=== PATIENT | male | born 1950 | race Caucasian/White ===

== ENCOUNTER 2024-01-27 07:02 | Outpatient (OUT) | payer BC, SELFPAY ==
[2024-01-27 07:32] LABS: Basophils Percent Auto 0.4 % (0.2-2.0); Eosinophils Absolute Auto 0.3 10^3/uL (0.0-0.7); Eosinophils Percent Auto 4.6 % (0.9-7.0); Hematocrit 37.4 % (42.0-54.0); Hemoglobin 12.8 g/dL (14.0-18.0); Immature Granulocytes Abs Auto 0.04 10^3/uL (0.00-0.03); Immature Granulocytes Pct Auto 0.6 % (0.0-0.5); Lymphocytes Absolute Auto 2.1 10^3/uL (1.2-3.8); Lymphocytes Percent Auto 31.7 % (20.5-60.0); Mean Corpuscular HGB Conc 34.2 g/dL (29.9-35.2); Mean Corpuscular Hemoglobin 31.8 pg (25.9-34.0); Mean Platelet Volume 9.7 fL (9.5-13.5); Monocytes Absolute Auto 0.6 10^3/uL (0.3-0.8); Monocytes Percent Auto 8.7 % (1.7-12.0); Neutrophils Absolute Auto 3.6 10^3/uL (1.4-6.5); Platelet Count 192 10^3/uL (150-450); Red Blood Count 4.02 10^6/uL (4.70-6.10); Red Cell Distribution Width 13.3 % (11.0-15.0); White Blood Count 6.8 10^3/uL (4.0-11.0)
[2024-01-27 09:06] LABS: Alanine Aminotransferase 34 U/L (16-63); Albumin Globulin Ratio 0.9; Albumin Level 3.4 g/dL (3.4-5.0); Alkaline Phosphatase 79 U/L (46-116); Anion Gap 15.4; Aspartate Amino Transferase 17 U/L (15-37); Bilirubin Total 0.4 mg/dL (0.2-1.0); Calcium 8.8 mg/dL (8.5-10.1); Carbon Dioxide 26.1 mmol/L (21.0-32.0); Chloride 102 mmol/L (98-107); Chol HDL Ratio 3.2; Cholesterol 117 mg/dL (<=200); Estimated GFR (African America 56 (>=60); Estimated GFR (Non-African Ame 46 (>=60); Globulin 3.9 g/dL; Glucose 163 mg/dL (74-106); HDL Cholesterol 36 mg/dL (40-60); Potassium 3.5 mmol/L (3.5-5.1); Sodium 140 mmol/L (136-145); Total Protein 7.3 g/dL (6.4-8.2); Triglycerides 295 mg/dL (<=150)
== END 2024-01-27 07:03 | disposition home or self-care (01) ==
LOC: LAB 07:09
PROVIDERS: PCP Nurse Practitioner Family; Visit Provider Nurse Practitioner
DX: E78.2 Mixed hyperlipidemia (principal); I25.10 Atherosclerotic heart disease of native coronary artery without angina pectoris
CPT/HCPCS: 36415; 80053; 80061; 85025

== ENCOUNTER 2024-02-15 14:00 | Outpatient (OUT) | payer BC, SELFPAY ==
--- NOTE | 2024-02-15 14:04 | CA_ITS ---
Patient Name: RONY THAKKAR MR#: [id number] : 1950 Exam Date: 02/15/2024 Ordering Doctor: DR ALEAH RECIO M.D. ECHOCARDIOGRAM REPORT PROCEDURE: CA ECHO DOPPLER COMPLETE INDICATIONS: Dyspnea COMPARISON: None. DESCRIPTION: COMPLETE ECHOCARDIOGRAM Real-time transthoracic echocardiography with 2D, M-mode, spectral and color flow Doppler performed. QUALITY: Technical quality was good. LEFT VENTRICLE: Normal chamber size. Proximal septal hypertrophy (sigmoid septum). Mild concentric left ventricular hypertrophy. Global left ventricular systolic function is normal. LV EF: Estimated left ventricular ejection fraction is 60-65 % DIASTOLIC: ATRIAL SEPTUM: LEFT ATRIUM: Moderate dilatation. RIGHT ATRIUM: Moderate dilatation. RIGHT VENTRICLE: Mild dilatation. Normal right ventricular systolic function. TRICUSPID VALVE: Normal mobility and thickness. No stenosis with trivial regurgitation. No evidence of pulmonary hypertension. RVSP 24 mmHg. MITRAL VALVE: Normal mobility and thickness. No evidence of mitral valve stenosis. There is no mitral annular calcification. Trivial mitral regurgitation. AORTIC VALVE: Normal trileaflet appearance. Thickened aortic valve. Normal leaflet mobility. No evidence of aortic valve stenosis. No aortic regurgitation. AORTIC ROOT: Normal diameter and appearance. PULMONIC VALVE: Normal thickness and mobility. No stenosis. Mild regurgitation. PERICARDIUM: No evidence of pericardial effusion. IVC: Collapses with inspirations. Normal size. PLEURA: CONCLUSION: 1. Mild concentric left ventricular hypertrophy with normal systolic function. LVEF is estimated at 60 to 65%. 2. Mildly dilated right ventricle with normal systolic function. 3. Moderate biatrial dilatation. 4. No significant valvular dysfunction. 5. Normal right-sided pressures. Adult Echocardiography Procedure Report Left Ventricle LVEDD (3.7 - 5.6 cm): 5.01 cm LVESD (2.2 - 4.0 cm): 3.39 cm LVIVS thickness (0.6 - 1.2 cm): 1.21 cm LVPW thickness (0.5 - 1.0 cm): 1.35 cm e': 0.11 m/s E - e': 5.95 LVOT Max Gradient: 4.74 mm[Hg] LVOT Area (cm2): 1.09 m/s Peak Velocity (LVOT): 1.09 m/s Mean Velocity (LVOT): 0.75 m/s LVOT Diameter 2.38 cm Left Ventricular Ejection Fraction: 60-65 % Left Atrium LA Volume Index (2D A2C): 30.05 ml/m2 Left Atrium Systolic Dimension: 4.44 cm Mitral Valve MV E to A Ratio: 1.28, 1.31 Mitral Valve A-Wave Peak Velocity: 0.49 m/s Mitral Valve E-Wave Peak Velocity: 0.64 m/s Right Ventricle RV Internal Diastolic Dimension: 3.62 cm Aorta AO Root Diam: 3.17 cm Ascending Ao Diam: 2.99 cm Aortic Valve AoV Area (Peak Erik): 4.11 cm2, 4.11 cm2 AoV Area (VTI): 3.89 cm2, 3.89 cm2 Peak Velocity(Antegrade Flow): 1.18 m/s Peak Gradient(Antegrade Flow): 5.58 mm[Hg] Mean Velocity(Antegrade Flow): 0.81 m/s Mean Gradient(Antegrade Flow): 3.02 mm[Hg] Velocity Time Integral: 25.16 cm Tricuspid Valve Peak Velocity (Regurgitant Flow): 2.13 m/s, 1.95 m/s, 2.28 m/s Pulmonic Valve Mean Gradient: 2.21 mm[Hg], 2.21 mm[Hg] Mean Velocity: 0.71 m/s, 0.71 m/s Peak Velocity: 0.98 m/s Peak Gradient: 3.87 mm[Hg], 3.82 mm[Hg] Right Atrium Right Atrium Systolic Pressure: 72.19 ml, 72.19 ml Dictated by: Aleah Recio M.D. on 02/15/2024 at 19:35 Approved by: Aleah Recio M.D. on 02/15/2024 at 19:41
== END 2024-02-15 14:01 | disposition home or self-care (01) ==
LOC: CARD 14:00
PROVIDERS: PCP Nurse Practitioner Family; Visit Provider Internal Medicine Interventional Cardiology
DX: R06.02 Shortness of breath (principal)
CPT/HCPCS: 93306

== ENCOUNTER 2024-03-13 08:00 | Outpatient (OUT) | payer BC, SELFPAY ==
--- NOTE | 2024-03-13 | PCN_ITS ---
CARDIAC STRESS TEST Requesting Physician: Procedure Date: 03/13/2024 INDICATION: Preoperative evaluation. METHODS: After risks, benefits and alternatives were explained, written informed consent was obtained. The patient was brought to the stress lab in a resting and fasting state. He was connected to the appropriate hemodynamic and electrocardiographic monitoring. Lexiscan 0.4 mg was infused intravenously. He was monitored for the standard duration and transferred to the Radiology Department for nuclear imaging. There were no complications. STRESS TEST INFORMATION: Lexiscan 0.4 mg was infused intravenously. He received 32.5 mCi of technetium Cardiolite with stress imaging and 9.7 mCi of technetium Cardiolite with rest imaging. HEMODYNAMICS: Resting heart rate was 61 beats per minute, increasing to a maximum of 93 beats per minute. Resting blood pressure was 136/66, decreasing to a minimum of 130/66. ELECTROCARDIOGRAPHY: Rest EKG: Sinus rhythm, first degree AV block, right bundle branch block, abnormal EKG. During infusion and recovery: No significant ST-T wave changes noted. No significant arrhythmia seen. FINAL IMPRESSIONS: 1. No ischemic EKG changes seen on Lexiscan pharmacological stress test. 2. Nuclear images are to be read, interpreted and reported in a separate dictation. [facility]
--- NOTE | 2024-03-13 | NM_ITS ---
Patient Name: RONY THAKKAR MR#: [id number] : 1950 Exam Date: 03/13/2024 Ordering Doctor: DR ALEAH BONDS M.D. RADIOLOGY REPORT PROCEDURE: NM JERRELL PERF SPECT REST STR COMPARISON: None. INDICATIONS: Encounter for other preprocedural examination TECHNIQUE: Exam Description: Stress/Rest one day protocol gated SPECT Rest Imagin.7 mCi Tc-99m Cardiolite IV on 03/13/2024 Stress Imaging 32.5 mCi Tc-99m Cardiolite IV on 03/13/2024 Exercise Protocol: 0.4 mg Lexiscan given IV Heart Rate (bpm): Rest: 61 Max: 93 PMHR: 62 Blood Pressure: Rest: 136/66 Max: 136/66 Symptoms: Rest and peak stress ECG findings were normal and the exercise portion of the study was normal per attending physician Dr. Shaver . For more details please see separate cardiac stress test report. FINDINGS: QUALITY OF STUDY: Good. PERFUSION DEFECT: LOCATION: Mid-anterior. SIZE: Small (1-2 segments). SEVERITY: Mild. TYPE: Persistent. WALL MOTION: Normal. LV SIZE: Normal. 105 mL. TID / TCD: None; 0.9 LVEF: Normal. Calculated EF 68%. SUMMARY: Myocardial perfusion imaging study has ABNORMAL findings. CONCLUSION: 1. Small fixed defect anterior wall, mid anterior segment 2. No reversible ischemia 3. Normal exercise test Dictated by: Jung Mak MD on 03/14/2024 at 14:10 Approved by: Jung Mak MD on 03/14/2024 at 14:11
[2024-03-13] MEDS: REGADENOSON 0.4 MG/5 ML SYRINGE IV (09:32)
--- NOTE | 2024-03-13 09:33 | PC.NURSE ---
Nursing Note Cardiac Stress Test Reviewed: Medication, allergies and patient history reviewed. Stress Test: [x ] Patient tolerated stress test well. [ ] Patient unable to tolerate walking on treadmill. Switched to Lexiscan stress test. [x ] No chest pain noted per patient [ ] Chest pain that resolved prior to leaving stress lab. [ ] No dyspnea noted. [x ] Dyspnea that resolved prior to leaving stress lab. [ x] Patient left stress lab asymptomatic and hemodynamically stable. [ ] Patient taken to the Emergency Room due to non-resolving symptoms following stress test. [ ] Patient achieved target heart rate. [ ] Patient unable to achieve target heart rate. [ ] Aminophylline administered as reversal agent to Lexiscan (Regadenoson). [ ] Nitro administered. Nursing Comments:
== END 2024-03-13 08:01 | disposition home or self-care (01) ==
LOC: NM 08:00
PROVIDERS: PCP Nurse Practitioner Family; Visit Provider Internal Medicine Interventional Cardiology
DX: Z01.818 Encounter for other preprocedural examination (principal); R06.09 Other forms of dyspnea
CPT/HCPCS: 78452; 93017; A9500; J2785

== ENCOUNTER 2025-03-12 16:21 | Outpatient (OUT) | payer BC, SELFPAY ==
[2025-03-12 16:49] LABS: Hematocrit 34.5 % (42.0-54.0); Hemoglobin 12.5 g/dL (14.0-18.0); Immature Granulocytes Abs Auto 0.04 10^3/uL (0.00-0.03); Immature Granulocytes Pct Auto 0.6 % (0.0-0.5); Lymphocytes Absolute Auto 2.6 10^3/uL (1.2-3.8); Mean Corpuscular HGB Conc 36.2 g/dL (29.9-35.2); Mean Corpuscular Hemoglobin 33.7 pg (25.9-34.0); Mean Corpuscular Volume 93.0 fL (80.0-94.0); Platelet Count 197 10^3/uL (150-450); Red Blood Count 3.71 10^6/uL (4.70-6.10); White Blood Count 7.0 10^3/uL (4.0-11.0)
[2025-03-12 17:21] LABS: Alanine Aminotransferase 29 U/L (16-63); Albumin Globulin Ratio 0.9; Albumin Level 3.5 g/dL (3.4-5.0); Alkaline Phosphatase 78 U/L (46-116); Anion Gap 9.6; Aspartate Amino Transferase 16 U/L (15-37); Blood Urea Nitrogen 22.0 mg/dL (7.0-18.0); Calcium 9.2 mg/dL (8.5-10.1); Carbon Dioxide 30.7 mmol/L (21.0-32.0); Chloride 104 mmol/L (98-107); Estimated GFR (African America >60 (>=60 mL/min/1.73m^2); Estimated GFR (Non-African Ame 56 (>=60 mL/min/1.73m^2); Globulin 3.8 g/dL; Glucose 188 mg/dL (74-106); NT Pro B Type Natriuretic Pept 278.0 pg/mL (<=900.0); Potassium 3.3 mmol/L (3.5-5.1); Sodium 141 mmol/L (136-145); Thyroid Stimulating Hormone 1.347 uIU/mL (0.358-3.740); Total Protein 7.3 g/dL (6.4-8.2)
== END 2025-03-12 16:22 | disposition home or self-care (01) ==
PROVIDERS: PCP Nurse Practitioner Family
DX: R06.02 Shortness of breath (principal); R53.83 Other fatigue
CPT/HCPCS: 36415; 80053; 83880; 84443; 85025

== ENCOUNTER 2025-03-22 16:07 | Outpatient (OUT) | payer BC, SELFPAY ==
--- OUTSIDE RECORDS SUMMARY | 2024-05-17 05:24 | XMS_ITS ---
Author Organization The [facility] in [place] Address [address] [place] [address] Care Team Providers Care Lump Roller Name Role Phone Ashley Forman Primary Care [...] Active Encounters Encounter Location Date Provider Diagnosis [facility] [address] [place] [address] 05/17/2024 Ashley Forman Plan Of Treatment Medication [...] Notes * Vivek KNOTTDOB: (74 yo M)Acc No.[id number]:05/17/2024 Patient: Vivek TORRES :1950 A ge:74 Y S ex:Male Address:[address] [place] [address] * Refills Refill tiZANidine HCl Tablet, 4 [...] Date: Generated for Blair polanco/Ghazal/Hema on: 0 03/22/2025 04:11 PM EDT
--- OUTSIDE RECORDS SUMMARY | 2024-05-22 07:59 | XMS_ITS ---
Author Organization The [facility] in [place] Address [address] [place] [address] Care Team Providers Care Benefits Specialist Recruiter Name Role Phone Ashley Forman Primary Care Provider [phone] REASON FOR VISIT colonoscopy not due Encounters Encounter Location Date Provider Diagnosis [facility] [address] [place] [address] 05/22/2024 Ashley Forman Plan Of Treatment No Information Progress Notes * Vivek KNOTTDOB: (74 yo M)Acc No.[id number]:05/22/2024 Patient: Vivek TORRES :1950 A ge:74 Y S ex:Male Address:[address] [place] [address] * true * Date: Generated for Printi ng/Famaria alejandrag/eTransmitting on: 0 03/22/2025 04:10 PM EDT
--- OUTSIDE RECORDS SUMMARY | 2024-06-12 07:55 | XMS_ITS ---
Author Organization The [facility] in [place] Address [address] [place] [address] Care Team Providers Care Licensed Chemical Spray Technician Name Role Phone Ashley Forman Primary Care Provider Medications Medication SIG (Take, Route, Fr equency, Duration) Notes Start Date End Date Status metFORMIN HCl 1000 MG take 1 tablet by m outh twice a day Oral for 90 days Active Encounters Encounter Location Date Provider Diagnosis [facility] [address] [place] [address] 06/12/2024 Ashley Forman Plan Of Treatment Medication Medication Name Sig Start Date Stop Date Notes metFORMIN HCl 1000 MG take 1 tablet by m outh twice a day Oral for 90 days Progress Notes * Vivek KNOTTDOB: (74 yo M)Acc No.[id number]:06/12/2024 Patient: Vivek TORRES :1950 A ge:74 Y S ex:Male Address:[address] [place] [address] * Refills Refill metFORMIN HCl Tablet, 1000 MG, Oral, 180 Each, take 1 tablet by mouth twice a day, 90 days, Refills=3 * true * Date: Generated for Printi ng/Faxing/eTransmitting on: 0 03/22/2025 04:10 PM EDT
--- NOTE | 2025-03-22 16:00 | CA_ITS ---
Patient Name: RONY THAKKAR MR#: [id number] : 1950 Exam Date: 03/22/2025 Ordering Doctor: PARIS MCKEON ECHOCARDIOGRAM REPORT PROCEDURE: CA ECHO DOPPLER COMPLETE INDICATIONS: Dyspnea on exertion, hypertension COMPARISON: None. DESCRIPTION: COMPLETE ECHOCARDIOGRAM Real-time transthoracic echocardiography with 2D, M-mode, spectral and color flow Doppler performed. QUALITY: Technical quality was good. LEFT VENTRICLE: Normal chamber size. Mild concentric left ventricular hypertrophy. LV EF: Global left ventricular systolic function is normal. Calculated left ventricular ejection fraction is 65%. No significant wall motion abnormalities. DIASTOLIC: Normal diastolic function. ATRIAL SEPTUM: Inadequately seen. LEFT ATRIUM: Normal chamber size. RIGHT ATRIUM: Mild dilatation. RIGHT VENTRICLE: Normal chamber size. Normal right ventricular systolic function. TRICUSPID VALVE: Normal mobility and thickness. No stenosis with mild regurgitation. No evidence of pulmonary hypertension. RVSP 22mmHg. MITRAL VALVE: Normal mobility and thickness. No evidence of mitral valve stenosis. There is no mitral annular calcification. Trivial mitral regurgitation. AORTIC VALVE: Normal trileaflet appearance. Mildly calcified aortic valve. Normal leaflet mobility. No evidence of aortic valve stenosis. No aortic regurgitation. AORTIC ROOT: Normal diameter and appearance. PULMONIC VALVE: Normal thickness and mobility. No stenosis. Mild regurgitation. PERICARDIUM: No evidence of pericardial effusion. IVC: Collapses with inspiration. Normal size. CONCLUSION: 1. Global left ventricular systolic function is normal; visually estimated ejection fraction is 60 to 65% 2. Normal right ventricular size and systolic function 3. Mild left ventricular hypertrophy 4. Normal diastolic function 5. The right atrium is mildly dilated 6. Mild pulmonic regurgitation Adult Echocardiography Procedure Report Left Ventricle LVEDD (3.7 - 5.6 cm): 5.25 cm LVESD (2.2 - 4.0 cm): 3.19 cm LVIVS thickness (0.6 - 1.2 cm): 1.15 cm LVPW thickness (0.5 - 1.0 cm): 1.18 cm e': 0.13 m/s E - e': 4.35 LVOT Max Gradient: 4.61 mm[Hg] LVOT Area (cm2): 1.07 m/s Peak Velocity (LVOT): 1.07 m/s Mean Velocity (LVOT): 0.64 m/s LVOT Diameter 2.22 cm Left Ventricular Ejection Fraction: 65.03 % Left Atrium LA Volume Index (2D A2C): 35.29 ml/m2 Left Atrium Systolic Dimension: 4.58 cm Mitral Valve MV E to A Ratio: 1.09 Mitral Valve A-Wave Peak Velocity: 0.51 m/s Mitral Valve E-Wave Peak Velocity: 0.56 m/s Right Ventricle RV Internal Diastolic Dimension: 3.93 cm Aorta AO Root Diam: 3.35 cm Ascending Ao Diam: 3.19 cm Aortic Valve AoV Area (Peak Erik): 4.04 cm2, 4.04 cm2 AoV Area (VTI): 3.24 cm2, 3.24 cm2 Peak Velocity(Antegrade Flow): 1.03 m/s Peak Gradient(Antegrade Flow): 4.25 mm[Hg] Mean Velocity(Antegrade Flow): 0.71 m/s Mean Gradient(Antegrade Flow): 2.33 mm[Hg] Velocity Time Integral: 23.00 cm Tricuspid Valve Peak Velocity (Regurgitant Flow): 2.19 m/s Pulmonic Valve Mean Gradient: 1.98 mm[Hg] Mean Velocity: 0.68 m/s Peak Velocity: 0.90 m/s, 0.97 m/s Peak Gradient: 3.73 mm[Hg], 3.22 mm[Hg] Right Atrium Right Atrium Systolic Pressure: 79.50 ml, 79.50 ml Dictated by: Becca Shaver M.D. on 03/23/2025 at 13:11 Approved by: Becca Shaver M.D. on 03/23/2025 at 13:13
--- OUTSIDE RECORDS SUMMARY | 2025-03-22 16:11 | XMS_ITS | Encounter Summary ---
Author Organization The [facility] Address [address] [place] [address] Care Team Providers Care Sand Caster Apprentice Name Role Phone Jens Umana MD Primary Care Provider [phone] Ashley Forman CNP Primary Care Provider [phone] Reason for Visit * Reason Comments Med Refill Encounter Details Date Type Department Care Team (Late st Contact Info) Description 11/09/2022 Refill [facility] Cardiology [address] [place] [address] Keely Faustin CNP [address] [place] [address] Coronary artery disease, unspecified vessel or lesion type, unspecified whether angina present, unspecified whether [place] or transplanted heart Social History Tobacco Use Types Packs/Day Years Used Date Smoking Tobacco: Never Assessed Sex and Gender Information Value Date Recorded Sex Assigned at Male 03/20/2025 3:51 PM EDT Legal Sex Male 11:52 PM EDT Gender Identity Male 03/20/2025 3:51 PM EDT Sexual Orientation Heterosexual or Straight 03/02 3:51 PM EDT COVID-19 Exposure Response Date Recorded In the last 10 days, have yo u been in contact with someone who was confirmed or suspected to have Coronavirus/COVID-19? No / Unsure 10/12/2022 3:27 PM EDT documented as of this encounter Plan of Treatment Upcoming Encounters Date Type Department Care Team (Late st Contact Info) Description 03/26/2025 2:20 PM EDT Office Visit [facility] [address] [place] [address] Kameron Wolf, FANNY [address] [place] [address] documented as of this encounter Visit Diagnoses Diagnosis Coronary artery disease, unspecified vessel or lesion type, unspecified whether angina present, unspecified whether [place] or transplanted heart documented in this encounter Care Teams Sand Caster Apprentice Relationship Specialty Start Date End Date Jens Umana MD [address] [facility] [address] PCP - General 03/20/22 03/30/23 Ashley Forman CNP [address] [place] [address] PCP - General Family Medicine 03/31/23 documented as of this encounter
--- OUTSIDE RECORDS SUMMARY | 2025-03-22 16:11 | XMS_ITS | Encounter Summary ---
Author Organization [facility] Address [address] [place] [address] Care Team Providers Care Student Education Specialist Name Role Phone Ashley Forman CNP Primary Care Provider [phone] Reason for Visit * Reason Comments Med Refill Encounter Details Date Type Department Care Team (Late st Contact Info) Description 11/16/2023 Refill [facility] Cardiology [address] [place] [address] Keely Faustin, HRIS DEVELOPER [address] [place] [address] Essential hypertension Social History Tobacco Use Types Packs/Day Years Used Date Smoking Tobacco: Former Cigarettes 1 15 1 972 - 1987 Smokeless Tobacco: Never NM Safety & Environment Answer Date Rec orded Fear of Current or Ex-Partner Not on file Emotionally Abused Not on file 09/23/2023 Physically Abused Not on file 09/23/2023 Sexually Abused Not on file 09/23/2023 Physically or Sexually Abused Not on file Sex and Gender Information Value Date Recorded Sex Assigned at Male 03/20/2025 3:51 PM EDT Legal Sex Male 11:52 PM EDT Gender Identity Male 03/20/2025 3:51 PM EDT Sexual Orientation Heterosexual or Straight 03/02 3:51 PM EDT documented as of this encounter Plan of Treatment Upcoming Encounters Date Type Department Care Team (Late st Contact Info) Description 03/26/2025 2:20 PM EDT Office Visit [facility] [address] [place] [address] Kameron Wolf, FANNY [address] [place] [address] documented as of this encounter Visit Diagnoses Diagnosis Essential hypertension Unspecified essential hypertension documented in this encounter Care Teams Student Education Specialist Relationship Specialty Start Date End Date Ashley Forman CNP [facility], [facility] [place] [address] PCP - General Family Medicine 03/31/23 documented as of this encounter
--- OUTSIDE RECORDS SUMMARY | 2025-03-22 16:11 | XMS_ITS | Encounter Summary ---
Author Organization [facility] Address [address] [facility] [place] [address] Care Team Providers Care Explosive Man Name Role Phone Jens Umana MD Primary Care Provider [phone] Encounter Details Date Type Department Care Team ([facility] Contact Info) Description 03/27/2024 Clinisync Result Encounter [facility] External Department Unsolicited Richie Castano DO [address] [place] [address] Social History Tobacco Use Types Packs/Day Years Used Date Smoking Tobacco: Former Cigarettes Smokeless Tobacco: Never Alcohol Use Standard Drinks/Week Comments Never 0 (1 standard drink = 0.6 oz pur e alcohol) Sex and Gender Information Value Date Recorded Sex Assigned at Not on file Legal Sex Male 7:18 PM EDT Gender Identity Not on file Sexual Orientation Not on file documented as of this encounter Plan of Treatment Upcoming Encounters Date Type Department Care Team (Late Contact Info) Description 08/07/2025 3:45 PM EST Office Visit [facility] [address] [place] [phone] Richie Castano DO [address] [place] [address] documented as of this encounter Procedures Procedure Name Priority Date/Time Associated Diagnosis Comments XR HIP 1 VIEW LEFT + PELVIS 03/27/2024 9:38 AM EDT documented in this encounter Results * XR HIP 1 VIEW LEFT + PELVIS (03/27/2024 9:38 AM EDT) Anatomical Region Laterality Modality Other 03/27/2024 9:38 AM EDT Narrative 03/28/2024 3:03 PM EDT Exam Date/Time: 03/27/2024 10:02 EDT Reason for Exam: Post Op Report IMPRESSION: POSTSURGICAL CHANGES OF LEFT TOTAL HIP ARTHROPLASTY. EXAM: X-ray hip, 2 view HISTORY: Postoperative evaluation total hip arthroplasty TECHNIQUE: Frontal and lateral views of the left hip COMPARISON: Radiographs 04/30/2020 FINDINGS: Interval postsurgical changes of left total hip arthroplasty including soft tissue emphysema. Alignment is anatomic. No periprosthetic abnormality. Postsurgical changes of right hip arthroplasty again identified. Ordering Provider: Richie Castano FINAL REPORT Dictated: 03/28/2024 3:00 pm Octavio Granado DO Signed (Electronic Signature): 03/28/2024 3:00 pm Signed by: Octavio Granado DO Transcribed by: FORREST Technologist: LIZBETH Technical Comments Radiation Dose: Ka,r in mGy = . DAP = . Procedure Note Radiology, Radiologist, MD - 03/28/2024 Exam Date/Time: 03/27/2024 10:02 EDT Reason for Exam: Post Op Report IMPRESSION: POSTSURGICAL CHANGES OF LEFT TOTAL HIP ARTHROPLASTY. EXAM: X-ray hip, 2 view HISTORY: Postoperative evaluation total hip arthroplasty TECHNIQUE: Frontal and lateral views of the left hip COMPARISON: Radiographs 04/30/2020 FINDINGS: Interval postsurgical changes of left total hip arthroplasty includingsoft tissue emphysema. Alignment is anatomic. No periprosthetic abnormality.Postsurgical changes of right hip arthroplasty again identified. Ordering Provider: Richie Castano FINAL REPORT Dictated: 03/28/2024 3:00 pm Octavio Granado DO Signed (Electronic Signature): 03/28/2024 3:00 pm Signed by: Octavio Granado DO Transcribed by: FORREST Technologist: LIZBETH Technical Comments Radiation Dose: Ka,r in mGy = . DAP = . Richie Castano DO [facility] Final Resu lt documented in this encounter Visit Diagnoses Not on filedocumented in this encounter Care Teams Explosive Man Relationship Specialty Start Date End Date Jens Umana MD PCP - General Family Medicine 02/22/24 documented as of this encounter
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
--- OUTSIDE RECORDS SUMMARY | 2025-03-22 16:11 | XMS_ITS | Encounter Summary ---
Author Organization [facility] Address [address] [place] [address] Care Team Providers Care Health Services Coordinator Name Role Phone Ashley Forman CNP Primary Care Provider [phone] Reason for Visit * Reason Comments Med Refill Encounter Details Date Type Department Care Team (Late st Contact Info) Description 04/01/2023 Refill [facility] [address] [place] [address] Keely Faustin, BLOW MOLDING MACHINE OPERATOR [address] [place] [phone] Chest pain, unspecified type Social History Tobacco Use Types Packs/Day Years Used Date Smoking Tobacco: Former Cigarettes 1 16 08 972 1986 Smokeless Tobacco: Never Sex and Gender Information Value Date Recorded [...] suspected to have Coronavirus/COVID-19? No / Unsure 03/31/2023 2:58 PM EDT documented as of this encounter Plan of Treatment Upcoming Encounters Date Type Department Care Team (Late Contact Info) Description 03/26/2025 2:20 PM EDT Office Visit [facility] [address] [place] [address] Kameron Wolf, FANNY [address] [facility] [place] [address] documented as of this encounter Visit Diagnoses Diagnosis Chest pain, unspecified type documented in this encounter Care Teams Health Services Coordinator Relationship Specialty Start Date End Date Ashley Forman CNP [facility] [facility], [place] [address] PCP - General Family Medicine 03/31/23 documented as of this encounter
--- OUTSIDE RECORDS SUMMARY | 2025-03-22 16:11 | XMS_ITS | Clinical Summary ---
Author Organization [facility] Address [id number] [address] [place] [address] Care Team Providers Care Merchandise Clerk Name Role Phone Ashley Forman SEMICONDUCTOR WAFERS SAW OPERATOR-CAN DRAGGER Primary Care Provider Allergies Active Allergy Reactions Criticality Noted Date Comments Aspirin Anaphylaxis High 09/25/2019 Penicillins Swelling,Rash Low 09/25/2019 Medications pantoprazole (PROTONIX) 40 mg EC tablet Take 40 mg by mouth 2 (two) times a day. Active furosemide (LASIX) 20 mg tablet Take 20 mg by mouth daily. Active metoprolol tartrate (LOPRESSOR) 25 mg tablet Take 25 mg by mouth 2 (two) times a day. Active SITagliptin (JANUVIA) 100 mg tablet Take 100 mg by mouth daily. Active clopidogreL (PLAVIX) 75 mg tablet Take 75 mg by mouth daily. Active amLODIPine (NORVASC) 10 mg tablet Take 10 mg by mouth daily. Active glimepiride (AMARYL) 4 mg tablet Take 4 mg by mouth every morning before breakfast. Active atorvastatin (LIPITOR) 40 mg tablet Take 40 mg by mouth daily. Active isosorbide mononitrate (IMDUR) 60 mg 24 hr tablet Take 60 mg by mouth daily. Active lisinopriL (PRINIVIL,ZESTRI L) 20 mg tablet Take 20 mg by mouth daily. Active hydroCHLOROthiaz bradly (MICROZIDE) 12.5 mg capsule Take 12.5 mg by mouth daily. Active metFORMIN (GLUCOPHAGE) 1000 mg tablet Take 1,000 mg by mouth 2 (two) times a day with meals. Active ecazidrq-hvrg-WB -calcium &mins (THERAGRAN-M) 9 mg iron-400 mcg tablet Take 1 tablet by mouth daily. Active ferrous sulfate 325 (65 FE) mg tablet Take 325 mg by mouth daily with breakfast. Active polycarbophil (FIBERCON) 625 mg tablet Take 625 mg by mouth daily. Active Family History Medical History Relation Name Comments Heart disease Brother 1 COPD Brother 2 Heart disease Father Cancer Mother brain Heart disease Mother COPD Sister Heart disease Sister Relation Name Status Comments Brother 1 Alive Brother 2 Alive Father Mother Sister Alive Social History Tobacco Use Types Packs/Day Years Used Date Smoking Tobacco: Former Smokeless Tobacco: Never Alcohol Use Standard Drinks/Week Comments Yes 0 (1 standard drink = 0.6 oz pur e alcohol) occassional Childcare Answer Date Recorded Childcare Unknown 01/11/2019 Employment Answer Date Recorded Employment Unknown 01/11/2019 Purpose - Life Answer Date Recorded Purpose and direction in life Unknown Sex and Gender Information Value Date Recorded Sex Assigned at Not on file Legal Sex Male 11:43 AM EDT Gender Identity Not on file Sexual Orientation Not on file Last Filed Vital Signs Vital Sign Reading Time Taken Comments Blood Pressure - - Pulse - - Temperature - - Respiratory Rate - - Oxygen Saturation - - Inhaled Oxygen Concentration - - Weight 106.6 kg (235 lb) 09/25/2019 9:37 AM EST Height 175.3 cm (5' 9 ) 09/25/2019 9:37 AM EST Body Mass Index 34.7 09/25/2019 9:37 AM EST Plan of Treatment Health Maintenance Due Date Last Done Comments Depression Screening 1962 Tobacco Screening 1962 Adult BMI Screening 1969 Zoster (Shingles) Vaccine (1 of 2) 2001 Fall Risk Screening 2016 Influenza Vaccine 04/02/2025 DTaP,Tdap and Td Vaccines (2 - Td or Tdap) 09/21/2025 09/21/2015 Medical Devices Not on file Insurance [facility] Care Teams Merchandise Clerk Relationship Specialty Start Date End Date Ashley Forman, SEMICONDUCTOR WAFERS SAW OPERATOR-CAN DRAGGER [address] [place] [address] PCP - General Family Medicine 09/25/19
--- OUTSIDE RECORDS SUMMARY | 2025-03-22 16:11 | XMS_ITS | Encounter Summary ---
Author Organization [facility] Address [address] [facility] [place] [address] Care Team Providers Care Staff Pharmacist Hospital Name Role Phone Jens Umana MD Primary Care Provider [phone] Encounter Details Date Type Department Care Team ([facility] Contact Info) Description 03/21/2024 Abstract [facility] [address] [facility] [address] CH[address]I Marge [facility] [place] [address] Angelic Crawley, TAYO [address] [place], [place] Social History Tobacco Use Types Packs/Day Years [...] 08/07/2025 3:45 PM EST Office Visit [facility] [address] CHIDI Bird [facility] [place] [address] Richie Castano DO [address] [place], [place] [id number] documented as of this encounter Visit Diagnoses Not on filedocumented in this encounter Care Teams Staff Pharmacist Hospital Relationship Specialty Start Date End Date Jens Umana MD PCP - General Family Medicine 02/22/24 documented as of this encounter
--- OUTSIDE RECORDS SUMMARY | 2025-03-22 16:11 | XMS_ITS | Encounter Summary ---
Author Organization [facility] Address [address] [place] [address] Care Team Providers Care Battery Charger Name Role Phone Jens Umana MD Primary Care Provider [phone] Ashley Forman CNP Primary Care Provider [phone] Reason for Visit * Reason Comments Med Refill Encounter Details Date Type Department Care Team (Late st Contact Info) Description 11/04/2022 Refill [facility] [address] [place] [address] Joby Recio MD [address] [facility] [address] [facility] [place] [address] Benign hypertensive heart disease without congestive heart failure Social History Tobacco Use Types Packs/Day Years [...] Description 03/26/2025 2:20 PM EDT [facility] [address] [place] [address] Kameron Wolf, FANNY [address] [place] [address] documented as of this encounter Visit Diagnoses Diagnosis Benign hypertensive heart disease without congestive heart failure Benign hypertensive heart disease without heart failure documented in this encounter Care Teams Battery Charger Relationship Specialty Start Date End Date Jens Umana MD [address] [facility] [place] [address] PCP - General 03/20/22 03/30/23 Ashley Forman CNP [address] [place] [address] PCP - General Family Medicine 03/31/23 documented as of this encounter
--- OUTSIDE RECORDS SUMMARY | 2025-03-22 16:11 | XMS_ITS | Clinical Summary ---
Author Organization [facility] Address [address] [place] [address] Care Team Providers Care Surgical Instrument Repair Specialist Name Role Phone Dasia Ashley ESCOBEDO Primary Care Provider [phone] Allergies Active Allergy Reactions Criticality Noted Date Comments Aspirin Other 01/27/2024 High dose is able to take low dose Penicillins Rash,Swelling,Other Low 09/25/2019 Medications aspirin 81 mg chewable tablet in the morning. Active glimepiride (Amaryl) 4 mg tablet glimepiride 4 mg tablet take 1 tablet by mouth once daily Active SITagliptin (Januvia) 100 mg tablet Januvia 100 mg tablet take 1 tablet by mouth once daily Active metFORMIN (Glucophage) 1,000 mg tablet metformin 1,000 mg tablet take 1 tablet by mouth twice a day Active nitroglycerin (Nitrostat) 0.4 mg SL tablet nitroglycerin 0.[address] 1 tablet under the tongue if needed every 5 minutes for chest pain for MAXIMUM OF 3 DOSES Active pantoprazole (ProtoNix) 40 mg EC tablet pantoprazole 40 mg tablet,delayed release take 1 tablet by mouth twice a day Active tiZANidine (Zanaflex) 4 mg tablet tizanidine 4 mg tablet take 1 tablet by mouth twice a day if needed Active calcium polycarbophiL (Fibercon) 625 mg tablet Take 625 mg by mouth in the morning. Active cholecalciferol, vitamin D3, 50 mcg (2,000 unit) capsule cholecalciferol (vitamin D3) 50 mcg (2,000 unit) capsule take 1 capsule by mouth once daily Active ferrous sulfate 325 (65 Fe) MG tablet Take 325 mg by mouth. Active multivitamin (Theragran-M) 9 mg iron-400 mcg tablet Take 1 tablet by mouth in the morning. Active amLODIPine (Norvasc) 10 mg tabletIndications :Essential hypertension Take 1 tablet (10 mg) by mouth once daily as directed. 90 tablet 3 06/13/20 24 Active hydroCHLOROthiazi de (HYDRODiuril) 25 mg tabletIndications :Essential hypertension Take 1 tablet (25 mg) by mouth in the morning. 90 tablet 3 06/13/20 24 Active isosorbide mononitrate ER (Imdur) 120 mg 24 hr tabletIndications :Chest pain, unspecified type Take 1 tablet (120 mg) by mouth once daily as directed. 90 tablet 3 06/19/20 24 Active atorvastatin (Lipitor) 40 mg tabletIndications :Coronary artery disease due to lipid rich plaque Take 1 tablet (40 mg) by mouth in the morning. 90 tablet 3 08/03/19 25 026 Active metoprolol tartrate (Lopressor) 25 mg tabletIndications :Benign hypertensive heart disease without congestive heart failure Take 1.5 tablets (37.5 mg) by mouth two times daily. 270 tablet 3 12/08/19 25 026 Active furosemide (Lasix) 20 mg tabletIndications :Primary hypertension Take 1 tablet (20 mg) by mouth in the morning. 90 tablet 3 12/08/19 25 026 Active potassium chloride CR (K-Tab) 20 mEq ER tabletIndications :Edema, unspecified type Take 1 tablet (20 mEq) by mouth in the morning. 90 tablet 3 12/08/19 25 Active lisinopril 20 mg tabletIndications :Essential hypertension Take 1 tablet (20 mg) by mouth in the morning. 90 tablet 3 12/08/19 25 Active Active Problems Problem Noted Date Diagnosed Date Colon polyps 02/27/2025 Constipation 02/27/2025 Depression 02/27/2025 Dyspepsia 02/27/2025 Dyssynergia 02/27/2025 Heartburn 02/27/2025 Hemorrhoids 02/27/2025 Skin cancer 02/27/2025 Vertigo 02/27/2025 Difficulty walking 03/29/2024 Chronic fatigue, unspecified 03/31/2023 Diabetic neuropathy 03/31/2023 03/31/2023 Edema 03/31/2023 03/31/2023 Gastroesophageal reflux disease 03/31/2023 03/31/2023 Hyperlipidemia 03/31/2023 03/31/2023 Assessment & Plan (07/16/2023 4:28 PM EST): Lipid levels are well-controlled continue Lipitor 40 mg Assessment & Plan (03/31/2023 3:56 PM EDT): Lipid abnormalities are stable Continue lipitor Insomnia 03/31/2023 03/31/2023 Right hip pain 03/31/2023 03/31/2023 Pain in joint involving pelvic region and thigh 03/31/2023 03/31/2023 Shoulder joint pain 03/31/2023 03/31/2023 Vitamin D deficiency 03/31/2023 03/31/2023 Low back pain 03/31/2023 03/31/2023 Thoracic back pain 03/31/2023 03/31/2023 Assessment & Plan (03/31/2023 3:57 PM EDT): May need to f/U with PCP Unstable angina 03/31/2023 03/31/2023 Coronary artery disease invo lving [place] coronary artery of [place] heart without angina pectoris 05/18/2022 Assessment & Plan (07/16/2023 4:29 PM EST): Coronary artery disease is stable Continue GDMT- Aspirin, Plavix, Lipitor, Imdur, lisinopril, metoprolol continue risk factor modifications- heart healthy diet, regular exercise as tolerated and continue all medications. Assessment & Plan (03/31/2023 3:56 PM EDT): Coronary artery disease is Stable and patient states he actually has a better activity tolerance status post heart cath last March and PCI to SVG to diag Continue GDMT continue risk factor modifications- heart healthy diet, regular exercise as tolerated and continue all medications. Degenerative joint disease of right hip 05/18/20 Diabetes mellitus 05/18/2022 History of right hip replacement 05/18/2022 Hypertension 05/18/2022 Assessment & Plan (07/16/2023 4:28 PM EST): Hypertension is Well-controlled 116/68 continue all medicine Assessment & Plan (03/31/2023 3:57 PM EDT): Hypertension is Currently well controlled 106/62 continue all medications including amlodipine, Chlorothiazide, Imdur, lisinopril, metoprolol Primary localized osteoarthritis of pelvic regio n and thigh 05/18/2022 History of coronary artery bypass graft 05/18/20 22 Assessment & Plan (07/16/2023 4:29 PM EST): stable Type 2 diabetes mellitus 01/11/2019 023 Angina pectoris 10/16/2016 Assessment & Plan (03/31/2023 3:55 PM EDT): Continue Imdur 120 mg daily I asked patient next time he has this back pain/chest pain he is to take a nitro sublingual and see if it relieves his pain if so he is to call office. He has no activity limiting symptoms and states he walks up and down 18 steps multiple times a day at work without chest pain or shortness of breath stopping him. I feel most likely this is chronic back pain and or musculoskeletal Coronary artery disease 09/23/2016 03/31/20 23 Overview (03/31/2023): s/p cabg x 5 Encounters Date Type Department Care Team Description 03/13/2025 Telephone [facility] [address] [place] [address] YaimaGreta MA 02/27/2025 1:40 PM EDT Office Visit [facility] [address] [place] [address] Kameron Wolf CNP WARNER (dyspnea on exertion) (Primary Dx); Bilateral lower extremity edema; Coronary artery disease involving [place] coronary artery of [place] heart without angina pectoris; Hx of CABG; Other fatigue; Shortness of breath; Primary hypertension; Mixed hyperlipidemia from Last 3 Months Family History Medical History Relation Name Comments Coronary artery disease Father Hypertension Father Coronary artery disease Mother Diabetes Mother Hypertension Mother Stroke Paternal Grandmother Relation Name Status Comments Father Mother Paternal Grandmother Social History Tobacco Use Types Packs/Day Years Used Date Smoking Tobacco: Former Cigarettes 1 15 1 972 - 1987 Smokeless Tobacco: Never Tobacco Cessation:Counseling Given: Not Answered [place] Safety & Environment Answer Date Rec orded [...] Heterosexual or Straight 03/02 3:51 PM EDT Last Filed Vital Signs Vital Sign Reading Time Taken Comments Blood Pressure 114/72 02/27/2025 1:43 PM EDT Pulse 66 02/27/2025 1:43 PM EDT Temperature - - Respiratory Rate - - Oxygen Saturation 95% 02/27/2025 1:43 PM EDT Inhaled Oxygen Concentration - - Weight 99.8 kg (220 lb) 02/27/2025 1:43 PM EDT Height 175.3 cm (5' 9 ) 02/27/2025 1:43 PM EDT Body Mass Index 32.49 02/27/2025 1:43 PM EDT Plan of Treatment Upcoming Encounters Date Type Department Care Team (Late st Contact Info) Description 03/26/2025 2:20 PM EDT Office Visit [facility] Heart [facility] [address] [place] [address] Kameron Wolf, CRAB FISHER [address] [place] [address] Health Maintenance Due Date Last Done Comments CT Colonography 1951 Diabetes: Hemoglobin A1C 1950 FIT-DNA 1951 FIT 1950 FOBT 1950 Medicare Annual Wellness (AWV) 1950 Sigmoidoscopy 1950 Diabetes: Retinopathy Screening 1961 Depression Screening 1963 Diabetes: Urine Protein Screening 1970 Pneumococcal Vaccine: 50+ Years (1 of 2 - PCV) 1970 Zoster Vaccines (1 of 2) 2001 Fall Risk Screening 2016 COVID-19 Vaccine (4 - 2023-2 5 season) 2024 06/01/2022, 10/22/2020, 09/30/2020 Influenza Vaccine (#1) 2025 06/01/2022 Adult Tetanus 09/21/2025 09/21/2015 Colonoscopy 11/11/2028 11/11/2018 Colorectal Cancer Screening 11/11/2028 HIB Vaccines Aged Out No longer eligi ble based on patient's age to complete this topic HPV Vaccines Aged Out No longer eligi ble based on patient's age to complete this topic IPV Vaccines Aged Out No longer eligi ble based on patient's age to complete this topic Meningococcal B Vaccine Aged Out No l onger eligible based on patient's age to complete this topic Meningococcal Vaccine Aged Out No abdelrahman kathe eligible based on patient's age to complete this topic Rotavirus Vaccines Aged Out No longer eligible based on patient's age to complete this topic Procedures Procedure Name Priority Date/Time Associated Diagnosis Comments ECG 12 LEAD UNIT PERFORMED Routine 02/27/2025 1:44 PM EDT Shortness of breath from Last 3 Months Results * ECG 12 lead unit performed (02/27/2025 1:44 PM EDT) Kameron Ribeiroelke ESCOBEDO ECG ORDERABLES Final Result from Last 3 Months Insurance [facility] Member Subscriber Plan / Payer (Ef fective 2022-Present) Name:Vivek Knott Relation to Subscriber:Self Name:Vivek Knott Payer ID:[id number] (NAIC) Type:Not on file Address: [address] [place] [id number] MEDICARE Care Teams Surgical Instrument Repair Specialist Relationship Specialty Start Date End Date Ashley Forman CNP [address] [place] [address], [place] [address] PCP - General Family Medicine 03/31/23
--- OUTSIDE RECORDS SUMMARY | 2025-03-22 16:11 | XMS_ITS | Encounter Summary ---
Author Organization [facility] Address [address] [place] [address] Care Team Providers Care Donor Specialist Name Role Phone Ashley Forman CNP Primary Care Provider [phone] Encounter Details Date Type Department Care Team (Late st Contact Info) Description 03/13/2025 Telephone [facility] [address] [place] [address] Greta Erwin MA Social History Tobacco Use Types Packs/Day Years Used Date Smoking Tobacco: Former Cigarettes 1 15 1 972 - 1987 Smokeless Tobacco: Never [place] Safety & Environment Answer Date Rec orded [...] PM EDT documented as of this encounter Miscellaneous Notes * Telephone Encounter - Greta Erwin MA - 03/13/2025 11:11 AM EDT Regarding lab results from 03/12/2025: Per Kameron Wolf CNP- Thanks. Let's check BMP again in one week, and if still low we can assume she is chronically low and we can start him on 20 meq daily. Thanks! Spoke with patient and asked that he had repeat BMP in 1 week. Patient already takes potassium 20mEq daily. He told me his RX ran out and he was out of it for awhile. He just filled the RX and restated it a few days ago. He will have repeat labs next week. Patient verbalized understanding. documented in this encounter Plan of Treatment Upcoming Encounters Date Type Department Care Team (Late st Contact Info) Description 03/26/2025 2:20 PM EDT Office Visit [facility] [address] [place] [address] Kameron Wolf CNP [address] [place] [address] Scheduled Orders Name Type Priority Associated Diagnoses Orde r Schedule Basic metabolic panel Lab Routine Hypokalemia Expected: 03/13/2025 (Approximate), Expires: 03/13/2026 documented as of this encounter Visit Diagnoses Diagnosis Hypokalemia- Primary Hypopotassemia documented in this encounter Care Teams Donor Specialist Relationship Specialty Start Date End Date Ashley Forman CNP [facility], [facility] [place] [address] PCP - General Family Medicine 03/31/23 documented as of this encounter
--- OUTSIDE RECORDS SUMMARY | 2025-03-22 16:12 | XMS_ITS | Encounter Summary ---
Author Organization [facility] Address [address] [place] [address] Care Team Providers Care Real Estate Sales Associate Name Role Phone Jens Umana MD Primary Care Provider [phone] Ashley Forman CNP Primary Care Provider [phone] Reason for Visit * Reason Comments Med Refill Encounter Details Date Type Department Care Team (Late st Contact Info) Description 01/08/2023 Refill [facility] Cardiology [address] [place] [phone] Keely Faustin CNP [address] [place] [address] Coronary artery disease due to lipid rich plaque Social History Tobacco Use Types Packs/Day Years [...] Description 03/26/2025 2:20 PM EDT Office Visit [facility] Heart at [facility] [address] [place] [address] Kameron Wolf, BARREL CUTTER [address] [place] [address] documented as of this encounter Visit Diagnoses Diagnosis Coronary artery disease due to lipid rich plaque documented in this encounter Care Teams Real Estate Sales Associate Relationship Specialty Start Date End Date Jens Umana MD [address] [place] [phone] PCP - General 03/20/22 03/30/23 Ashley Forman CNP [address] [place] [phone] PCP - General Family Medicine 03/31/23 documented as of this encounter
--- OUTSIDE RECORDS SUMMARY | 2025-03-22 16:12 | XMS_ITS | Encounter Summary ---
Author Organization [facility] Address [address] [place] [address] Care Team Providers Care Meat Carver Name Role Phone Jens Umana MD Primary Care Provider [phone] Ashley Forman CNP Primary Care Provider [phone] Reason for Visit * Reason Comments Med Refill Encounter Details Date Type Department Care Team (Late st Contact Info) Description 01/03/2023 Refill [facility] Cardiology [address] [place] [phone] Keely Faustin CNP [address] [place] [address] Edema, unspecified type Social History Tobacco Use Types [...] Description 03/26/2025 2:20 PM EDT Office Visit [facility] [address] [place] [address] Kameron Wolf, INBOUND INGREDIENT LOGISTICS SPECIALIST [address] [place] [address] documented as of this encounter Visit Diagnoses Diagnosis Edema, unspecified type documented in this encounter Care Teams Meat Carver Relationship Specialty Start Date End Date Jens Umana MD [address] [place] [phone] PCP - General 03/20/22 03/30/23 Ashley Forman CNP [address] [place] [address] [place], [place] [phone] PCP - General Family Medicine 03/31/23 documented as of this encounter
--- OUTSIDE RECORDS SUMMARY | 2025-03-22 16:12 | XMS_ITS | Encounter Summary ---
Author Organization [facility] Address [address] [place] [address] Care Team Providers Care Development Eng Name Role Phone Jens Umana MD Primary Care Provider [phone] Ashley Forman CNP Primary Care Provider [phone] Reason for Visit * Reason Comments Med Refill Encounter Details Date Type Department Care Team (Late st Contact Info) Description 12/05/[address] [facility] Cardiology [address] [place] [phone] Keely Faustin CNP [address] [place] [address] Essential hypertension Social History Tobacco [...] Description 03/26/2025 2:20 PM EDT Office Visit [facility] [address] [place] [address] Kameron Wolf, FANNY [address] [place] [address] documented as of this encounter Visit Diagnoses Diagnosis Essential hypertension Unspecified essential hypertension documented in this encounter Care Teams Development Eng Relationship Specialty Start Date End Date Jens Umana MD [address] [place], [place] [address] [address] PCP - General 03/20/22 03/30/23 Ashley Forman CNP [address] [place] [address] [place] [address] PCP - General Family Medicine 03/31/23 documented as of this encounter
--- OUTSIDE RECORDS SUMMARY | 2025-03-22 16:12 | XMS_ITS | Encounter Summary ---
Author Organization [facility] Address [address] [place] [address] Care Team Providers Care Divine Healer Name Role Phone Jens Umana MD Primary Care Provider [phone] Ashley Forman CNP Primary Care Provider [phone] Reason for Visit * Reason Comments Med Refill Encounter Details Date Type Department Care Team (Late st Contact Info) Description 03/25/2023 Refill [facility] Cardiology [address] [place] [phone] Keeyl Faustin CNP [address] [place] [address] Chest pain, unspecified type Social History Tobacco [...] Description 03/26/2025 2:20 PM EDT Office Visit [facility] Heart at [facility] [address] [place] [address] Kameron Wolf, SCRAP HOOKER [address] [place] [address] documented as of this encounter Visit Diagnoses Diagnosis Chest pain, unspecified type documented in this encounter Care Teams Divine Healer Relationship Specialty Start Date End Date Jens Umana MD [address] [place] [phone] PCP - General 03/20/22 03/30/23 Ashley Forman CNP [address] [place] [address] [phone] PCP - General Family Medicine 03/31/23 documented as of this encounter
--- OUTSIDE RECORDS SUMMARY | 2025-03-22 16:12 | XMS_ITS | Encounter Summary ---
Author Organization [facility] Address [address] [place] [address] Care Team Providers Care Rn Clinical Documentation Name Role Phone Jens Umana MD Primary Care Provider [phone] Ashley Forman CNP Primary Care Provider [phone] Reason for Visit * Reason Comments Med Refill Encounter Details Date Type Department Care Team (Late st Contact Info) Description 06/07/2022 Refill [place] [address] [place] [address] Joby Recio MD [address] [facility] [address] [facility] [place] [address] Essential hypertension Social History Tobacco Use Types [...] suspected to have Coronavirus/COVID-19? No / Unsure 05/18/2022 1:43 PM EDT documented as of this encounter Plan of Treatment Upcoming Encounters Date Type Department Care Team (Late st Contact Info) Description 03/26/2025 2:20 PM EDT Office Visit [facility] [address] [place] [address] Kameron Wolf, FANNY [address] [place] [address] documented as of this encounter Visit Diagnoses Diagnosis Essential hypertension Unspecified essential hypertension documented in this encounter Care Teams Rn Clinical Documentation Relationship Specialty Start Date End Date Jens Umana MD [address] [place] [address] PCP - General 03/20/22 03/30/23 Ashley Forman CNP [address] [place] [phone] PCP - General Family Medicine 03/31/23 documented as of this encounter
--- OUTSIDE RECORDS SUMMARY | 2025-03-22 16:12 | XMS_ITS | Encounter Summary ---
Author Organization [facility] Address [address] [place] [address] Care Team Providers Care [place] [employer] Group Leader Name Role Phone Jens Umana MD Primary Care Provider [phone] Ashley Forman CNP Primary Care Provider [phone] Reason for Visit * Reason Comments Med Refill Encounter Details Date Type Department Care Team (Late st Contact Info) Description 06/07/2022 Refill [facility] Cardiology [address] [place] [phone] Keely Faustin CNP [address] [place] [address] Edema, unspecified type Social History [...] EDT Office Visit [facility] [address] [place] [address] Kameron Wolf, CLAM BED WORKER [address] [facility] [place] [address] documented as of this encounter Visit Diagnoses Diagnosis Edema, unspecified type documented in this encounter Care Teams [place] [employer] Group Leader Relationship Specialty Start Date End Date Jens Umana MD [address] [place], [place] [address] [address] PCP - General 03/20/22 03/30/23 Ashley Forman CNP [address] [place] [address] [place] [address] PCP - General Family Medicine 03/31/23 documented as of this encounter
--- OUTSIDE RECORDS SUMMARY | 2025-03-22 17:14 | XMS_ITS | CCD ---
Author Organization [facility] Care Team Providers Care Under Trimmer Name Role Phone OCTAVIO ADDISON Admitting Unavailable JENS ROTH Referring Unavailable JENS ROTH Primary Care Unavailable BA BENNETT Attending Unavailable CAMMIE, DR BULLARD Admitting Unavailable MOUKACELESTINOEL, DR BULLARD Attending Unavailable IRVIN, ASHLEY Primary Care Unavailable MOUKACELESTINOEL, DR BULLARD Consulting Unavailable ASHLEY BRYAN Consulting Unavailable ARIEL, KEELY Admitting Unavailable ARIELKEELY Guzman Attending Unavailable IRVIN, ASHLEY Primary Care Unavailable ARIEL, KEELY Consulting Unavailable IVY VALLEJOINDA Admitting Unavailable NASRA VALLEJO Attending Unavailable IRVIN, ASHLEY Primary Care Unavailable NASRA VALLEJO Consulting Unavailable ASHLEY BRYAN Admitting Unavailable ASHLEY BRYAN Attending Unavailable IRVIN, ASHLEY Primary Care Unavailable ASHLEY BRYAN Consulting Unavailable ELTAHAWArleen, DR LAI Admitting Unavailable ELTAHAWArleen, DR LAI Attending Unavailable IRVIN, ASHLEY Primary Care Unavailable ELTAHAWArleen, DR LAI Consulting Unavailable ASHLEY KELLER Primary Care Physician Greta Santizo Unavailable Unavailable Matias, Jori T Admitting Unavailable Matias, Jori T Attending Unavailable Matias, Jori T Referring Unavailable Matias, Jori T Referring Unavailable Matias, Jori T Admitting Unavailable Matias, Jori T Attending Unavailable Matias, Jori T Attending Unavailable Matias, Jori T Referring Unavailable Matias, Jori T Admitting Unavailable Matias, Jori T Referring Unavailable Matias, Jori T Attending Unavailable Polly, Jori Sow Admitting Unavailable Jens Roth MD Primary Care Provider [phone] JORI MATIAS Referring Unavailable MAITAS, JORI Sow Attending Unavailable POLLY, JORI T Referring Unavailable ROGER JIMENEZ Attending Unavailable POLLY, JORI Sow Referring Unavailable ROGER JIMENEZ Attending Unavailable POLLY, JORI Sow Referring Unavailable JIMENEZ, ROGER Mcqueen Attending Unavailable MATIAS, JORI T Referring Unavailable JIMENEZ, ROGER Mcqueen Attending Unavailable MATIAS, JORI T Referring Unavailable JIMENEZ, ROGER Mcqueen Attending Unavailable MATIAS, JORI T Referring Unavailable BRINK, PEARL Attending Unavailable MATIAS, JORI T Referring Unavailable BRINK, PEARL Attending Unavailable MATIAS, JORI T Referring Unavailable MATIAS, JORI T Referring Unavailable MATIAS, JORI T Attending Unavailable BRINK, PEARL Attending Unavailable MATIAS, JORI T Referring Unavailable BRINK, PEARL Attending Unavailable MATIAS, JORI T Referring Unavailable BRINK, PEARL Attending Unavailable MATIAS, JORI T Referring Unavailable BRINK, PEARL Attending Unavailable MATIAS, JORI T Referring Unavailable BRINK, PEARL Attending Unavailable MATIAS, JORI T Referring Unavailable BRINK, PEARL Attending Unavailable MATIAS, JORI T Referring Unavailable BRINK, PEARL Attending Unavailable MATIAS, JORI T Referring Unavailable BRINK, PEARL Attending Unavailable MATIAS, JORI T Referring Unavailable BRINK, PEARL Attending Unavailable MATIAS, JORI T Referring Unavailable BRINK, PEARL Attending Unavailable MATIAS, JORI T Referring Unavailable BRINK, PEARL Attending Unavailable MATIAS, JORI T Referring Unavailable BRINK, PEARL Attending Unavailable MATIAS, JORI T Referring Unavailable BRINK, PEARL Attending Unavailable MATIAS, JORI T Referring Unavailable BRINK, PEARL Attending Unavailable MATIAS, JORI T Referring Unavailable BRINK, PEARL Attending Unavailable MATIAS, JORI T Referring Unavailable BRINK, PEARL Attending Unavailable MATIAS, JORI T Referring Unavailable KELBLEY, KEELY Attending Unavailable MATIAS, JORI T Referring Unavailable MATIAS, JORI T Referring Unavailable MATIAS, JORI T Attending Unavailable MIKE, KAMERON Attending Unavailable Allergies Allergy Classification Reported Allergen(s) Allergy Type Date of Onset Reaction(s) Facility (6 sources) Aspirin; Translations: [aspirin] Drug Allergy 7 [facility] Repository (9 sources) Penicillins; Translations: [penicillins] Drug allergy (disorder) 6 Anaphylaxis (disorder) [facility] Rep[facility] (1 source) Aspirin Drug Allergy 6 [facility] Repository (2 sources) Aspirin; Translations: [aspirin] Drug Allergy Anaphylaxis (disorder) [facility] (20 sources) Aluminum aspirin Drug Allergy 0 Anaphylaxis [facility] (20 sources) Penicillins Drug Allergy 0 Rash, Swelling [facility] Medications Current Medications Medication Drug Class(es) Dates Sig (Normalized) Sig (Original) acetaminophen 325 mg / oxyCODONE hydrochloride 5 mg oral tablet (4 sources) Opioid Agonist Start: 04-17-2024 End: 04-22-2024 take 1-2 tablets by mouth every four hours for pain oxyCODONE-acetaminop hen (Percocet) 5-325 MG tablet Indications: Primary osteoarthritis of left hip Take 1-2 tablets by mouth every 4 (four) hours if needed for severe pain for up to 5 days 50 tablet 04/17/2024 04/22/2024 Active Start: 04-06-2024 End: 04-11-2024 take 1-2 tablets by mouth every four hours for pain oxyCODONE-acetaminophen (Percocet) 5-325 MG tablet Indications: Primary osteoarthritis of left hip Take 1-2 tablets by mouth every 4 (four) hours if needed for severe pain for up to 5 days 50 tablet 04/06/2024 04/11/2024 Active Start: 03-22-2024 take 1-2 tablets by mouth every four hours as needed for pain Percocet 5 mg-325 mg oral tablet See Instructions, 50 tab(s), Refill(s) 0, Take one to two every 4 hours as needed for left hip surgical pain., [id number], 170, cm, 03/08/24 8:46:00 EDT, Height/Length Dosing, 104.7, kg, 03/08/24 8:46:00 EDT, Weight Dosing Start Date: 03/22/24 Status: Ordered amLODIPine 10 mg oral tablet (20 sources) Dihydropyridine Calcium Channel Ernestina Start: 08-26-2018 take 10 mg by mouth once daily amlodipine 10 mg, Oral, Daily, Refills(s) 0, High blood pressure Start Date: 08/26/18 Status: Ordered aspirin 81 mg delayed release oral tablet (20 sources) Platelet Aggregation Inhibitor, Nonsteroidal Anti-inflammatory Drug Start: 03-27-2024 take 1 tablet by mouth once daily aspirin 81 mg Oral EC Tab 81 mg = 1 tab(s), Oral, Daily Start Date: 03/27/24 Status: Ordered Start: 03-22-2024 take 1 tablet by debra th twice daily aspirin 81 mg Oral EC Tab 81 mg = 1 tab(s), Oral, BID, Start the day after hip surgery. Please notify office if any reactions as discussed preop., # 60 tab(s), Refills(s) 0, Pharmacy: [id number], 170, cm, 03/08/24 8:46:00 EDT, Height/Length Dosing, 104.7, kg, 03/08/24 8:46:00 EDT, Weight Dosing Start Date: 03/22/24 Status: Ordered take 1 tablet by debra th once daily aspirin 81 MG chewable tablet Chew 1 tablet every day by oral route. Active atorvastatin 40 mg oral tablet (20 sources) HMG-CoA Reductase Inhibitor Start: 11-11-2018 take 40 mg by mouth once daily atorvastatin 40 mg, Oral, Daily, Refills(s) 0, High cholesterol Start Date: 11/11/18 Status: Ordered cholecalciferol 0.05 mg oral capsule (20 sources) Vitamin D take 1 capsule by mouth once daily cholecalciferol (Vitamin D-3) 50 MCG (1999 UT) capsule Take 1 capsule by mouth Daily Active clopidogrel 75 mg oral tablet (20 sources) P2Y12 Platelet Inhibitor Start: 09-10-2020 take 1 tablet by mouth once daily clopidogrel 75 mg Tab 75 mg = 1 tab(s), Oral, Daily, Refills(s) 0, Blood Thinner Start Date: 09/10/20 Status: Ordered docusate sodium 100 mg oral capsule (1 source) Start: 03-22-2024 take 1 capsule by mouth twice daily Colace 100 mg Cap 100 mg = 1 cap(s), Oral, BID, # 20 cap(s), Refills(s) 0, Pharmacy: [id number], 170, cm, 03/08/24 8:46:00 EDT, Height/Length Dosing, 104.7, kg, 03/08/24 8:46:00 EDT, Weight Dosing Start Date: 03/22/24 Status: Ordered furosemide 40 mg oral tablet (20 sources) Loop Diuretic Start: 04-11-2020 take 1 tablet by mouth once daily furosemide 40 mg Tab 40 mg = 1 tab(s), Oral, Daily, Refills(s) 0, diuretic/water pill Start Date: 04/11/20 Status: Ordered glimepiride 4 mg oral tablet (20 sources) Sulfonylurea Start: 08-26-2018 take 4 mg by mouth once daily glimepiride 4 mg, Oral, Daily, Refills(s) 0, Blood glucose Start Date: 08/26/18 Status: Ordered hydroCHLOROthiazide 25 mg oral tablet (20 sources) Thiazide Diuretic Start: 11-11-2018 take 25 mg by mouth once daily hydrochlorothiazide 25 mg, Oral, Daily, Refills(s) 0, High blood pressure Start Date: 11/11/18 Status: Ordered 24 hr isosorbide mononitrate 120 mg extended release oral tablet (20 sources) Nitrate Vasodilator Start: 03-29-2023 take 1 tablet by mouth in the morning, then take 1 tablet by mouth every twenty-fou r hours isosorbide mononitrate ER (Imdur) 120 MG 24 hr tablet Take 120 mg by mouth in the morning. 03/29/2023 Active Start: 08-26-2018 take 60 mg by mouth once daily in the morning isosorbide mononitrate 60 mg, Oral, qAM, Refills(s) 0, High blood pressure Start Date: 08/26/18 Status: Ordered take 1 tablet by debra th once daily isosorbide mononitrate ER (Imdur) 120 MG 24 hr tablet Take 1 tablet by mouth Daily Active lisinopril 20 mg oral tablet (20 sources) Angiotensin Converting Enzyme Inhibitor Start: 08-26-2018 take 20 mg by mouth once daily lisinopril 20 mg, Oral, Daily, Refills(s) 0, High blood pressure Start Date: 08/26/18 Status: Ordered metFORMIN hydrochloride 1000 mg oral tablet (20 sources) Biguanide Start: 08-26-2018 take 1000 mg by mouth twice daily metformin 1,000 mg, Oral, BID, Refills(s) 0, High blood sugar Start Date: 08/26/18 Status: Ordered metoprolol tartrate 25 mg oral tablet (20 sources) beta-Adrenergic Ernestina Start: 01-17-2024 take 1.5 tablets by mouth in the morning metoprolol tartrate (Lopressor) 25 MG tablet Take 1.5 tablets by mouth in the morning and 1.5 tablets before bedtime. 01/17/2024 Active Start: 11-11-2018 metoprolol 25 mg ER Tab 37.5 mg = 1.5 tab(s), Oral, BID, Refills(s) 0, High blood pressure Start Date: 11/11/18 Status: Ordered nitroglycerin 0.4 mg sublingual tablet (20 sources) Nitrate Vasodilator nitroglyceri n (Nitrostat) 0.[address] 1 tablet under the tongue if needed every 5 minutes for chest pain for MAXIMUM OF 3 DOSES Active One-A-Day 50+ (2 sources) Start: 04-11-20 take 1 tablet by mouth once daily One-A-Day 50+ 1 tab(s), Oral, Daily, Refill(s) 0, Prophylaxis Start Date: 04/11/20 Status: Ordered pantoprazole 40 mg delayed release oral tablet (20 sources) Proton Pump Inhibitor Start: 03-08-[address] Tab 40 mg = 1 tab(s), Oral, Daily, Refills(s) 0, Control of stomach acid Start Date: 03/08/24 Status: Ordered microencapsulated potassium chloride 20 meq extended release oral tablet (4 sources) Start: 07-18-20 potassium chloride CR (Klor-Con M20) 20 MEQ ER tablet Take 20 mEq by mouth in the morning. 07/18/2024 Active Start: 04-11-2020 take 1 tablet by debra th once daily potassium chloride 20 mEq ER Tab 20 mEq = 1 tab(s), Oral, Daily, Refills(s) 0, Prophylaxis Start Date: 04/11/20 Status: Ordered SITagliptin 100 mg oral tablet (20 sources) Dipeptidyl Peptidase 4 Inhibitor Start: 04-11-2020 take 1 tablet by mouth once daily Januvia 100 mg Tab 100 mg = 1 tab(s), Oral, Daily, # 30 tab(s), Refills(s) 0, Blood glucose Start Date: 04/11/20 Status: Ordered tiZANidine 4 mg oral tablet (20 sources) Central alpha-2 Adrenergic Agonist take 1 tablet by mouth twice daily as needed tiZANidine (Zanaflex) 4 MG tablet Take 1 tablet by mouth 2 (two) times a day as needed Active Completed/Discontinued Medications Medication Drug Class(es) Dates Sig (Normalized) Sig (Original) ferrous sulfate 325 mg oral tablet (20 sources) End: 08-03-2024 ferrous sulfate 325 (65 Fe) MG tablet Take 325 mg by mouth 08/03/2024 Discontinued (Therapy completed) End: 08-03-2024 take 1 tablet by mouth in the morning Ferrous Sulfate (IRON PO) Take 1 tablet by mouth in the morning. 08/03/2024 Discontinued (Therapy completed) take 1 tablet by debra th in the morning Ferrous Sulfate (IRON PO) Take 1 tablet by mouth in the morning. 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; Translations: [ATS OTH CA BP GRAFT W/UNSTABLE AP] Onset: 2 Chronic Conditions associated with dizziness or vertigo (2 sources) Vertigo 04-06-2019 Episodic Coronary atherosclerosis and other heart disease (8 sources) Atherosclerotic heart disease of [place] coronary artery with unstable angina pectoris; Translations: [Coronary arteriosclerosis] Onset: 2 Chronic Coronary atherosclerosis and other heart disease (6 sources) Coronary angioplasty status; Translations: [Presence of aortocoronary bypass graft] Onset: 3 Episodic Diabetes mellitus with complications (4 sources) Type 2 diabetes mellitus with diabetic neuropathy, unspecified; Translations: [TYPE 2 DM W/DIABETIC NEUROPATHY UNS] Onset: 2 Chronic Diabetes mellitus without complication (2 sources) Diabetes mellitus 04-11-2020 Chronic Disorders of lipid metabolism (5 sources) Hyperlipidemia, unspecified; Translations: [Hypercholesterolemia] Onset: 2 04-11-2020 Chronic Esophageal disorders (2 sources) Gastroesophageal reflux disease 04-11-2020 Chronic Essential hypertension (6 sources) Hypertensive disorder; Translations: [Essential (primary) hypertension] Onset: 2 04-06-2019 Chronic Hemorrhoids (2 sources) Hemorrhoids 04-06-2019 Episodic Malaise and fatigue (2 sources) Other fatigue; Translations: [Other fatigue] Onset: 5 Episodic Mood disorders (2 sources) Depressive disorder 04-06-2019 Chronic Nutritional deficiencies (1 source) Vitamin D deficiency, unspecified; Translations: [VITAMIN D DEFICIENCY UNSPECIFIED] Onset: 2 Chronic Osteoarthritis (20 sources) Osteoarthritis of hip; Translations: [Unilateral primary osteoarthritis, left hip] Onset: 4 04-11-2020 Chronic Other aftercare (9 sources) Patient encounter status; Translations: [Aftercare following joint replacement surgery] 05-02-2024 Chronic Other and unspecified benign neoplasm (2 sources) History of polyp of colon 08-17-2019 Episodic Other and unspecified benign neoplasm (2 sources) Polyp of colon 09-10-2020 Episodic Other connective tissue disease (20 sources) History of repair of hip joint; Translations: [Presence of left artificial hip joint] Onset: 4 03-29-2024 Chronic Other connective tissue disease (4 sources) Hip joint prosthesis present; Translations: [Presence of left artificial hip joint] 05-02-2024 Chronic Other disorders of stomach and duodenum (2 sources) Indigestion 08-17-2019 Episodic Other gastrointestinal disorders (2 sources) Alteration in bowel elimination 12-19-2020 Episodic Other gastrointestinal disorders (2 sources) Constipation 12-19-2020 Episodic Other gastrointestinal disorders (2 sources) Heartburn 04-06-2019 Episodic Other lower respiratory disease (3 sources) Other forms of dyspnea; Translations: [OTHER FORMS OF DYSPNEA] Onset: 2 Episodic Other lower respiratory disease (2 sources) Shortness of breath; Translations: [Shortness of breath] Onset: 5 Episodic Other nervous system disorders (20 sources) Difficulty walking; Translations: [Difficulty in walking, not elsewhere classified] Onset: 4 03-29-2024 Chronic Other nervous system disorders (2 sources) Muscular incoordination 08-17-2019 Episodic Other non-epithelial cancer of skin (2 sources) Malignant neoplasm of skin 04-06-2019 Episodic Pancreatic disorders (not diabetes) (2 sources) Acute pancreatitis 04-06-2019 Episodic Peripheral and visceral atherosclerosis (4 sources) Peripheral vascular disease, unspecified; Translations: [PERIPHERAL VASCULAR DISEASE UNS] Onset: 3 Chronic Residual codes; unclassified (2 sources) Chronic back pain 04-06-2019 Episodic Residual codes; unclassified (2 sources) Localized edema; Translations: [Localized edema] Onset: 5 Episodic Unclassified (1 source) CONTACT W/AND (SUSP) EXPOS COVID-19; Translations: [CONTACT W/AND (SUSP) EXPOS COVID-19] Onset: 08-22-202 2 Viral infection (4 sources) Measles; Translations: [Mumps] 04-06-2019 Episodic Past or Other Problems Problem Classification Problem Date Documented Date Episodic/Chronic Diabetes mellitus without complication (1 source) Other abnormal glucose; Translations: [OTHER ABNORMAL GLUCOSE] Onset: 03-08-2022 Episodic Other nervous system disorders (20 sources) Hip pain; Translations: [Other acute postprocedural pain] Onset: 03-29-2024 03-29-2024 Episodic Other screening for suspected conditions (not mental disorders or infectious disease) (1 source) Encounter for screening for malignant neoplasm of prostate; Translations: [ENC SCREEN MALIG NEOPLASM PROSTATE] Onset: 03-08-2022 Episodic Results Test Name Value Interpretation Reference Range Facility 36on 03-13-2025 36 Regarding lab result s from 03/12/2025: Per Kameron Mckeon, COMMUNICATIONS ASSOCIATE- Thanks. Let's check BMP again in one [...] repeat labs next week. Patient verbalized understanding. [facility] Office Visiton 02-27-2025 Follow-up visit [id number] Vivek Knott 1950 M Date Provider Department Center 02/27/2025 [id number], ADAM [facility]ARD [facility] Family History Problem Relation Age of Onset Diabetes Mother Coronary artery disease Mother Hypertension Mother Coronary artery disease Father Hypertension Father Stroke Paternal Grandmother Family Status - Relation Status Age at Mother Father Paternal Grandmother Level of Service:40195 NM OFFICE/OUTPATIENT ESTABLISHED MOD MDM 30 MIN [facility] XR Pelvis and Hip - bilatera l Views and Lateral frogon 08-03-2024 Imaging Result: Xrays taken in the office today saved to the permanent record, bilateral AP and lateral weightbearing films, show stable position and alignment of the staggered bilateral FRANKIE prosthesis. No sign of loosening, fracture or infection. [facility] Radiology Study observation (narrative) [facility] XR Pelvis AP and Hip - bilat eral GE 2 Viewson 04-27-2024 Imaging Result: Xrays taken in the office today saved to the permanent record, AP and lateral films, show stable position and alignment of the hip prosthesis. No sign of loosening, fracture or infection. Hx right FRANKIE in stable position. [facility] Radiology Study observation (narrative) [facility] Surgical Pathology Reporton 03-31-2024 Surgical Pathology Report [facility] [address] [place] [address]- Surgical Pathology Report Collected Date/Time: 03/27/2024 08:48 EDT Pathologist: Evelio Rosenthal MD Received Date/Time: 03/27/2024 10:22 EDT Polly FREDERICK, Jori Matias DO, Jori Barrera Surgical Pathology Report - 03/31/2024 13:55 EDT - Auth (Verified) Final Diagnosis LEFT HIP BONE, AND SOFT TISSUE, LEFT TOTAL HIP ARTHROPLASTY: - Left femoral head with degenerative changes consistent with osteoarthritis. (Electronic Signature) Yan. 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 The articular surface is thin and rough with a minimal amount of osteophyte formation present. The neck margin is smooth. Cross-sectioning through the femoral head shows an area of yellow discoloration adjacent to the articular surface measuring 0.5 x 0.3 cm. Also received in the container are multiple fragments of bone and soft tissue measuring in aggregate 10 x 9 x 5 cm. Commissary Superintendent sections are submitted in two cassettes: 1 - Soft tissue 2 - Bone after decalcification (DC) DC:[facility] Microscopic Description Microscopic examination performed unless gross only specified. Normal [facility] Comment on above: Performed By: #### [id number] #### [facility] [address] [place] [address] Main OR Intraoperative Recor don 03-29-2024 Main OR Intraoperative Record Main OR Intraoperative Record IntraOp Document Type FT Summary Primary Physician: Jori Matias DO Finalized Date/Time: 03/29/24 14:05:34 Pt. Name: ZENON KNOTT Trini/Sex: 1950 Male Med Rec #: [id number] Physician: Jori Matias DO Financial #: [id number] Pt. Type: A Room/Bed: [facility] Admit/Disch: 03/27/24 06:07:50 - 03/27/24 14:40:00 Institution: Case Times FT Entry 1 Patient Times In Room 03/27/24 08:16:00 Out Room 03/27/24 09:33:00 Procedure Times Start 03/27/24 08:38:00 Stop 03/27/24 09:28:00 Anesthesia Times Start 03/27/24 08:16:00 Stop 03/27/24 09:33:00 Block Timeout w/ 03/27/24 07:53:00 Anesthesia Last Modified By: Rhoda Morgan Ii 03/27/24 09:36:44 General Comments: LEFT HIP BLOCK PERFORMED BY Angeles CABRAL CRNA WITH Jf EILZABETH RN ASSISTING. PATIENT VITAL SIGNS HR 61BPM AND SP02 94% ROOM AIR./TAYO GONZALEZ SPINAL ANESTHESIA BY MALLORY CABRAL AT 0821. /TAYO GONZALEZ 03/29/24 Chart opened for charge review per Tamia Cunningham RN. [place] Case Attendance FT Entry 1 Entry 2 Entry 3 Case Attendee Jaden LUQUE, MALLORY, [place] Jori Matias DO, CST, Macie C N. Role Performed Anesthesiologist Surgeon - Primary KEYING MACHINE OPERATOR/ Secretary Administrative Assistant Time In 03/27/24 08:16:00 03/27/24 08:16:00 03/27/24 08:16:00 Time Out 03/27/24 09:33:00 03/27/24 09:22:00 03/27/24 09:33:00 Procedure HIP TOTAL HIP TOTAL HIP TOTAL ARTHROPLASTY(Left) ARTHROPLASTY(Left) ARTHROPLASTY(Left) Comments DR. BOND BULK RECEIVER ASSIST Last Modified By: Rhoda Morgan Ii, Alfons Ii F Letrondo, Alfons Ii F 03/27/24 09:36:46 03/27/24 09:36:46 03/27/24 09:36:46 Entry 4 Entry 5 Entry 6 Case Attendee Wilfredo Linares CST, Jae Elder CST Role Performed Scrub - Primary Staff - Other Staff - Other Time In 03/27/24 08:16:00 03/27/24 08:16:00 03/27/24 08:16:00 Time Out 03/27/24 09:33:00 03/27/24 09:33:00 03/27/24 09:33:00 Procedure HIP TOTAL HIP TOTAL HIP TOTAL ARTHROPLASTY(Left) ARTHROPLASTY(Left) ARTHROPLASTY(Left) Comments 2ND SCRUB 3RD SCRUB Last Modified By: Rhoda Morgan Ii, Alfons Ii F Letrondo, Alfons Ii F 03/27/24 09:36:46 03/27/24 09:36:46 03/27/24 09:36:46 Entry 7 Case Attendee Rhoda Morgan Ii Role Performed Hotel Maintenance Technician - Primary Time In 03/27/24 08:16:00 Time Out 03/27/24 09:33:00 Procedure HIP TOTAL ARTHROPLASTY(Left) Comments Last Modified By: Rhoda Morgan Ii 03/27/24 09:36:46 General Comments: CLARA LEWIS FROM [facility] IS IN ATTENDANCE./ TAYO GONZALEZcold patcher Protocols FT Pre-Care Text: Implements protective measures prior to operative or invasive procedure, confirms identity before the operative or invasive procedure, verifies operative procedure, surgical site, and laterality Entry 1 Procedure(s) HIP TOTAL Patient Identity Birthday, Blood Band, ARTHROPLASTY(Left) Verified (select at ID Band Check, Patient least 2): Participation Consents / H and P Anesthesia Consent, Operative Site Present Verified H&P, Surgery/Procedure Marking Verified Consent, Transfusion Consent Surgical Site Yes Laterality Verified Yes Verified Procedure Verified Yes Correct Patient Yes Position Verified Availability Equipment, Implant, Prep Dry No Verified (If Medication, X-ray Applicable) PreOp Antibiotic Yes Time Out Jaden LUQUE, FILM PROCESSING SHIFT SUPERVISOR, Queen Marleny Participants N., Polly FREDERICK, Terrance Spaulding CST, Ivelisse Young, Rhoda Morgan Ii F, Wilfredo Linares Dent CST, Shweta Howard CST, Wolf M Time Out Complete 03/27/24 08:28:00 Outcomes Met? Yes Last Modified By: LaxmiRhoda Ii Carly 03/27/24 08:45:02 Post-Care Text: The patient is free from signs and symptoms of injury caused by extraneous objects Allergy Information FT Pre-Care Text: Verifies allergies Entry 1 Allergies Reviewed? Yes Allergies Reviewed Self/Patient With Outcomes Met? Yes Last Modified By: CathyRhoda Ii 03/27/24 07:56:03 Post-Care Text: The patient received appropriate medication(s) safely administered during the perioperative period Surgical Procedures FT Entry 1 Procedure Description Procedure HIP TOTAL ARTHROPLASTY Modifiers Left Surgeon Description LEFT TOTAL HIP ARTHROPLASTY Primary Procedure Yes Primary Surgeon Jori Matias DO Start 03/27/24 08:38:00 Stop 03/27/24 09:28:00 Anesthesia Type General Surgical Service Orthopedics Wound Class 1 - Clean Last Modified By: CathyRhoda Ii Carly 03/27/24 09:36:48 General Case Data FT Pre-Care Text: Classifies surgical wound, implements aseptic technique, initiates traffic control Entry 1 Case Information OR OR 5 FT Case Level Level 6 Wound Class 1 - Clean Specialty Orthopedics ASA Class 3 Preop Diagnosis LEFT HIP OA Postop Same As Preop Yes Postop Diagnosis LEFT HIP OA Outcomes Met? Yes Last Modified By: Cathy Rhoda Harper Carly 03/27/24 07:56:14 Post-Care Text: The patient is free from signs and symptoms of infection (more content not included)... Normal [facility] XR Hip 1 View Left + Pelviso n 03-28-2024 XR Hip 1 View Left + Pelvis Exam Date/Time: 03/27/2024 10:02 EDT Reason for [...] right hip arthroplasty again identified. Ordering Provider: Jori Matias FINAL REPORT Dictated: 03/28/2024 3:00 pm Octavio Granado DO Signed (Electronic Signature): 03/28/2024 3:00 pm Signed by: Octavio Granado DO Transcribed by: FORREST Technologist: LIZBETH Technical Comments Radiation Dose: Ka,r in mGy = . DAP = . Normal [facility] ABO/Rhon 03-27-2024 ABO/Rh Positive Invalid Interpretation Code [facility] Comment on above: Performed By: #### [id number] #### [facility] [address] [place] [address] ABO/Rh History Checkon 03-27 ABO/Rh History Check Verified Hx Blood Type Normal [facility] Comment on above: Performed By: #### 1 [id number] #### [facility] [address] [place] [address] ABSCon 03-27-2024 ABSC Gel Interp Negative Normal [facility] Comment on above: Performed By: #### 1 [id number] ####[facility] [address] [place] [address] BLOOD BANKOrdered By: Meera Lewis on 03-27-2024 ABO/Rh Interp Positive Invalid Interpretation Code [facility] BB Subsection ABSC Gel Interp Negative (03/27/24 7:17 AM) Normal [facility] BB Subsection Blood Bank ID#on 03-27-2024 BBID# [id number] Invalid Interpretation Code [facility] Comment on above: Performed By: #### 1 [id number] #### [facility] [address] [place] [address] CHEMISTRYOrdered By: Jenna ROP User on 03-27-2024 Glucose [Mass/Vol] 143 mg/dL High 55 - 99 mg/dL [facility] POC Subsection Comment on above: Result Comment: Gamal SOSA POC Device SN [id number] Invalid Interpretation Code [facility] POC Subsection POC User ID [id number] 1 Invalid Interpretation Code [facility] POC Subsection POC Username ADRIANO UGARTE Invalid Interpretation Code [facility] POC Subsection Capillary Glucose POCon 03-03 Glucose [Mass/Vol] 143 mg/dL High 55-99 [facility] Comment on above: Result Comment: Gamal SOSA Performed By: #### 2 [id number] #### [facility] [address] [place] [address] Discharge Instructionson Discharge Instructions Discharge Instructions ZENON KNOTT :1950 Visit Date:03/27/2024 Inpatient Discharge Instructions Your Care Team Admitting Physician - Jori Matias DO Referring Physician - Jori Matias DO Reason for Your Visit LEFT HIP OA Your Diagnosis Localized osteoarthrosis of left hip Tests Performed Pathology Tissue Exam -- Results Pending -- XR Hip 1 View Left + Pelvis -- Results Pending -- Please visit your patient portal for your results or contact your primary care physician. This Is Your Medications List acetaminophen-oxycodon e (Percocet 5 mg-325 mg oral tablet) amlodipine aspirin (aspirin 81 mg Oral EC Tab) aspirin (aspirin 81 mg Oral EC Tab) atorvastatin clopidogrel (clopidogrel 75 mg Tab) docusate (Colace 100 mg Cap) furosemide (furosemide 40 mg Tab) glimepiride hydrochlorothiazide isosorbide mononitrate lisinopril metformin metoprolol (metoprolol 25 mg ER Tab) multivitamin (One-A-Day 50+) pantoprazole (Pantoprazole [address] Tab) potassium chloride (potassium chloride 20 mEq ER Tab) sitagliptin (Januvia 100 mg Tab) sulfamethoxazole-trime thoprim (Bactrim D.S. 800 mg-160 mg Tab) Procedure History Colonoscopy, flexible; with removal of tumor(s), polyp(s), or other lesion(s) by snare technique (09/25/2020), Prosthetic total arthroplasty of right hip (04/30/2020), Anorectal manometry (04/10/2019), Colonoscopy (11/11/2018), CEIOL - cataract extraction and implantation of intraocular lens, Cholecystectomy, Hernia Repair, Marsupialisation of pilonidal cyst or sinus, Open heart surgery, ORIF - Open reduction of fracture of ankle with internal fixation. What to do next Instructions From Your Doctor Event Name Event Result Discharge Instructions Freetext Pillow between legs in bed for 4 weeks. Discharge Activity Ambulate as tolerated, Arrange for a responsible adult supervision for 24 hours, Expect mild pain, Expect minimal amount of drainage and/or bleeding, Do not lift more than 5 lbs Discharge Restrictions No driving, Do not operate machinery or tools, Do not make important decisions for 24 hours, Do not drink alcoholic beverages for 24 hours Discharge Diet(s) Regular, Drink liquids and eat a light meal Call Your Doctor For Persistent or heavy bleeding, Temperature above 101.5 degrees, Redness, swelling, or pus at operative site, Severe pain at the operative site, Persistent vomiting Wound Care Remove dressing as instructed Remove Dressing On 10 Discharge Instructions Discharge Instructions New Follow Up Appointments after Discharge Follow Up with KEVIN Garza When: 04/27/2024 02:30 PM EDT Comments: Keep scheduled appointment Where: [address] [place], [place] [id number]- [employer] (1) Medications What How Much When Why Instructions Next Dose Changed aspirin (aspirin 81 mg Oral EC Tab) 1 Tablets By Mouth 2 times a day Start the day after hip surgery. Please notify office if any reactions as discussed preop. Pickup at [facility] Changed aspirin (aspirin 81 mg Oral EC Tab) 1 Tablets By Mouth Every day Unchanged acetaminophen-oxycodon e (Percocet 5 mg-325 mg oral tablet) See instructions Localized osteoarthrosis of left hip Take one to two every 4 hours as needed for left hip surgical pain. Pickup at [facility] Unchanged amlodipine 10 Milligram By Mouth Every day Unchanged atorvastatin 40 Milligram By Mouth Every day Unchanged clopidogrel (clopidogrel 75 mg Tab) 1 Tablets By Mouth Every day Unchanged docusate (Colace 100 mg Cap) 1 Capsules By Mouth 2 times a day Pickup at [facility] Unchanged furosemide (furosemide 40 mg Tab) 1 Tablets By Mouth Every day Unchanged glimepiride 4 Milligram By Mouth Every day Unchanged hydrochlorothiazide 25 Milligram By Mouth Every day Unchanged isosorbide mononitrate 60 Milligram By Mouth Once a day (in the morning) Unchanged lisinopril 20 Milligram By Mouth Every day Unchanged metformin 1,000 Milligram By Mouth 2 times a day Unchanged metoprolol (metoprolol 25 mg ER Tab) 1.5 Tablets By Mouth 2 times a day Unchanged multivitamin (One-A-Day 50+) 1 Tablets By Mouth Every day Unchanged pantoprazole (Pantoprazole [address] Tab) 1 Tablets By Mouth Every day Unchanged potassium chloride (potassium chloride 20 mEq ER Tab) 1 Tablets By Mouth Every day Unchanged sitagliptin (Januvia 100 mg Tab) 1 Tablets By Mouth Every day Unchanged sulfamethoxazole-trime thoprim (Bactrim D.S. 800 mg-160 mg Tab) 1 Tablets By Mouth 2 times a day Duration: 5 Days Start the day after hip surgery. Pickup at [facility] Pharmacy Information [facility]: [address] [place] [id number] [phone] Test Results No qualifying data available. Allergies aspirin (Anaphylaxis) penicillins (Anaphylaxis) Problems Ongoing - Any problem that you are currently receiving treatm (more content not included)... Normal [facility] Comment on above: Result Comment: Elec tronically Signed By: Ed CR, Terese Alcantara\.cheo\Date and Time Signed: 03/27/24 10:07 EDT [facility] CAPILLARY GLUCOSE POCon 03-27-2024 Glucose [Mass/Vol] 143 mg/dL High 55 - 99 mg/dL [facility] Comment on above: Notified RN/MD Interpretation and review of laboratory results Abnormal [facility] Original Ordering Provider: DO Jori Matias [facility] Healthcare Main OR PACU I Recordon 03-03 Main OR PACU I Record Main OR PACU I Rec ord PACU Phase I Document Type FT Summary Primary Physician: Jori Matias DO Finalized Date/Time: 03/27/24 10:47:04 Pt. Name: ZENON KNOTT/Sex: 1950 Male Med Rec #: [id number] Physician: Jori Matias DO Financial #: [id number] Pt. Type: A Room/Bed: Admit/Disch: 03/27/24 06:07:50 - Institution: Case Times PACU I FT Pre-Care Text: Identifies barriers to communication and implements measures to provide psychological support Develops individualized plan of care, and ensures continuity of care Maintains patient's dignity and privacy, and maintains patient confidentiality Identifies and reports philosophical, cultural, and spiritual beliefs and values Identifies individual values and wishes concerning care Implements aseptic technique, and administers prescribed antibiotic therapy and immunizing agents as ordered Evaluates postoperative tissue perfusion Implements thermoregulation measures, and monitors body temperature Evaluates postoperative respiratory status Evaluates postoperative cardiac status Evaluates postoperative neurological status Assesses pain control, collaborated in initiating patient-controlled analgesia and implements alternative methods of pain control Verifies allergies, administers prescribed medications and solutions, evaluates response to medications Entry 1 In PACU I 03/27/24 09:35:00 Discharge from PACU 03/27/24 10:05:00 I Outcomes Met? Yes Last Modified By: Tara Garcia RN 03/27/24 10:01:46 Post-Care Text: The patient demonstrates knowledge of the expected response to the operative or invasive procedure The patient's care is consistent with the individualized perioperative plan of care The patient's right to privacy is maintained The patient's value system, lifestyle, ethnicity, and culture are considered, respected, and incorporated into the perioperative plan of care The patient participates in decisions affecting his or her perioperative plan of care The patient is free from signs and symptoms of infection The patient has wound/tissue perfusion consistent with or improved from baseline levels established preoperatively The patient is at or returning to normothermia at the conclusion of the immediate postoperative period The patient's respiratory function is consistent with or improved from baseline levels established preoperatively The patient's cardiovascular status is consistent with or improved from baseline levels established preoperatively The patient's cardiovascular status is consistent with or improved from baseline levels established preoperatively The patient demonstrates and/or reports adequate pain control throughout the perioperative period The patient received appropriate medication(s), safely administered during the perioperative period Acuity Level PACU I FT Entry 1 Start Time 03/27/24 09:35:00 Stop Time 03/27/24 10:05:00 Acuity Level Acuity Level I Last Modified By: Tara Garcia RN 03/27/24 10:01:57 Finalized By: Tara Garcia RN Document Signatures Signed By: Tara Garcia RN 03/27/24 10:47 Normal [facility] Main OR PACU II Recordon Main OR PACU II Record Main OR PACU II Record PACU Phase II Document Type FT Summary Primary Physician: Jori Matias DO Finalized Date/Time: 03/27/24 14:40:59 Pt. Name: ZENON KNOTT/Sex: 1950 Male Med Rec #: [id number] Physician: Jori Matias DO Financial #: [id number] Pt. Type: A Room/Bed: 11/30 Admit/Disch: 03/27/24 06:07:50 - Institution: Case Times PACU II FT Pre-Care Text: Identifies barriers to communication and implements measures to provide psychological support and determines knowledge level Develops individualized plan of care, and ensures continuity of care Maintains patient's dignity and privacy, and maintains patient confidentiality Identifies and reports philosophical, cultural, and spiritual beliefs and values Identifies individual values and wishes concerning care administers prescribed antibiotic therapy and immunizing agents as ordered, Evaluates postoperative tissue perfusion Implements thermoregulation measures, and monitors body temperature Evaluates postoperative respiratory status Evaluates postoperative cardiac status Evaluates postoperative neurological status Assesses pain control, collaborated in initiating patient-controlled analgesia and implements alternative methods of pain control Verifies allergies, administers prescribed medications and solutions, evaluates response to medications Entry 1 In PACU II 03/27/24 10:10:00 Discharge from PACU 03/27/24 14:40:00 II Outcomes Met? Yes Last Modified By: Terese Ward RN 03/27/24 14:40:55 Post-Care Text: The patient demonstrates knowledge of the expected response to the operative or invasive procedure The patient's care is consistent with the individualized perioperative plan of care The patient's right to privacy is maintained The patient's value system, lifestyle, ethnicity, and culture are considered, respected, and incorporated into the perioperative plan of care The patient participates in decisions affecting his or her perioperative plan of care. The patient is free from signs and symptoms of infection The patient has wound/tissue perfusion consistent with or improved from baseline levels established preoperatively The patient is at or returning to normothermia at the conclusion of the immediate postoperative period The patient's respiratory function is consistent with or improved from baseline levels established preoperatively The patient's cardiovascular status is consistent with or improved from baseline levels established preoperatively The patient's neurological status is consistent with or improved from baseline levels established preoperatively The patient demonstrates and/or reports adequate pain control throughout the perioperative period The patient received appropriate medication(s), safely administered during the perioperative period Finalized By: Terese Ward RN Document Signatures Signed By: Terese Ward RN 03/27/24 14:40 Normal [facility] Main OR Preoperative Recordo n 03-27-2024 Main OR Preoperative Record Main OR Preoperative Record PreOp Document Type FT Summary Primary Physician: Jori Matias DO Finalized Date/Time: 03/27/24 08:21:10 Pt. Name: ZENON KNOTT /Sex: 1950 Male Med Rec #: [id number] Physician: Jori Matias DO Financial #: [id number] Pt. Type: A Room/Bed: Admit/Disch: 03/27/24 06:07:50 - Institution: Case Times PreOp FT Pre-Care Text: Verifies consent for planned procedure, identifies individual values and wishes concerning care, includes family members in perioperative teaching Entry 1 Patient Times. In Pre Surgery 03/27/24 06:15:00 Out Pre Surgery 03/27/24 08:14:00 Outcomes Met? Yes Last Modified By: Rhoda Morgan Ii 03/27/24 08:21:08 Post-Care Text: The patient participates in decisions affecting his or her perioperative plan of care Finalized By: Rhoda Morgan Ii Document Signatures Signed By: Rhoda Morgan Ii 03/27/24 08:21 Normal [facility] Operative Reporton Operative Report Operative Report SURGERY DATE: 03/27/2024 DEBIT AGENT: Ivelisse Carlos C.F.A. 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 He has also had a secondary sciatic component, had his right hip replaced four years ago and did well in the perioperative course. Time to heal, commitment, and expectations were all reviewed, consent form signed and witnessed, sites marked preoperatively, all questions answered preoperatively, antibiotics provided weight based per protocol. PROCEDURE: Zenon was taken to the Operating Room and placed in supine position. Anesthesia was provided. He was placed in the right lateral decubitus position with Gelfoam positioned and axillary roll appropriately placed with appropriate bony padding. The left hip and thigh were prepped and draped in sterile fashion. A time-out procedure occurred consistent with the consent form, History and Physical, preoperative marked site. Landmarks were identified. Once time-out was confirmed, a posterolateral incision was made of approximately 3-1/2 . Fascia was split. Self-retaining retractor was applied. Piriformis and capsule were tagged and released with a #2 Ethibond, and the head was dislocated. Endstage degenerative changes were severe with exposed bone. A fresh cut was made one fingerbreadth above the lesser trochanter, and the head was removed. Once we confirmed appropriate length, the acetabulum was exposed with excision of the labrum and peripheral osteophytes. Reaming started at a 52 up to a 57 with appropriate medialization. Trial cup was placed with good fit, fill, position, and alignment. Exparel 20 cc was injected along the acetabulum. Irrisept was allowed to soak followed by copious irrigation. The 58 Sector cup was impacted in place and reduced in good position with appropriate version and tilt, and two 20 mm screws were placed superiorly. Trial lipped liner was applied. Attention was then directed to the proximal femur. Canal sounding and reaming were performed with lateralization. Broaching was performed up to a 4. Trial components were placed with appropriate range of motion and stability. All trial components were removed. The liner was impacted in place. The size 4 stem was impacted and it was retrialed. The Senior taper was cleansed and dried and a 32+5 metal head was impacted, reduced, and taken through arc of motion and deemed stable. The capsule was closed with 0 Vicryl suture. [id number]-uhmb technique was performed with a Hewson suture passer with a 2.0 drill bit of the piriformis and capsule with anatomic repair. Remaining 80 cc of Exparel was injected along the fascia and subcutaneous tissues. After pulsed irrigation with Irrisept, 2 g of tranexamic acid was placed subfascially. The fascial layer was closed with #2 Quill suture in a running fashion, 2-0 Quill suture closed the subcutaneous tissues, and a 2-0 Monoderm intracuticular suture was placed with liquid adhesive glue. An 8 Mepilex dressing with abduction pillow was applied. Zenon was transferred supine to the Recovery Room in stable and satisfactory condition. CASE: Clean and elective COUNTS: Sponge and needle count correct SPECIMEN: Bone PATIENT CONDITION: Satisfactory Jori Matias D.O. ca Dictated: 03/27/2024 [id number] Transcribed: 03/27/2024 cc:Ashley Muller), BRIAN, FANNY Normal [facility] Comment on above: Result Comment: Elec tronically Signed By: Jori Matias DO\.br\Date and Time Signed: 03/27/24 12:52 EDT Inpatient Patient Summaryon 03-22-2024 Inpatient Patient Summary Inpatient Patient Summary [address] [address] [facility] Clinical Discharge Instructions PERSON INFORMATION Name: ZENON KNOTT [facility]#:[id number] PHYSICIANS Admitting Physician: Jori Matias DO Attending Physician: Jori Matias DO PCP: ASHLEY KELLER CNP Discharge Diagnosis: Localized osteoarthrosis of left hip Comment: PATIENT EDUCATION INFORMATION Instructions: Polly - Hip Replacement Arthroplasty (CUSTOM) Medication Leaflets: Follow up: With: Address: When: Jori Matias [address] [place] [address] [facility] () Comments: Keep scheduled appointment Type Location Start [facility] Surgical Services 03/27/2024 8:45 AM 03/27/2024 9:45 AM Confirmed MEDICATION LIST Medications to Continue with No Changes Other Medications amlodipine 10 Milligram By Mouth every day. atorvastatin 40 Milligram By Mouth every day. clopidogrel (clopidogrel 75 mg Tab) 1 Tablets By Mouth every day. furosemide (furosemide 40 mg Tab) 1 Tablets By Mouth every day. glimepiride 4 Milligram By Mouth every day. hydrochlorothiazide 25 Milligram By Mouth every day. isosorbide mononitrate 60 Milligram By Mouth once a day (in the morning). lisinopril 20 Milligram By Mouth every day. metformin 1,000 Milligram By Mouth 2 times a day. metoprolol (metoprolol 25 mg ER Tab) 1.5 Tablets By Mouth 2 times a day. multivitamin (One-A-Day 50+) 1 Tablets By Mouth every day. pantoprazole (Pantoprazole [address] Tab) 1 Tablets By Mouth every day. potassium chloride (potassium chloride 20 mEq ER Tab) 1 Tablets By Mouth every day. sitagliptin (Januvia 100 mg Tab) 1 Tablets By Mouth every day. Comment: Normal [facility] Outpatient Surgery Discharge Instructionon 03-22-2024 Outpatient Surgery Discharge Instruction Outpatient Surgery Discharge Instruction [place] [id number] Patient Discharge Instructions PERSON INFORMATION Name: ZENON KNOTT Date of : 1950 Current Date: 03/22/2024 15:40:20 PHYSICIANS Admitting Physician: Jori Matias DO Discharge Diagnosis: Localized osteoarthrosis of left hip ZENON KNOTT has been given the following list of follow-up instructions, prescriptions, and patient education materials: PATIENT FOLLOW-UP INFORMATION Diet: Regular, Drink liquids and eat a light meal Discharge Activity: Ambulate as tolerated, Arrange for a responsible adult supervision for 24 hours, Expect mild pain, Expect minimal amount of drainage and/or bleeding, Do not lift more than 5 lbs Discharge Restrictions: No driving, Do not operate machinery or tools, Do not make important decisions for 24 hours, Do not drink alcoholic beverages for 24 hours Call Your Doctor For: Persistent or heavy bleeding, Temperature above 101.5 degrees, Redness, swelling, or pus at operative site, Severe pain at the operative site, Persistent vomiting Wound Care Instructions: Remove dressing as instructed Remove Your Dressing In 10 Days Additional Instructions: Pillow between legs in bed for 4 weeks. IF UNABLE TO CONTACT YOUR PHYSICIAN AND YOU FEEL IT IS AN EMERGENCY, GO TO THE NEAREST EMERGENCY ROOM OR CALL 911 [address]IKOS Sheriff STAN, have received the attached patient education materials/instructions and have verbalized understanding: May we do a follow up call? Yes No I was present when discharge instructions were given Patient Signature Date Clinican/Nurse Signature ___ Date Follow up: With: Address: When: Jori Matias [address] [place], [place] [phone] Business (1) Comments: Keep scheduled appointment Type Location Start [facility] Surgical Services 03/27/2024 8:45 AM 03/27/2024 9:45 AM Confirmed Pharmacy Information: You may receive a survey from Marlo Santos asking you to rate your care experience. Your feedback is important and will help us understand what we do well and how we can improve the quality of care we provide to you, your loved ones and our community. It?s an honor to serve you. Thank you for choosing [facility] HERE ARE THE MEDICATION CHANGES THAT OCCURRED DURING YOUR HOSPITAL STAY Medications to Continue with No Changes Other Medications amlodipine 10 Milligram By Mouth every day. atorvastatin 40 Milligram By Mouth every day. clopidogrel (clopidogrel 75 mg Tab) 1 Tablets By Mouth every day. furosemide (furosemide 40 mg Tab) 1 Tablets By Mouth every day. glimepiride 4 Milligram By Mouth every day. hydrochlorothiazide 25 Milligram By Mouth every day. isosorbide mononitrate 60 Milligram By Mouth once a day (in the morning). lisinopril 20 Milligram By Mouth every day. metformin 1,000 Milligram By Mouth 2 times a day. metoprolol (metoprolol 25 mg ER Tab) 1.5 Tablets By Mouth 2 times a day. multivitamin (One-A-Day 50+) 1 Tablets By Mouth every day. pantoprazole (Pantoprazole [address] Tab) 1 Tablets By Mouth every day. potassium chloride (potassium chloride 20 mEq ER Tab) 1 Tablets By Mouth every day. sitagliptin (Januvia 100 mg Tab) 1 Tablets By Mouth every day. PATIENT EDUCATION INFORMATION Instructions: [place], [place] [facility] DISCHARGE INSTRUCTIONS HIP REPLACEMENT ARTHROPLASTY INCISION CARE: Mepilex dressing can get wet with showers. Please remove 10 days after surgery per instruction sheet. If dash present, please coordinate removal 21 days after surgery with office staff. Please notify the office if any increase in redness, tenderness, drainage, fever, or wound separation is noted beyond this point. Compression stockings may be helpful if any significant or uncomfortable swelling in the legs is noted postoperatively. Use and removal instructions should be given by physical therapy. If the swelling is below the knee, knee high compression stockings may suffice. If this does cause swelling into the thigh region, waist high compression stockings may be beneficial as well. These can be obtained from most pharmacies, or can be obtained from the hospital or through Home Health. The mild grade compression stockings are best used initially, and dislocation precautions must be maintained. DISLOCATION PRECAUTIONS: Continue to use the abduction pillow between the knees at all times while in bed. This abduction pillow should be removed while walking and performing physical therapy exercises; othe (more content not included)... Normal [facility] XR Chest 2 Viewson XR Chest 2 Views Exam Date/Time: 03/08/2024 08:13 EDT Reason for Exam: P.A.T. Report IMPRESSION: NO EVIDENCE OF ACTIVE CHEST DISEASE. CLINICAL HISTORY: P.A.T.. COMPARISON: 04/11/2020. COMMENT: There are sternotomy wires and mediastinal surgical clips. The heart is normal in size. The mediastinum is unremarkable. The lungs appear clear. No infiltration nor pleural effusion is evident. 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 No significant change is noted when compared to the prior exam. Ordering Provider: Tyrone Petit FINAL REPORT Dictated: 03/09/2024 3:56 pm Anil Coleman M.D. Signed (Electronic Signature): 03/09/2024 3:56 pm Signed by: Anil Coleman M.D. Transcribed by: FORREST Technologist: NELLIE Technical Comments Radiation Dose: Ka,r in mGy = na DAP = na Normal [facility] BMPon 03-08-2024 Anion gap [Moles/Vol] 14 mmol/L Normal 6-16 [facility] Comment on above: Performed By: #### 2 [id number] #### [facility] [address] [place] [address] Calcium [Mass/Vol] 9.6 mg/dL Normal 8.9-11.1 [facility] Comment on above: Performed By: #### 2 [id number] #### [facility] [address] [place] [address] Chloride [Moles/Vol] 103 mmol/L Normal 101-111 [facility] Comment on above: Performed By: #### 2 [id number] #### [facility] [address] [place] [address] CO2 [Moles/Vol] 24 mmol/L Normal 21-31 [facility] Comment on above: Performed By: #### 2 [id number] #### [facility] [address] [place] [address] Creatinine [Mass/Vol] 1.1 mg/dL Normal 0.5-1.3 [facility] Comment on above: Performed By: #### 2 [id number] #### [facility] [address] [place] [address] Glucose [Mass/Vol] 112 mg/dL Normal 55-199 [facility] Comment on above: Performed By: #### 2 [id number] #### [facility] [address] [place] [address] Potassium [Moles/Vol] 4.2 mmol/L Normal 3.5-5.3 [facility] Comment on above: Performed By: #### 2 [id number] #### [facility] [address] [place] [address] Sodium [Moles/Vol] 137 mmol/L Normal 135-145 [facility] Comment on above: Performed By: #### 2 [id number] #### [facility] [address] [place] [address] Urea nitrogen [Mass/Vol] 24 mg/dL High 5-21 [facility] Comment on above: Performed By: #### 2 [id number] #### [facility] [address] [place] [address] Urea nitrogen/Creatinine [Mass ratio] 22 No Units High 10-20 [facility] Comment on above: Performed By: #### 2 [id number] #### [facility] [address] [place] [address] CBC w/ Auto Diffon 4 Basophils/100 WBC (Bld) 0.8 % Normal 0.0-2.0 [facility] Comment on above: Performed By: #### 2 [id number] #### [facility] [address] [place] [address] Basophils/Leukocytes Auto (Bld) [Pure # fraction] 0.1 E9/L Normal 0.0-0.2 [facility] Comment on above: Performed By: #### 2 [id number] #### [facility] [address] [place] [address] Eosinophils (Bld) [#/Vol] 0.3 E9/L Normal 0.0-0.5 [facility] Comment on above: Performed By: #### 2 [id number] #### [facility] [address] [place] [address] Eosinophils/100 WBC (Bld) 3.9 % Normal 0.0-8.0 [facility] Comment on above: Performed By: #### 2 [id number] #### [facility] [address] [place] [address] Erythrocyte distribution width (RBC) [Ratio] 13.7 % Normal 10.9-14.2 [facility] Comment on above: Performed By: #### 2 [id number] #### [facility] [address] [place] [address] Hematocrit (Bld) [Volume fraction] 37.9 % Normal 37.7-49.0 [facility] Comment on above: Performed By: #### 2 [id number] #### [facility] [address] [place] [address] Hemoglobin (Bld) [Mass/Vol] 13.1 g/dL Low 13.5-17.5 [facility] Comment on above: Performed By: #### 2 [id number] #### [facility] [address] [place] [address] Lymphocytes (Bld) [#/Vol] 2.2 E9/L Normal 1.0-4.0 [facility] Comment on above: Performed By: #### 2 [id number] #### [facility] [address] [place] [address] Lymphocytes/100 WBC (Bld) 28.5 % Normal 14.0-50.0 [facility] Comment on above: Performed By: #### 2 338235 #### [facility] [address] [place] [address] MCH (RBC) [Entitic mass] 33.1 pg Normal 27.0-34.0 [facility] Comment on above: Performed By: #### 2 [id number] #### [facility] [address] [place] [address] MCHC (RBC) [Mass/Vol] 34.7 g/dL Normal 31.4-36.0 [facility] Comment on above: Performed By: #### 2 [id number] #### [facility] [address] [place] [address] MCV (RBC) [Entitic vol] 95.3 fL Normal 80.0-100.0 [facility] Comment on above: Performed By: #### 2 [id number] #### [facility] [address] [place] [address] Monocytes (Bld) [#/Vol] 0.7 E9/L Normal 0.2-1.0 [facility] Comment on above: Performed By: #### 2 [id number] #### [facility] [address] [place] [address] Neutrophils (Bld) [#/Vol] 4.5 E9/L Normal 2.0-7.5 [facility] Comment on above: Performed By: #### 2 [id number] #### [facility] [address] [place] [address] Neutrophils/100 WBC (Bld) 57.3 % Normal 36.0-75.0 [facility] Comment on above: Performed By: #### 2 [id number] #### [facility] [address] [place] [address] Platelet mean volume (Bld) [Entitic vol] 8.2 fL Normal 6.4-10.8 [facility] Comment on above: Performed By: #### 2 [id number] #### [facility] [address] [place] [address] Platelets (Bld) [#/Vol] 212.0 E9/L Normal 150.0-500.0 [facility] Comment on above: Performed By: #### 2 [id number] #### [facility] [address] [place] [address] RBC (Bld) [#/Vol] 4.0 E12/L Low 4.3-5.9 [facility] Comment on above: Performed By: #### 2 [id number] #### [facility] [address] [place] [address] WBC corrected for nucl RBC Auto (Bld) [#/Vol] 7.8 E9/L Normal 4.0-11.0 [facility] Comment on above: Performed By: #### 2 [id number] #### [facility] [address] [place] [address] CHEMISTRYOrdered By: SYSTEM SYSTEM on 03-08-2024 Anion gap [Moles/Vol] 14 mmol/L Normal 6 - 16 mEq/L R emisol Chem Calcium [Mass/Vol] 9.6 mg/dL Normal 8.9 - 11. 1 mg/dL [facility] Chloride [Moles/Vol] 103 mmol/L Normal 101 - 1 11 mmol/L [facility] CO2 [Moles/Vol] 24 mmol/L Normal 21 - 31 mmol/L [facility] Creatinine [Mass/Vol] 1.1 mg/dL Normal 0.5 - 1.3 mg/dL [facility] eGFR 71 mL/min/1.73 m2 Normal >=59mL/min /1 .73 m2 [facility] Glucose [Mass/Vol] 112 mg/dL Normal 55 - 199 mg/dL [facility] Potassium [Moles/Vol] 4.2 mmol/L Normal 3.5 - 5.3 mmol/L [facility] Sodium [Moles/Vol] 137 mmol/L Normal 135 - 145 mmol/L [facility] Urea nitrogen [Mass/Vol] 24 mg/dL High 5 - 21 mg/dL [facility] Urea nitrogen/Creatinine [Mass ratio] 22 mg/mg High 10 - 20 [facility] HEMATOLOGYOrdered By: SYSTEM SYSTEM on 03-08-2024 Basophils/100 WBC (Bld) 0.8 % Normal 0.0 - 2.0 % [facility] Basophils/Leukocytes Auto (Bld) [Pure # fraction] 0.1 E9/L Normal 0.0 - 0.2 E9/L [facility] Eosinophils (Bld) [#/Vol] 0.3 E9/L Normal 0.0 - 0.5 E9/L [facility] Eosinophils/100 WBC (Bld) 3.9 % Normal 0.0 - 8.0 % [facility] Erythrocyte distribution width (RBC) [Ratio] 13.7 % Normal 10.9 - 14.2 % [facility] Hematocrit (Bld) [Volume fraction] 37.9 % Normal 37.7 - 49.0 % [facility] Hemoglobin (Bld) [Mass/Vol] 13.1 g/dL Low 13.5 - 17.5 gm/dL [facility] Lymphocytes (Bld) [#/Vol] 2.2 E9/L Normal 1.0 - 4.0 E9/L [facility] Lymphocytes/100 WBC (Bld) 28.5 % Normal 14.0 - 50.0 % [facility] MCH (RBC) [Entitic mass] 33.1 pg Normal 27.0 - 34.0 pg [facility] MCHC (RBC) [Mass/Vol] 34.7 g/dL Normal 31.4 - 36.0 gm/dL [facility] MCV (RBC) [Entitic vol] 95.3 fL Normal 80.0 - 100.0 fL [facility] Monocytes (Bld) [#/Vol] 0.7 E9/L Normal 0.2 - 1.0 E9/L [facility] Monocytes/100 WBC (Bld) 9.5 % Normal 4.0 - 14.0 % [facility] Neutrophils (Bld) [#/Vol] 4.5 E9/L Normal 2.0 - 7.5 E9/L [facility] Neutrophils/100 WBC (Bld) 57.3 % Normal 36.0 - 75.0 % [facility] Platelet mean volume (Bld) [Entitic vol] 8.2 fL Normal 6.4 - 10.8 fL [facility] Platelets (Bld) [#/Vol] 212.0 E9/L Normal 150.0 - 500.0 E9/L [facility] RBC (Bld) [#/Vol] 4.0 E12/L Low 4.3 - 5.9 E12/L [facility] WBC corrected for nucl RBC Auto (Bld) [#/Vol] 7.8 E9/L Normal 4.0 - 11.0 E9/L [facility] UA with Cult Rflxon 03-08-20 24 Bilirubin Ql (U) Negative Normal Negative [facility] Comment on above: Performed By: #### 4 [id number] #### [facility] [address] [place] [address] Clarity (U) Clear Normal Clear [facility] Comment on above: Performed By: #### 4 [id number] #### [facility] [address] [place] [address] Color (U) Light-Yellow Normal Yellow [facility] Comment on above: Result Comment: Micr oscopic readings are only performed on those samples that meet specific criteria set forth by [facility]. Performed By: #### 4 [id number] #### [facility] [address] [place] [address] Glucose Ql (U) Negative Normal Negative [facility] Comment on above: Performed By: #### 4 [id number] #### [facility] [address] [place] [address] Hemoglobin Auto test strip (U) [Mass/Vol] Negative Normal Negative [facility] Comment on above: Performed By: #### 4 [id number] #### [facility] [address] [place] [address] Ketones Auto test strip Ql (U) Negative Normal Negative [facility] Comment on above: Performed By: #### 4 [id number] #### [facility] [address] [place] [address] Leukocyte esterase Auto test strip Ql (U) Negative Normal Negative [facility] Comment on above: Performed By: #### 4 [id number] #### [facility] [address] [place] [address] Nitrite Auto test strip Ql (U) Negative Normal Negative [facility] Comment on above: Performed By: #### 4 [id number] #### [facility] [address] [place] [address] pH (U) 5.0 [pH] Invalid Interpretation Code 5.0-9.0 [facility] Comment on above: Performed By: #### 4 [id number] #### [facility] [address] [place] [address] Protein Ql (U) Negative Normal Negative [facility] Comment on above: Performed By: #### 4 [id number] #### [facility] [address] [place] [address] Specific gravity (U) [Rel density] 1.012 Invalid Interpretation Code 1.005-1.030 [facility] Comment on above: Performed By: #### 4 [id number] #### [facility] [address] [place] [address] Urobilinogen (U) [Mass/Vol] Negative Normal Negative [facility] Comment on above: Performed By: #### 4 [id number] #### [facility] [address] [place] [address] Type of Urine collection method Clean Catch Normal [facility] Comment on above: Performed By: #### 4 [id number] #### [facility] [address] [place] [address] URINALYSISOrdered By: SYSTEM SYSTEM on 03-08-2024 Bilirubin Ql (U) Negative Normal Negativemg/ d L [facility] UA Auto SS Clarity (U) Clear (03/08/24 7:55 AM) Normal Clear [facility] UA Auto SS Color (U) Light-Yellow 1 (03/08/24 7:55 AM) Normal Yellow [facility] UA Auto SS Comment on above: Interpretive Data: M icroscopic readings are only performed on those samples that meet specific criteria set forth by [facility]. Glucose Ql (U) Negative Normal Negativemg/d L [facility] UA Auto SS Hemoglobin Auto test strip (U) [Mass/Vol] Negative Normal Negativemg/d L [facility] UA Auto SS Ketones Auto test strip Ql (U) Negative Normal Negativemg/d L [facility] UA Auto SS Leukocyte esterase Auto test strip Ql (U) Negative Normal NegativeLeu/ uL [facility] UA Auto SS Nitrite Auto test strip Ql (U) Negative Normal Negativemg/d L [facility] UA Auto SS pH (U) 5.0 *NA* (03/08/24 7:55 AM) Invalid Interpretation Code 5.0 - 9.0 [facility] UA Auto SS Protein Ql (U) Negative Normal Negativemg/d L [facility] UA Auto SS Specific gravity (U) [Rel density] 1.012 *NA* (03/08/24 7:55 AM) Invalid Interpretation Code 1.005 - 1.030 [facility] UA Auto SS Urobilinogen (U) [Mass/Vol] Negative Normal Negativemg/d L [facility] UA Auto SS URINALYSISOrdered By: Eliceo Naranjo on 03-08-2024 UA Spec Desc Clean Catch (03/08/24 7:55 AM) Normal [facility] UA Auto SS eGFRon 03-08-2024 eGFR 71 mL/min/1.73 m2 Normal >=59 [facility] Comment on above: Order Comment: Order added by Discern Expert. Performed By: #### 1 [id number] #### [facility] [address] [place] [address] Patient Letter FTon 2023 Patient Letter FT August 09, 2023 ZENON [place]T [address] [place] [address] : 1950 Dear Zenon, This is a reminder that you are due for an appointment with [facility]. Please contact our office at [phone] to schedule an appointment at your earliest convenience. Thank you, [facility] Normal [facility] CREATININE BLOODon Creatinine [Mass/Vol] 1.03 mg/dL Normal 0.70-1.30 [facility] Comment on above: Order Comment: No: D o not add to previous draw Performed By: #### 8 [id number] #### [facility] [address] [facility] [place] [address], [facility] GFR/1.73 sq M.predicted among non-blacks MDRD (S/P/Bld) [Vol rate/Area] mL/min/{1.73_m2} Normal >60 [facility] Comment on above: Order Comment: No: D o not add to previous draw Result Comment: [facility]'s estimated glomerular filtration rate (eGFR) will no longer include consideration of race in its calculation. The National Kid[employer] Foundation's eGFR Task Force developed new recommendations for the estimation of the glomerular filtration rate in the [place] They recommend immediate implementation of the new equation refit without the race variable in all laboratories because the calculation does not include race. In addition to not including race in the calculation and reporting, it included diversity in its development, and has acceptable performance characteristics and potential consequences that do not disproportionately affect any one group of individuals. Performed By: #### 8 [id number] #### [facility] [address] [facility] [place] [address], [place] POC GLUCOSE LABon 03-27-2022 Glucose [Mass/Vol] 135 mg/dL High 70-100 [facility] Comment on above: Performed By: #### 8 [id number] #### [facility] [address] [facility] [place] [address], [facility] Cardiovascular Lab Reporton 03-26-2022 Cardiovascular Lab Report [facility] Patient Name: [facility]os [facility] Jonathan Doyle MR #: [id number] Department of Physician: Dave Ortiz M.D. Division of Service Date: 03/26/2022 Cardiology Birthdate: 1950 Adult Cardiovascular Room #: 3AB [id number] [facility] [address] [place], [place] [address] Cardiovascular Laboratory Report FINAL IMPRESSIONS: Successful balloon angioplasty, AngioSculpt angioplasty and Synergy drug-eluting stent placement in an ostial lesion of the radial artery graft to the diagonal branch of the left anterior descending. RECOMMENDATIONS: 1. Aspirin 81 mg lifelong. 2. Plavix 75 mg daily for a minimum of 6 months, preferably fpc. 3. Aggressive cardiovascular risk factor modification. 4. Optimization of medical management; high intensity statin therapy, a beta-ernestina, plus or minus an angiotensin-converting enzyme inhibitor are indicated. 5. Further recommendations deferred to the inpatient services. PROCEDURES: Limited femoral angiography, percutaneous balloon angioplasty, AngioSculpt angioplasty and Synergy drug-eluting stent placement of the radial artery graft to the diagonal branch of the left anterior descending, placement of a 6-Moroccan MynxGrip closure device. METHODS: After risks, benefits, and alternatives were explained, written informed consent was obtained. The patient was prepped and draped in usual sterile fashion over the left groin. Using 1% lidocaine solution, local infiltration anesthesia was achieved. Using a modified Seldinger technique and a micropuncture kit, and under ultrasound guidance, access to the left common femoral artery was obtained. A 6-Moroccan 11 cm sheath was inserted without difficulty. Angiography via the sheath was performed. A 6-Moroccan LCB guide catheter was advanced over the J-wire and coaxially engaged into the radial artery graft to the diagonal. Baseline angiography was performed. A 0.014 Runthrough NS wire was advanced through the catheter across the target lesion and positioned distally. Balloon angioplasty was performed sequentially using a 2.5 x 15 NC balloon and subsequently a 3.0 x 12 mm AngioSculpt balloon. An inadequate result was treated using a 3.0 x 20 mm Synergy drug-eluting stent. Repeat imaging showed optimal stent result, however there were significant ST-T wave changes on injection, dye hang up after injection and ventricularization of pressures. These changes were concerning for a missed ostial lesion. Repeat angiography in multiple projections did indeed reveal a residual ostial lesion with possible dissection flap. This was treated using repeat angioplasty and placement of a 3.0 x 12 mm Synergy drug-eluting stent with attention paid to ensure overlap of stent margins. Ostial flaring was performed using the stent delivery balloon. Repeat imaging showed an optimal result. Excellent reflux into the root was seen. No residual dye hang up was seen. ST-T wave changes resolved. At this juncture, it was elected to conclude the procedure. The wire was removed. Final angiography was performed. A 6-Moroccan MynxGrip closure device was deployed per protocol achieving optimal hemostasis. Overall, the patient tolerated the procedure well. There were no overt complications. He was to be transferred to the holding area in stable condition. FINDINGS: Hemodynamics. AO 112/69. Coronary Angiography: Radial artery graft to the diagonal branch of the left anterior descending: Baseline imaging shows a 90-95% ostial/proximal stenosis. This was reduced to 0% by balloon angioplasty, AngioSculpt angioplasty and placement of overlapping 3.0 x 12 and 3.0 x 20 mm Synergy drug-eluting stents from ostium to distal. Final images showed GISELA-3 flow with no dissection, thrombus, or distal wire trauma. Limited femoral angiography: shows mild plaque and anatomy suitable for closure device. INDICATIONS: The patient is a 71-year-old man with a history of coronary artery disease, coronary artery bypass graft surgery and unstable angina. Recent diagnostic catheterization revealed significant stenosis of the radial artery graft to the diagonal branch. Due to his history of aspirin allergy including anaphylaxis, revascularization was deferred. The patient underwent desensitization and returned today for elective percutaneous revascularization. Findings and management strategies are outlined above. Electronically Signed by: Becca Shaver M.D. 03/27/2022 02:27 P Becca Shaver M.D. Date Dict: 03/26/2022/02:51 P/Becca Shaver M.D. Date Trans: 03/26/2022 04:03 P/lio [id number] cc: Jens Roth M.D. [address] [place] [address] Normal [facility] POC GLUCOSE LABon 03-26-2022 Glucose [Mass/Vol] 233 mg/dL High 70-100 [facility] Comment on above: Performed By: #### 8 [id number] #### [facility] [address] [place] [address], [place] Glucose [Mass/Vol] 115 mg/dL High 70-100 [facility] Comment on above: Performed By: #### 8 [id number] #### [facility] [address] [place] [address], [place] Glucose [Mass/Vol] 162 mg/dL High 70-100 [facility] Comment on above: Performed By: #### 8 [id number] #### [facility] [address] [place] [address], [place] Glucose [Mass/Vol] 164 mg/dL High 70-100 [facility] Comment on above: Performed By: #### 8 [id number] #### [facility] [address] [place] [address], [place] BASIC METABOLIC PANELon 03-03 Calcium [Mass/Vol] 8.5 mg/dL Low 8.6-10.3 [facility] Comment on above: Order Comment: No: D o not add to previous draw Performed By: #### 0 0071, [id number], [id number] #### [facility] [address] [place] [address], [place] Chloride [Moles/Vol] 105 mmol/L Normal 98-107 [facility] Comment on above: Order Comment: No: D o not add to previous draw Performed By: #### 0 0071, 25806, [id number] #### [facility] [address] [place] [address], [facility] CO2 [Moles/Vol] 27 mmol/L Normal 21-31 [facility] Comment on above: Order Comment: No: D o not add to previous draw Performed By: #### 0 0071, [id number], [id number] #### [facility] [address] [place] [address], [facility] Creatinine [Mass/Vol] 0.89 mg/dL Normal 0.70-1.30 [facility] Comment on above: Order Comment: No: D o not add to previous draw Performed By: #### 0 0071, 74477, [id number] #### [facility] [address] [place] [address], [facility] GFR/1.73 sq M.predicted among non-blacks MDRD (S/P/Bld) [Vol rate/Area] mL/min/{1.73_m2} Normal >60 [facility] Comment on above: Order Comment: No: D o not add to previous draw Result Comment: [facility]'s estimated glomerular filtration rate (eGFR) will no longer include consideration of race in its calculation. The National Kid[employer] Foundation's eGFR Task Force developed new recommendations for the estimation of the glomerular filtration rate in the [place] They recommend immediate implementation of the new equation refit without the race variable in all laboratories because the calculation does not include race. In addition to not including race in the calculation and reporting, it included diversity in its development, and has acceptable performance characteristics and potential consequences that do not disproportionately affect any one group of individuals. Performed By: #### 0 [id number], [id number] #### [facility] [address] [place] [address], [place] Glucose [Mass/Vol] 135 mg/dL High 70-100 [facility] Comment on above: Order Comment: No: D o not add to previous draw Performed By: #### 0 0071, [id number] #### [facility] [address] [place] [address], [facility] Potassium [Moles/Vol] 3.5 mmol/L Normal 3.5-5.1 [facility] Comment on above: Order Comment: No: D o not add to previous draw Performed By: #### 0 0071, [id number] #### [facility] [address] [place] [address], [facility] Sodium [Moles/Vol] 138 mmol/L Normal 136-145 [facility] Comment on above: Order Comment: No: D o not add to previous draw Performed By: #### 0 0071, [id number], [id number] #### [facility] [address] [place] [address], [facility] Urea nitrogen [Mass/Vol] 15 mg/dL Normal 7-25 [facility] Comment on above: Order Comment: No: D o not add to previous draw Performed By: #### 0 0071, [id number], [id number] #### [facility] [address] [place] [address], [facility] CBC COMPLETE BLOOD COUNTon 0 - Erythrocyte distribution width (RBC) [Ratio] 13.3 % Normal 11.5-15.0 [facility] Comment on above: Order Comment: No: D o not add to previous draw Performed By: #### [id number] #### [facility] [address] [place] [address], [facility] Hematocrit (Bld) [Volume fraction] 34.9 % Low 39.0-50.0 [facility] Comment on above: Order Comment: No: D o not add to previous draw Performed By: #### 8 [id number] #### [facility] [address] [place] [address], [facility] Hemoglobin (Bld) [Mass/Vol] 12.0 g/dL Low 13.0-17.0 [facility] Comment on above: Order Comment: No: D o not add to previous draw Performed By: #### 8 [id number] #### [facility] [address] [place] [address], [facility] MCH (RBC) [Entitic mass] 31.8 pg Normal 27.0-33.0 [facility] Comment on above: Order Comment: No: D o not add to previous draw Performed By: #### 8 [id number] #### [facility] [address] [place] [address], [facility] MCHC (RBC) [Mass/Vol] 34.4 g/dL Normal 32.0-35.0 [facility] Comment on above: Order Comment: No: D o not add to previous draw Performed By: #### [id number] #### [facility] [address] [place] [address], [facility] MCV (RBC) [Entitic vol] 92.6 fL Normal 82.0-98.0 [facility] Comment on above: Order Comment: No: D o not add to previous draw Performed By: #### [id number] #### [facility] [address] [place] [address], [facility] Nucleated RBC/100 WBC (Bld) [Ratio] 0 % Normal 0-0 [facility] Comment on above: Order Comment: No: D o not add to previous draw Performed By: #### 8 [id number] #### [facility] [address] [place] [address], [facility] PLAT CNT 188 10*3/uL Normal 150-400 [facility] Comment on above: Order Comment: No: D o not add to previous draw Performed By: #### [id number] #### [facility] [address] [place] [address], [facility] RBC (Bld) [#/Vol] 3.77 10*6/uL Low 4.20-5.70 [facility] Comment on above: Order Comment: No: D o not add to previous draw Performed By: #### 8 [id number] #### [facility] [address] WBC (Bld) [#/Vol] 6.94 10*3/uL Normal 4.00-10.60 [facility] Comment on above: Order Comment: No: D o not add to previous draw Performed By: #### 8 [id number] #### [address] Cardiovascular Lab Reporton 03-25-2022 Cardiovascular Lab Report [facility] Patient Name: Nikos [facility] MR #: [id number] Physician: Aleah Cotter of [facility] Service Date: 03/24/2022 Division of Birthdate: 1950 Cardiology Room #: 3AB [id number] Adult Cardiovascular Services [place] [address] Cardiovascular Laboratory Report INDICATION: The patient is a 71-year-old man with coronary artery disease, status post bypass surgery in the past. He was evaluated recently in Cardiology Clinic. He was having symptoms of unstable angina and chest pain across the chest, that happens at rest. In addition, he has shortness of breath on exertion. He is on maximal medical therapy for angina. He was referred for cardiac catheterization. PROCEDURES: 1. Bilateral selective coronary angiography. 2. Bypass graft angiography. 3. Limited right common femoral angiography. 4. Access in the right common femoral artery under ultrasound guidance. METHODS: Procedure was explained to the patient with risks and benefits, he signed informed consent. 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 The right groin area was prepped and draped in usual fashion. Micropuncture technique and ultrasound guidance were used for access in the right common femoral artery. Inner cannula angiography was performed followed by upsizing to a 6-Moroccan x 11 cm sheath. Bilateral selective coronary angiography was then performed using 6-Moroccan JL4 and JR4 diagnostic catheters. The JR4 diagnostic catheter was used to selectively engage the radial graft to the diagonal branch and the radial graft to the obtuse marginal branch. Catheter was removed. A 6-Moroccan TIMBO catheter was used to selectively engage the left subclavian artery and then selectively engage the left internal mammary artery. Angiography was performed. Catheter was removed. A 6-Moroccan AR2 diagnostic catheter was used to selectively engage the saphenous venous graft to the PDA. Angiography was performed. Catheter was removed. Procedure was concluded. Manual compression was used for hemostasis in the right common femoral artery. He was transferred to the cardiovascular recovery area. He will be admitted for further management. TOTAL SEDATION TIME: 60 minutes. TOTAL FLUORO TIME: 9.29 minutes. TOTAL AIR KERMA: 843 mGy. TOTAL CONTRAST VOLUME: 70 mL. HEMODYNAMICS: AO 138/65, mean 93. CORONARY ANGIOGRAPHY: This is a right dominant circulation. 1. Left main: This arises from left coronary cusp. It trifurcates into left anterior descending, ramus, and circumflex vessels. Left main has a 70% mid body stenosis and a 30% distal stenosis. 2. Left anterior descending: This is a large vessel. It has a 90% diffuse mid segment stenosis. The distal LAD is seen filling via a patent CRAMER graft. A 1st diagonal branch is occluded and is seen filling via a patent radial graft. 3. Ramus vessel: This is large and has mild disease. 4. Circumflex vessel: This is nondominant. It has a diffuse 80% stenosis in the mid segment. A 2nd obtuse marginal branch is seen to have competitive flow from a patent radial graft. The distal segment of the obtuse marginal branch is of very small caliber and has poor outflow. 5. Right coronary artery: This arises from the right coronary cusp. It is a large and dominant vessel. It has diffuse disease up to 70% stenosis in the proximal to mid segment. The [id number] RCA is occluded. The PDA and PLV branches are seen filling via patent saphenous venous graft. BYPASS GRAFT ANGIOGRAPHY: 1. CRAMER to LAD, this graft is widely patent. 2. Radial graft sequential to diagonal 1 and ramus: This graft is patent with a 90% stenosis at the ostium with no resolution after administration intracoronary nitroglycerin. The bypass graft is anastomosed to the diagonal branch. A 2nd limb of the graft that was anastomosed to the ramus is not seen filling during this angiography and is occluded. 3. Radial graft to the 2nd obtuse marginal branch, this graft is patent. 4. Saphenous venous graft to the PDA, this graft is patent. Limited right common femoral angiography. This showed access to be in the right common femoral artery with no obstructive lesions noted in the femoral artery or its proximal branches. FINDINGS: 1. Severe 3-vessel coronary artery disease. 2. Patent 4/5 bypass grafts (patent CRAMER to LAD, patent radial graft to diagonal, patent radial graft to OM2 and patent saphenous venous graft to the PDA) with occluded radial graft to the diagonal sequential limb to the ramus vessel. 3. 90% stenosis at the ostium of the radial graft to the diagonal branch. RECOMMENDATIONS: The patient will require percutaneous intervention to the ostium of the radial graft to the diagonal branch. 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 Normal [facility] MAGNESIUM BLOODon 03-25-2022 Magnesium [Mass/Vol] 1.1 mg/dL Critically low 1.9-2.7 [facility] Comment on above: Order Comment: No: D o not add to previous draw Performed By: #### [id number] #### [facility] [address] [facility] [place] [place] [address], [facility] PHOSPHORUS BLOODon Phosphate [Mass/Vol] 2.8 mg/dL Normal 2.5-5.0 [facility] Comment on above: Order Comment: No: D o not add to previous draw Performed By: #### 8 [id number] #### [facility] [address] [place] [address], [place] POC GLUCOSE LABon 03-25-2022 Glucose [Mass/Vol] 165 mg/dL High 70-100 [facility] Comment on above: Performed By: #### 8 [id number] #### [facility] [address] [place] [address], [place] Glucose [Mass/Vol] 188 mg/dL High 70-100 [facility] Comment on above: Performed By: #### 8 [id number] #### [facility] [address] [place] [address], [place] Glucose [Mass/Vol] 262 mg/dL High 70-100 [facility] Comment on above: Performed By: #### 8 [id number] #### [facility] [address] [place] [address], [place] Glucose [Mass/Vol] 135 mg/dL High 70-100 [facility] Comment on above: Performed By: #### 8 [id number] #### [facility] [address] [place] [address], [facility] POC GLUCOSE LABon 03-24-2022 Glucose [Mass/Vol] 175 mg/dL High 70-100 [facility] Comment on above: Performed By: #### 8 [id number] #### [facility] [address] [place] [address], [place] Glucose [Mass/Vol] 131 mg/dL High 70-100 [facility] Comment on above: Performed By: #### 8 [id number] #### [facility] [address] [place] [address], [facility] CBC AUTO DIFFon 03-20-2022 BASO # 0.1 103/ul Normal 0.0-0.1 [facility] Comment on above: Performed By: #### V ITADLC #### [facility] [address] [place] [address] Dr. Veto Louis Basophils/100 WBC (Bld) 0.9 % Normal 0.2-2.0 [facility] Comment on above: Performed By: #### V ITADLC #### [facility] [address] [place] [address] [address] Veto Louis EO # 0.4 103/ul Normal 0.0-0.7 [facility] Comment on above: Performed By: #### V ITADLC #### [facility] [address] [place] [address] [address] Veto Louis Eosinophils/100 WBC (Bld) 6.0 % Normal 0.9-7.0 [facility] Comment on above: Performed By: #### V ITADLC #### [facility] [address] [address] [address] Veto Louis Erythrocyte distribution width (RBC) [Ratio] 13.7 % Normal 11.0-15.0 [facility] Comment on above: Performed By: #### V ITADLC #### [facility] [address] [place] [address] Dr. Veto Louis Hematocrit (Bld) [Volume fraction] 37.4 % Critically low 42.0-54.0 [facility] Comment on above: Performed By: #### V ITADLC #### [facility] [address] [place] [address] Dr. Veto Louis Hemoglobin (Bld) [Mass/Vol] 13.3 g/dL Critically low 14.0-18.0 [facility] Comment on above: Performed By: #### V ITADLC #### [facility] [address] [place] [address] Dr. Veto Louis IG # 0.02 10e3/ul Normal 0.00-0.03 [facility] Comment on above: Performed By: #### V ITADLC #### [facility] [address] [place] [address] Dr. Veto Louis IG % 0.3 % Normal 0.0-0.5 [facility] Comment on above: Performed By: #### V ITADLC #### [facility] [address] [place] [address] Dr. Veto Louis LYMPH # 2.1 103/ul Normal 1.2-3.8 [facility] Comment on above: Performed By: #### V ITADLC #### [facility] [address] [place] [address] Dr. Veto Louis Lymphocytes/100 WBC (Bld) 30.5 % Normal 20.5-60.0 [facility] Comment on above: Performed By: #### V ITADLC #### [facility] [address] [place] [address] Dr. Veto Louis MANUAL DIFF REQ NO Normal [facility] Comment on above: Performed By: #### V ITADLC #### [facility] [address] [place] [address] Dr. Veto Louis MCH (RBC) [Entitic mass] 33.8 pg Normal 25.9-34.0 [facility] Comment on above: Performed By: #### V ITADLC #### [facility] [address] [place] [address] Dr. Veto Louis MCHC (RBC) [Mass/Vol] 35.6 g/dL Critically high 29.9-35.2 [facility] Comment on above: Performed By: #### V ITADLC #### [facility] [address] [place] [address] Dr. Veto Louis MCV (RBC) [Entitic vol] 95.2 fL Critically high 80.0-94.0 [facility] Comment on above: Performed By: #### V ITADLC #### [facility] [address] [place] [address] Dr. Veto Louis MONO # 0.7 103/ul Normal 0.3-0.8 [facility] Comment on above: Performed By: #### V ITADLC #### [facility] [address] [place] [address] Dr. Veto Louis Monocytes/100 WBC (Bld) 9.8 % Normal 1.7-12.0 [facility] Comment on above: Performed By: #### V ITADLC #### [facility] [address] [place] [address] Dr. Veto Louis NEUT # 3.6 103/ul Normal 1.4-6.5 [facility] Comment on above: Performed By: #### V ITADLC #### [facility] [address] [place] [address] Dr. Veto Louis Neutrophils/100 WBC (Bld) 52.5 % Normal 43.0-75.0 [facility] Comment on above: Performed By: #### V ITADLC #### [facility] [address] [place] [address] Dr. Veto Louis Platelet mean volume (Bld) [Entitic vol] 9.6 fL Normal 9.5-13.5 [facility] Comment on above: Performed By: #### V ITADLC #### [facility] [address] [address] [address] Veto Louis PLT 213 103/ul Normal 150-450 [facility] Comment on above: Performed By: #### V ITADLC #### [facility] [address] [address] [address] Veto Louis RBC 3.93 106/ul Critically low 4.70-6.10 [facility] Comment on above: Performed By: #### V ITADLC #### [facility] [address] [address] [address] Veto Louis WBC 6.8 103/ul Normal 4.0-11.0 [facility] Comment on above: Performed By: #### V ITADLC #### [facility] [address] [address] [address] Veto Louis Covid-19 PCR (CVDTBH)on 03-02 SARS-CoV-2 (COVID-19) RNA SIM+probe Ql (Unsp spec) Not detected Normal NOT DETECTED [facility] Comment on above: Result Comment: This test is not yet approved or cleared by the [place] FDA. When there are no FDA-approved or cleared tests available, and other criteria are met, FDA can make tests available under an emergency access mechanism called an Emergency Use Authorization (EUA). The EUA for this test is supported by the [place] of Health and Human Service's (HHS's) declaration that circumstances exist to justify the emergency use of in vitro diagnostics for the detection and/or diagnosis of the virus that causes COVID-19. This EUA will remain in effect (meaning this test can be used) for the duration of the COVID-19 declaration justifying emergency of IVDs, unless it is terminated or revoked by FDA (after which the test may no longer be used). When diagnostic testing is negative, the possibility of a false negative should be considered in the context of a patient's recent exposures and the presence of clinical signs and symptoms consistent with SARS-CoV-2. Performed By: #### C VDTBH #### [facility] [address] [address] [address] Veto Louis PROF CHEM 8 (BAS METB)on Anion gap [Moles/Vol] 10.4 mmol/L Normal Th [facility] Comment on above: Performed By: #### B MP #### [facility] [address] [address] [address] Veto Louis Calcium [Mass/Vol] 8.7 mg/dL Normal 8.5-10.1 [facility] Comment on above: Performed By: #### B MP #### [facility] [address] [address] [address] Veto Louis Chloride [Moles/Vol] 102 mmol/L Normal 98-107 [facility] Comment on above: Performed By: #### B MP #### [facility] [address] [address] [address] Veto Louis CO2 [Moles/Vol] 32.3 mmol/L Critically high 21.0-32.0 [facility] Comment on above: Performed By: #### B MP #### [facility] [address] [address] [address] Veto Louis Creatinine [Mass/Vol] 1.23 mg/dL Normal 0.70-1.30 [facility] Comment on above: Performed By: #### B MP #### [facility] [address] [address] [address] Veto Louis EGFR-AF BARBADIAN >60 Normal >=60 [facility] Comment on above: Performed By: #### B MP #### [facility] [address] [address] [address] Veto Louis EGFR-NON AF BARBADIAN 58 mL/min/1.73m2 Critically low >=60 [facility] Comment on above: Performed By: #### B MP #### [facility] [address] [address] [address] Veto Louis Glucose [Mass/Vol] 142 mg/dL Critically high 74-[address] [facility] Comment on above: Performed By: #### B MP #### [facility] [address] [address] [address] Veto Louis Potassium [Moles/Vol] 3.7 mmol/L Normal 3.5-5.1 [facility] Comment on above: Performed By: #### B MP #### [facility] [address] [address] [address] Veto Louis Sodium [Moles/Vol] 141 mmol/L Normal 136-145 [facility] Comment on above: Performed By: #### B MP #### [facility] [address] [address] [address] Veto Louis Urea nitrogen [Mass/Vol] 24.0 mg/dL Critically high 7.0-18.0 [facility] Comment on above: Performed By: #### B MP #### [facility] [address] [address] [address] Veto Louis Urea nitrogen/Creatinine [Mass ratio] 19.5 mg/mg Normal [facility] Comment on above: Performed By: #### B MP #### [facility] [address] [address] [address] Veto Louis INSULINon 03-05-2022 Insulin 18.8 uIU/mL Normal 2.6-24.9 [facility] Comment on above: Performed By: #### V ITADLC #### [facility] [address] [address] [address] Veto Louis TESTOSTERONE, TOTALon 2021 Testosterone [Mass/Vol] 420 ng/dL Normal 264-916 [facility] Comment on above: Result Comment: Adul t male reference interval is based on a population of healthy nonobese males (BMI <30) between 19 and 39 years old. Daniella et.al. JCEM 2017,102;3123-2472. PMID: [id number]. Performed By: #### V ITADLC #### [facility] [address] [address] [address] Veto Louis VIT D 25-OH LABCORPon 2021 Vitamin D, 25-Hydroxy 24.6 ng/mL Critically low 30.0-100.0 [facility] Comment on above: Result Comment: Shelly min D deficiency has been defined by the [place] of Medicine and an Endocrine Society practice guideline as a level of serum 25-OH vitamin D less than 20 ng/mL (1,2). The Endocrine Society went on to further define vitamin D insufficiency as a level between 21 and 29 ng/mL (2). 1. IOM ([place] of Medicine). 2010. Dietary reference intakes for calcium and D. [place]: The National Academies Press. 2. Lavinia MF, Kalyan YUEN, Hoa CALHOUN, et al. Evaluation, treatment, and prevention of vitamin D deficiency: an Endocrine Society clinical practice guideline. JCEM. 2010; 96(7):1911-30. Performed By: #### V ITADLC #### [facility] [address] [place] [address] Dr. Veto Louis CBC AUTO DIFFon 03-04-2022 BASO # 0.0 103/ul Normal 0.0-0.1 [facility] Comment on above: Performed By: #### V ITADLC #### [facility] [address] [place] [address] Dr. Veto Louis Basophils/100 WBC (Bld) 0.4 % Normal 0.2-2.0 [facility] Comment on above: Performed By: #### V ITADLC #### [facility] [address] [place] [address] Dr. Veto Louis EO # 0.3 103/ul Normal 0.0-0.7 [facility] Comment on above: Performed By: #### V ITADLC #### [facility] [address] [place] [address] Dr. Veto Louis Eosinophils/100 WBC (Bld) 4.4 % Normal 0.9-7.0 [facility] Comment on above: Performed By: #### V ITADLC #### [facility] [address] [place] [address] Dr. Veto Louis Erythrocyte distribution width (RBC) [Ratio] 13.6 % Normal 11.0-15.0 [facility] Comment on above: Performed By: #### V ITADLC #### [facility] [address] [place] [address] Dr. Veto Louis Hematocrit (Bld) [Volume fraction] 37.4 % Critically low 42.0-54.0 [facility] Comment on above: Performed By: #### V ITADLC #### [facility] [address] [place] [address] Dr. Veto Louis Hemoglobin (Bld) [Mass/Vol] 13.1 g/dL Critically low 14.0-18.0 [facility] Comment on above: Performed By: #### V ITADLC #### [facility] [address] [place] [address] Dr. Veto Louis IG # 0.02 10e3/ul Normal 0.00-0.03 [facility] Comment on above: Performed By: #### V ITADLC #### [facility] [address] [place] [address] Dr. Veto Louis IG % 0.3 % Normal 0.0-0.5 [facility] Comment on above: Performed By: #### V ITADLC #### [facility] [address] [place] [address] Dr. Veto Louis LYMPH # 1.6 103/ul Normal 1.2-3.8 [facility] Comment on above: Performed By: #### V ITADLC #### [facility] [address] [place] [address] Dr. Veto Louis Lymphocytes/100 WBC (Bld) 22.8 % Normal 20.5-60.0 [facility] Comment on above: Performed By: #### V ITADLC #### [facility] [address] [place] [address] Dr. Veto Louis MANUAL DIFF REQ NO Normal [facility] Comment on above: Performed By: #### V ITADLC #### [facility] [address] [place] [address] Dr. Veto Louis MCH (RBC) [Entitic mass] 32.6 pg Normal 25.9-34.0 [facility] Comment on above: Performed By: #### V ITADLC #### [facility] [address] [place] [address] Dr. Veto Louis MCHC (RBC) [Mass/Vol] 35.0 g/dL Normal 29.9-35.2 [facility] Comment on above: Performed By: #### V ITADLC #### [facility] [address] [place] [address] Dr. Veto Louis MCV (RBC) [Entitic vol] 93.0 fL Normal 80.0-94.0 [facility] Comment on above: Performed By: #### V ITADLC #### [facility] [address] [place] [address] Dr. Veto Louis MONO # 0.6 103/ul Normal 0.3-0.8 [facility] Comment on above: Performed By: #### V ITADLC #### [facility] [address] [place] [address] Dr. Veto Louis Monocytes/100 WBC (Bld) 7.9 % Normal 1.7-12.0 [facility] Comment on above: Performed By: #### V ITADLC #### [facility] [address] [place] [address] Dr. Veto Louis NEUT # 4.6 103/ul Normal 1.4-6.5 [facility] Comment on above: Performed By: #### V ITADLC #### [facility] [address] [place] [address] Dr. Veto Louis Neutrophils/100 WBC (Bld) 64.2 % Normal 43.0-75.0 [facility] Comment on above: Performed By: #### V ITADLC #### [facility] [address] [place] [address] Dr. Veto Louis Platelet mean volume (Bld) [Entitic vol] 9.4 fL Critically low 9.5-13.5 [facility] Comment on above: Performed By: #### V ITADLC #### [facility] [address] [place] [address] Dr. Veto Louis PLT 198 103/ul Normal 150-450 [facility] Comment on above: Performed By: #### V ITADLC #### [facility] [address] [place] [address] Dr. Veto Louis RBC 4.02 106/ul Critically low 4.70-6.10 [facility] Comment on above: Performed By: #### V ITADLC #### [facility] [address] [address] [address] Veto Louis WBC 7.2 103/ul Normal 4.0-11.0 [facility] Comment on above: Performed By: #### V ITADLC #### [facility] [address] [place] [address] Dr. Veto Louis FREE THYROXINE INDEX T7on FTI 2.82 Normal 1.30-4.50 [facility] Comment on above: Performed By: #### T SH, CMP, T7, URIC, LIPID #### [facility] [address] [place] [address] Dr. Veto Louis T3U 34.0 % Normal 33.0-40.0 [facility] Comment on above: Performed By: #### T SH, CMP, T7, URIC, LIPID #### [facility] [address] [place] [address] Dr. Veto Louis T4 [Mass/Vol] 8.30 ug/dL Normal 4.50-12.10 [facility] Comment on above: Performed By: #### T SH, CMP, T7, URIC, LIPID #### [facility] [address] [place] [address] Dr. Veto Louis GLYCOHEMOGLOBIN A1Con 2021 ADA RECOMMENDATION SEE BELOW Normal [facility] Comment on above: Result Comment: ADA RECOMMENDED LIMIT 4.0 - 6.0 ADA THERAPEUTIC TARGET < 7.0 ACTION SUGGESTED > 7.0 Performed By: #### V ITADLC #### [facility] [address] [place] [address] Dr. Veto Louis Glucose [Mass/Vol] 154 mg/dL Normal [facility] Comment on above: Performed By: #### V ITADLC #### [facility] [address] [place] [address] Dr. Veto Louis HbA1c (Bld) [Mass fraction] 7.0 % Critically high 4.5-6.2 [facility] Comment on above: Performed By: #### V ITADLC #### [facility] [address] [address] [address] Veto Louis LIPID PROFILEon 03-04-2022 CHOL-HDL RATIO NORM SEE BELOW Normal [facility] Comment on above: Result Comment: 3.3 - 4.4 LOW RISK 4.4 - 7.1 AVERAGE RISK 7.1 - 11.0 MODERATE RISK >11.0 HIGH RISK Performed By: #### T SH, CMP, T7, URIC, LIPID #### [facility] [address] [address] [address] Veto Louis Cholesterol [Mass/Vol] 103 mg/dL Normal <=200 [facility] Comment on above: Performed By: #### T SH, CMP, T7, URIC, LIPID #### [facility] [address] [address] [address] Veto Louis Cholesterol in HDL [Mass/Vol] 35 mg/dL Critically low 40-60 [facility] Comment on above: Performed By: #### T SH, CMP, T7, URIC, LIPID #### [facility] [address] [address] [address] Veto Louis Cholesterol in LDL [Mass/Vol] 34.8 mg/dL Normal [facility] Comment on above: Performed By: #### T SH, CMP, T7, URIC, LIPID #### [facility] [address] [address] [address] Veto Louis Cholesterol.total/Cho lesterol in HDL [Mass ratio] 2.9 {ratio} Normal [facility] Comment on above: Performed By: #### T SH, CMP, T7, URIC, LIPID #### [facility] [address] [address] [address] Veto Louis HDL NORMAL > or = 60 mg/dl - LO W CARDIOVASCULAR RISK <40 mg/dl - HIGH CARDIOVASCULAR RISK Normal [facility] Comment on above: Performed By: #### T SH, CMP, T7, URIC, LIPID #### [facility] [address] [address] [address] Veto Louis LDL CALC NORMAL SEE BELOW Normal [facility] Comment on above: Result Comment: <100 mg/dl OPTIMAL 100 - 129 mg/dl NEAR OR ABOVE OPTIMAL 130 - 159 mg/dl BORDERLINE HIGH 160 - 189 mg/dl HIGH >190 mg/dl VERY HIGH Performed By: #### T SH, CMP, T7, URIC, LIPID #### [facility] [address] [address] [address] Veto Louis Triglyceride [Mass/Vol] 166 mg/dL Critically high <=150 [facility] Comment on above: Performed By: #### T SH, CMP, T7, URIC, LIPID #### [facility] [address] [address] [address] Veto Louis VLDL CALC 33.2 mg/dL Normal [facility] Comment on above: Performed By: #### T SH, CMP, T7, URIC, LIPID #### [facility] [address] [place] [address] Dr. Veto Louis PROF 14(COMP METB)on 022 Albumin [Mass/Vol] 3.4 g/dL Normal 3.4-5.0 [facility] Comment on above: Performed By: #### T SH, CMP, T7, URIC, LIPID #### [facility] [address] [place] [address] Dr. Veto Louis Albumin/Globulin [Mass ratio] 0.9 {ratio} Normal [facility] Comment on above: Performed By: #### T SH, CMP, T7, URIC, LIPID #### [facility] [address] [address] [address] Veto Louis ALP [Catalytic activity/Vol] 67 U/L Normal 46-116 [facility] Comment on above: Performed By: #### T SH, CMP, T7, URIC, LIPID #### [facility] [address] [address] [address] Veto Louis ALT [Catalytic activity/Vol] 31 U/L Normal 16-63 [facility] Comment on above: Performed By: #### T SH, CMP, T7, URIC, LIPID #### [facility] [address] [place] [address] Dr. Veto Louis Anion gap [Moles/Vol] 12.6 mmol/L Normal [facility] Comment on above: Performed By: #### T SH, CMP, T7, URIC, LIPID #### [facility] [address] [address] [address] Veto Louis AST [Catalytic activity/Vol] 18 U/L Normal 15-37 [facility] Comment on above: Performed By: #### T SH, CMP, T7, URIC, LIPID #### [facility] [address] [address] [address] Veto Louis Bilirubin [Mass/Vol] 0.4 mg/dL Normal 0.2-1.0 [facility] Comment on above: Performed By: #### T SH, CMP, T7, URIC, LIPID #### [facility] [address] [address] [address] Veto Louis Calcium [Mass/Vol] 8.5 mg/dL Normal 8.5-10.1 [facility] Comment on above: Performed By: #### T SH, CMP, T7, URIC, LIPID #### [facility] [address] [address] [address] Veto Louis Chloride [Moles/Vol] 105 mmol/L Normal 98-107 [facility] Comment on above: Performed By: #### T SH, CMP, T7, URIC, LIPID #### [facility] [address] [address] [address] Veto Louis CO2 [Moles/Vol] 27.3 mmol/L Normal 21.0-32.0 [facility] Comment on above: Performed By: #### T SH, CMP, T7, URIC, LIPID #### [facility] [address] [address] [address] Veto Louis Creatinine [Mass/Vol] 1.12 mg/dL Normal 0.70-1.30 [facility] Comment on above: Performed By: #### T SH, CMP, T7, URIC, LIPID #### [facility] [address] [address] [address] Veto Louis EGFR-AF BARBADIAN >60 Normal >=60 [facility] Comment on above: Performed By: #### T SH, CMP, T7, URIC, LIPID #### [facility] [address] [place] [address] Dr. Veto Louis EGFR-NON AF BARBADIAN >60 Normal >=60 [facility] Comment on above: Performed By: #### T SH, CMP, T7, URIC, LIPID #### [facility] [address] [place] [address] Dr. Veto Louis Globulin (S) [Mass/Vol] 3.6 g/dL Normal [facility] Comment on above: Performed By: #### T SH, CMP, T7, URIC, LIPID #### [facility] [address] [place] [address] Dr. Veto Louis Glucose [Mass/Vol] 146 mg/dL Critically high 74-[address] [facility] Comment on above: Performed By: #### T SH, CMP, T7, URIC, LIPID #### [facility] [address] [place] [address] Dr. Veto Louis Potassium [Moles/Vol] 3.9 mmol/L Normal 3.5-5.1 [facility] Comment on above: Performed By: #### T SH, CMP, T7, URIC, LIPID #### [facility] [address] [place] [address] Dr. Veto Louis Protein [Mass/Vol] 7.0 g/dL Normal 6.4-8.2 [facility] Comment on above: Performed By: #### T SH, CMP, T7, URIC, LIPID #### [facility] [address] [place] [address] Dr. Veto Louis Sodium [Moles/Vol] 141 mmol/L Normal 136-145 [facility] Comment on above: Performed By: #### T SH, CMP, T7, URIC, LIPID #### [facility] [address] [place] [address] Dr. Veto Louis Urea nitrogen [Mass/Vol] 14.0 mg/dL Normal 7.0-18.0 [facility] Comment on above: Performed By: #### T SH, CMP, T7, URIC, LIPID #### [facility] [address] [address] [address] Veto Louis Urea nitrogen/Creatinine [Mass ratio] 12.5 mg/mg Normal [facility] Comment on above: Performed By: #### T SH, CMP, T7, URIC, LIPID #### [facility] [address] [place] [address] Dr. Veto Louis TSHon 03-04-2022 TSH 1.309 uIU/mL Normal 0.358-3.740 [facility] Comment on above: Performed By: #### T SH, CMP, T7, URIC, LIPID #### [facility] [address] [place] [address] Dr. Veto Louis URIC ACID SERUMon 03-04-2022 Urate [Mass/Vol] 6.2 mg/dL Normal 3.5-7.2 [facility] Comment on above: Performed By: #### T SH, CMP, T7, URIC, LIPID #### [facility] [address] [place] [address] Dr. Veto Louis VITAMIN B12on 03-04-2022 Cobalamin (Vitamin B12) [Mass/Vol] 102.0 pg/mL Critically low 193.0-986.0 [facility] Comment on above: Performed By: #### P SASC, VITB12 #### [facility] [address] [place] [address] Dr. Veto Louis Vital Signs Date Time Vital Sign Value Performing Clinician Facility 08-03-2024 15:45-0500 Body height 172.7 cm Jori Matias DO Work Phone: [facility] 08-03-2024 15:45-0500 Body mass index (BMI) [Ratio] 34.52 kg/m2 Jori Matias DO Work Phone: [facility] 08-03-2024 15:45-0500 Body weight 102.97 kg Jori Matias DO Work Phone: [facility] 04-27-2024 14:32-0400 Body height 172.7 cm Jori Matias DO Work Phone: [facility] 04-27-2024 14:32-0400 Body mass index (BMI) [Ratio] 35.28 kg/m2 Jori Polly DO Work Phone: [facility] 04-27-2024 14:32-0400 Body weight 105.23 kg Jori Polly DO Work Phone: [facility] 03-27-2024 14:13-0400 Heart rate 91 /min Jori Polly [facility] 03-27-2024 14:13-0400 SaO2% (BldA) [Mass fraction] 94 % Jori Polly [facility] 03-27-2024 14:12-0400 Blood Pressure Location Jori Polly [facility] 03-27-2024 14:12-0400 Diastolic blood pressure 66 mm[Hg] Jori Polly [facility] 03-27-2024 14:12-0400 Mean blood pressure 85 mm[Hg] Jori Polly [facility] 03-27-2024 14:12-0400 Systolic blood pressure 121 mm[Hg] Jori Polly [facility] 03-27-2024 14:12-0400 Body temperature 97.7 [degF] Jori Polly [facility] 03-27-2024 14:12-0400 Respiratory rate 16 /min Jori Polly [facility] 03-27-2024 11:26-0400 Heart rate 74 /min Jori Polly [facility] 03-27-2024 11:26-0400 SaO2% (BldA) [Mass fraction] 93 % Jori Polly [facility] 03-27-2024 11:26-0400 Diastolic blood pressure 65 mm[Hg] Jori Polly [facility] 03-27-2024 11:26-0400 Mean blood pressure 81 mm[Hg] Jori Matias [facility] 03-27-2024 11:26-0400 Systolic blood pressure 112 mm[Hg] Jori Polly [facility] 03-27-2024 11:26-0400 Mean blood pressure 81 mm[Hg] Jori Polly [facility] 03-27-2024 10:14-0400 Heart rate 68 /min Jori Matias [facility] 03-27-2024 10:14-0400 SaO2% (BldA) [Mass fraction] 94 % Jori Matias [facility] 03-27-2024 10:14-0400 Body temperature 97.52 [degF] Jori Polly [facility] 03-27-2024 10:13-0400 Respiratory rate 16 /min Jori Matias [facility] 03-27-2024 10:13-0400 Blood Pressure Location Jori Matias [facility] 03-27-2024 10:13-0400 Diastolic blood pressure 73 mm[Hg] Jori Polly [facility] 03-27-2024 10:13-0400 Mean blood pressure 91 mm[Hg] Jori Polly [facility] 03-27-2024 10:13-0400 Systolic blood pressure 126 mm[Hg] Jori Polly [facility] 03-27-2024 10:00-0400 Body temperature 97.34 [degF] Jori Polly [facility] 03-27-2024 10:00-0400 Mean blood pressure 83 mm[Hg] Jori Polly [facility] 03-27-2024 10:00-0400 Respiratory rate 12 /min Jori Polly [facility] 03-27-2024 09:50-0400 Mean blood pressure 82 mm[Hg] Jori Polly [facility] 03-27-2024 09:50-0400 Respiratory rate 11 /min Jori Polly [facility] 03-27-2024 09:45-0400 Respiratory rate 18 /min Jori Matias [facility] 03-27-2024 09:40-0400 Respiratory rate 17 /min Jori Polly [facility] 03-27-2024 09:35-0400 Body temperature 97.88 [degF] Jori Polly [facility] 03-27-2024 06:51-0400 Heart rate 60 /min Jori Polly [facility] 03-27-2024 06:50-0400 Body temperature 97.52 [degF] Jori Matias [facility] 03-08-2024 07:51-0400 Diastolic blood pressure 64 mm[Hg] Jori Matias [facility] 03-08-2024 07:51-0400 Heart rate 62 /min Jori Polly [facility] 03-08-2024 07:51-0400 Mean blood pressure 77 mm[Hg] Jori Matias [facility] 03-08-2024 07:51-0400 Systolic blood pressure 104 mm[Hg] Jori Matias [facility] 03-08-2024 07:51-0400 Body temperature 98.06 [degF] Jori Matias [facility] 03-08-2024 07:51-0400 Respiratory rate 17 /min Jori Matias [facility] 03-08-2024 07:50-0400 Heart rate 60 /min Jori Polly [facility] 03-08-2024 07:50-0400 SaO2% (BldA) [Mass fraction] 96 % Jori Polly [facility] 03-08-2024 07:50-0400 Diastolic blood pressure 67 mm[Hg] Jori Matias [facility] 03-08-2024 07:50-0400 Mean blood pressure 80 mm[Hg] Jori Polly [facility] 03-08-2024 07:50-0400 Systolic blood pressure 107 mm[Hg] Jori Polly [facility] Encounters Encounter Date Encounter Type Care Provider Facility Start: 02-27-2025 End: 02-27-2025 ambulatory [facility] Start: 08-03-2024 End: 08-03-2024 Patient encounter procedure Jori Matias DO Work Phone: [facility] Comment on above: Status post left hip replacement (Primary Dx); Status post right hip replacement Start: 08-03-2024 End: 08-03-2024 ambulatory JORI MATIAS Not Available Start: 08-03-2024 End: 08-03-2024 ambulatory JORI MATIAS Not Available Start: 06-27-2024 End: 06-27-2024 ambulatory Keely Kearney [facility] Comment on above: Primary osteoarthrit is of left hip (Primary Dx); Difficulty walking; Acute postoperative pain of left hip; Status post left hip replacement Start: 06-27-2024 End: 06-27-2024 Bamboo flowsheet Keely Flanaganbley [facility] Start: 06-27-2024 End: 06-27-2024 Bamboo flowsheet Keely Flanaganbley [facility] Start: 06-22-2024 End: 06-22-2024 Bamboo flowsheet Keely Rivasy [facility] Start: 06-22-2024 End: 06-22-2024 Bamboo flowsheet Keely Kearney [facility] Start: 06-21-2024 End: 06-21-2024 ambulatory Pearl Hardin [facility] Comment on above: Primary osteoarthrit is of left hip (Primary Dx); Difficulty walking; Acute postoperative pain of left hip; Status post left hip replacement Start: 06-21-2024 End: 06-21-2024 Bamboo flowsheet Pearl Brink [facility] Start: 06-21-2024 End: 06-21-2024 Bamboo flowsheet Pearl Brink [facility] Start: 06-15-2024 End: 06-15-2024 ambulatory Pearl Brink [facility] Comment on above: Primary osteoarthrit is of left hip (Primary Dx); Difficulty walking; Acute postoperative pain of left hip; Status post left hip replacement Start: 06-15-2024 End: 06-15-2024 Bamboo flowsheet Pearl Brink [facility] Start: 06-15-2024 End: 06-15-2024 Bamboo flowsheet Pearl Brink [facility] Start: 06-12-2024 End: 06-12-2024 ambulatory Pearl Brink [facility] Comment on above: Primary osteoarthrit is of left hip (Primary Dx); Difficulty walking; Acute postoperative pain of left hip Start: 06-12-2024 End: 06-12-2024 Bamboo flowsheet Pearl Brink [facility] Start: 06-12-2024 End: 06-12-2024 Bamboo flowsheet Pearl Brink [facility] Start: 06-08-2024 End: 06-08-2024 Bamboo flowsheet Pearl Brink [facility] Start: 06-08-2024 End: 06-08-2024 Bamboo flowsheet Pearl Brink [facility] Start: 06-08-2024 End: 06-08-2024 ambulatory Pearl Brink [facility] Comment on above: Primary osteoarthrit is of left hip (Primary Dx); Difficulty walking; Acute postoperative pain of left hip Start: 06-06-2024 End: 06-06-2024 Bamboo flowsheet Pearl Brink [facility] Start: 06-06-2024 End: 06-06-2024 Bamboo flowsheet Pearl Brink [facility] Start: 06-06-2024 End: 06-07-2024 ambulatory Pearl Brink [facility] Comment on above: Primary osteoarthrit is of left hip (Primary Dx); Difficulty walking; Acute postoperative pain of left hip; Status post left hip replacement Start: 06-01-2024 End: 06-01-2024 Bamboo flowsheet Pearl Brink [facility] Start: 06-01-2024 End: 06-01-2024 Bamboo flowsheet Pearl Brink [facility] Start: 06-01-2024 End: 06-01-2024 ambulatory Pearl Brink [facility] Comment on above: Primary osteoarthrit is of left hip (Primary Dx); Acute postoperative pain of left hip; Difficulty walking; Status post left hip replacement Start: 05-29-2024 End: 05-29-2024 Bamboo flowsheet Pearl Brink [facility] Start: 05-29-2024 End: 05-29-2024 Bamboo flowsheet Pearl Brink [facility] Start: 05-29-2024 End: 05-29-2024 ambulatory Pearl Brink [facility] Comment on above: Primary osteoarthrit is of left hip (Primary Dx); Acute postoperative pain of left hip; Difficulty walking; Status post left hip replacement Start: 05-25-2024 End: 05-25-2024 Bamboo flowsheet Pearl Brink [facility] Start: 05-25-2024 End: 05-25-2024 Bamboo flowsheet Pearl Brink [facility] Start: 05-25-2024 End: 05-25-2024 ambulatory Pearl Brink [facility] Comment on above: Primary osteoarthrit is of left hip (Primary Dx); Acute postoperative pain of left hip; Difficulty walking; Status post left hip replacement Start: 05-23-2024 End: 05-23-2024 Bamboo flowsheet Pearl Brink [facility] Start: 05-23-2024 End: 05-23-2024 Bamboo flowsheet Pearl Brink [facility] Start: 05-23-2024 End: 05-23-2024 ambulatory Pearl Hardin [facility] Comment on above: Primary osteoarthrit is of left hip (Primary Dx); Acute postoperative pain of left hip; Difficulty walking; Status post left hip replacement Start: 05-18-2024 End: 05-18-2024 Bamboo flowsheet Pearl Hardin [facility] Start: 05-18-2024 End: 05-18-2024 Bamboo flowsheet Pearl Hardin [facility] Start: 05-18-2024 End: 05-18-2024 Admission to same day surgery center Pearl Hardin [facility] Comment on above: Primary osteoarthrit is of left hip (Primary Dx); Acute postoperative pain of left hip; Difficulty walking; Status post left hip replacement; Aftercare following left hip joint replacement surgery Start: 05-18-2024 End: 05-18-2024 ambulatory Pearl Hardin [facility] Start: 05-17-2024 ambulatory Facility:[facility] Start: 05-16-2024 End: 05-16-2024 Admission to same day surgery center Pearl Hardin [facility] Comment on above: Primary osteoarthrit is of left hip (Primary Dx); Acute postoperative pain of left hip; Difficulty walking; Status post left hip replacement; Aftercare following left hip joint replacement surgery Start: 05-16-2024 End: 05-16-2024 ambulatory Pearl Hardin [facility] Start: 05-16-2024 End: 05-16-2024 Bamboo flowsheet Pearl Hardin [facility] Start: 05-16-2024 End: 05-16-2024 Bamboo flowsheet Pearl Hardin [facility] Start: 05-10-2024 End: 05-10-2024 Admission to same day surgery center Pearl Hardin [facility] Comment on above: Primary osteoarthrit is of left hip (Primary Dx); Acute postoperative pain of left hip; Difficulty walking; Status post left hip replacement; Aftercare following left hip joint replacement surgery Start: 05-10-2024 End: 05-10-2024 ambulatory Pearl Hardin [facility] Start: 05-10-2024 End: 05-10-2024 Bamboo flowsheet Pearl Hardin [facility] Start: 05-10-2024 End: 05-10-2024 Bamboo flowsheet Pearl Hardin [facility] Start: 05-08-2024 End: 05-08-2024 Admission to same day surgery center Pearl Hardin [facility] Comment on above: Primary osteoarthrit is of left hip (Primary Dx); Acute postoperative pain of left hip; Difficulty walking; Status post left hip replacement; Aftercare following left hip joint replacement surgery Start: 05-08-2024 End: 05-08-2024 Bamboo flowsheet Pearl Hardin [facility] Start: 05-08-2024 End: 05-08-2024 Bamboo flowsheet Pearl Hardin [facility] Start: 05-08-2024 End: 05-09-2024 ambulatory Pearl Hardin [facility] Start: 05-04-2024 End: 05-04-2024 Bamboo flowsheet Pearl Hardin [facility] Start: 05-04-2024 End: 05-04-2024 Bamboo flowsheet Pearl Hardin [facility] Start: 05-04-2024 End: 05-04-2024 Admission to same day surgery center Pearl Hardin [facility] Comment on above: Primary osteoarthrit is of left hip (Primary Dx); Acute postoperative pain of left hip; Difficulty walking; Status post left hip replacement; Aftercare following left hip joint replacement surgery Start: 05-04-2024 End: 05-04-2024 ambulatory Pearl Hardin [facility] Start: 05-02-2024 End: 05-02-2024 Bamboo flowsheet Pearl Kitchenink [facility] Start: 05-02-2024 End: 05-02-2024 Bamboo flowsheet Pearl Kitchenink [facility] Start: 05-02-2024 End: 05-02-2024 Admission to same day surgery center Pearl Hardin [facility] Comment on above: Primary osteoarthrit is of left hip (Primary Dx); Acute postoperative pain of left hip; Difficulty walking; Status post left hip replacement; Aftercare following left hip joint replacement surgery; Presence of left artificial hip joint Start: 05-02-2024 End: 05-02-2024 ambulatory Pearl Hardin GAS DISPENSER [facility] Start: 04-28-2024 End: 04-28-2024 Admission to same day surgery center Pearl Hardin GAS DISPENSER [facility] Comment on above: Primary osteoarthrit is of left hip (Primary Dx); Acute postoperative pain of left hip; Difficulty walking; Status post left hip replacement; Aftercare following left hip joint replacement surgery; Presence of left artificial hip joint Start: 04-28-2024 End: 04-28-2024 ambulatory Pearl Hardin GAS DISPENSER [facility] Start: 04-27-2024 End: 04-27-2024 Patient encounter procedure Jori Matias DO Work Phone: [facility] Comment on above: Status post left hip replacement (Primary Dx); Status post right hip replacement Start: 04-27-2024 End: 04-27-2024 ambulatory JORI MATIAS Not Available Start: 04-27-2024 End: 04-27-2024 ambulatory JORI MATIAS Not Available Start: 04-25-2024 End: 04-25-2024 Admission to same day surgery center Pearl Hardin GAS DISPENSER [facility] Comment on above: Primary osteoarthrit is of left hip (Primary Dx); Acute postoperative pain of left hip; Difficulty walking; Status post left hip replacement; Aftercare following left hip joint replacement surgery; Presence of left artificial hip joint Start: 04-25-2024 End: 04-25-2024 ambulatory Pearl Hardin GAS DISPENSER [facility] Start: 04-25-2024 End: 04-25-2024 Bamboo flowsheet Pearl Hardin GAS DISPENSER [facility] Start: 04-25-2024 End: 04-25-2024 Bamboo flowsheet Pearl Hardin GAS DISPENSER [facility] Start: 04-20-2024 End: 04-20-2024 Admission to same day surgery center Pearl Hardin GAS DISPENSER [facility] Comment on above: Primary osteoarthrit is of left hip (Primary Dx); Acute postoperative pain of left hip; Difficulty walking; Status post left hip replacement; Aftercare following left hip joint replacement surgery; Presence of left artificial hip joint Start: 04-20-2024 End: 04-20-2024 ambulatory Pearl Hardin GAS DISPENSER [facility] Start: 04-17-2024 End: 04-17-2024 Clinical Support Roger Jimenez PT Work Phone: [facility] Comment on above: Primary osteoarthrit is of left hip (Primary Dx); Acute postoperative pain of left hip; Difficulty walking; Status post left hip replacement Start: 04-15-2024 End: 04-15-2024 ambulatory ROGER JIMENEZ Not Available Start: 04-13-2024 End: 04-13-2024 ambulatory ROGER JIMENEZ Not Available Start: 04-13-2024 End: 04-13-2024 Clinical Support Roger Jimenez PT Work Phone: [facility] Comment on above: Primary osteoarthrit is of left hip (Primary Dx); Acute postoperative pain of left hip; Difficulty walking; Status post left hip replacement Start: 04-10-2024 End: 04-10-2024 Clinical Support Roger Jimenez PT Work Phone: [facility] Comment on above: Primary osteoarthrit is of left hip (Primary Dx); Acute postoperative pain of left hip; Difficulty walking; Status post left hip replacement Start: 04-06-2024 End: 04-06-2024 Clinical Support Roger Jimenez PT Work Phone: [facility] Comment on above: Primary osteoarthrit is of left hip (Primary Dx); Acute postoperative pain of left hip; Difficulty walking; Status post left hip replacement Start: 04-04-2024 End: 04-04-2024 Clinical Support Roger Jimenez PT Work Phone: [facility] Comment on above: Primary osteoarthrit is of left hip (Primary Dx); Acute postoperative pain of left hip; Difficulty walking; Status post left hip replacement Start: 03-30-2024 End: 03-30-2024 Clinical Support Roger Jimenez PT Work Phone: [facility] Comment on above: Primary osteoarthrit is of left hip (Primary Dx); Acute postoperative pain of left hip; Difficulty walking; Status post left hip replacement Start: 03-28-2024 End: 03-28-2024 Clinical Support Roger Jimenez PT Work Phone: [facility] Comment on above: Primary osteoarthrit is of left hip (Primary Dx); Acute postoperative pain of left hip; Difficulty walking; Status post left hip replacement Start: 03-27-2024 End: 03-28-2024 Clinisync Result Encounter Jori Matias DO Work Phone: [facility]solic[facility] Start: 03-27-2024 End: 03-28-2024 Clinisync Result Encounter Jori Matias DO Work Phone: [facility]solic[facility] Start: 03-27-2024 End: 03-27-2024 Admission to same day surgery center Jori Matias [facility] Start: 03-27-2024 End: 03-27-2024 ambulatory Jori Matias Facility:[facility] Start: 03-08-2024 End: 03-08-2024 ambulatory Jori Matias Facility:[facility] Start: 03-08-2024 End: 03-08-2024 Patient encounter procedure Joir Matias [facility] Start: 03-02-2024 End: 03-02-2024 ambulatory JORI MATIAS Not Available Start: 08-31-2022 End: 09-01-2022 ambulatory NASRA VALLEJO Facility:[facility] Start: 08-04-2022 End: 09-17-[address] ALEAH RECIO Facility:[facility] Start: 04-14-2022 End: 08-04-[address] BECCA SHAVER Facility:[facility] Start: 03-24-2022 End: 03-27-2022 ambulatory OCTAVIO ADDISON Facility:[facility] Start: 03-20-2022 End: 03-21-2022 ambulatory KEELY GEORGE Facility:[facility] Start: 03-04-2022 End: 03-05-2022 ambulatory ASHLEY BRYAN Facility:[facility] Procedures Date Procedure Procedure Detail Performing Clinician Start: 08-03-2024 Radex hips bilateral with pelvis 3-4 views Jori Matias DO Work Phone: Start: 04-27-2024 Radex hips bilateral with pelvis 2 views Jori Matias Work Phone: Start: 03-27-2024 [facility] CAPILLARY GLUCOSE POC Jori Matias DO Work Phone: Start: 03-27-2024 Total replacement of hip Jori Polly Start: 03-04-[address] ALEAH RECIO Comment on above: Performed By: #### P SAS, [id number] #### [facility] [address] [place] [address] Dr. Veto Louis Start: 09-25-2020 Colsc flx w/rmvl of tumor polyp lesion snare tq Jori Polly Start: 04-30-2020 Total replacement of right hip joint Jori Matias Comment on above: RIGHT TOTAL HIP ARTH ROPLASTY Start: 04-10-2019 Anorectal manometry Garry sujit Matias Start: 11-11-2018 Colonoscopy Pearl jimenes GAS DISPENSER Start: 11-11-2018 Colonoscopy Jori rico Cataract extraction and insertion of intraocular lens Jori Matias Cholecystectomy Jori caraballo Marsupialization of pilonidal cyst or sinus Jori Matias Open heart surgery Jori abarca Open reduction of fr acture of ankle with internal fixation Jori Matias Plan of Treatment Date Care Activity Detail Author Start: 11-11-2028 Screening for malign ant neoplasm of colon [facility] Start: 08-03-2024 End: 08-03-2024 Patient encounter procedure 08/03/2024 3:45 PM EST Office Visit [facility] [address] [place] [address] Jori Matias, DO [address] [place] [address] [facility] Start: 06-27-2024 End: 06-27-2024 ambulatory [facility] Comment on above: Arrived Start: 06-21-2024 End: 06-21-2024 ambulatory [facility] Comment on above: Arrived Start: 06-15-2024 End: 06-15-2024 ambulatory 06/15/2024 2:00 PM EST Treatment [facility] [address] [place] [address] Pearl Hardin, GAS DISPENSER [facility] Start: 06-12-2024 End: 06-12-2024 ambulatory 06/12/2024 2:00 PM EST Treatment [facility] [address] [place] [address] Pearl Hardin, GAS DISPENSER [facility] Start: 06-08-2024 End: 06-08-2024 ambulatory [facility] Comment on above: Arrived Start: 06-06-2024 End: 06-06-2024 ambulatory [facility] Comment on above: Arrived Start: 06-01-2024 End: 06-01-2024 ambulatory 06/01/2024 1:30 PM EDT Treatment [facility] [address] [place] [address] Pearl Hardin, GAS DISPENSER [facility] Start: 05-29-2024 End: 05-29-2024 ambulatory [facility] Comment on above: Arrived Start: 05-25-2024 End: 05-25-2024 ambulatory [facility] Comment on above: Arrived Start: 05-23-2024 End: 05-23-2024 ambulatory [facility] Comment on above: Arrived Start: 05-18-2024 End: 05-18-2024 ambulatory 05/18/2024 1:30 PM EDT Treatment [facility] [address] [place] [address] Pearl Hardin, GAS DISPENSER [facility] Start: 05-16-2024 End: 05-16-2024 ambulatory 05/16/2024 2:00 PM EDT Treatment [facility] [address] [place] [address] Pearl Hardin PTA [facility] Start: 05-10-2024 End: 05-10-2024 ambulatory 05/10/2024 2:00 PM EDT Treatment [facility] [address] [place] [address] Pearl Hardin PTA [facility] Start: 05-08-2024 End: 05-08-2024 Admission to same day surgery center 05/08/2024 2:00 PM EDT Treatment [facility] [address] [place] [address] Pearl Hardin PTA Primary osteoarthritis of left hip (Primary Dx); Acute postoperative pain of left hip; Difficulty walking; Status post left hip replacement; Aftercare following left hip joint replacement surgery [facility] Comment on above: Primary osteoarthrit is of left hip (Primary Dx); Acute postoperative pain of left hip; Difficulty walking; Status post left hip replacement; Aftercare following left hip joint replacement surgery Start: 05-08-2024 End: 05-08-2024 ambulatory 05/08/2024 2:00 PM EDT Treatment [facility] [address] [place] [address] Pearl Hardin PTA [facility] Start: 05-04-2024 End: 05-04-2024 ambulatory 05/04/2024 11:00 AM EDT Treatment [facility] [address] [place] [address] Pearl Hardin PTA [facility] Start: 05-02-2024 End: 05-02-2024 ambulatory 05/02/2024 11:00 AM EDT Treatment [facility] [address] [place] [address] Pearl Hardin PTA Arrived [facility] Comment on above: Arrived Start: 04-28-2024 End: 04-28-2024 ambulatory 04/28/2024 1:00 PM EDT Treatment [facility] [address] [place] [address] Pearl Hardin PTA [facility] Start: 04-27-2024 End: 04-27-2024 Patient encounter procedure 04/27/2024 2:30 PM EDT Office Visit [facility] [address] [place] [id number] Jori Matias, [address] [facility] [place] [address] [facility] Start: 04-25-2024 End: 04-25-2024 ambulatory 04/25/2024 2:00 PM EDT Treatment [facility] [address] [facility] [address] [place] [address] Pearl Hardin PTA [facility] Start: 04-20-2024 End: 04-20-2024 ambulatory 04/20/2024 1:00 PM EDT Treatment [facility] [address] [facility] [place] [address] Pearl Hardin PTA [facility] Start: 04-02-2024 Influenza vaccination Influenza Vacc ine (#1) [facility] Start: 2016 Pneumococcal Vaccine : 65+ Years (1 of 1 - PCV) Pneumococcal Vaccine: 65+ Years (1 of 1 - PCV) [facility] Start: 1950 Screening for malign ant neoplasm of colon [facility] Immunizations Immunization Date Immunization Notes Care Provider Fa cility 06-01-2022 influenza virus vacc ine, unspecified formulation Pearl Hardin GAS DISPENSER [facility] Payers Date Payer Category Payer Blue Cross Blue Shield [id number] 2022 Unknown BCBS BCBS xxxxxx [id number] 2022-Present [phone] [address] [place] [address] [id number] 1959 Unknown [id number] 1951 Unknown [id number] 2.16.840.1.998519.3.579.2. 647 1951 Unknown [id number] 2.16.840.1.549965.3.579.2. 593 1951 Unknown [id number] 2.16.840.1.140884.3.579.2. 593 1951 Unknown [id number] 2.16.840.1.155526.3.579.2. 593 1951 Unknown [id number] 2.16.840.1.681107.3.579.2. 593 1951 Unknown [id number] 2.16.840.1.478941.3.579.2. 593 1951 Unknown [id number] 2.16.840.1.762566.3.579.2. 727 1951 Unknown [id number] 2.16.840.1.941489.3.579.2. 727 1951 Unknown [id number] 2.16.840.1.181924.3.579.2. 727 1951 Unknown [id number] 2.16.840.1.686046.3.579.2. 1259 1951 Unknown [id number] 2.16.840.1.384116.3.579.2. 1259 1951 Unknown [id number] 2.16.840.1.060813.3.579.2. 1259 1951 Unknown [id number] 2.16.840.1.612238.3.579.2. 1259 1951 Unknown [id number] 2.16.840.1.487388.3.579.2. 1259 1951 Unknown [id number] 2.16.840.1.768670.3.579.2. 1259 1951 Unknown [id number] 2.16.840.1.115725.3.579.2. 1258 1951 Unknown [id number] 2.16.840.1.922681.3.579.2. 1258 1951 Unknown [id number] 2.16.840.1.541618.3.579.2. 1258 1951 Unknown [id number] 2.16.840.1.006535.3.579.2. 1258 1951 Unknown [id number] 2.16.840.1.298781.3.579.2. 1258 1951 Unknown [id number] 2.16.840.1.712209.3.579.2. 1258 1951 Unknown [id number] 2.16.840.1.295083.3.579.2. 1258 1951 Unknown [id number] 2.16.840.1.420948.3.579.2. 1258 1951 Unknown [id number] 2.16.840.1.224124.3.579.2. 1258 1951 Unknown [id number] 2.16.840.1.697432.3.579.2. 1258 1951 Unknown [id number] 2.16.840.1.038926.3.579.2. 1258 1951 Unknown [id number] 2.16.840.1.330473.3.579.2. 1258 1951 Unknown [id number] 2.16.840.1.889922.3.579.2. 1258 1951 Unknown [id number] 2.16.840.1.213471.3.579.2. 1258 1951 Unknown [id number] 2.16.840.1.506415.3.579.2. 1258 1951 Unknown [id number] 2.16.840.1.571534.3.579.2. 1259 1951 Unknown [id number] 2.16.840.1.097370.3.579.2. 1259 1951 Unknown [id number] 2.16.840.1.823711.3.579.2. 1259 1951 Unknown [id number] 2.16.840.1.540688.3.579.2. 1259 1951 Unknown [id number] 2.16.840.1.219436.3.579.2. 1259 1951 Unknown [id number] 2.16.840.1.804794.3.579.2. 1259 1951 Unknown [id number] 2.16.840.1.524587.3.579.2. 1259 1951 Unknown [id number] 2.16.840.1.830620.3.579.2. 1259 1951 Unknown [id number] 2.16.840.1.512723.3.579.2. 1259 Medicare [id number] Social History Date Type Detail Facility Start: 12-19-2020 End: 03-02-2024 Tobacco smoking status Ex-smoker (finding) [facility] Tobacco smoking status Never [facility] Start: 03-02-2024 End: 04-27-2024 Sex Assigned At Male [facility] History of tobacco use Current smoker [facility] History of tobacco use Cigarette Smoker [facility] Start: 03-02-2024 Tobacco use and exposure Smokeless tobacco non-user [facility] Start: 04-27-2024 End: 08-03-2024 Alcoholic beverage intake Lifetime non-drinker (finding) [facility] Start: 03-02-2024 End: 04-27-2024 History of Social function [facility] Start: 1950 Sex assigned at Not on file [facility] Medical Equipment Procedure Code Equipment Code Equipment Origin al Text Equipment Identifier Dates HIP TOTAL ARTHRO PLASTY Jori Matias DO 04/30/20 Unknown Hip R FDA Start: 04-30-2020 HIP TOTAL ARTHRO PLASTY Matias DO, Jori Sow 04/30/20 Unknown Hip R FDA Start: 04-30-2020 HIP TOTAL ARTHRO PLASTY Matias DO, Jori Sow 04/30/20 Unknown Hip R FDA Start: 04-30-2020 HIP TOTAL ARTHRO PLASTY Matias DO, Jori Sow 04/30/20 Unknown Hip R FDA Start: 04-30-2020 HIP TOTAL ARTHRO PLASTY Matias DO, Jori Sow 04/30/20 Unknown Hip R FDA Start: 04-30-2020 HIP TOTAL ARTHRO PLASTY Matias DO, Jori Sow 04/30/20 Unknown Hip R FDA Start: 04-30-2020 HIP TOTAL ARTHRO PLASTY Matias DO, Jori Sow 04/30/20 Unknown Hip R FDA Start: 04-30-2020 HIP TOTAL ARTHRO PLASTY Matias DO, Jori Sow 04/30/20 Unknown Hip R FDA Start: 04-30-2020 HIP TOTAL ARTHRO PLASTY Matias DO, Jori Sow 04/30/20 Unknown Hip R FDA Start: 04-30-2020 HIP TOTAL ARTHRO PLASTY Matias DO, Jori Sow 04/30/20 Unknown Hip R FDA Start: 04-30-2020 HIP TOTAL ARTHRO PLASTY Matias DO, Jori Sow 04/30/20 Unknown Hip R FDA Start: 04-30-2020 HIP TOTAL ARTHRO PLASTY Matias DO, Jori Sow 04/30/20 Unknown Hip R FDA Start: 04-30-2020 HIP TOTAL ARTHRO PLASTY Matias DO, Jori Sow 03/27/24 Unknown Hip L FDA Start: 03-27-2024 HIP TOTAL ARTHRO PLASTY Matias DO, Jori Sow 03/27/24 Unknown Hip L FDA Start: 03-27-2024 HIP TOTAL ARTHRO PLASTY Matias DO, Jori Sow 03/27/24 Unknown Hip L FDA Start: 03-27-2024 HIP TOTAL ARTHRO PLASTY Matias DO, Jori Sow 03/27/24 Unknown Hip L FDA Start: 03-27-2024 Functional Status Date Assessment Result Facility 03-08-2024 Functional Status No [facility] Clinical Notes 03-27-2022 to 02-27-2025 Jori Matias DO - 08/03/2024 3:45 PM Jessica Hardin GAS DISPENSER - 06/15/2024 2:00 PM Jessica Hardin, GAS DISPENSER - 06/12/2024 2:00 PM Mary Matias, DO - 04/27/2024 2:30 PM EDT Note Date & Type Note Facility 02-27-2025 Note SUBJECTIVE Reason for Visit: Vivek Knott is a 74 y.o. year old male patient being seen for follow-up visit, c/o increased fatigue + SOB. HPI: Vivek Knott is a 74 y.o. year old male with significant medical history of CAD, hypertension, and hyperlipidemia. 02/27/2025 office visit: Patient was seen and evaluated in the office today. He reports worsening dyspnea on exertion, now needing to rest after approximately 30 minutes of yard work due to shortness of breath - compared to over an hour of activity last year. He also notes slightly increased lower extremity edema. He denies chest pain, palpitations, lightheadedness, or dizziness. 01/27/2024 office visit (Dr. Recio): Vivek Knott is a 73 y.o. year old male patient being seen for 6 mo follow up CAD, hypertension, and hyperlipidemia. Had routine labs w/ lipid panel this morning. Today he reports that he has no significant chest pain. He has shortness of breath on exertion, NYHA class II-III. He has mild lower extremity edema. He has occasional palpitations. Medical History[1] Surgical History[2] Problem List[3] family history includes Coronary artery disease in his father and mother; Diabetes in his mother; Hypertension in his father and mother; Stroke in his paternal grandmother. Social History[4] OBJECTIVE Visit Vitals Smoking Status Former Physical Exam Constitutional: General Appearance: well-developed, appears stated age. Level of Distress: no acute distress. Neck: Jugular Veins: normal jugular venous pressure. Lungs: Auscultation: no rales or rhonchi and normal breath sounds. Cardiovascular: Rate And Rhythm: regular Heart Sounds: normal S1 and s2; Systolic Murmur: not heard. Diastolic Murmur: not heard. Extremities: +1-2 LE edema Peripheral Pulses: Pulses: full and equal in all extremities except if noted. Abdomen: Inspection and Palpation: non distended or tender and soft. Musculoskeletal: Inspection: no joint tenderness or swelling. Neurologic: Gait: normal gait. Psychiatric: Mental Status: alert and normal affect. Skin: Inspection and Palpation: warm and dry. Allergies: Allergies[5] Outpatient Medications: Current Outpatient Medications Medication Instructions amLODIPine (NORVASC) 10 mg, oral, Once Daily aspirin 81 mg chewable tablet Daily RT atorvastatin (LIPITOR) 40 mg, oral, Daily calcium polycarbophil (FIBERCON) 625 mg, oral, Daily RT cholecalciferol, vitamin D3, 50 mcg (2,000 unit) capsule cholecalciferol (vitamin D3) 50 mcg (2,000 unit) capsule take 1 capsule by mouth once daily ferrous sulfate 325 mg, oral furosemide (LASIX) 20 mg, oral, Daily glimepiride (Amaryl) 4 mg tablet glimepiride 4 mg tablet take 1 tablet by mouth once daily hydroCHLOROthiazide (HYDRODIURIL) 25 mg, oral, Every morning isosorbide mononitrate ER (IMDUR) 120 mg, oral, Once Daily lisinopril 20 mg, oral, Every morning metFORMIN (Glucophage) 1,000 mg tablet metformin 1,000 mg tablet take 1 tablet by mouth twice a day metoprolol tartrate (LOPRESSOR) 37.5 mg, oral, 2 times daily multivitamin (Theragran-M) 9 mg iron-400 mcg tablet 1 tablet, oral, Daily RT nitroglycerin (Nitrostat) 0.4 mg SL tablet nitroglycerin 0.[address] 1 tablet under the tongue if needed every 5 minutes for chest pain for MAXIMUM OF 3 DOSES pantoprazole (ProtoNix) 40 mg EC tablet pantoprazole 40 mg tablet,delayed release take 1 tablet by mouth twice a day potassium chloride CR (K-Tab) 20 mEq ER tablet 20 mEq, oral, Every morning SITagliptin (Januvia) 100 mg tablet Januvia 100 mg tablet take 1 tablet by mouth once daily tiZANidine (Zanaflex) 4 mg tablet tizanidine 4 mg tablet take 1 tablet by mouth twice a day if needed Recent Labs: No visits with results within 6 Month(s) from this visit. Latest known visit with results is: Legacy Encounter on 03/26/2022 Component Date Value Ventricular Rate 03/26/2022 56 Atrial Rate 03/26/2022 56 NM Interval 03/26/2022 252 QRS DURATION 03/26/2022 102 QT Interval 03/26/2022 448 QTC CALCULATION(BAZETT) 03/26/2022 432 P [place] 03/26/2022 41 R-[place] 03/26/2022 34 T Wave [place] 03/26/2022 -20 Diagnosis 03/26/2022 Value:Sinus bradycardia with 1st degree A-V block Otherwise normal ECG When compared with ECG of 24-MAR-2022 09:41, Nonspecific T wave abnormality no longer evident in Lateral Confirmed by Rogeilo Regalado ([id number]) on 03/26/2022 8:26:15 PM I have personally reviewed and anaylzed the following laboratory results above. These findings have been analyzed in the context of the patient's clinical presentation. Cardiovascular Diagnostic Studies: TTE 02/15/2024: Conclusion: 1. Mild concentric left ventricular [place] with normal systolic function. LVEF is estimated at 60 to 65%. 2. Mildly dilated right ventricle and normal systolic function. 3. Moderate biatrial dilation. 4. No significant valvular dysfunction. 5. Normal right-side (more content not included)... [facility] 08-03-2024 History of Present illness Narrative Post op FRANKIE bilateral staggered annual visit: The patient is seen and evaluated for annual bilateral staggered total hip arthroplasty visit. Pain is appropriately controlled. Denies chest pain or shortness of breath or palpitations. Continues to be consistent and diligent with home exercise program as well as physical therapy modalities. Physical therapy modalities were instructed. Happy with progress made. Physical Exam: The total hip incisions are both clean, dry and intact. Mild swelling as expected. Has a stable arc of motion without mechanical symptoms. No instability of the bilateral hip prosthesis. No rash, infection or DVT. The calf is supple. Gait is assisted with stiffness with mild antalgic component. Image Results: Xrays taken in the office today saved to the permanent record, bilateral AP and lateral weightbearing films, show stable position and alignment of the staggered bilateral FRANKIE prosthesis. No sign of loosening, fracture or infection. Assessment: S/P bilateral staggered total hip arthroplasty-annual post-operative visit Treatment Plan: The nature of the findings were discussed at length. Continuance of regular exercise, weight management and fall precautions reviewed. 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 Numerous questions were answered. Follow-up in 1 year for repeat xray and exam, sooner if concerned. The patient is discharged in stable condition. documented in this encounter [facility] 06-15-2024 History of Present illness Narrative Physical Therapy Physical Therapy Treatment visit Patient Name: Vivek Knott Today's Date: 06/15/2024 Encounter Diagnoses Name Primary? Primary osteoarthritis of left hip Yes Difficulty walking Acute postoperative pain of left hip Status post left hip replacement Date of Surgery: 03-27-24 with same day discharge. Current deficits: Impaired gait with dependence on an AD, impaired AROM, impaired LE strength, post op pain. Visit number 24 (7 visits in home) Total Code Treatment Time: 53 Total Treatment Time: 53 Time In: 1400 Time out: 1453 Pain Management: The patient is complaining of pain located in the left hip region. Pain rating 4/10. The pain is improved by ice , rest , medications including Tylenol and percocet. The pain is aggravated by bending activity, position change. The pain is described as aching. Precautions: Standard FRANKIE precautions, WBAT L LE, active hip flexion to 90 degrees, no crossing of LE's, no pivoting ER/IR. Prior level of function: Ambulation: Severely antalgic gait pattern without use of an AD. Assistive devices: Has FWW and str cane. ADL and IADL: Independent. Home Environment: Patient lives with his in a two story home with 3-4 steps to enter with HR; does have a ramp in back of home. Elevated toilet and tub/shower with grab bars and seat. Objective Examination Functional Mobility: Bed Mobility: mod indep Sit to Stand: mod indep Stair Negotiation: SBA/Supervision Ambulation: Ambulated with reciprocal gait pattern with use of walker; good heel to toe gait pattern with fair knee flexion with swing phase on left LE. Pt has been using str cane, supervision; good two point gait pattern. Hip: Active ROM: Left hip flexion/extension 0 to 80 degrees . Passive ROM: Left hip extension/flexion: 0 to 85 degrees with increased muscle guarding. Manual muscle testing: Left hip 3/5. Palpation: Normal post-op warmth with minimal edema; incision healing nicely with dermaglue and open to air. Special tests: Negative Lalito Sign. Knee: Active ROM: WFL Manual muscle testing: Left knee 3/5. Ankle/Foot: Active ROM WFL. Manual muscle testing: Left ankle 4/5. Special tests Lalito's sign Negative. Balance Assessment: Sitting balance: Steady, safe = 1 . Rises from chair: Able, uses arms to help = 1 . Attempts to rise: Able, requires 1 attempt = 2. Immediate standing balance (first 5 seconds): Steady but uses walker or other support = 1. Standing balance: Steady but uses walker or other support = 1. Nudged: Staggers, grabs, catches self = 1. Eyes closed: Steady = 1 . Turning 360 degrees: Discontinuous steps = 0; steady = 1 . Sitting down: Uses arms or not a smooth motion = 1. Subjective Left FRANKIE replacement. Contacted Ortho is getting clearance for return to work next week. He has ordered heel lifts and hope to get them by next week. Pain: 0/10 at rest. Physical Education Intervention Physical Therapy Education: Pt was educated on the importance of cyrotherapy and elevation. Manual Therapy (8 minutes) STM/IASTM to L lateral and posterior hip/glut region to reduce muscular tone and improve scar mobility. Good tolerance Therapeutic Exercise : (30 minutes) Instructed Pt through LE there ex to improve muscular strength needed for return to prior level of function. Progressed forces to improve hip strength, fair tolerance. Therapeutic Activity: (15 minutes) Instructed Pt through functional activities to improve ease with daily activities, ie sit to stands and step up. Gait Training: Gait training this with str cane. Pt was instructed and provided visual demonstration of proper two point gait pattern. Assessment Pt PO Left FRANKIE on Date 03-27-24. 11 weeks post op. Gait is deviated without device, trendelenburg gait. Slowly progressing loads/ volumes within tolerance. Step down under control to work toward alt descend steps. Pt is progressing well towards LTGs, would benefit therapy to complete all goals set. Measured leg length and Pt L LE is 1/2 inch longer than R. Pt plans on going back to work next week and will schedule therapy once per week for two weeks to assess his progress. Pt will continue to benefit from therapy to improve strength and functional tolerance. Functional Index: LEFS 31/80, (05/02) 45/80, (06/01) 57/80 Impairments: abnormal gait, impaired balance, impaired physical strength and pain with function Barriers to therapy: Pain Prognosis: good Goals Short Term goals (1-3 weeks) Goal 1 : Patient will demonstrate good compliance and independence with HEP. Goal 2 : Patient will ascend/descend 3-4 steps with HR and AD with supervision, step to gait pattern. Goal 3 : Patient will ambulate up to 5 minute duration or more with FWW, modified independent with good reciprical gait pattern. Goal 4 : Patient will improve PROM of Left hip from 0 to 90 degrees with pain reported at end range < 2/10. Goal 5 : Pt will demonstrate good FRANKIE precaution with all functional transfers and bed mobility with independence. 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 Goal 2 : Patient will improve Left hip/knee strength to 5/5 to assist with gait and transfer performances. Goal 3 : Patient will improve Left hip AROM from 0 to 90 degrees with end range pain < 2/10. Goal 4 : Patient will demonstrate good static and dynamic standing balance for >15 mintues without LOB or increase in hip pain. Goal 5 : Pt will ascend/descend >12 steps with no AD and reciprical gait pattern independently. Goal 6 : Patient will improve Tinetti Balance test to 28/28 to indicate no fall risk. Plan Planned modality interventions: cryotherapy Planned therapy interventions: gait training, functional ROM exercises, strengthening, stretching, therapeutic activities, neuromuscular re-education, manual therapy, bed mobility training, home exercise program and transfer training Frequency: 2-3. Duration in weeks: 8 Treatment plan discussed with: patient Plan details: Educated patient not to over do it and to continue icing hip; patient receptive. Pt is making great progress and will transition to OP at [facility] on 04-20-24. Cosigned by Will Martinez PT at 06/15/2024 2:58 PM EST documented in this encounter [facility] 06-12-2024 History of Present illness Narrative Physical Therapy Physical Therapy Treatment visit Patient Name: Vivek Knott Today's Date: 06/12/2024 Encounter Diagnoses Name Primary? Primary osteoarthritis of left hip Yes Difficulty walking Acute postoperative pain of left hip Date of Surgery: 03-27-24 with same day discharge. Current deficits: Impaired gait with dependence on an AD, impaired AROM, impaired LE strength, post op pain. Visit number 23 (7 visits in home) Total Code Treatment Time: 53 Total Treatment Time: 53 Time In: 1400 Time out: 1353 Pain Management: The patient is complaining of pain located in the left hip region. Pain rating 4/10. The pain is improved by ice , rest , medications including Tylenol and percocet. The pain is aggravated by bending activity, position change. The pain is described as aching. Precautions: Standard FRANKIE precautions, WBAT L LE, active hip flexion to 90 degrees, no crossing of LE's, no pivoting ER/IR. Prior level of function: Ambulation: Severely antalgic gait pattern without use of an AD. Assistive devices: Has FWW and str cane. ADL and IADL: Independent. Home Environment: Patient lives with his in a two story home with 3-4 steps to enter with HR; does have a ramp in back of home. Elevated toilet and tub/shower with grab bars and seat. Objective Examination Functional Mobility: Bed Mobility: mod indep Sit to Stand: mod indep Stair Negotiation: SBA/Supervision Ambulation: Ambulated with reciprocal gait pattern with use of walker; good heel to toe gait pattern with fair knee flexion with swing phase on left LE. Pt has been using str cane, supervision; good two point gait pattern. Hip: Active ROM: Left hip flexion/extension 0 to 80 degrees . Passive ROM: Left hip extension/flexion: 0 to 85 degrees with increased muscle guarding. Manual muscle testing: Left hip 3/5. Palpation: Normal post-op warmth with minimal edema; incision healing nicely with dermaglue and open to air. Special tests: Negative Lalito Sign. Knee: Active ROM: WFL Manual muscle testing: Left knee 3/5. Ankle/Foot: Active ROM WFL. Manual muscle testing: Left ankle 4/5. Special tests Lalito's sign Negative. Balance Assessment: Sitting balance: Steady, safe = 1 . Rises from chair: Able, uses arms to help = 1 . Attempts to rise: Able, requires 1 attempt = 2. Immediate standing balance (first 5 seconds): Steady but uses walker or other support = 1. Standing balance: Steady but uses walker or other support = 1. Nudged: Staggers, grabs, catches self = 1. Eyes closed: Steady = 1 . Turning 360 degrees: Discontinuous steps = 0; steady = 1 . Sitting down: Uses arms or not a smooth motion = 1. Subjective Left FRANKIE replacement. Pt reports his R sided lower back pain required him to use cane over the weekend. Pain: 0/10 at rest. Physical Education Intervention Physical Therapy Education: Pt was educated on the importance of cyrotherapy and elevation. Manual Therapy (15 minutes) STM/IASTM to L lateral and posterior hip/glut region to reduce muscular tone and improve scar mobility. Good tolerance Therapeutic Exercise : (23 minutes) Instructed Pt through LE there ex to improve muscular strength needed for return to prior level of function. Progressed forces to improve hip strength, fair tolerance. Therapeutic Activity: (15 minutes) Instructed Pt through functional activities to improve ease with daily activities, ie sit to stands and step up. Gait Training: Gait training this with str cane. Pt was instructed and provided visual demonstration of proper two point gait pattern. Assessment Pt PO Left FRANKIE on Date 03-27-24. 11 weeks post op. Gait is deviated without device, trendelenburg gait. Slowly progressing loads/ volumes within tolerance. Step down under control to work toward alt descend steps. Pt is progressing well towards LTGs, would benefit therapy to complete all goals set. Measured leg length and Pt R LE is 1/2 inch longer than L. Recommended him to get a heel lift to reduce discrepancy. Pt has 18 steps at work that he does 5x daily. Plans on going to work in two weeks. Pt will continue to benefit from therapy to improve strength and functional tolerance. Functional Index: LEFS 31/80, (05/02) 45/80, (06/01) 57/80 Impairments: abnormal gait, impaired balance, impaired physical strength and pain with function Barriers to therapy: Pain Prognosis: good Goals Short Term goals (1-3 weeks) Goal 1 : Patient will demonstrate good compliance and independence with HEP. Goal 2 : Patient will ascend/descend 3-4 steps with HR and AD with supervision, step to gait pattern. Goal 3 : Patient will ambulate up to 5 minute duration or more with FWW, modified independent with good reciprical gait pattern. Goal 4 : Patient will improve PROM of Left hip from 0 to 90 degrees with pain reported at end range < 2/10. Goal 5 : Pt will demonstrate good FRANKIE precaution with all functional transfers and bed mobility with independence. Retirement Goals (4-6 weeks) Goal 1 : Patient will ambulate community distances on even and uneven surfaces, independently with no AD, normalized gait pattern and < 1/10 report of pain in left hip. Goal 2 : Patient will improve Left hip/knee strength to 5/5 to assist with gait and transfer performances. Goal 3 : Patient will improve Left hip AROM from 0 to 90 degrees with end range pain < 2/10. Goal 4 : Patient will demonstrate good static and dynamic standing balance for >15 mintues without LOB or increase in hip pain. Goal 5 : Pt will ascend/descend >12 steps with no AD and reciprical gait pattern independently. Goal 6 : Patient will improve Tinetti Balance test to 28/28 to indicate no fall risk. Plan Planned modality interventions: cryotherapy Planned therapy interventions: gait training, functional ROM exercises, strengthening, stretching, therapeutic activities, neuromuscular re-education, manual therapy, bed mobility training, home exercise program and transfer training Frequency: 2-3. Duration in weeks: 8 Treatment plan discussed with: patient Plan details: Educated patient not to over do it and to continue icing hip; patient receptive. Pt is making great progress and will transition to OP at [facility] on 04-20-24. Cosigned by Will Martinez PT at 06/14/2024 1:07 PM EST documented in this encounter [facility] 04-27-2024 History of Present illness Narrative Post op left FRANKIE 1st visit: The patient is seen and evaluated for first total hip arthroplasty visit. Did well with the hospital stay. No anesthesia problems reported. Compliant with the abduction pillow. Happy with the care provided by staff, physical therapy and our office. Pain is appropriately controlled. Denies chest pain or shortness of breath or palpitations. Continues to be consistent and diligent with home exercise program as well as physical therapy modalities. Physical therapy reports are reviewed. Physical Exam: The total left hip is clean, dry and intact. Mild swelling as expected. Has a stable arc of motion without mechanical symptoms. No instability of the prosthesis. Stable leg lengths. No rash, infection or DVT. The calf is supple. Gait is assisted with stiffness with mild antalgic component. Image Results: Xrays taken in the office today saved to the permanent record, AP and lateral films, show stable position and alignment of the hip prosthesis. No sign of loosening, fracture or infection. Hx right FRANKIE in stable position. Assessment: S/P left total hip arthroplasty-first post-operative visit Hx right FRANKIE Treatment Plan: The nature of the findings were discussed at length. Ice, vitamin E lotion massage techniques, stretching, physical therapy modalities will be continued and were reviewed. Discontinuance of the DVT prophylaxis that was used in the first four weeks. Resume any prexisting medications and blood thinners. Continuance of physical therapy with progression to a home program. Fall precautions, with assistive device as needed. Hip dislocation precautions reviewed. Follow up will be in three months for repeat x-ray and exam. 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 Numerous questions were answered. The patient is discharged in stable condition. documented in this encounter [facility] 04-17-2024 History of Present illness Narrative Physical Therapy Physical Therapy Daily Follow up visit Patient Name: Vivek Knott Today's Date: 04/17/2024 Subjective Current Problem: Pt is being seen today due to having a left FRANKIE replacement. Pt feeling better since last session. Date of Surgery: 03-27-24 with same day discharge. Current deficits: Impaired gait with dependence on an AD, impaired AROM, impaired LE strength, post op pain. Visit number 7 Time In: 11:00 am; Time out: 11:25 am Total time: 30 minutes [id number] TherEx x 15 minutes [id number] Gait training x 15 minutes Pain Management: The patient is complaining of pain located in the left hip region. Pain rating 4/10. The pain is improved by ice , rest , medications including Tylenol and percocet. The pain is aggravated by bending activity, position change. The pain is described as aching. Precautions: Standard FRANKIE precautions, WBAT L LE, active hip flexion to 90 degrees, no crossing of LE's, no pivoting ER/IR. Prior level of function: Ambulation: Severely antalgic gait pattern without use of an AD. Assistive devices: Has FWW and str cane. ADL and IADL: Independent. Home Environment: Patient lives with his in a two story home with 3-4 steps to enter with HR; does have a ramp in back of home. Elevated toilet and tub/shower with grab bars and seat. Objective Examination Functional Mobility: Bed Mobility: mod indep Sit to Stand: mod indep Stair Negotiation: SBA/Supervision Ambulation: Ambulated with reciprocal gait pattern with use of walker; good heel to toe gait pattern with fair knee flexion with swing phase on left LE. Pt has been using str cane, supervision; good two point gait pattern. Hip: Active ROM: Left hip flexion/extension 0 to 80 degrees . Passive ROM: Left hip extension/flexion: 0 to 85 degrees with increased muscle guarding. Manual muscle testing: Left hip 3/5. Palpation: Normal post-op warmth with minimal edema; incision healing nicely with dermaglue and open to air. Special tests: Negative Lalito Sign. Knee: Active ROM: WFL Manual muscle testing: Left knee 3/5. Ankle/Foot: Active ROM WFL. Manual muscle testing: Left ankle 4/5. Special tests Lalito's sign Negative. Tinetti Gait and Balance Assessment: Sitting balance: Steady, safe = 1 . Rises from chair: Able, uses arms to help = 1 . Attempts to rise: Able, requires 1 attempt = 2. Immediate standing balance (first 5 seconds): Steady but uses walker or other support = 1. Standing balance: Steady but uses walker or other support = 1. Nudged: Staggers, grabs, catches self = 1. Eyes closed: Steady = 1 . Turning 360 degrees: Discontinuous steps = 0; steady = 1 . Sitting down: Uses arms or not a smooth motion = 1. Balance Score: 10/16. Indication of gait: No hesitancy = 1. Step of length and height: Step through L = 1. Foot clearance: L foot clears floor = 1 R foot clears floor = 1. Step symmetry: Right and left step length equal = 1. Step continuity: continuity between steps = 1. Path: Mild/moderate deviation or uses w/ aid = 1. Trunk: No sway but flex knees or back or uses arms for stability = 1. Walking time: Heels close together= 1. Gait score: 04/13. Total Score = Balance + Gait 19/28. Tinetti tool score: Moderate risk Physical Education Intervention Physical Therapy Education: Pt was educated on the importance of cyrotherapy and elevation. Reviewed proper pillow placement under LE to maintain good extension. Stressed the importance also of ambulating at at least every other hour for 2-5 minutes duration and/or at least stand for a few minutes and completion of HEP 2x/day. Patient was educated with regards to signs and symptoms to monitor with respect to blood clots and infection. Reviewed FRANKIE precautions. Therapeutic Exercise : Pt completed left LE supine exercises of glut sets, quad sets and ankle pumps (hourly) at this time, 10x. Completed 2 x 10 reps of bilateral LAQ. Completed standing heel raises and left marches, standing hamstring curls and standing SLR, mini squats and hip extension. HEP updated. Gait Training: Gait training this date with str cane. Pt was instructed and provided visual demonstration of proper two point gait pattern. Worked on ascend/descend 5 steps with HR and str cane with step to gait pattern. Walked an additional 5 minutes outside on uneven surfaces with close Supervision. Assessment Impairments: abnormal gait, impaired balance, impaired physical strength and pain with function Barriers to therapy: Pain Prognosis: good Goals Short Term goals (1-3 weeks) Goal 1 : Patient will demonstrate good compliance and independence with HEP. Goal 2 : Patient will ascend/descend 3-4 steps with HR and AD with supervision, step to gait pattern. Goal 3 : Patient will ambulate up to 5 minute duration or more with FWW, modified independent with good reciprical gait pattern. Goal 4 : Patient will improve PROM of Left hip from 0 to 90 degrees with pain reported at end range < 2/10. Goal 5 : Pt will demonstrate good FRANKIE precaution with all functional transfers and bed mobility with independence. Retirement Goals (4-6 weeks) Goal 1 : Patient will ambulate community distances on even and uneven surfaces, independently with no AD, normalized gait pattern and < 1/10 report of pain in left hip. Goal 2 : Patient will improve Left hip/knee strength to 5/5 to assist with gait and transfer performances. Goal 3 : Patient will improve Left hip AROM from 0 to 90 degrees with end range pain < 2/10. Goal 4 : Patient will demonstrate good static and dynamic standing balance for >15 mintues without LOB or increase in hip pain. Goal 5 : Pt will ascend/descend >12 steps with no AD and reciprical gait pattern independently. Goal 6 : Patient will improve Tinetti Balance test to 28/28 to indicate no fall risk. Plan Planned modality interventions: cryotherapy Planned therapy interventions: gait training, functional ROM exercises, strengthening, stretching, therapeutic activities, neuromuscular re-education, manual therapy, bed mobility training, home exercise program and transfer training Frequency: 2-3. Duration in weeks: 8 Treatment plan discussed with: patient Plan details: Educated patient not to over do it and to continue icing hip; patient receptive. Pt is making great progress and will transition to OP at [facility] on 04-20-24. documented in this encounter [facility] 04-13-2024 History of Present illness Narrative Physical Therapy Physical Therapy Daily Follow up visit Patient Name: Vivek Knott Today's Date: 04/13/2024 Subjective Current Problem: Pt is being seen today due to having a left FRANKIE replacement. Pt feeling better since last session. Date of Surgery: 03-27-24 with same day discharge. Current deficits: Impaired gait with dependence on an AD, impaired AROM, impaired LE strength, post op pain. Visit number 6 Time In: 10:45 am; Time out: 11:15 am Total time: 30 minutes [id number] TherEx x 15 minutes [id number] Gait training x 15 minutes Pain Management: The patient is complaining of pain located in the left hip region. Pain rating 4/10. The pain is improved by ice , rest , medications including Tylenol and percocet. The pain is aggravated by bending activity, position change. The pain is described as aching. Precautions: Standard FRANKIE precautions, WBAT L LE, active hip flexion to 90 degrees, no crossing of LE's, no pivoting ER/IR. Prior level of function: Ambulation: Severely antalgic gait pattern without use of an AD. Assistive devices: Has FWW and str cane. ADL and IADL: Independent. Home Environment: Patient lives with his in a two story home with 3-4 steps to enter with HR; does have a ramp in back of home. Elevated toilet and tub/shower with grab bars and seat. Objective Examination Functional Mobility: Bed Mobility: mod indep Sit to Stand: mod indep Stair Negotiation: SBA/Supervision Ambulation: Ambulated with reciprocal gait pattern with use of walker; good heel to toe gait pattern with fair knee flexion with swing phase on left LE. Trialed str cane this date; SBA with good two point gait pattern. Hip: Active ROM: Left hip flexion/extension 0 to 80 degrees . Passive ROM: Left hip extension/flexion: 0 to 85 degrees with increased muscle guarding. Manual muscle testing: Left hip 3/5. Palpation: Normal post-op warmth with minimal edema; Mepilex dressing removed this date; incision healing nicely with dermaglue and open to air. Special tests: Negative Lalito Sign. Knee: Active ROM: WFL Manual muscle testing: Left knee 3/5. Ankle/Foot: Active ROM WFL. Manual muscle testing: Left ankle 4/5. Special tests Lalito's sign Negative. Tinetti Gait and Balance Assessment: Sitting balance: Steady, safe = 1 . Rises from chair: Able, uses arms to help = 1 . Attempts to rise: Able, requires > 1 attempt = 1. Immediate standing balance (first 5 seconds): Steady but uses walker or other support = 1. Standing balance: Steady but uses walker or other support = 1. Nudged: Staggers, grabs, catches self = 1. Eyes closed: Steady = 1 . Turning 360 degrees: Discontinuous steps = 0 Unsteady (grabs, staggers) = 0 . Sitting down: Uses arms or not a smooth motion = 1. Balance Score: 8/16. Indication of gait: No hesitancy = 1. Step of length and height: Step through L = 1. Foot clearance: L foot clears floor = 1 R foot clears floor = 1. Step symmetry: Right and left step length no equal = 0. Step continuity: Stopping or discontinuity between steps = 0. Path: Mild/moderate deviation or uses w/ aid = 1. Trunk: No sway but flex knees or back or uses arms for stability = 1. Walking time: Heels apart = 0. Gait score: 01/11. Total Score = Balance + Gait 14/28. Tinetti tool score: < = 18 High. Physical Education Intervention Physical Therapy Education: Pt was educated on the importance of cyrotherapy and elevation. Reviewed proper pillow placement under LE to maintain good extension. Stressed the importance also of ambulating at at least every other hour for 2-5 minutes duration and/or at least stand for a few minutes and completion of HEP 2x/day. Patient was educated with regards to signs and symptoms to monitor with respect to blood clots and infection. Reviewed FRANKIE precautions. Therapeutic Exercise : Pt completed left LE supine exercises of glut sets, quad sets and ankle pumps (hourly) at this time, 10x. Completed 2 x 10 reps of bilateral LAQ. Completed standing heel raises and left marches, standing hamstring curls and standing SLR, mini squats and hip extension. HEP updated. PROM to left hip in supine was performed along with hamstring stretching. Gait Training: Gait training this date with str cane. Pt was instructed and provided visual demonstration of proper two point gait pattern. Worked on ascend/descend 5 steps with HR and str cane with step to gait pattern. Walked an additional 5 minutes outside on uneven surfaces with close SBA. Assessment Impairments: abnormal gait, impaired balance, impaired physical strength and pain with function Barriers to therapy: Pain Prognosis: good Goals Short Term goals (1-3 weeks) Goal 1 : Patient will demonstrate good compliance and independence with HEP. Goal 2 : Patient will ascend/descend 3-4 steps with HR and AD with supervision, step to gait pattern. Goal 3 : Patient will ambulate up to 5 minute duration or more with FWW, modified independent with good reciprical gait pattern. Goal 4 : Patient will improve PROM of Left hip from 0 to 90 degrees with pain reported at end range < 2/10. Goal 5 : Pt will demonstrate good FRANKIE precaution with all functional transfers and bed mobility with independence. Retirement Goals (4-6 weeks) Goal 1 : Patient will ambulate community distances on even and uneven surfaces, independently with no AD, normalized gait pattern and < 1/10 report of pain in left hip. Goal 2 : Patient will improve Left hip/knee strength to 5/5 to assist with gait and transfer performances. Goal 3 : Patient will improve Left hip AROM from 0 to 90 degrees with end range pain < 2/10. Goal 4 : Patient will demonstrate good static and dynamic standing balance for >15 mintues without LOB or increase in hip pain. Goal 5 : Pt will ascend/descend >12 steps with no AD and reciprical gait pattern independently. Goal 6 : Patient will improve Tinetti Balance test to 28/28 to indicate no fall risk. Plan Planned modality interventions: cryotherapy Planned therapy interventions: gait training, functional ROM exercises, strengthening, stretching, therapeutic activities, neuromuscular re-education, manual therapy, bed mobility training, home exercise program and transfer training Frequency: 2-3. Duration in weeks: 8 Treatment plan discussed with: patient Plan details: Educated patient not to over do it and to continue icing hip; patient receptive. Pt making steady slow gains each session. Pt was instructed to still use walker at night time or if he has more pain. documented in this encounter [facility] 04-10-2024 History of Present illness Narrative Physical Therapy Physical Therapy Daily Follow up visit Patient Name: Vivek Knott Today's Date: 04/06/2024 Subjective Current Problem: Pt is being seen today due to having a left FRANKIE replacement. Pt feeling better since last session. Stated that this left hip is feeling a lot better then his right hip did a few years ago. Date of Surgery: 03-27-24 with same day discharge. Current deficits: Impaired gait with dependence on an AD, impaired AROM, impaired LE strength, post op pain. Visit number 4. Time In: 2:00 pm; Time out: 2:30 pm Total time: 15 minutes [id number] TherEx x 15 minutes Pain Management: The patient is complaining of pain located in the left hip region. Pain rating 4/10. The pain is improved by ice , rest , medications including Tylenol and percocet. The pain is aggravated by bending activity, position change. The pain is described as aching. Precautions: Standard FRANKIE precautions, WBAT L LE, active hip flexion to 90 degrees, no crossing of LE's, no pivoting ER/IR. Prior level of function: Ambulation: Severely antalgic gait pattern without use of an AD. Assistive devices: Has FWW and str cane. ADL and IADL: Independent. Home Environment: Patient lives with his in a two story home with 3-4 steps to enter with HR; does have a ramp in back of home. Elevated toilet and tub/shower with grab bars and seat. Objective Examination Functional Mobility: Bed Mobility: SBA Sit to Stand: SBA Stair Negotiation: SBA Ambulation: Ambulated with reciprocal gait pattern with use of walker; fair heel to toe gait pattern with fair knee flexion with swing phase on left LE. Noted less WB on walker with Ue's. Hip: Active ROM: Left hip flexion/extension 0 to 80degrees . Passive ROM: Left hip extension/flexion: 0 to 85 degrees with increased muscle guarding. Manual muscle testing: Left hip 2+/5. Palpation: Normal post-op warmth with minimal edema; Mepilex dressing removed this date; incision healing nicely with dermaglue and open to air. Special tests: Negative Lalito Sign. Knee: Active ROM: WFL Manual muscle testing: Left knee 3/5. Ankle/Foot: Active ROM WFL. Manual muscle testing: Left ankle 4/5. Special tests Lalito's sign Negative. Tinetti Gait and Balance Assessment: Sitting balance: Steady, safe = 1 . Rises from chair: Able, uses arms to help = 1 . Attempts to rise: Able, requires > 1 attempt = 1. Immediate standing balance (first 5 seconds): Steady but uses walker or other support = 1. Standing balance: Steady but uses walker or other support = 1. Nudged: Staggers, grabs, catches self = 1. Eyes closed: Steady = 1 . Turning 360 degrees: Discontinuous steps = 0 Unsteady (grabs, staggers) = 0 . Sitting down: Uses arms or not a smooth motion = 1. Balance Score: 8/16. Indication of gait: No hesitancy = 1. Step of length and height: Step through L = 1. Foot clearance: L foot clears floor = 1 R foot clears floor = 1. Step symmetry: Right and left step length no equal = 0. Step continuity: Stopping or discontinuity between steps = 0. Path: Mild/moderate deviation or uses w/ aid = 1. Trunk: No sway but flex knees or back or uses arms for stability = 1. Walking time: Heels apart = 0. Gait score: 12. Total Score = Balance + Gait 14/28. Tinetti tool score: < = 18 High. Physical Education Intervention Physical Therapy Education: Pt was educated on the importance of cyrotherapy and elevation. Reviewed proper pillow placement under LE to maintain good extension. Stressed the importance also of ambulating at at least every other hour for 2-5 minutes duration and/or at least stand for a few minutes and completion of HEP 2x/day. Patient was educated with regards to signs and symptoms to monitor with respect to blood clots and infection. Reviewed FRANKIE precautions. Therapeutic Exercise : Pt completed left LE supine exercises of glut sets, quad sets and ankle pumps (hourly) at this time, 10x. Completed 2 x 10 reps of bilateral LAQ. Completed standing heel raises and left marches, standing hamstring curls and standing SLR, mini squats and hip extension. HEP updated. PROM to left hip in supine was performed along with hamstring stretching. Gait Training: Worked on ascend/descend 5 steps with walker and HR, SBA with step to gait pattern. Pt ambulated for 10 minutes outside on uneven surfaces. Assessment & Plan Assessment Impairments: abnormal gait, impaired balance, impaired physical strength and pain with function Barriers to therapy: Pain Prognosis: good Goals Short Term goals (1-3 weeks) Goal 1 : Patient will demonstrate good compliance and independence with HEP. Goal 2 : Patient will ascend/descend 3-4 steps with HR and AD with supervision, step to gait pattern. Goal 3 : Patient will ambulate up to 5 minute duration or more with FWW, modified independent with good reciprical gait pattern. Goal 4 : Patient will improve PROM of Left hip from 0 to 90 degrees with pain reported at end range < 2/10. Goal 5 : Pt will demonstrate good FRANKIE precaution with all functional transfers and bed mobility with independence. Retirement Goals (4-6 weeks) Goal 1 : Patient will ambulate community distances on even and uneven surfaces, independently with no AD, normalized gait pattern and < 1/10 report of pain in left hip. Goal 2 : Patient will improve Left hip/knee strength to 5/5 to assist with gait and transfer performances. Goal 3 : Patient will improve Left hip AROM from 0 to 90 degrees with end range pain < 2/10. Goal 4 : Patient will demonstrate good static and dynamic standing balance for >15 mintues without LOB or increase in hip pain. Goal 5 : Pt will ascend/descend >12 steps with no AD and reciprical gait pattern independently. Goal 6 : Patient will improve Tinetti Balance test to 28/28 to indicate no fall risk. Plan Planned modality interventions: cryotherapy Planned therapy interventions: gait training, functional ROM exercises, strengthening, stretching, therapeutic activities, neuromuscular re-education, manual therapy, bed mobility training, home exercise program and transfer training Frequency: 2-3. Duration in weeks: 8 Treatment plan discussed with: patient Plan details: Educated patient not to over do it and to continue icing hip; patient receptive. documented in this encounter [facility] 04-06-2024 History of Present illness Narrative Physical Therapy Physical Therapy Daily Follow up visit Patient Name: Vivek Knott Today's Date: 04/06/2024 Subjective Current Problem: Pt is being seen today due to having a left FRANKIE replacement. Pt voiced his stomach was all up-set. Pt requested not to do much this date. Date of Surgery: 03-27-24 with same day discharge. Current deficits: Impaired gait with dependence on an AD, impaired AROM, impaired LE strength, post op pain. Visit number 4. Time In: 2:00 pm; Time out: 2:15 pm Total time: 15 minutes [id number] TherEx x 15 minutes Pain Management: The patient is complaining of pain located in the left hip region. Pain rating 4/10. The pain is improved by ice , rest , medications including Tylenol and percocet. The pain is aggravated by bending activity, position change. The pain is described as aching. Precautions: Standard FRANKIE precautions, WBAT L LE, active hip flexion to 90 degrees, no crossing of LE's, no pivoting ER/IR. Prior level of function: Ambulation: Severely antalgic gait pattern without use of an AD. Assistive devices: Has FWW and str cane. ADL and IADL: Independent. Home Environment: Patient lives with his in a two story home with 3-4 steps to enter with HR; does have a ramp in back of home. Elevated toilet and tub/shower with grab bars and seat. Objective Examination Functional Mobility: Bed Mobility: SBA Sit to Stand: SBA Stair Negotiation: TBA Ambulation: Ambulated with step to gait pattern with use of walker; fair heel to toe gait pattern with fair knee flexion with swing phase on left LE. Noted increase WB on walker with Ue's. Hip: Active ROM: Left hip flexion/extension 0 to 80degrees . Passive ROM: Left hip extension/flexion: 0 to 85 degrees with increased muscle guarding. Manual muscle testing: Left hip 2+/5. Palpation: Normal post-op warmth with minimal edema; Incision covered with Mepilex dressing. dSpecial tests: Negative Lalito Sign. Knee: Active ROM: WFL Manual muscle testing: Left knee 3/5. Ankle/Foot: Active ROM WFL. Manual muscle testing: Left ankle 4/5. Special tests Lalito's sign Negative. Tinetti Gait and Balance Assessment: Sitting balance: Steady, safe = 1 . Rises from chair: Able, uses arms to help = 1 . Attempts to rise: Able, requires > 1 attempt = 1. Immediate standing balance (first 5 seconds): Steady but uses walker or other support = 1. Standing balance: Steady but uses walker or other support = 1. Nudged: Staggers, grabs, catches self = 1. Eyes closed: Steady = 1 . Turning 360 degrees: Discontinuous steps = 0 Unsteady (grabs, staggers) = 0 . Sitting down: Uses arms or not a smooth motion = 1. Balance Score: 8/16. Indication of gait: No hesitancy = 1. Step of length and height: Step through L = 1. Foot clearance: L foot clears floor = 1 R foot clears floor = 1. Step symmetry: Right and left step length no equal = 0. Step continuity: Stopping or discontinuity between steps = 0. Path: Mild/moderate deviation or uses w/ aid = 1. Trunk: No sway but flex knees or back or uses arms for stability = 1. Walking time: Heels apart = 0. Gait score: 12. Total Score = Balance + Gait 14. Tinetti tool score: < = 18 High. Physical Education Intervention Physical Therapy Education: Pt was educated on the importance of cyrotherapy and elevation. Reviewed proper pillow placement under LE to maintain good extension. Stressed the importance also of ambulating at at least every other hour for 2-5 minutes duration and/or at least stand for a few minutes and completion of HEP 2x/day. Patient was educated with regards to signs and symptoms to monitor with respect to blood clots and infection. Reviewed FRANKIE precautions. Therapeutic Exercise : Pt completed left LE supine exercises of glut sets, quad sets and ankle pumps (hourly) at this time, 10x. Completed 2 x 10 reps of bilateral LAQ. Completed standing heel raises and left marches, standing hamstring curls and standing SLR; added mini squats and hip extension. HEP updated. PROM to left hip in supine was performed along with hamstring stretching. Assessment & Plan Assessment Impairments: abnormal gait, impaired balance, impaired physical strength and pain with function Barriers to therapy: Pain Prognosis: good Goals Short Term goals (1-3 weeks) Goal 1 : Patient will demonstrate good compliance and independence with HEP. Goal 2 : Patient will ascend/descend 3-4 steps with HR and AD with supervision, step to gait pattern. Goal 3 : Patient will ambulate up to 5 minute duration or more with FWW, modified independent with good reciprical gait pattern. Goal 4 : Patient will improve PROM of Left hip from 0 to 90 degrees with pain reported at end range < 2/10. Goal 5 : Pt will demonstrate good FRANKIE precaution with all functional transfers and bed mobility with independence. Retirement Goals (4-6 weeks) Goal 1 : Patient will ambulate community distances on even and uneven surfaces, independently with no AD, normalized gait pattern and < 1/10 report of pain in left hip. Goal 2 : Patient will improve Left hip/knee strength to 5/5 to assist with gait and transfer performances. Goal 3 : Patient will improve Left hip AROM from 0 to 90 degrees with end range pain < 2/10. Goal 4 : Patient will demonstrate good static and dynamic standing balance for >15 mintues without LOB or increase in hip pain. Goal 5 : Pt will ascend/descend >12 steps with no AD and reciprical gait pattern independently. Goal 6 : Patient will improve Tinetti Balance test to 28/28 to indicate no fall risk. Plan Planned modality interventions: cryotherapy Planned therapy interventions: gait training, functional ROM exercises, strengthening, stretching, therapeutic activities, neuromuscular re-education, manual therapy, bed mobility training, home exercise program and transfer training Frequency: 2-3. Duration in weeks: 8 Treatment plan discussed with: patient Plan details: Educated patient not to over do it and to continue icing hip; patient receptive. documented in this encounter [facility] 04-04-2024 History of Present illness Narrative Physical Therapy Physical Therapy Daily Follow up visit Patient Name: Vivek Knott Today's Date: 04/04/2024 Subjective Current Problem: Pt is being seen today due to having a left FRANKIE replacement. Date of Surgery: 03-27-24 with same day discharge. Current deficits: Impaired gait with dependence on an AD, impaired AROM, impaired LE strength, post op pain. Visit number 3. Time In: 1:00 pm; Time out: 1:30 pm Total time: 30 minutes [id number] Gait training x 15 minutes [id number] TherEx x 10 minutes [id number] Eval x 20 minutes. Pain Management: The patient is complaining of pain located in the left hip region. Pain rating 5/10. The pain is improved by ice , rest , medications including Tylenol and percocet. The pain is aggravated by bending activity, position change. The pain is described as aching. Precautions: Standard FRANKIE precautions, WBAT L LE, active hip flexion to 90 degrees, no crossing of LE's, no pivoting ER/IR. Prior level of function: Ambulation: Severely antalgic gait pattern without use of an AD. Assistive devices: Has FWW and str cane. ADL and IADL: Independent. Home Environment: Patient lives with his in a two story home with 3-4 steps to enter with HR; does have a ramp in back of home. Elevated toilet and tub/shower with grab bars and seat. Objective Examination Functional Mobility: Bed Mobility: Min A Sit to Stand: SBA Stair Negotiation: TBA Ambulation: Ambulated with step to gait pattern with use of walker; fair heel to toe gait pattern with fair knee flexion with swing phase on left LE. Noted increase WB on walker with Ue's. Hip: Active ROM: Left hip flexion/extension 0 to 65 degrees . Passive ROM: Left hip extension/flexion: 0 to 75 degrees with increased muscle guarding. Manual muscle testing: Left hip 2+/5. Palpation: Normal post-op warmth with minimal edema; Incision covered with Mepilex dressing which was removed this date. Incision intact with dermaglue and healing nicely. New dressing applied. Special tests: Negative Lalito Sign. Knee: Active ROM: WFL Manual muscle testing: Left knee 3/5. Ankle/Foot: Active ROM WFL. Manual muscle testing: Left ankle 4/5. Special tests Lalito's sign Negative. Tinetti Gait and Balance Assessment: Sitting balance: Steady, safe = 1 . Rises from chair: Able, uses arms to help = 1 . Attempts to rise: Able, requires > 1 attempt = 1. Immediate standing balance (first 5 seconds): Steady but uses walker or other support = 1. Standing balance: Steady but uses walker or other support = 1. Nudged: Staggers, grabs, catches self = 1. Eyes closed: Steady = 1 . Turning 360 degrees: Discontinuous steps = 0 Unsteady (grabs, staggers) = 0 . Sitting down: Uses arms or not a smooth motion = 1. Balance Score: 8/16. Indication of gait: No hesitancy = 1. Step of length and height: Step through L = 1. Foot clearance: L foot clears floor = 1 R foot clears floor = 1. Step symmetry: Right and left step length no equal = 0. Step continuity: Stopping or discontinuity between steps = 0. Path: Mild/moderate deviation or uses w/ aid = 1. Trunk: No sway but flex knees or back or uses arms for stability = 1. Walking time: Heels apart = 0. Gait score: /12. Total Score = Balance + Gait 14/28. Tinetti tool score: < = 18 High. Physical Education Intervention Physical Therapy Education: Pt was educated on the importance of cyrotherapy and elevation. Reviewed proper pillow placement under LE to maintain good extension. Stressed the importance also of ambulating at at least every other hour for 2-5 minutes duration and/or at least stand for a few minutes and completion of HEP 2x/day. Patient was educated with regards to signs and symptoms to monitor with respect to blood clots and infection. Reviewed FRANKIE precautions. Therapeutic Exercise : Pt completed left LE supine exercises of glut sets, quad sets and ankle pumps (hourly) at this time, 10x. Completed 2 x 10 reps of bilateral LAQ. Completed standing heel raises and left marches, standing hamstring curls and standing SLR; added mini squats and hip extension. HEP updated Gait Training: Gait training this date with walker with instruction for step to gait pattern for left affective LE. Verbal cues were provided fot heel to toe gait pattern and knee flexion during swing phase; fair carryover. Therapeutic Activity: Worked on getting on and off of bed and chair; SBA needed for bed mobility with verbal cues for sequencing. Assessment & Plan Assessment Impairments: abnormal gait, impaired balance, impaired physical strength and pain with function Barriers to therapy: Pain Prognosis: good Goals Short Term goals (1-3 weeks) Goal 1 : Patient will demonstrate good compliance and independence with HEP. Goal 2 : Patient will ascend/descend 3-4 steps with HR and AD with supervision, step to gait pattern. Goal 3 : Patient will ambulate up to 5 minute duration or more with FWW, modified independent with good reciprical gait pattern. Goal 4 : Patient will improve PROM of Left hip from 0 to 90 degrees with pain reported at end range < 2/10. Goal 5 : Pt will demonstrate good FRANKIE precaution with all functional transfers and bed mobility with independence. 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 Goal 2 : Patient will improve Left hip/knee strength to 5/5 to assist with gait and transfer performances. Goal 3 : Patient will improve Left hip AROM from 0 to 90 degrees with end range pain < 2/10. Goal 4 : Patient will demonstrate good static and dynamic standing balance for >15 mintues without LOB or increase in hip pain. Goal 5 : Pt will ascend/descend >12 steps with no AD and reciprical gait pattern independently. Goal 6 : Patient will improve Tinetti Balance test to 28/28 to indicate no fall risk. Plan Planned modality interventions: cryotherapy Planned therapy interventions: gait training, functional ROM exercises, strengthening, stretching, therapeutic activities, neuromuscular re-education, manual therapy, bed mobility training, home exercise program and transfer training Frequency: 2-3. Duration in weeks: 8 Treatment plan discussed with: patient Plan details: Educated patient not to over do it and to continue icing hip; patient receptive. documented in this encounter [facility] 03-30-2024 History of Present illness Narrative Physical Therapy Physical Therapy Daily Follow up visit Patient Name: Vivek Knott Today's Date: 03/30/2024 Subjective Current Problem: Pt is being seen today due to having a left FRANKIE replacement. Date of Surgery: 03-27-24 with same day discharge. Current deficits: Impaired gait with dependence on an AD, impaired AROM, impaired LE strength, post op pain. Visit number 2. Time In: 2:00 pm; Time out: 2:30 pm Total time: 30 minutes [id number] Gait training x 15 minutes [id number] TherEx x 10 minutes [id number] Eval x 20 minutes. Pain Management: The patient is complaining of pain located in the left hip region. Pain rating 5/10. The pain is improved by ice , rest , medications including Tylenol and percocet. The pain is aggravated by bending activity, position change. The pain is described as aching. Precautions: Standard FRANKIE precautions, WBAT L LE, active hip flexion to 90 degrees, no crossing of LE's, no pivoting ER/IR. Prior level of function: Ambulation: Severely antalgic gait pattern without use of an AD. Assistive devices: Has FWW and str cane. ADL and IADL: Independent. Home Environment: Patient lives with his in a two story home with 3-4 steps to enter with HR; does have a ramp in back of home. Elevated toilet and tub/shower with grab bars and seat. Objective Examination Functional Mobility: Bed Mobility: Min A Sit to Stand: SBA Stair Negotiation: TBA Ambulation: Ambulated with step to gait pattern with use of walker; fair heel to toe gait pattern with fair knee flexion with swing phase on left LE. Noted increase WB on walker with Ue's. Hip: Active ROM: Left hip flexion/extension 0 to 65 degrees . Passive ROM: Left hip extension/flexion: 0 to 75 degrees with increased muscle guarding. Manual muscle testing: Left hip 2+/5. Palpation: Normal post-op warmth with minimal edema; Incision covered with Mepilex dressing. Special tests: Negative Lalito Sign. Knee: Active ROM: WFL Manual muscle testing: Left knee 3/5. Ankle/Foot: Active ROM WFL. Manual muscle testing: Left ankle 4/5. Special tests Lalito's sign Negative. Tinetti Gait and Balance Assessment: Sitting balance: Steady, safe = 1 . Rises from chair: Able, uses arms to help = 1 . Attempts to rise: Able, requires > 1 attempt = 1. Immediate standing balance (first 5 seconds): Steady but uses walker or other support = 1. Standing balance: Steady but uses walker or other support = 1. Nudged: Staggers, grabs, catches self = 1. Eyes closed: Steady = 1 . Turning 360 degrees: Discontinuous steps = 0 Unsteady (grabs, staggers) = 0 . Sitting down: Uses arms or not a smooth motion = 1. Balance Score: 8/16. Indication of gait: No hesitancy = 1. Step of length and height: Step through L = 1. Foot clearance: L foot clears floor = 1 R foot clears floor = 1. Step symmetry: Right and left step length no equal = 0. Step continuity: Stopping or discontinuity between steps = 0. Path: Mild/moderate deviation or uses w/ aid = 1. Trunk: No sway but flex knees or back or uses arms for stability = 1. Walking time: Heels apart = 0. Gait score: /12. Total Score = Balance + Gait 14/28. Tinetti tool score: < = 18 High. Physical Education Intervention Physical Therapy Education: Pt was educated on the importance of cyrotherapy and elevation. Reviewed proper pillow placement under LE to maintain good extension. Stressed the importance also of ambulating at at least every other hour for 2-5 minutes duration and/or at least stand for a few minutes and completion of HEP 2x/day. Patient was educated with regards to signs and symptoms to monitor with respect to blood clots and infection. Reviewed FRANKIE precautions. Therapeutic Exercise : Pt completed left LE supine exercises of glut sets, quad sets and ankle pumps (hourly) at this time, 10x. Completed 2 x 10 reps of bilateral LAQ. Completed standing heel raises and left marches; added standing hamstring curls and standing SLR. HEP updated Gait Training: Gait training this date with walker with instruction for step to gait pattern for left affective LE. Verbal cues were provided fot heel to toe gait pattern and knee flexion during swing phase; fair carryover. Therapeutic Activity: Worked on getting on and off of bed and chair; CGA/min A needed for bed mobility with verbal cues for sequencing. Assessment & Plan Assessment Impairments: abnormal gait, impaired balance, impaired physical strength and pain with function Barriers to therapy: Pain Prognosis: good Goals Short Term goals (1-3 weeks) Goal 1 : Patient will demonstrate good compliance and independence with HEP. Goal 2 : Patient will ascend/descend 3-4 steps with HR and AD with supervision, step to gait pattern. Goal 3 : Patient will ambulate up to 5 minute duration or more with FWW, modified independent with good reciprical gait pattern. Goal 4 : Patient will improve PROM of Left hip from 0 to 90 degrees with pain reported at end range < 2/10. Goal 5 : Pt will demonstrate good FRANKIE precaution with all functional transfers and bed mobility with independence. 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 Goal 2 : Patient will improve Left hip/knee strength to 5/5 to assist with gait and transfer performances. Goal 3 : Patient will improve Left hip AROM from 0 to 90 degrees with end range pain < 2/10. Goal 4 : Patient will demonstrate good static and dynamic standing balance for >15 mintues without LOB or increase in hip pain. Goal 5 : Pt will ascend/descend >12 steps with no AD and reciprical gait pattern independently. Goal 6 : Patient will improve Tinetti Balance test to 28/28 to indicate no fall risk. Plan Planned modality interventions: cryotherapy Planned therapy interventions: gait training, functional ROM exercises, strengthening, stretching, therapeutic activities, neuromuscular re-education, manual therapy, bed mobility training, home exercise program and transfer training Frequency: 2-3. Duration in weeks: 8 Treatment plan discussed with: patient Plan details: Educated patient not to over do it and to continue icing hip; patient receptive. documented in this encounter [facility] 03-29-2024 Note Progress Note-Physic valarie Patient: ZENON KNOTT Age: 73 years Sex: Male : 1950 Associated Diagnoses: None Author: Jaden LUQUE CRNA, Queen N. Procedure Nerve Block Block Type: Maximiliano block. Laterality: Left. Informed consent for anesthesia management: Anesthesia options discussed including nerve block, Description of the procedure, risks, benefits, and alternatives was provided, The patient's questions were addressed. Time out: Confirmed correct patient, procedure and site. Time: Date/Time 03/27/2024 08:00:00. Indication: Block for postoperative pain management as requested by surgeon. Anesthesia Method: IV Sedation with monitored anesthesia care, The patient remained awake and able to interact in a meaningful way throughout the procedure. Preparation: The patient was placed in the following position Supine, Continuous pulse oximetry applied, Using maximal sterile barrier technique per current [facility] guidelines including hand hygeine, Guidance (Ultrasound used to identify anatomical landmarks, Using sterile gel and probe covers, Permanent image retained), The site was prepped with ChloraPrep. Procedure: Anesthetic Agent 20cc of 0.5% Ropivicaine with 4mg decadron, Catheter size (21 guage, Sonoplex needle), Needle was inserted without pain or parasthesia in the conscious patient, Number of attempts 1, Negative attempt at aspiration for blood, Medial and lateral spread of the anesthestic was observed, Periodic negative attempts at aspiration of blood were made as the local was injected, No pain or parathesia were elicited with injection of the anesthetic in the conscious patient, It was idetified that the correct anesthetic agent was administered to the correct site. Complications: The patient tolerated the procedure as expected, Procedure completed by Queen Jaden CRNA under Dr Bond's supervision.. [facility] Comment on above: Result Comment: Elec tronically Signed By: Jaden LUQUE CRNA, Queen N.\.br\Date and Time Signed: 03/27/24 08:07 EDT wrong folder 03-28-2024 Note Progress Note-Physic valarie Patient: ZENON KNOTT Age: 73 years Sex: Male : 1950 Associated Diagnoses: None Author: Tyrone Bond Jr, DO Preoperative Information Anesthesia Preop Info: Time patient last ate or drank 03/27/2024 00:00:00. Anesthesia history: Patient history: None. Family history+: None. Informed consent: Signed by patient. Re-evaluation prior to induction: Initial evaluation reviewed: No significant change. Review of Systems Eye: Negative except as documented in history of present illness. Ear/Nose/Mouth/Throat: Negative except as documented in history of present illness. Respiratory: Negative except as documented in history of present illness. Cardiovascular: Negative except as documented in history of present illness. Musculoskeletal: Negative except as documented in history of present illness. Neurologic: Negative except as documented in history of present illness. Health Status Allergies: Allergic Reactions (Selected) Severe Aspirin- Anaphylaxis. Penicillins- Anaphylaxis. Problem list: All Problems Vertigo / SNOMED CT 4210459663 / Confirmed Colon polyps / SNOMED CT 280798762 / Confirmed Localized osteoarthritis of hip / SNOMED CT 982661084 / Confirmed Dyssynergia / SNOMED CT 66118874 / Confirmed Skin cancer / SNOMED CT 2618417982 / Confirmed Dyspepsia / SNOMED CT 262503513 / Confirmed HTN (hypertension) / SNOMED CT 7654862129 / Confirmed HTN (hypertension) / SNOMED CT 0531684908 / Confirmed Hypercholesterolemia / SNOMED CT 93806768 / Confirmed Personal history of colonic polyps / SNOMED CT 8487641801 / Confirmed Hemorrhoids / SNOMED CT 748422785 / Confirmed Heartburn / SNOMED CT 01678901 / Confirmed Acid reflux disease / SNOMED CT 912375650 / Confirmed Diabetes / SNOMED CT 908722699 / Confirmed Depression / SNOMED CT 90118432 / Confirmed CAD (coronary artery disease) / SNOMED CT 20161672 / Confirmed Constipation / SNOMED CT 55422661 / Confirmed Chronic back pain / SNOMED CT 622661435 / Confirmed Resolved: Mumps / SNOMED CT 01261925 Resolved: Measles / SNOMED CT 14696597 Resolved: Kidney stone / SNOMED CT 721651806 Resolved: Bronchitis / SNOMED CT 14148440 Resolved: At risk for falls / SNOMED CT 838194459 Problem added when Risk for Falls Careplan was initiated. Resolved due to patient discharge. Resolved: Change in bowel habits / SNOMED CT 818879596 Resolved: Acute pancreatitis / SNOMED CT 501493182 Histories Procedure history: Colonoscopy, flexible; with removal of tumor(s), polyp(s), or other lesion(s) by snare technique (81575) on 09/25/2020 at 70 Years. Prosthetic total arthroplasty of right hip ([id number]) on 04/30/2020 at 69 Years. Comments: 04/30/2020 15:44 EDT - Naa Orozco RN RIGHT TOTAL HIP ARTHROPLASTY Anorectal manometry ([id number]) on 04/10/2019 at 68 Years. Colonoscopy ([id number]) on 11/11/2018 at 68 Years. Hernia Repair. Cholecystectomy (48998742). Open heart surgery (5125874). ORIF - Open reduction of fracture of ankle with internal fixation ([id number]). Marsupialisation of pilonidal cyst or sinus (542142334). CEIOL - cataract extraction and implantation of intraocular lens (5063884361). Social History Social & Psychosocial Habits Alcohol 03/08/2024 Use: Current Type: Beer Frequency: 1-2 times per month 03/08/2024 Risk Assessment: Low Risk Exercise 03/08/2024 Risk Assessment: Does not exercise Other 03/08/2024 Name: Ekbdfaho-6-5 cups daily Substance Abuse 03/08/2024 Risk Assessment: Denies Substance Abuse Tobacco 03/08/2024 Risk Assessment: Denies Tobacco Use 03/08/2024 Tobacco Use: Former smoker, quit more Smokeless tobacco use: Never Type: Cigarettes . Physical Examination Airway: Mallampati classification: II (soft palate, fauces, uvula visible). Respiratory: adequate air exchange. Cardiovascular: Regular rhythm. Plan [place] [employer] (ASA) physical status classification: Class III. Anesthetic Preoperative Plan: Anesthesia General. [facility] Comment on above: Result Comment: Elec tronically Signed By: Tyrone Bond Jr, DO\.br\Date and Time Signed: 03/28/24 12:30 EDT 03-28-2024 Note Progress Note-Physic valarie Patient: ZENON KNOTT Age: 73 years Sex: Male : 1950 Associated Diagnoses: None Author: Tyrone Bond Jr, DO Postoperative Information Postoperative disposition: Postoperative disposition: To PACU. Optimetrix number: Optimetrix number [id number]. Anesthetic utilized: General. Regional: Spinal. Health Status Allergies: Allergic Reactions (Selected) Severe Aspirin- Anaphylaxis. Penicillins- Anaphylaxis. Physical Examination Vital Signs 03/27/2024 11:26 EDT Heart Rate Monitored 74 bpm SpO2 93 % 03/27/2024 11:26 EDT Systolic Blood Pressure 112 mmHg Diastolic Blood Pressure 65 mmHg Mean Arterial Pressure, Monitered 81 mmHg 03/27/2024 10:14 EDT Heart Rate Monitored 68 bpm SpO2 94 % 03/27/2024 10:14 EDT Temperature Axillary 36.4 DegC 03/27/2024 10:13 EDT Respiratory Rate 16 br/min 03/27/2024 10:13 EDT Systolic Blood Pressure 126 mmHg Diastolic Blood Pressure 73 mmHg Blood Pressure Location Right arm Mean Arterial Pressure, Monitered 91 mmHg 03/27/2024 10:00 EDT Temperature Temporal Artery 36.3 DegC Heart Rate Monitored 75 bpm Respiratory Rate 12 br/min LOW Systolic Blood Pressure 117 mmHg Diastolic Blood Pressure 66 mmHg Blood Pressure Location Left arm Mean Arterial Pressure, Cuff 83 mmHg SpO2 93 % 03/27/2024 9:50 EDT Heart Rate Monitored 85 bpm Respiratory Rate Monitored 11 br/min Systolic Blood Pressure 110 mmHg Diastolic Blood Pressure 68 mmHg Blood Pressure Location Left arm Mean Arterial Pressure, Cuff 82 mmHg SpO2 95 % 03/27/2024 9:45 EDT Heart Rate Monitored 75 bpm Respiratory Rate Monitored 18 br/min Systolic Blood Pressure 118 mmHg Diastolic Blood Pressure 66 mmHg Blood Pressure Location Left arm Mean Arterial Pressure, Cuff 83 mmHg SpO2 96 % 03/27/2024 9:40 EDT Heart Rate Monitored 72 bpm Respiratory Rate Monitored 17 br/min Systolic Blood Pressure 115 mmHg Diastolic Blood Pressure 62 mmHg Blood Pressure Location Left arm Mean Arterial Pressure, Cuff 80 mmHg SpO2 96 % 03/27/2024 9:35 EDT Temperature Temporal Artery 36.6 DegC Heart Rate Monitored 79 bpm Respiratory Rate Monitored 13 br/min Systolic Blood Pressure 100 mmHg Diastolic Blood Pressure 63 mmHg Blood Pressure Location Left arm Mean Arterial Pressure, Cuff 75 mmHg SpO2 95 % Pain Assessment: Controlled. General: Awake, Alert, Appropriate. Respiratory: Adequate air exchange. Cardiovascular: Stable, Normal peripheral perfusion. Neurological: Normal sensory function, Normal motor function. Assessment Anesthetic outcome No anesthetic complications noted. Adequate pain relief. able to void without difficulty, able to ambulate with assist, tolerating PO intake, no N/V. Review / Management Condition: Stable. Plan Transfer/Discharge: Transfer/Discharge Discharge when meets criteria ( To home ). [facility] Comment on above: Result Comment: Elec tronically Signed By: Varun Johnson DO, Tyrone Santos.cheo\Date and Time Signed: 03/28/24 12:30 EDT 03-28-2024 History of Present illness Narrative Physical Therapy Physical Therapy Evaluation Patient Name: Vivek Knott Today's Date: 03/28/2024 Subjective Current Problem: Pt is being seen today due to having a left FRANKIE replacement. Date of Surgery: 03-27-24 with same day discharge. Current deficits: Impaired gait with dependence on an AD, impaired AROM, impaired LE strength, post op pain. Visit number 1. Time In: 12:00 pm; Time out: 12:45 pm Total time: 45 minutes [id number] Gait training x 15 minutes [id number] TherEx x 10 minutes 12525 Eval x 20 minutes. Pain Management: The patient is complaining of pain located in the left hip region. Pain rating 5/10. The pain is improved by ice , rest , medications including Tylenol and percocet. The pain is aggravated by bending activity, position change. The pain is described as aching. Precautions: Standard FRANKIE precautions, WBAT L LE, active hip flexion to 90 degrees, no crossing of LE's, no pivoting ER/IR. Prior level of function: Ambulation: Severely antalgic gait pattern without use of an AD. Assistive devices: Has FWW and str cane. ADL and IADL: Independent. Home Environment: Patient lives with his in a two story home with 3-4 steps to enter with HR; does have a ramp in back of home. Elevated toilet and tub/shower with grab bars and seat. Objective Examination Functional Mobility: Bed Mobility: Min A Sit to Stand: SBA Stair Negotiation: TBA Ambulation: Ambulated with step to gait pattern with use of walker; fair heel to toe gait pattern with fair knee flexion with swing phase on left LE. Noted increase WB on walker with Ue's. Hip: Active ROM: Left hip flexion/extension 0 to 65 degrees . Passive ROM: Left hip extension/flexion: 0 to 75 degrees with increased muscle guarding. Manual muscle testing: Left hip 2+/5. Palpation: Normal post-op warmth with minimal edema; Incision covered with Mepilex dressing. Special tests: Negative Lalito Sign. Knee: Active ROM: WFL Manual muscle testing: Left knee 3/5. Ankle/Foot: Active ROM WFL. Manual muscle testing: Left ankle 4/5. Special tests Lalito's sign Negative. Tinetti Gait and Balance Assessment: Sitting balance: Steady, safe = 1 . Rises from chair: Able, uses arms to help = 1 . Attempts to rise: Able, requires > 1 attempt = 1. Immediate standing balance (first 5 seconds): Steady but uses walker or other support = 1. Standing balance: Steady but uses walker or other support = 1. Nudged: Staggers, grabs, catches self = 1. Eyes closed: Steady = 1 . Turning 360 degrees: Discontinuous steps = 0 Unsteady (grabs, staggers) = 0 . Sitting down: Uses arms or not a smooth motion = 1. Balance Score: 8/16. Indication of gait: No hesitancy = 1. Step of length and height: Step through L = 1. Foot clearance: L foot clears floor = 1 R foot clears floor = 1. Step symmetry: Right and left step length no equal = 0. Step continuity: Stopping or discontinuity between steps = 0. Path: Mild/moderate deviation or uses w/ aid = 1. Trunk: No sway but flex knees or back or uses arms for stability = 1. Walking time: Heels apart = 0. Gait score: /12. Total Score = Balance + Gait 14/28. Tinetti tool score: < = 18 High. Physical Education Intervention Physical Therapy Education: Pt was educated on the importance of cyrotherapy and elevation. Reviewed proper pillow placement under LE to maintain good extension. Stressed the importance also of ambulating at at least every other hour for 2-5 minutes duration and/or at least stand for a few minutes and completion of HEP 2x/day. Patient was educated with regards to signs and symptoms to monitor with respect to blood clots and infection. Reviewed FRANKIE precautions. Therapeutic Exercise : Pt completed left LE supine exercises of glut sets, quad sets and ankle pumps (hourly) at this time, 10x. Completed 2 x 10 reps of bilateral LAQ. Completed standing heel raises and left marches HEP issued and instructed. Gait Training: Gait training this date with walker with instruction for step to gait pattern for left affective LE. Verbal cues were provided fot heel to toe gait pattern and knee flexion during swing phase; fair carryover. Therapeutic Activity: Worked on getting on and off of bed and chair; CGA/min A needed for bed mobility with verbal cues for sequencing. Assessment & Plan Assessment Impairments: abnormal gait, impaired balance, impaired physical strength and pain with function Barriers to therapy: Pain Prognosis: good Goals Short Term goals (1-3 weeks) Goal 1 : Patient will demonstrate good compliance and independence with HEP. Goal 2 : Patient will ascend/descend 3-4 steps with HR and AD with supervision, step to gait pattern. Goal 3 : Patient will ambulate up to 5 minute duration or more with FWW, modified independent with good reciprical gait pattern. Goal 4 : Patient will improve PROM of Left hip from 0 to 90 degrees with pain reported at end range < 2/10. Goal 5 : Pt will demonstrate good FRANKIE precaution with all functional transfers and bed mobility with independence. 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 Goal 2 : Patient will improve Left hip/knee strength to 5/5 to assist with gait and transfer performances. Goal 3 : Patient will improve Left hip AROM from 0 to 90 degrees with end range pain < 2/10. Goal 4 : Patient will demonstrate good static and dynamic standing balance for >15 mintues without LOB or increase in hip pain. Goal 5 : Pt will ascend/descend >12 steps with no AD and reciprical gait pattern independently. Goal 6 : Patient will improve Tinetti Balance test to 28/28 to indicate no fall risk. Plan Planned modality interventions: cryotherapy Planned therapy interventions: gait training, functional ROM exercises, strengthening, stretching, therapeutic activities, neuromuscular re-education, manual therapy, bed mobility training, home exercise program and transfer training Frequency: 2-3. Duration in weeks: 8 Treatment plan discussed with: patient Plan details: Educated patient not to over do it and to continue icing hip; patient receptive. Pt will continue to benefit from therapy intervention to improve gait training, Left LE strength and ROM and improve functional mobility to return to OF documented in this encounter [facility] 08-26-2024 Hospital Discharge instructions Patient Education 03/27/2024 10:06:33 How to Use an Incentive Spirometer How to Use an Incentive Spirometer An incentive spirometer is a tool that measures how well you are filling your lungs with each breath. Learning to take long, deep breaths using this tool can help you keep your lungs clear and active. This may help to reverse or lessen your chance of developing breathing (pulmonary) problems, especially infection. You may be asked to use a spirometer: After a surgery. If you have a lung problem or a history of smoking. After a long period of time when you have been unable to move or be active. If the spirometer includes an indicator to show the highest number that you have reached, your health care provider or respiratory therapist will help you set a goal. Keep a log of your progress as told by your health care provider. What are the risks? Breathing too quickly may cause dizziness or cause you to pass out. Take your time so you do not get dizzy or light-headed. If you are in pain, you may need to take pain medicine before doing incentive spirometry. It is harder to take a deep breath if you are having pain. How to use your incentive spirometer 1.Sit up on the edge of your bed or on a chair. 2.Hold the incentive spirometer so that it is in an upright position. 3.Before you use the spirometer, breathe out normally. 4.Place the mouthpiece in your mouth. Make sure your lips are closed tightly around it. 5.Breathe in slowly and as deeply as you can through your mouth, causing the piston or the ball to rise toward the top of the chamber. 6.Hold your breath for 3 5 seconds, or for as long as possible. If the spirometer includes a trolley coach driver indicator, use this to guide you in breathing. Slow down your breathing if the indicator goes above the marked areas. 7.Remove the mouthpiece from your mouth and breathe out normally. The piston or ball will return to the bottom of the chamber. 8.Rest for a few seconds, then repeat the steps 10 or more times. Take your time and take a few normal breaths between deep breaths so that you do not get dizzy or light-headed. Do this every 1 2 hours when you are awake. 9.If the spirometer includes a goal marker to show the highest number you have reached (best effort), use this as a goal to work toward during each repetition. 10.After each set of 10 deep breaths, cough a few times. This will help to make sure that your lungs are clear. If you have an incision on your chest or abdomen from surgery, place a pillow or a rolled-up towel firmly against the incision when you cough. This can help to reduce pain while taking deep breaths and coughing. General tips When you are able to get out of bed: ?Walk around often. ?Continue to take deep breaths and cough in order to clear your lungs. Keep using the incentive spirometer until your health care provider says it is okay to stop using it. If you have been in the hospital, you may be told to keep using the spirometer at home. Contact a health care provider if: You are having difficulty using the spirometer. You have trouble using the spirometer as often as instructed. Your pain medicine is not giving enough relief for you to use the spirometer as told. You have a fever. Get help right away if: You develop shortness of breath. You develop a cough with bloody mucus from the lungs. You have fluid or blood coming from an incision site after you cough. Summary An incentive spirometer is a tool that can help you learn to take long, deep breaths to keep your lungs clear and active. You may be asked to use a spirometer after a surgery, if you have a lung problem or a history of smoking, or if you have been inactive for a long period of time. Use your incentive spirometer as instructed every 1 2 hours while you are awake. If you have an incision on your chest or abdomen, place a pillow or a rolled-up towel firmly against your incision when you cough. This will help to reduce pain. Get help right away if you have shortness of breath, you cough up bloody mucus, or blood comes from your incision when you cough. This information is not intended to replace advice given to you by your health care provider. Make sure you discuss any questions you have with your health care provider. Document Revised: 10/07/2020 Document Reviewed: 10/07/2020 [employer] Patient Education 2022 [employer]. 03/27/2024 10:06:31 Post Op Patient Instructions - FT (CUSTOM) 03/22/2024 15:40:19 [facility] - Hip Replacement Arthroplasty (CUSTOM) [place], [facility] DISCHARGE INSTRUCTIONS HIP REPLACEMENT ARTHROPLASTY INCISION CARE: Mepilex dressing can get wet with showers. Please remove 10 days after surgery per instruction sheet. If dash present, please coordinate removal 21 days after surgery with office staff. Please notify the office if any increase in redness, tenderness, drainage, fever, or wound separation is noted beyond this point. Compression stockings may be helpful if any significant or uncomfortable swelling in the legs is noted postoperatively. Use and removal instructions should be given by physical therapy. If the swelling is below the knee, knee high compression stockings may suffice. If this does cause swelling into the thigh region, waist high compression stockings may be beneficial as well. These can be obtained from most pharmacies, or can be obtained from the hospital or through Home Health. The mild grade compression stockings are best used initially, and dislocation precautions must be maintained. DISLOCATION PRECAUTIONS: Continue to use the abduction pillow between the knees at all times while in bed. This abduction pillow should be removed while walking and performing physical therapy exercises; otherwise, to be used while in bed. This is to be maintained for four weeks postoperatively. At that time you may begin using a regular bed pillow between your knees at night as needed. You should continue to avoid crossing the knees or crossing the legs for two months postoperatively. Sitting in a chair should always be such that the knees are kept below the level of the hips to avoid increased flexion of the hip, possibly causing dislocation. MEDICATIONS: You may resume your home medications at the time of discharge. Aspirin 81 mg EC oral twice a day for 4 weeks for blood clot prevention with meals. Please notify your doctor if you have a stomach sensitivity to Aspirin or history of previous stomach ulcers. Resume Plavix the day after surgery. [facility] Discharge Instructs for Hip Replace.Page 2 Medications Cont. Pain medication has been prescribed as well. You may continue to use the pain medication every four hours as needed. Any narcotic pain medication can cause side effects including stomach upset, constipation, or light-headedness. You should not drive or operate machinery, or use alcohol while using the narcotic pain medication. You should not use other pain medications with this prescription pain medication unless further directed by your physician. PHYSICAL THERAPY DISLOCATION PRECAUTIONS: Continue the range of motion and strengthening exercises initiated in Physical Therapy in the hospital. Again, do not cross legs, internally rotate the legs, or flex the hip above 90 degrees for six months postoperatively. Continue weight bearing, as ordered, to the operated hip for four to six weeks as directed in Physical Therapy. This will be with the use of a walker or crutches. After four or six weeks you may then progress to the use of one crutch, or a cane. A quad-cane is preferred as this is more stable. Physical therapy as begun in the hospital will continue at home, possible with the electrician's assistant of Home Health Physical Therapy or in the hospital as an outpatient. When you have become independent with the physical therapy program, this will then be discontinued as a supervised program and you will be instructed to continue the physical therapy exercises at home. Please call your [facility] with any questions or concerns [phone] EXT [phone]. DRIVING: Driving is not recommended for 4-6 week pending progress. 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 It is therefore advised not to drive until after your first office visit following surgery FOLLOW-UP OFFICE VISIT: ____ Jori Matias, DO [facility] [address] [place] [id number] Reviewed: 12-22 Follow Up Care 03/02/2024 16:12:40 With:KEVIN Garza Address: [address] [place] [phone] [id number] (1) When:04/27/2024 14:30:00 Comments:Keep scheduled appointment [facility] 03-27-2024 Note Patient Education - Text Pulmonary Medicine How to Use an Incentive Spirometer An incentive spirometer is a tool that measures how well you are filling your lungs with each breath. Learning to take long, deep breaths using this tool can help you keep your lungs clear and active. This may help to reverse or lessen your chance of developing breathing (pulmonary) problems, especially infection. You may be asked to use a spirometer: ? After a surgery. ? If you have a lung problem or a history of smoking. ? After a long period of time when you have been unable to move or be active. If the spirometer includes an indicator to show the highest number that you have reached, your health care provider or respiratory therapist will help you set a goal. Keep a log of your progress as told by your health care provider. What are the risks? ? Breathing too quickly may cause dizziness or cause you to pass out. Take your time so you do not get dizzy or light-headed. ? If you are in pain, you may need to take pain medicine before doing incentive spirometry. It is harder to take a deep breath if you are having pain. How to use your incentive spirometer 1. Sit up on the edge of your bed or on a chair. 2. Hold the incentive spirometer so that it is in an upright position. 3. Before you use the spirometer, breathe out normally. 4. Place the mouthpiece in your mouth. Make sure your lips are closed tightly around it. 5. Breathe in slowly and as deeply as you can through your mouth, causing the piston or the ball to rise toward the top of the chamber. 6. Hold your breath for 3?5 seconds, or for as long as possible. ? If the spirometer includes a trolley coach driver indicator, use this to guide you in breathing. Slow down your breathing if the indicator goes above the marked areas. 7. Remove the mouthpiece from your mouth and breathe out normally. The piston or ball will return to the bottom of the chamber. 8. Rest for a few seconds, then repeat the steps 10 or more times. ? Take your time and take a few normal breaths between deep breaths so that you do not get dizzy or light-headed. ? Do this every 1?2 hours when you are awake. 9. If the spirometer includes a goal marker to show the highest number you have reached (best effort), use this as a goal to work toward during each repetition. 10. After each set of 10 deep breaths, cough a few times. This will help to make sure that your lungs are clear. ? If you have an incision on your chest or abdomen from surgery, place a pillow or a rolled-up towel firmly against the incision when you cough. This can help to reduce pain while taking deep breaths and coughing. General tips ? When you are able to get out of bed: ? Walk around often. ? Continue to take deep breaths and cough in order to clear your lungs. ? Keep using the incentive spirometer until your health care provider says it is okay to stop using it. If you have been in the hospital, you may be told to keep using the spirometer at home. Contact a health care provider if: ? You are having difficulty using the spirometer. ? You have trouble using the spirometer as often as instructed. ? Your pain medicine is not giving enough relief for you to use the spirometer as told. ? You have a fever. Get help right away if: ? You develop shortness of breath. ? You develop a cough with bloody mucus from the lungs. ? You have fluid or blood coming from an incision site after you cough. Summary ? An incentive spirometer is a tool that can help you learn to take long, deep breaths to keep your lungs clear and active. ? You may be asked to use a spirometer after a surgery, if you have a lung problem or a history of smoking, or if you have been inactive for a long period of time. ? Use your incentive spirometer as instructed every 1?2 hours while you are awake. ? If you have an incision on your chest or abdomen, place a pillow or a rolled-up towel firmly against your incision when you cough. This will help to reduce pain. ? Get help right away if you have shortness of breath, you cough up bloody mucus, or blood comes from your incision when you cough. This information is not intended to replace advice given to you by your health care provider. Make sure you discuss any questions you have with your health care provider. Document Revised: 10/07/2020 Document Reviewed: 10/07/2020 [employer] Patient Education ? 2022 [employer]. [place], [place] [facility] DISCHARGE INSTRUCTIONS HIP REPLACEMENT ARTHROPLASTY INCISION CARE: Mepilex dressing can get wet with showers. Please remove 10 days after surgery per instruction sheet. If dash present, please coordinate removal 21 days after surgery with office staff. Please notify the office if any increase in redness, tenderness, draina (more content not included)... [facility] 03-27-2024 Note Progress Note-Physic valarie Patient: ZENON KNOTT Age: 73 years Sex: Male : 1950 Associated Diagnoses: None Author: Jaden LUQUE CRNA, Queen N. Procedure Nerve Block Block Type: Maximiliano block. Laterality: Left. Informed consent for anesthesia management: Anesthesia options discussed including nerve block, Description of the procedure, risks, benefits, and alternatives was provided, The patient's questions were addressed. Time out: Confirmed correct patient, procedure and site. Time: Date/Time 03/27/2024 08:00:00. Indication: Block for postoperative pain management as requested by surgeon. Anesthesia Method: IV Sedation with monitored anesthesia care, The patient remained awake and able to interact in a meaningful way throughout the procedure. Preparation: The patient was placed in the following position Supine, Continuous pulse oximetry applied, Using maximal sterile barrier technique per current [facility] guidelines including hand hygeine, Guidance (Ultrasound used to identify anatomical landmarks, Using sterile gel and probe covers, Permanent image retained), The site was prepped with ChloraPrep. Procedure: Anesthetic Agent 20cc of 0.5% Ropivicaine with 4mg decadron, Catheter size (21 guage, Sonoplex needle), Needle was inserted without pain or parasthesia in the conscious patient, Number of attempts 1, Negative attempt at aspiration for blood, Medial and lateral spread of the anesthestic was observed, Periodic negative attempts at aspiration of blood were made as the local was injected, No pain or parathesia were elicited with injection of the anesthetic in the conscious patient, It was idetified that the correct anesthetic agent was administered to the correct site. Complications: The patient tolerated the procedure as expected, Procedure completed by Queen Jaden CRNA under Dr Bond's supervision.. [facility] Comment on above: Result Comment: Elec tronically Signed By: Jaden LUQUE CRNA, Queen N.\.br\Date and Time Signed: 03/27/24 08:07 EDT 08-21-2024 Note Patient Education - Text [place], [place] [facility] DISCHARGE INSTRUCTIONS HIP REPLACEMENT ARTHROPLASTY INCISION CARE: Mepilex dressing can get wet with showers. Please remove 10 days after surgery per instruction sheet. If dash present, please coordinate removal 21 days after surgery with office staff. Please notify the office if any increase in redness, tenderness, drainage, fever, or wound separation is noted beyond this point. Compression stockings may be helpful if any significant or uncomfortable swelling in the legs is noted postoperatively. Use and removal instructions should be given by physical therapy. If the swelling is below the knee, knee high compression stockings may suffice. If this does cause swelling into the thigh region, waist high compression stockings may be beneficial as well. These can be obtained from most pharmacies, or can be obtained from the hospital or through Home Health. The mild grade compression stockings are best used initially, and dislocation precautions must be maintained. DISLOCATION PRECAUTIONS: Continue to use the abduction pillow between the knees at all times while in bed. This abduction pillow should be removed while walking and performing physical therapy exercises; otherwise, to be used while in bed. This is to be maintained for four weeks postoperatively. At that time you may begin using a regular bed pillow between your knees at night as needed. You should continue to avoid crossing the knees or crossing the legs for two months postoperatively. Sitting in a chair should always be such that the knees are kept below the level of the hips to avoid increased flexion of the hip, possibly causing dislocation. MEDICATIONS: You may resume your home medications at the time of discharge. Aspirin 81 mg EC oral twice a day for 4 weeks for blood clot prevention with meals. Please notify your doctor if you have a stomach sensitivity to Aspirin or history of previous stomach ulcers. Resume Plavix the day after surgery. [facility] Discharge Instructs for Hip Replace. Page 2 Medications Cont. Pain medication has been prescribed as well. You may continue to use the pain medication every four hours as needed. Any narcotic pain medication can cause side effects including stomach upset, constipation, or light-headedness. You should not drive or operate machinery, or use alcohol while using the narcotic pain medication. You should not use other pain medications with this prescription pain medication unless further directed by your physician. PHYSICAL THERAPY ? DISLOCATION PRECAUTIONS: Continue the range of motion and strengthening exercises initiated in Physical Therapy in the hospital. Again, do not cross legs, internally rotate the legs, or flex the hip above 90 degrees for six months postoperatively. Continue weight bearing, as ordered, to the operated hip for four to six weeks as directed in Physical Therapy. This will be with the use of a walker or crutches. After four or six weeks you may then progress to the use of one crutch, or a cane. A quad-cane is preferred as this is more stable. Physical therapy as begun in the hospital will continue at home, possible with the electrician's assistant of Home Health Physical Therapy or in the hospital as an outpatient. When you have become independent with the physical therapy program, this will then be discontinued as a supervised program and you will be instructed to continue the physical therapy exercises at home. Please call your [facility] with any questions or concerns [phone] EXT [phone]. DRIVING: Driving is not recommended for 4-6 week pending progress. 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 It is therefore advised not to drive until after your first office visit following surgery FOLLOW-UP OFFICE VISIT: ____ Jori Matias, DO [facility] [address] [place] [address] Reviewed: 12-22 [facility] 03-27-2022 Note MR#: [id number] [facility] Pt. Name: Vivek Knott Admitted: 03/24/2022 Discharged: 03/27/2022 Date of : 1950 Physician: Ba Bennett MD DISCHARGE SUMMARY CONSULTING PHYSICIAN: Cardiology. FINAL DIAGNOSES: 1. Unstable angina, status post cardiac cath, status post aspirin desensitization, status post PCI. Continue aspirin and Plavix. 2. Coronary artery disease with history of coronary artery bypass graft, medical management. 3. Essential hypertension, controlled. 4. Diabetes mellitus type 2, controlled: 5. Unspecified dyslipidemia. HOSPITAL COURSE: This is a 71-year-old male with past medical history of coronary artery disease, along with history of coronary artery bypass graft, who was recently evaluated at the Cardiology Clinic on account of symptoms likely consistent with unstable angina. The patient was brought to the hospital for elective cardiac catheterization, which revealed severe three-vessel coronary artery disease along with patent 4/5 bypass grafts, patent CRAMER to LAD, patent radial graft to diagonal, patent radial graft to OM 2, and patent saphenous vein graft to PDA. sequential limb from the radial graft to the diagonal, 90% stenosis at the ostium of the radial graft to the diagonal branch. The patient was admitted to in-house as the patient was allergic to aspirin and plan was to do aspirin desensitization, then eventually repeat cardiac cath for PCI, which the patient had PCI done to 90% stenosis at the ostium of the radial graft to the diagonal branch. The patient tolerated very well, overall the patient remained stable, blood pressure is better, no chest pain or shortness of breath. The patient will be discharged home after Cardiology clearance. PHYSICAL EXAMINATION: GENERAL: When examined today, hemodynamically stable. NECK: Supple. CARDIOVASCULAR: Regular. ABDOMEN: Positive bowel sounds. EXTREMITIES: No pedal edema. LABORATORY DATA: Reviewed. MEDICATIONS: Per the computer reconciliation list. Time spent in coordination of care, 35 minutes. Electronically Signed by: Ba Bennett MD 03/27/2022 11:50 A ____ Ba Bennett MD Date Dict: 03/27/2022/05:36 A/Ba Bennett MD Date Trans: 03/27/2022 08:34 A/jose miguel [id number] cc: Jens Roth M.D. [address] [place] [id number] [facility] Evaluation + Plan note Future Appointments Appointment Date:03/27/2024 08:45:00 AM Scheduled Provider: Location:[facility] Appointment Type:Surgery FT [facility] Evaluation note Diagnosis Primary osteoarthritis of left hip- Primary Acute postoperative pain of left hip Difficulty walking Difficulty in walking Status post left hip replacement Aftercare following left hip joint replacement surgery Presence of left artificial hip joint [facility] Diagnosis Primary osteoarthritis of left hip- Primary Acute postoperative pain of left hip Difficulty walking Difficulty in walking Status post left hip replacement Aftercare following left hip joint replacement surgery [facility] Diagnosis Primary osteoarthritis of left hip- Primary Acute postoperative pain of left hip Difficulty walking Difficulty in walking Status post left hip replacement Aftercare following left hip joint replacement surgery [facility] Diagnosis Primary osteoarthritis of left hip- Primary Acute postoperative pain of left hip Difficulty walking Difficulty in walking Status post left hip replacement Aftercare following left hip joint replacement surgery [facility] Diagnosis Primary osteoarthritis of left hip- Primary Acute postoperative pain of left hip Difficulty walking Difficulty in walking Status post left hip replacement Aftercare following left hip joint replacement surgery [facility] Diagnosis Primary osteoarthritis of left hip- Primary Acute postoperative pain of left hip Difficulty walking Difficulty in walking Status post left hip replacement Aftercare following left hip joint replacement surgery [facility] Diagnosis Primary osteoarthritis of left hip- Primary Acute postoperative pain of left hip Difficulty walking Difficulty in walking Status post left hip replacement [facility]* Diagnosis Primary osteoarthritis of left hip- Primary Acute postoperative pain of left hip Difficulty walking Difficulty in walking Status post left hip replacement documented [facility]* Diagnosis Primary osteoarthritis of left hip- Primary Acute postoperative pain of left hip Difficulty walking Difficulty in walking Status post left hip replacement [facility] Diagnosis Primary osteoarthritis of left hip- Primary Acute postoperative pain of left hip Difficulty walking Difficulty in walking Status post left hip replacement documented [facility]* Diagnosis Primary osteoarthritis of left hip- Primary Difficulty walking Difficulty in walking Acute postoperative pain of left hip Status post left hip replacement documented [facility]* Diagnosis Primary osteoarthritis of left hip- Primary Difficulty walking Difficulty in walking Acute postoperative pain of left hip documented [facility]* Diagnosis Primary osteoarthritis of left hip- Primary Difficulty walking Difficulty in walking Acute postoperative pain of left hip documented [facility]* Diagnosis Primary osteoarthritis of left hip- Primary Difficulty walking Difficulty in walking Acute postoperative pain of left hip Status post left hip replacement documented [facility]* Diagnosis Primary osteoarthritis of left hip- Primary Difficulty walking Difficulty in walking Acute postoperative pain of left hip Status post left hip replacement documented [facility]* Diagnosis Primary osteoarthritis of left hip- Primary Acute postoperative pain of left hip Difficulty walking Difficulty in walking Status post left hip replacement documented [facility]* Diagnosis Primary osteoarthritis of left hip- Primary Acute postoperative pain of left hip Difficulty walking Difficulty in walking Status post left hip replacement documented in this encounter [facility]* Diagnosis Primary osteoarthritis of left hip- Primary Acute postoperative pain of left hip Difficulty walking Difficulty in walking Status post left hip replacement Aftercare following left hip joint replacement surgery Presence of left artificial hip joint documented in this encounter [facility]* Diagnosis Primary osteoarthritis of left hip- Primary Acute postoperative pain of left hip Difficulty walking Difficulty in walking Status post left hip replacement documented in this encounter [facility]* Diagnosis Status post left hip replacement- Primary Status post right hip replacement documented in this encounter [facility]* Diagnosis Primary osteoarthritis of left hip- Primary Acute postoperative pain of left hip Difficulty walking Difficulty in walking Status post left hip replacement Aftercare following left hip joint replacement surgery Presence of left artificial hip joint documented in this encounter [facility]* Diagnosis Status post left hip replacement- Primary Status post right hip replacement [facility] N[facility] No data available for this section [facility] Hospital Discharge instructions No data available for this section [facility] Progress note No data available for this section [facility] Reason for visit Narrative* Rehabilitation - Outpatient (Routine) - Authorized Specialty Diagnoses / Procedures Referred By Olga sow Referred To Contact Physical Therapy Diagnoses Aftercare following left hip joint replacement surgery Presence of left artificial hip joint Procedures NM OFFICE/OUTPATIENT NEW HIGH MDM 60 MINUTES Jori Matias, DO [address] [facility] [place] [address] Phone: tel: fax: Will Martinez, PT [address] [place] [address] Phone: tel: fax: Referral ID Status Reason Start Date Expiration Date Visits Requested Visits Authorized [id number] Authorized Consult and Treat 03/24/2024 09/20/2024 60 60 [facility] Summary Purpose Family History No Family History Records FoundNo Family History Records Found No data available for this section No Family History Records FoundNo Family History Records FoundNo Family History Records FoundNo Family History Records FoundNo Family History Records FoundNo Family History Records FoundNo Family History Records FoundNo Family History Records FoundNo Family History Records Found No data available for this section No Family History Records FoundNo Family History Records FoundNo Family History Records FoundNo Family History Records Found Advance Directives No Advanced Directives Records FoundNo Advanced Directives Records FoundNo Advanced Directives Records FoundNo Advanced Directives Records FoundNo Advanced Directives Records FoundNo Advanced Directives Records FoundNo Advanced Directives Records FoundNo Advanced Directives Records FoundNo Advanced Directives Records FoundNo Advanced Directives Records FoundNo Advanced Directives Records FoundNo Advanced Directives Records FoundNo Advanced Directives Records FoundNo Advanced Directives Records FoundNo Advanced Directives Records Found Additional Source Comments (unrecognized sect ion and content) No Status Records FoundNo Status Records FoundNo Status Records FoundNo Status Records FoundNo Status Records FoundNo Status Records FoundNo Status Records FoundNo Status Records FoundNo Status Records FoundNo Status Records FoundNo Status Records FoundNo Status Records FoundNo Status Records FoundNo Status Records FoundNo Status Records Found INFORMATION SOURCE (unrecogn ized section and content) DATE CREATED AUTHOR 04/03/2022 [facility] DATE CREATED AUTHOR AUTHOR'S ORGANIZ ATION 09/22/2022 [facility] DATE CREATED AUTHOR AUTHOR'S ORGANIZ ATION 03/10/2024 [employer] [facility] DATE CREATED AUTHOR AUTHOR'S ORGANIZ ATION 03/27/2024 [facility] DATE CREATED AUTHOR AUTHOR'S ORGANIZ ATION 03/28/2024 [facility] [employer] [facility] DATE CREATED AUTHOR AUTHOR'S ORGANIZ ATION 03/30/2024 [facility] DATE CREATED AUTHOR AUTHOR'S ORGANIZ ATION 05/19/2024 [facility] DATE CREATED AUTHOR AUTHOR'S ORGANIZ ATION 08/10/2024 [facility] DATE CREATED AUTHOR AUTHOR'S ORGANIZ ATION 03/14/2025 [facility] Patient Care team informatio n (unrecognized section and content) Under Trimmer Relationship Specialty Start Date End Date Jens Roth MD [address] [place] [facility] [place] [address] PCP - General Family Medicine 02/22/24 Under Trimmer Relationship Specialty Start Date End Date Jens Roth MD [address] [place] [facility] [place] [address] PCP - General Family Medicine 02/22/24 Under Trimmer Relationship Specialty Start Date End Date Jens Roth MD [address] [place] [facility] [place] [address] PCP - General Family Medicine 02/22/24 Under Trimmer Relationship Specialty Start Date End Date Jens Roth MD [address] [place] [facility] [place] [address] PCP - General Family Medicine 02/22/24 Under Trimmer Relationship Specialty Start Date End Date Jens Roth MD [address] [place] [facility] [place] [address] PCP - General Family Medicine 02/22/24 Under Trimmer Relationship Specialty Start Date End Date Jens Roth MD [address] [place] [facility] [place] [address] PCP - General Family Medicine 02/22/24 Under Trimmer Relationship Specialty Start Date End Date Jens Roth MD [address] [place] [facility] [place] [address] PCP - General Family Medicine 02/22/24 Under Trimmer Relationship Specialty Start Date End Date Jens Roth MD [address] [place] [facility] [place] [address] PCP - General Family Medicine 02/22/24 Under Trimmer Relationship Specialty Start Date End Date Jens Roth MD [address] [place] [facility] [place] [address] PCP - General Family Medicine 02/22/24 Under Trimmer Relationship Specialty Start Date End Date Jens Roth MD [address] [place] [facility] [place] [address] PCP - General Family Medicine 02/22/24 Under Trimmer Relationship Specialty Start Date End Date Jens Roth MD [address] [place] [facility] [place] [address] PCP - General Family Medicine 02/22/24 Under Trimmer Relationship Specialty Start Date End Date Jens Roth MD [address] [place] [facility] [place] [address] PCP - General Family Medicine 02/22/24 Under Trimmer Relationship Specialty Start Date End Date Jens Roth MD [address] [place] [facility] [place] [address] PCP - General Family Medicine 02/22/24 Under Trimmer Relationship Specialty Start Date End Date Jens Roth MD [address] [place] [facility] [place] [address] PCP - General Family Medicine 02/22/24 Under Trimmer Relationship Specialty Start Date End Date Jens Roth MD [address] [place] [facility] [place] [address] PCP - General Family Medicine 02/22/24 Under Trimmer Relationship Specialty Start Date End Date Jens Roth MD [address] [place] [facility] [place] [address] PCP - General Family Medicine 02/22/24 Under Trimmer Relationship Specialty Start Date End Date Jens Roth MD [address] [place] [facility] [place] [address] PCP - General Family Medicine 02/22/24 Under Trimmer Relationship Specialty Start Date End Date Jens Roth MD [address] [place] [facility] [place] [address] PCP - General Family Medicine 02/22/24 Under Trimmer Relationship Specialty Start Date End Date Jens Roth MD [address] [place] [facility] [place] [address] PCP - General Family Medicine 02/22/24 Under Trimmer Relationship Specialty Start Date End Date Jens Roth MD [address] [place] [facility] [place] [address] PCP - General Family Medicine 02/22/24 Reason for Visit (unrecogniz ed section and content) Specialty Diagnoses / Procedures Referred By Contpetros t Referred To Contact Physical Therapy Diagnoses Aftercare following left hip joint replacement surgery Presence of left artificial hip joint Procedures NM OFFICE/OUTPATIENT NEW HIGH MDM 60 MINUTES Jori Matias, DO [address] [place] [address] Will Martinez, PT [address] [facility] [address] [place] [address] Referral ID Status Reason Start Date Expiration Date Visits Requested Visits Authorized [id number] Authorized Consult and Treat 03/24/2024 09/20/2024 60 60 Reason Comments Follow-up FRANKIE 03/27/24 Follow-up 04/30/20 Reason Comments Follow-up L FRANKIE [facility] 03/27/24 Follow-up R FRANKIE [facility] 04/30/20 FOR RECORDS PERTAINING TO PATIENTS WHO ARE OR HAVE BEEN ENROLLED IN A CHEMICAL DEPENDENCY/SUBSTANCEABUSE PROGRAM, SOME INFORMATION MAY BE OMITTED. This clinical summary was aggregated from multiple sources. Caution should be exercised in using it in the provision of clinical care. This summary normalizes information from multiple sources, and as a consequence, information in this document may materially change the coding, format and clinical context of patient data. In addition, data may be omitted in some cases. CLINICAL DECISIONS SHOULD BE BASED ON THE PRIMARY CLINICAL RECORDS. [employer] provides no warranty or guarantee of the accuracy or completeness of information in this document.
== END 2025-03-22 16:08 | disposition home or self-care (01) ==
LOC: CARD 16:08
PROVIDERS: PCP Nurse Practitioner Family
DX: I25.10 Atherosclerotic heart disease of native coronary artery without angina pectoris (principal); R06.02 Shortness of breath; I10 Essential (primary) hypertension; E87.6 Hypokalemia
CPT/HCPCS: 93306

== ENCOUNTER 2025-03-24 09:55 | Outpatient (OUT) | payer BC, SELFPAY ==
--- OUTSIDE RECORDS SUMMARY | 2024-05-17 05:24 | XMS_ITS ---
Author Organization The [facility] in [place] Address [address] [place] [address] Care Team Providers Care Tool Room Supervisor Name Role Phone Ashley Forman Primary Care Provider Medications Medication SIG (Take, Route, Frequency, Duration) Notes Start Date End Date Status tiZANidine HCl 4 MG take 1 tablet by debra th at bedtime if needed Oral for 90 days Active Glimepiride 4 MG take 1 tablet by debra th once daily WITH BREAKFAST OR FIRST MEAL OF THE DAY 30 for 90 days Active Januvia 100 MG take 1 tablet by debra th once daily 30 for 90 days Active Pantoprazole Sodium 40 MG take 1 tablet by mouth twice a day Oral for 90 days Active metFORMIN HCl 1000 MG take 1 tablet by m outh twice a day Oral for 90 days Active Encounters Encounter Location Date Provider Diagnosis [facility] [address] [place] [address] 05/17/2024 Ashley Forman Plan Of Treatment Medication Medication Name Sig Start Date Stop Date Notes tiZANidine HCl 4 MG take 1 tablet by debra th at bedtime if needed Oral for 90 days Glimepiride 4 MG take 1 tablet by debra th once daily WITH BREAKFAST OR FIRST MEAL OF THE DAY 30 for 90 days Januvia 100 MG take 1 tablet by debra th once daily 30 for 90 days Pantoprazole Sodium 40 MG take 1 tablet by mouth twice a day Oral for 90 days metFORMIN HCl 1000 MG take 1 tablet by m outh twice a day Oral for 90 days Progress Notes * Vivek KNOTTDOB: (74 yo M)Acc No.[id number]:05/17/2024 Patient: Vivek TORRES :1950 A ge:74 Y S ex:Male Address:[address] [place] [address] * Refills Refill tiZANidine HCl Tablet, 4 MG, Oral, 90, take 1 tablet by mouth at bedtime if needed, 90 days, Refills=3 Refill Januvia Tablet, 100 MG, 90, take 1 tablet by mouth once daily 30, 90 days, Refills=3 Refill Pantoprazole Sodium Tablet Delayed Release, 40 MG, Oral, 180 Each, take 1 tablet by mouth twice a day, 90 days, Refills=3 Refill metFORMIN HCl Tablet, 1000 MG, Oral, 180 Each, take 1 tablet by mouth twice a day, 90 days, Refills=3 Refill Glimepiride Tablet, 4 MG, 90, take 1 tablet by mouth once daily WITH BREAKFAST OR FIRST MEAL OF THE DAY 30, 90 days, Refills=3 Subjective: * Chief Complaints: * * Medical History: * Surgical History: * Hospitalization/Major Diagno stic Procedure: * Medications: Objective: * Vitals: * Physical Examination: Assessment: Plan: * Treatment: * Procedure Codes: * true * Date: Generated for Blair polanco/Ghazal/Hema on: 0 03/24/2025 09:58 AM EDT
--- OUTSIDE RECORDS SUMMARY | 2024-05-22 07:59 | XMS_ITS ---
Author Organization The [facility] in [place] Address [address] [place] [address] Care Team Providers Care Compensation And Hris Analyst Name Role Phone Ashley Forman Primary Care Provider REASON FOR VISIT colonoscopy not due Encounters Encounter Location Date Provider Diagnosis [facility] [address] [place] [address] 05/22/2024 Ashley Forman Plan Of Treatment No Information Progress Notes * Vivek KNOTTDOB: (74 yo M)Acc No.[id number]:05/22/2024 Patient: Vivek TORRES :1950 A ge:74 Y S ex:Male Address:[address] [place] [address] * true * Date: Generated for Printi ng/Famaria alejandrag/eTransmitting on: 0 03/24/2025 09:58 AM EDT
--- OUTSIDE RECORDS SUMMARY | 2024-06-12 07:55 | XMS_ITS ---
Author Organization The [facility] in [place] Address [address] [place] [address] Care Team Providers Care Main Line Assembler Name Role Phone Ashley Forman Primary Care Provider [phone] Medications Medication SIG (Take, Route, Fr equency, Duration) Notes Start Date End Date Status metFORMIN HCl 1000 MG take 1 tablet by m outh twice a day Oral for 90 days Active Encounters Encounter Location Date Provider Diagnosis [facility] [address] [place] [address] 06/12/2024 Ashley Forman Plan Of Treatment Medication Medication Name Sig Start Date Stop Date Notes metFORMIN HCl 1000 MG take 1 tablet by m outh twice a day Oral for 90 days Progress Notes * Vivek KNOTTDOB: (74 yo M)Acc No.[id number]:06/12/2024 Patient: Vivek TORRES :1950 A ge:74 Y S ex:Male Address:[address] [place] [address] * Refills Refill metFORMIN HCl Tablet, 1000 MG, Oral, 180 Each, take 1 tablet by mouth twice a day, 90 days, Refills=3 * true * Date: Generated for Printi ng/Faxing/eTransmitting on: 0 03/24/2025 09:58 AM EDT
--- OUTSIDE RECORDS SUMMARY | 2025-03-24 09:58 | XMS_ITS | Clinical Summary ---
Author Organization [facility] Healthcare Address [address] [place] [address] Care Team Providers Care Associate Vice President Name Role Phone Jens Umana MD Primary Care Provider [phone] Allergies Active Allergy Reactions Criticality Noted Date Comments Aspirin Anaphylaxis High 09/25/2019 Other Reaction(s): anaphalaxis, Other High dose is able to take low dose Penicillins Rash,Swelling Low 09/25/2019 Other Reaction(s): Other, throat swelling Medications amLODIPine (Norvasc) 10 MG tablet Take 1 tablet by mouth Daily Active aspirin 81 MG chewable tablet Chew 1 tablet every day by oral route. Active atorvastatin (Lipitor) 40 MG tablet Take 1 tablet by mouth Daily Active cholecalciferol (Vitamin D-3) 50 MCG (1999) capsule Take 1 capsule by mouth Daily Active clopidogrel (Plavix) 75 MG tablet Take 1 tablet by mouth Daily Active furosemide (Lasix) 40 MG tablet Take 1 tablet by mouth Daily Active glimepiride (Amaryl) 4 MG tablet Take 1 tablet by mouth Daily Active hydroCHLOROthiaz bradly (HYDRODiuril) 25 MG tablet Take 1 tablet by mouth Daily Active isosorbide mononitrate ER (Imdur) 120 MG 24 hr tablet Take 1 tablet by mouth Daily Active isosorbide mononitrate ER (Imdur) 120 MG 24 hr tablet Take 120 mg by mouth in the morning. 03/29/2023 Active lisinopril 20 MG tablet Take 1 tablet by mouth Daily Active metFORMIN (Glucophage) 1000 MG tablet Take 1 tablet by mouth in the morning and 1 tablet before bedtime. Active metoprolol tartrate (Lopressor) 25 MG tablet Take 1.5 tablets by mouth in the morning and 1.5 tablets before bedtime. 01/17/2024 Active nitroglycerin (Nitrostat) 0.[address] 1 tablet under the tongue if needed every 5 minutes for chest pain for MAXIMUM OF 3 DOSES Active pantoprazole (ProtoNix) 40 MG EC tablet Take 1 tablet by mouth in the morning and 1 tablet before bedtime. Active Januvia 100 MG tablet Take 1 tablet by mouth Daily Active tiZANidine (Zanaflex) 4 MG tablet Take 1 tablet by mouth 2 (two) times a day as needed Active potassium chloride CR (Klor-Con M20) 20 MEQ ER tablet Take 20 mEq by mouth in the morning. 07/18/2024 Active Active Problems Problem Noted Date Diagnosed Date Primary osteoarthritis of left hip 03/29/2024 Acute postoperative pain of left hip 03/29/2024 Difficulty walking 03/29/2024 Status post left hip replacement 03/29/2024 Family History Medical History Relation Name Comments Cancer Mother Relation Name Status Comments Father Mother Social History Tobacco Use Types Packs/Day Years Used Date Smoking Tobacco: Former Cigarettes Smokeless Tobacco: Never Tobacco Cessation:Counseling Given: Not Answered Alcohol Use Standard Drinks/Week Comments Never 0 (1 standard drink = 0.6 oz pur e alcohol) Sex and Gender Information Value Date Recorded Sex Assigned at Not on file Legal Sex Male 7:18 PM EDT Gender Identity Not on file Sexual Orientation Not on file Last Filed Vital Signs Vital Sign Reading Time Taken Comments Blood Pressure 140/70 10/12/2019 12:00 PM EDT Pulse - - Temperature 36.2 C (97.1 F) 03/02/2024 3:24 PM EDT Respiratory Rate - - Oxygen Saturation - - Inhaled Oxygen Concentration - - Weight 103 kg (227 lb) 08/03/2024 3:45 PM EST Height 172.7 cm (5' 8 ) 08/03/2024 3:45 PM EST Body Mass Index 34.52 08/03/2024 3:45 PM EST Plan of Treatment Upcoming Encounters Date Type Department Care Team (Late st Contact Info) Description 08/07/2025 3:45 PM EST Office Visit [facility] [address] [place] [phone] Richie Castano, DO [address] [place] [address] Health Maintenance Due Date Last Done Comments CT Colonography 1951 FIT-DNA 1951 FIT 1950 FOBT 1950 Sigmoidoscopy 1950 Pneumococcal Vaccine: 65+ Years (1 of 1 - PCV) 001 Influenza Vaccine (#1) 2025 06/01/2022 Colonoscopy 11/11/2028 11/11/2018 Colorectal Cancer Screening 11/11/2028 Insurance BCBS Care Teams Associate Vice President Relationship Specialty Start Date End Date Jens Umana MD PCP - General Family Medicine 02/22/24
--- OUTSIDE RECORDS SUMMARY | 2025-03-24 09:59 | XMS_ITS | Encounter Summary ---
Author Organization [facility] Address [address] [place] [address] Care Team Providers Care Collarette Separator Name Role Phone Jens Umana MD Primary Care Provider [phone] Ashley Forman CNP Primary Care Provider [phone] Reason for Visit * Reason Comments Med Refill Encounter Details Date Type Department Care Team (Late st Contact Info) Description 12/05/2022 Refill [facility] Cardiology [address] [place] [phone] Keely Faustin CNP [address] [place] [address] Essential hypertension Social History Tobacco [...] Description 03/26/2025 2:20 PM EDT Office Visit [facility] [address] [place] [address] Kameron Wolf CNP [address] [place] [address] documented as of this encounter Visit Diagnoses Diagnosis Essential hypertension Unspecified essential hypertension documented in this encounter Care Teams Collarette Separator Relationship Specialty Start Date End Date Jens Umana MD [address] [place], [place] [address] [place] [address] PCP - General 03/20/22 03/30/23 Ashley Forman CNP [address] [place] [address] [place] [address] PCP - General Family Medicine 03/31/23 documented as of this encounter
--- OUTSIDE RECORDS SUMMARY | 2025-03-24 09:59 | XMS_ITS | Encounter Summary ---
Author Organization [facility] Address [address] [place] [address] Care Team Providers Care Paste Up Copy Camera Operator Name Role Phone Ashley Forman CNP Primary Care Provider [phone] Encounter Details Date Type Department Care Team (Late st Contact Info) Description 03/13/2025 Telephone [facility] [address] [place] [address] Greta Erwin MA Social History Tobacco Use Types Packs/Day Years Used Date Smoking Tobacco: Former Cigarettes 1 15 1 972 - 1987 Smokeless Tobacco: Never [place] Safety & Environment Answer Date Rec orded [...] Description 03/26/2025 2:20 PM EDT Office Visit [facility] [address] [place] [address] Kameron Wolf CNP [address] [place] [address] Scheduled Orders Name Type Priority Associated Diagnoses Orde r Schedule Basic metabolic panel Lab Routine Hypokalemia Expected: 03/13/2025 (Approximate), Expires: 03/13/2026 documented as of this encounter Visit Diagnoses Diagnosis Hypokalemia- Primary Hypopotassemia documented in this encounter Care Teams Paste Up Copy Camera Operator Relationship Specialty Start Date End Date Ashley Forman CNP [facility], [facility] [place] [address] PCP - General Family Medicine 03/31/23 documented as of this encounter
--- OUTSIDE RECORDS SUMMARY | 2025-03-24 09:59 | XMS_ITS | Encounter Summary ---
Author Organization [facility] Address [address] [facility] [place] [address] Care Team Providers Care Commercial Airline Pilot Name Role Phone Jens Umana MD Primary Care Provider [phone] Encounter Details Date Type Department Care Team ([facility] Contact Info) Description 03/27/2024 Clinisync Result Encounter [facility] External Department Unsolicited Richie Castano DO [address] [place] [address] Social History Tobacco Use Types Packs/Day Years [...] 08/07/2025 3:45 PM EST Office Visit [facility] [address] [place] [phone] Richie Castano DO [address] [place] [address] documented as of this encounter Procedures Procedure [...] on filedocumented in this encounter Care Teams Commercial Airline Pilot Relationship Specialty Start Date End Date Jens Umana MD PCP - General Family Medicine 02/22/24 documented as of this encounter
--- OUTSIDE RECORDS SUMMARY | 2025-03-24 09:59 | XMS_ITS | Clinical Summary ---
Author Organization [facility] Address [address] [place] [address] Care Team Providers Care Patch Washer Name Role Phone Dasia Ashley ESCOBEDO Primary Care Provider Allergies Active Allergy Reactions [...] 03/31/2023 03/31/2023 Coronary artery disease invo lving rincon coronary artery of rincon heart without angina pectoris 05/18/2022 Assessment & [...] Type Department Care Team Description 03/13/2025 Telephone [facility] [address] [place] [address] YaimaGreta MA 02/27/2025 1:40 PM EDT Office Visit [facility] [address] [place] [address] Kameron Wolf CNP WARNER (dyspnea on exertion) (Primary Dx); Bilateral lower extremity edema; Coronary artery disease involving rincon coronary artery of rincon heart without angina pectoris; Hx of CABG; [...] Description 03/26/2025 2:20 PM EDT Office Visit [facility] at [facility] [address] [place] [address] Kameron Wolf, PERSONNEL PLACEMENT SPECIALIST [address] [place] [address] Health Maintenance Due Date Last Done Comments [...] Final Result from Last 3 Months Insurance [facility] Member Subscriber Plan / Payer (Ef fective 2022-Present) Name:Vivek Knott Relation to Subscriber:Self Name:Vivek Knott Payer ID:[id number] (NAIC) Type:Not on file Address: [id number] [place] [id number] MEDICARE Care Teams Patch Washer Relationship Specialty Start Date End Date Ashley Forman CNP [address] [place] [address], [facility] [place] [address] PCP - General Family Medicine 03/31/23
--- OUTSIDE RECORDS SUMMARY | 2025-03-24 09:59 | XMS_ITS | Encounter Summary ---
Author Organization [facility] Address [address] [place] [address] Care Team Providers Care Fire Apparatus Sprinkler Inspector Name Role Phone Jens Umana MD Primary Care Provider [phone] Ashley Forman CNP Primary Care Provider [phone] Reason for Visit * Reason Comments Med Refill Encounter Details Date Type Department Care Team (Late st Contact Info) Description 01/08/2023 Refill [facility] Cardiology [address] [place] [phone] Keely Faustin CNP [address] [place] [address] Coronary artery disease due to [...] Description 03/26/2025 2:20 PM EDT Office Visit [facility] Heart at [facility] [address] [place] [address] Kameron Wolf, HOUSEKEEPING AID [address] [place] [address] documented as of this encounter Visit Diagnoses Diagnosis Coronary artery disease due to lipid rich plaque documented in this encounter Care Teams Fire Apparatus Sprinkler Inspector Relationship Specialty Start Date End Date Jens Umana MD [address] [place] [phone] PCP - General 03/20/22 03/30/23 Ashley Forman CNP [address] [place] [phone] PCP - General Family Medicine 03/31/23 documented as of this encounter
--- OUTSIDE RECORDS SUMMARY | 2025-03-24 09:59 | XMS_ITS | Clinical Summary ---
Author Organization [employer] Address [id number] [address] [place] [address] Care Team Providers Care Food Technician Name Role Phone Ashley Forman SHOP TECHNICIAN-FOREST FIRE FIGHTER Primary Care Provider Allergies Active Allergy Reactions [...] (two) times a day with meals. Active qpmdgbqy-lezc-JA -calcium &mins (THERAGRAN-M) 9 mg iron-400 mcg [...] 09/21/2015 [employer] Not on file Insurance [facility] Care Teams Food Technician Relationship Specialty Start Date End Date Ashley Forman, SHOP TECHNICIAN-FOREST FIRE FIGHTER [address] [place] [address] PCP - General Family Medicine 09/25/19
--- OUTSIDE RECORDS SUMMARY | 2025-03-24 09:59 | XMS_ITS | Encounter Summary ---
Author Organization [facility] Address [address] [place] [address] Care Team Providers Care Wood Pile Driver Operator Name Role Phone Jens Umana MD Primary Care Provider [phone] Ashley Forman CNP Primary Care Provider [phone] Reason for Visit * Reason Comments Med Refill Encounter Details Date Type Department Care Team (Late st Contact Info) Description 01/03/2023 Refill [facility] Cardiology [address] [place] [phone] Keely Faustin CNP [address] [place] [address] Edema, unspecified type Social History [...] 2:20 PM EDT Office Visit [facility] [address] [place] [address] Kameron Wolf, PREPARATOR [address] [place] [address] documented as of this encounter Visit Diagnoses Diagnosis Edema, unspecified type documented in this encounter Care Teams Wood Pile Driver Operator Relationship Specialty Start Date End Date Jens Umana MD [address] [place] [phone] PCP - General 03/20/22 03/30/23 Ashley Forman CNP [address] [place] [address] A [place], [place] [phone] PCP - General Family Medicine 03/31/23 documented as of this encounter
--- OUTSIDE RECORDS SUMMARY | 2025-03-24 09:59 | XMS_ITS | Encounter Summary ---
Author Organization [facility] Address [address] [place] [address] Care Team Providers Care Guidance Services Coordinator Name Role Phone Jens Umana MD Primary Care Provider [phone] Ashley Forman CNP Primary Care Provider [phone] Reason for Visit * Reason Comments Med Refill Encounter Details Date Type Department Care Team (Late st Contact Info) Description 06/07/2022 Refill [place] [address] [place] [address] Joby Recio MD [address] [facility] [address] [facility] [place] [address] Essential hypertension Social History Tobacco [...] Description 03/26/2025 2:20 PM EDT Office Visit [facility] [address] [place] [address] Kameron Wolf, FANNY [address] [place] [address] documented as of this encounter Visit Diagnoses Diagnosis Essential hypertension Unspecified essential hypertension documented in this encounter Care Teams Guidance Services Coordinator Relationship Specialty Start Date End Date Jens Umana MD [address] [place] [address] PCP - General 03/20/22 03/30/23 Ashley Forman CNP [address] [place] [phone] PCP - General Family Medicine 03/31/23 documented as of this encounter
--- OUTSIDE RECORDS SUMMARY | 2025-03-24 09:59 | XMS_ITS | Encounter Summary ---
Author Organization [facility] Address [address] [place] [address] Care Team Providers Care Break And Load Operator Name Role Phone Jens Umana MD Primary Care Provider [phone] Ashley Forman CNP Primary Care Provider [phone] Reason for Visit * Reason Comments Med Refill Encounter Details Date Type Department Care Team (Late st Contact Info) Description 06/07/2022 Refill [facility] Cardiology [address] [place] [phone] Keely Faustin CNP [address] [place] [address] Edema, unspecified type Social History [...] Description 03/26/2025 2:20 PM EDT Office Visit [facility] [address] [place] [address] Kameron Wolf, INVOICE CLERK [address] [facility] [place] [address] documented as of this encounter Visit Diagnoses Diagnosis Edema, unspecified type documented in this encounter Care Teams Break And Load Operator Relationship Specialty Start Date End Date Jens Umana MD [address] [place], [place] [address] [place] [address] PCP - General 03/20/22 03/30/23 Ashley Forman CNP [address] [place] [address] [place] [address] PCP - General Family Medicine 03/31/23 documented as of this encounter
--- OUTSIDE RECORDS SUMMARY | 2025-03-24 09:59 | XMS_ITS | Encounter Summary ---
Author Organization [facility] Address [address] [place] [address] Care Team Providers Care Supervisor Display Fabrication Name Role Phone Jens Umana MD Primary Care Provider [phone] Ashley Forman CNP Primary Care Provider [phone] Reason for Visit * Reason Comments Med Refill Encounter Details Date Type Department Care Team (Late st Contact Info) Description 03/25/2023 Refill [facility] Cardiology [address] [place] [phone] Keely Faustin CNP [address] [place] [address] Chest pain, unspecified type Social [...] Office Visit [facility] Heart at [facility] [address] [place] [address] Kameron Wolf, PAINTER HELPER [address] [place] [address] documented as of this encounter Visit Diagnoses Diagnosis Chest pain, unspecified type documented in this encounter Care Teams Supervisor Display Fabrication Relationship Specialty Start Date End Date Jens Umana MD [address] [place] [phone] PCP - General 03/20/22 03/30/23 Ashley Forman CNP [address] [place] [address] [phone] PCP - General Family Medicine 03/31/23 documented as of this encounter
--- OUTSIDE RECORDS SUMMARY | 2025-03-24 09:59 | XMS_ITS | CCD ---
Author Organization [facility] CliniSyid Care Team Providers Care House Painting Instructor Name Role Phone OCTAVIO ADDISON Admitting Unavailable JENS ROTH Referring Unavailable JENS ROTH Primary Care Unavailable BA BENNETT Attending Unavailable MOUKAMELVIN, DR BULLARD Admitting Unavailable MOUKARBEL, DR BULLARD Attending Unavailable ASHLEY BRYAN Primary Care Unavailable MOUKARBEL, DR BULLARD Consulting Unavailable ASHLEY BRYAN Consulting Unavailable ARIEL, KEELY Admitting Unavailable ARIELKEELY Attending Unavailable IRVIN, ASHLEY Primary Care Unavailable ARIELKEELY Consulting Unavailable IVY VALLEJOINDA Admitting Unavailable NASRA VALLEJO Attending Unavailable IRVIN, ASHLEY Primary Care Unavailable NASRA VALLEJO Consulting Unavailable IRVIN ASHLEY Admitting Unavailable ASHLEY BRYAN Attending Unavailable IRVIN, ASHLEY Primary Care Unavailable ASHLEY BRYAN Consulting Unavailable ELTAHAWArleen, DR LAI Admitting Unavailable ELTAHAWY, DR LAI Attending Unavailable IRVIN, ASHLEY Primary Care Unavailable ELTAHAWY, DR LAI Consulting Unavailable ASHLEY KELLER SClifford Primary Care Physician Greta Santizo Unavailable Unavailable Matias, Jori T Admitting Unavailable Matias, Jori T Attending Unavailable Matias, Jori T Referring Unavailable Matias, Jori T Referring Unavailable Matias, Jori T Admitting Unavailable Matias, Ojri T Attending Unavailable Matias, Jori T Attending Unavailable Matias, Jori T Referring Unavailable Matias, Jori T Admitting Unavailable Matias, Jori T Referring Unavailable Matias, Jori T Attending Unavailable Matias, Jori T Admitting Unavailable Jens Roth MD Primary Care Provider [phone] JORI MATIAS Referring Unavailable MATIAS, JORI Sow Attending Unavailable MATIAS, JORI T Referring Unavailable ROGER JIMENEZ Attending Unavailable POLLY, JORI Sow Referring Unavailable ROEGR JIMENEZ Attending Unavailable MATIAS, JORI T Referring Unavailable ROGER JIMENEZ Attending Unavailable MATIAS, JORI T Referring Unavailable JIMENEZ, ROGER Mcqueen Attending Unavailable MATIAS, JORI T Referring Unavailable JIMENEZ, ROGER Mcqueen Attending Unavailable MATIAS, JORI T Referring Unavailable BRINK, PEARL Attending Unavailable MATIAS, JORI T Referring Unavailable BRINK, PEARL Attending Unavailable MATIAS, JORI T Referring Unavailable MATIAS, JORI T Referring Unavailable MATIAS, JORI T Attending Unavailable BRINK, PEARL Attending Unavailable MATAIS, JORI T Referring Unavailable BRINK, PEARL Attending [...] T Attending Unavailable MIKE, KAMERON Attending Unavailable Unavailable Primary Care Provider Unavailabl e Allergies Allergy Classification Reported Allergen(s) Allergy Type Date of Onset Reaction(s) Facility (6 sources) Aspirin; Translations: [aspirin] Drug Allergy 7 [facility] Repository (9 sources) Penicillins; Translations: [penicillins] Drug allergy (disorder) 6 Anaphylaxis (disorder) [facility] Repository (1 source) Aspirin Drug Allergy 6 [facility] Repository (3 sources) Aspirin; Translations: [aspirin] Drug Allergy 5 Anaphylaxis (disorder), Anaphylaxis [facility] (20 sources) Aluminum aspirin Drug Allergy [address] [facility] (20 sources) Penicillins Drug Allergy 0 Rash, Swelling [facility] (1 source) Penicillin G Drug Allergy 5 Anaphylaxis [facility] Work Phone: Medications Current Medications Medication Drug Class(es) Dates [...] as needed for left hip surgical pain., [facility], 170, cm, 03/08/24 8:46:00 EDT, Height/Length [...] preop., # 60 tab(s), Refills(s) 0, Pharmacy: [id number], 170, cm, 03/08/24 8:46:00 EDT, Height/Length Dosing, 104.7, kg, 03/08/24 8:46:00 EDT, Weight Dosing Start Date: 03/22/24 Status: Ordered take 1 tablet by debra th once daily aspirin 81 MG chewable tablet Chew 1 tablet every day by oral route. Active atorvastatin 40 mg oral tablet (20 sources) HMG-CoA Reductase Inhibitor Start: 03-07-2025 take 1 tablet by mouth once daily before mealtime atorvastatin (Lipitor) 40 mg tablet Take 1 tablet (40 mg) by mouth once daily in the morning. Take before meals. 03/07/2025 Active Start: 11-11-2018 take 40 mg by mouth [...] tablet (20 sources) P2Y12 Platelet Inhibitor Start: 09-10-19 take 1 tablet by mouth once daily clopidogrel 75 mg Tab 75 mg = 1 tab(s), Oral, Daily, Refills(s) 0, Blood Thinner Start Date: 09/10/20 Status: Ordered docusate sodium 100 mg oral capsule (1 source) Start: 03-22-20 take 1 capsule by mouth twice daily Colace 100 mg Cap 100 mg = 1 cap(s), Oral, BID, # 20 cap(s), Refills(s) 0, Pharmacy: [facility] #[id number], 170, cm, 03/08/24 8:46:00 EDT, Height/Length Dosing, 104.7, kg, 03/08/24 8:46:00 EDT, Weight Dosing Start Date: 03/22/24 Status: Ordered furosemide 20 mg oral tablet (20 sources) Loop Diuretic Start: 03-07-20 take 1 tablet by mouth once daily before mealtime furosemide (Lasix) 20 mg tablet Take 1 tablet (20 mg) by mouth once daily in the morning. Take before meals. 03/07/2025 Active Start: 04-11-2020 take 1 tablet by debra th once daily furosemide 40 mg Tab 40 mg = 1 tab(s), Oral, Daily, Refills(s) 0, diuretic/water pill Start Date: 04/11/20 Status: Ordered glimepiride 4 mg oral tablet (20 sources) Sulfonylurea Start: 03-07-2025 take 1 tablet by mouth once daily at breakfast glimepiride (Amaryl) 4 mg tablet TAKE 1 TABLET BY MOUTH DAILY WITH BREAKFAST or first meal OF the day 03/07/2025 Active Start: 08-26-2018 take 4 mg by mouth once daily glimepiride 4 mg, Oral, Daily, Refills(s) 0, Blood glucose Start Date: 08/26/18 Status: Ordered hydroCHLOROthiazide 25 mg oral tablet (20 sources) Thiazide Diuretic Start: 03-07-2025 take 1 tablet by mouth once daily before mealtime hydroCHLOROthiazide (HYDRODiuril) 25 mg tablet Take 1 tablet (25 mg) by mouth once daily in the morning. Take before meals. 03/07/2025 Active Start: 11-11-2018 take 25 mg by mouth once daily hydrochlorothiazide 25 mg, Oral, Daily, Refills(s) 0, High blood pressure Start Date: 11/11/18 Status: Ordered 24 hr isosorbide mononitrate 120 mg extended release oral tablet (20 sources) Nitrate Vasodilator Start: 12-07-2024 take 1 tablet by mouth every twenty-four hours in the morning isosorbide mononitrate ER (Imdur) 120 mg 24 hr tablet Take 1 tablet (120 mg) by mouth early in the morning.. 12/07/2024 Active Start: 03-29-2023 take 1 tablet by debra th in the morning, then take 1 tablet by mouth every twenty-four hours isosorbide mononitrate ER (Imdur) 120 MG 24 hr tablet Take 120 mg by mouth in the morning. 03/29/2023 Active Start: 08-26-2018 take 60 mg by mouth once daily in the morning isosorbide mononitrate 60 mg, Oral, qAM, Refills(s) 0, High blood pressure Start Date: 08/26/18 Status: Ordered take 1 tablet by mouth once leni y isosorbide mononitrate ER (Imdur) 120 MG 24 hr tablet Take 1 tablet by mouth Daily Active lisinopril 20 mg oral tablet (20 sources) Angiotensin Converting Enzyme Inhibitor Start: 03-07-2025 take 1 tablet by mouth once daily before mealtime lisinopril 20 mg tablet Take 1 tablet (20 mg) by mouth once daily in the morning. Take before meals. 03/07/2025 Active Start: 08-26-2018 take 20 mg by mouth once daily lisinopril 20 mg, Oral, Daily, Refills(s) 0, High blood pressure Start Date: 08/26/18 Status: Ordered metFORMIN hydrochloride 1000 mg oral tablet (20 sources) Biguanide Start: 03-07-2025 take 1 tablet by mouth every twelve hours metFORMIN (Glucophage) 1,000 mg tablet Take 1 tablet (1,000 mg) by mouth every 12 hours. 03/07/2025 Active Start: 08-26-2018 take 1000 mg by mout h twice daily metformin 1,000 mg, Oral, BID, Refills(s) 0, High blood sugar Start Date: 08/26/18 Status: Ordered metoprolol tartrate 25 mg oral tablet (20 sources) beta-Adrenergic Ernestina Start: 03-07-2025 take 1.5 tablets by mouth twice daily metoprolol tartrate (Lopressor) 25 mg tablet Take 1.5 tablets (37.5 mg) by mouth 2 times a day. 03/07/2025 Active Start: 01-17-2024 take 1.5 tablets by mouth [...] tablet (20 sources) Proton Pump Inhibitor Start: 12-08-19 take 1 tablet by mouth every twelve hours pantoprazole (ProtoNix) 40 mg EC tablet Take 1 tablet (40 mg) by mouth every 12 hours. 12/07/2024 Active Start: 03-08-[address]op[address] Tab 40 mg = 1 tab(s), Oral, Daily, Refills(s) 0, Control of stomach acid Start Date: 03/08/24 Status: Ordered potassium chloride 20 meq extended release oral tablet (5 sources) Start: 03-07-2025 take 1 tablet by mouth once daily before mealtime potassium chloride CR 20 mEq ER tablet Take 1 tablet (20 mEq) by mouth once daily in the morning. Take before meals. 03/07/2025 Active Start: 07-18-2024 potassium chlo ride CR (Klor-Con M20) 20 MEQ ER tablet Take 20 mEq by mouth in the morning. 07/18/2024 Active Start: 04-11-2020 take 1 tablet by debra th once daily potassium chloride 20 mEq ER Tab 20 mEq = 1 tab(s), Oral, Daily, Refills(s) 0, Prophylaxis Start Date: 04/11/20 Status: Ordered SITagliptin 100 mg oral tablet (20 sources) Dipeptidyl Peptidase 4 Inhibitor Start: 12-07-2024 take 1 tablet by mouth in the morning Januvia 100 mg tablet Take 1 tablet (100 mg) by mouth early in the morning.. 12/07/2024 Active Start: 04-11-2020 take 1 tablet by debra th once daily Januvia 100 mg Tab 100 mg = 1 tab(s), Oral, Daily, # 30 tab(s), Refills(s) 0, Blood glucose Start Date: 04/11/20 Status: Ordered tiZANidine 4 mg oral tablet (20 sources) Central alpha-2 Adrenergic Agonist Start: 12-07-2024 take 1 tablet by mouth once daily at bedtime tiZANidine (Zanaflex) 4 mg tablet Take 1 tablet (4 mg) by mouth once daily at bedtime. 12/07/2024 Active take 1 tablet by debra th twice daily as needed tiZANidine (Zanaflex) 4 [...] tract (2 sources) Kidney stone 04-06-2019 Episodic Cancer of head and neck (3 sources) Malignant melanoma of head and neck ; Translations: [Malignant melanoma of other parts of face] Onset: 5 03-23-2025 Chronic Chronic obstructive pulmonary disease and bronchiectasis (2 [...] disease (8 sources) Atherosclerotic heart disease of [place] coronary artery with unstable angina pectoris; Translations: [...] Translations: [CONTACT W/AND (SUSP) EXPOS COVID-19] Onset: 2 Unclassified (1 source) Autogenerated Problem Onset: 5 03-23-2025 Viral infection (4 sources) Measles; Translations: [Mumps] [...] SCREEN MALIG NEOPLASM PROSTATE] Onset: 03-08-2022 Episodic Unclassified (1 source) Onset: 03-23-2025 03-23-2025 Results Test Name Value Interpretation Reference Range Facility Surgical pathology studyon 0 03-20-2025 Surgical pathology study Pathology report.total SEE COMMENT Dermatopathology Report Case: [id number] Authorizing Provider: Rosario Chester MD Collected: 03/20/2025 1313 Ordering Location: [facility] Received: 03/20/2025 1313 [facility] Pathologist: Maria C Pratt MD Specimen: OUTSIDE BLOCK(S)/SLIDE(S), 4 SLIDES, [facility], #[id number] (BX: 02/23/2025) Path report.final diagnosis SEE COMMENT 4 SLIDES, [facility], #[id number] (BX: 02/23/2025) SKIN, RIGHT SUPERIOR CENTRAL MALAR CHEEK, SHAVE BIOPSY: MALIGNANT MELANOMA, BRESLOW THICKNESS AT LEAST 1.5 MM, PRESENT ON THE DEEP AND PERIPHERAL MARGIN, SEE NOTE. Note: Microscopic examination reveals a specimen that extends into the mid reticular dermis. There is an asymmetric proliferation of nested and single atypical melanocytes throughout all layers of the epidermis with dense solar elastosis in areas. There are nests of atypical epithelioid and slightly spindled melanocytes in the dermis. The melanocytes have moderately enlarged nuclei with moderate cytoplasm. The melanocytes stain with antibodies against PRAME. A combined MART1/Ki-67 stain reveals significant co-staining. Electronically signed out by Maria C Pratt MD at 1444 EDT Synoptic report SEE COMMENT MELANOMA OF THE SKIN: Biopsy MELANOMA OF THE SKIN: BIOPSY - A 8th Edition - Protocol posted: 10/22/2021 SPECIMEN Procedure: Biopsy, shave Specimen Laterality: Right TUMOR Tumor Site: Skin of other and unspecified parts of face: Right superior central malar cheek Histologic Type: Lentigo maligna melanoma Maximum Tumor (Breslow) Thickness (Millimeters): At least: 1.5 mm : Broadly transected on the deep margin Ulceration: Not identified Anatomic (Joshua) Level: At least level: IV : Broadly transected on the deep margin Mitotic Rate: 1 mitoses per mm2 Microsatellite(s): Not identified Lymphovascular Invasion: Not identified Neurotropism: Not identified Tumor-Infiltrating Lymphocytes: Present, nonbrisk Tumor Regression: Not identified MARGINS: Margin Status for Invasive Melanoma: Invasive melanoma present at margin Margin(s) Involved by Invasive Melanoma: Deep Margin Status for Melanoma in situ: Melanoma in situ present at margin Margin(s) Involved by Melanoma in Situ: Peripheral Margin(s) Involved by Melanoma in Situ: Deep PATHOLOGIC STAGE CLASSIFICATION (pTNM, AJCC 8th Edition): pT Category: pT2a Path report.relevant Hx SEE COMMENT MORPHOLOGY: 8MM KERATOTIC PLAQUE DDX: NEOPLASM OF UNSPECIFIED BEHAVIOR VS. SQUAMOUS CELL CARCINOMA Path report.gross observation SEE COMMENT A. OUTSIDE BLOCK(S)/SLIDE(S). Received for consultation from [facility] are four slides labeled #[id number] (BX: 02/23/2025) along with the corresponding pathology report. [facility] Comment on above: Order Comment: Emmanuel iaivan Received: 4 SLIDES, [facility], #[id number] (BX: 02/23/2025) 36on 03-13-2025 36 Regarding lab result s from 03/12/2025: Per Kameron Mckeon, TANNING WHEEL FILLER- Thanks. Let's check BMP again in one [...] repeat labs next week. Patient verbalized understanding. [facility] Office Visiton 02-27-2025 Follow-up visit [id number] Vivek Knott 1950 M Date Provider Department Center 02/27/2025 [id number], ADAM CARD [facility] Family History Problem Relation Age of Onset Diabetes Mother Coronary artery disease Mother Hypertension Mother Coronary artery disease Father Hypertension Father Stroke Paternal Grandmother Family Status - Relation Status Age at Mother Father Paternal Grandmother Level of Service:25202 SD OFFICE/OUTPATIENT ESTABLISHED MOD MDM 30 MIN [facility] XR Pelvis and Hip - bilatera l Views and Lateral frogon 08-03-2024 Imaging Result: Xrays taken in the office today saved to the permanent record, bilateral AP and lateral weightbearing films, show stable position and alignment of the staggered bilateral FRANKIE prosthesis. No sign of loosening, fracture or infection. [facility] Radiology Study observation (narrative) [facility] XR Pelvis AP and Hip - bilat eral GE 2 Viewson 04-27-2024 Imaging Result: Xrays taken in the office today saved to the permanent record, AP and lateral films, show stable position and alignment of the hip prosthesis. No sign of loosening, fracture or infection. Hx right FRANKIE in stable position. [facility] Radiology Study observation (narrative) [facility] Surgical Pathology Reporton 03-31-2024 Surgical Pathology Report [facility] [address] [place] [address]- Surgical Pathology Report Collected Date/Time: 03/27/2024 08:48 EDT Pathologist: Evelio Rosenthal MD Received Date/Time: 03/27/2024 10:22 EDT Jori Matias DO, DO, Michael T 07 Surgical Pathology Report - 03/31/2024 13:55 EDT [...] aggregate 10 x 9 x 5 cm. Certified Lactation Educator sections are submitted in two cassettes: 1 - Soft tissue 2 - Bone after decalcification (DC) DC:[facility] Microscopic Description Microscopic examination performed unless gross only specified. Normal [facility] Comment on above: Performed By: #### [id number] #### [facility] [address] [place] [address] Main OR Intraoperative Recor don 03-29-2024 Main OR Intraoperative Record Main OR Intraoperative Record IntraOp Document Type FT Summary Primary Physician: Jori Matias DO Finalized Date/Time: 03/29/24 14:05:34 Pt. Name: ZENON KNOTT/Sex: 1950 Male Med Rec #: [id number] Physician: Jori Matias DO Financial #: [id number] Pt. Type: A Room/Bed: 11/30 Admit/Disch: 03/27/24 06:07:50 - 03/27/24 14:40:00 Institution: Case Times FT Entry 1 Patient Times In Room 03/27/24 08:16:00 Out Room 03/27/24 09:33:00 Procedure Times Start 03/27/24 08:38:00 Stop 03/27/24 09:28:00 Anesthesia Times Start 03/27/24 08:16:00 Stop 03/27/24 09:33:00 Block Timeout w03/27/24 07:53:00 Anesthesia Last Modified By: Rhoda Morgan Ii 03/27/24 09:36:44 General Comments: LEFT HIP BLOCK PERFORMED BY Angeles CABRAL CRNA WITH Jf ELIZABETH RN ASSISTING. PATIENT VITAL SIGNS HR 61BPM AND SP02 94% ROOM AIR./TAYO GONZALEZ SPINAL ANESTHESIA BY MALLORY CABRAL AT 0821. /TAYO GONZALEZ 03/29/24 Chart opened for charge review per Tamia Cunningham RN. [place] Case Attendance FT Entry 1 Entry 2 Entry 3 Case Attendee Jaden LUQUE, FLOW TRADER, Jori Medina DO, CST, Ivelisse Momin Role Performed Anesthesiologist Surgeon - Primary INTAKE NURSE/SA Sugar House Supervisor Time In 03/27/24 08:16:00 03/27/24 08:16:00 03/27/24 08:16:00 Time Out 03/27/24 09:33:00 03/27/24 09:22:00 03/27/24 09:33:00 Procedure HIP TOTAL HIP TOTAL HIP TOTAL ARTHROPLASTY(Left) ARTHROPLASTY(Left) ARTHROPLASTY(Left) Comments DR. BOND SPRING FORMER HAND ASSIST Last Modified By: Rhoda Morgan Ii, Alfons Ii F Letrondo, Alfons Ii F 03/27/24 09:36:46 03/27/24 09:36:46 03/27/24 09:36:46 Entry 4 Entry 5 Entry 6 Case Attendee Wilfredo Linares INTAKE NURSE, Lee Rock INTAKE NURSE, Jae Mcqueen Role Performed Scrub - Primary Staff - [...] Case Attendee Rhoda Morgan Ii Role Performed Roller Painter - Primary Time In 03/27/24 08:16:00 Time Out 03/27/24 09:33:00 Procedure HIP TOTAL ARTHROPLASTY(Left) Comments Last Modified By: Rhoda Morgan Ii 03/27/24 09:36:46 General Comments: CLARA LEWIS FROM [employer] IS IN ATTENDANCE./ TAYO GONZALEZbuckler and lacer Protocols FT Pre-Care Text: Implements protective measures [...] X-ray Applicable) PreOp Antibiotic Yes Time Out Mitti DNP, FLOW TRADER, Garcia Given Participants N., Polly DO, Terrance Spaulding INTAKE NURSE, Ivelisse Young, Rhoda Morgan Ii, Wilfredo Linares, Alondra INTAKE NURSE, Shweta Howard INTAKE NURSE, Jae Mcqueen Time Out Complete 03/27/24 08:28:00 Outcomes Met? Yes Last Modified By: Rhoda Morgan Ii 03/27/24 08:45:02 Post-Care Text: The patient is free from signs and symptoms of injury caused by extraneous objects Allergy Information FT Pre-Care Text: Verifies allergies Entry 1 Allergies Reviewed? Yes Allergies Reviewed Self/Patient With Outcomes Met? Yes Last Modified By: Rhoda Morgan Ii 03/27/24 07:56:03 Post-Care Text: The patient [...] OA Outcomes Met? Yes Last Modified By: LexydanteRhoda Ii 03/27/24 07:56:14 Post-Care Text: The patient is free from signs and symptoms of infection (more content not included)... Normal [facility] XR Hip 1 View Left + [...] mGy = . DAP = . Normal [facility] ABO/Rhon 03-27-2024 ABO/Rh Positive Invalid Interpretation Code [facility] Comment on above: Performed By: #### [id number] #### [facility] [address] [place] [address] ABO/Rh History Checkon 03-27 ABO/Rh History Check Verified Hx Blood Type Normal [facility] Comment on above: Performed By: #### 1 [id number] #### [facility] [address] [place] [address] ABSCon 03-27-2024 ABSC Gel Interp Negative Normal [facility] Comment on above: Performed By: #### 1 [id number] ####[facility] [id number] [place] [address] BLOOD BANKOrdered By: Meera Lewis on 03-27-2024 ABO/Rh Interp Positive Invalid Interpretation Code [facility] BB Subsection ABSC Gel Interp Negative (03/27/24 7:17 AM) Normal [facility] BB Subsection Blood Bank ID#on 03-27-2024 BBID# [id number] Invalid Interpretation Code [facility] Comment on above: Performed By: #### 1 [id number] #### [facility] [address] [place] [address] CHEMISTRYOrdered By: Jenna ROP User on 03-27-2024 Glucose [Mass/Vol] 143 mg/dL High 55 - 99 mg/dL [facility] POC Subsection Comment on above: Result Comment: Gamal jaquez RN/ POC Device SN [id number] 1 Invalid Interpretation Code [facility] POC Subsection POC User ID [id number] 1 Invalid Interpretation Code [facility] POC Subsection POC Username ADRIANO UGARTE Invalid Interpretation Code [facility] POC Subsection Capillary Glucose POCon 03-03 Glucose [Mass/Vol] 143 mg/dL High 55-99 [facility] Comment on above: Result Comment: Gamal jaquez RN/ Performed By: #### 2 [id number] #### [facility] [address] [place] [address] Discharge Instructionson Discharge Instructions Discharge Instructions ZENON [...] PM EDT Comments: Keep scheduled appointment Where: [address] [place], [place] [id number] [facility] (1) Medications What How Much When Why Instructions Next Dose Changed aspirin (aspirin 81 mg Oral EC Tab) 1 Tablets By Mouth 2 times a day Start the day after hip surgery. Please notify office if any reactions as discussed preop. Pickup at [facility] Changed aspirin (aspirin 81 mg Oral EC Tab) 1 Tablets By Mouth Every day Unchanged acetaminophen-oxycodon e (Percocet 5 mg-325 mg oral tablet) See instructions Localized osteoarthrosis of left hip Take one to two every 4 hours as needed for left hip surgical pain. Pickup at [facility] Unchanged amlodipine 10 Milligram By Mouth Every day Unchanged atorvastatin 40 Milligram By Mouth Every day Unchanged clopidogrel (clopidogrel 75 mg Tab) 1 Tablets By Mouth Every day Unchanged docusate (Colace 100 mg Cap) 1 Capsules By Mouth 2 times a day Pickup at [facility] Unchanged furosemide (furosemide 40 mg Tab) [...] the day after hip surgery. Pickup at [facility] Pharmacy Information [facility]: [address] [place], [place] [id number] [phone] Test Results No qualifying data available. Allergies aspirin (Anaphylaxis) penicillins (Anaphylaxis) Problems Ongoing - Any problem that you are currently receiving treatm (more content not included)... Normal [facility] Comment on above: Result Comment: Elec tronically Signed By: Ed CR, Terese Chavez.cheo\Date and Time Signed: 03/27/24 10:07 EDT [facility] CAPILLARY GLUCOSE POCon 03-27-2024 Glucose [Mass/Vol] 143 mg/dL High 55 - 99 mg/dL [facility] Comment on above: Notified RN/MD Interpretation and review of laboratory results Abnormal [facility] Original Ordering Provider: DO Jori Matias [facility] Main OR PACU I Recordon 03-03 Main OR PACU I Record Main OR PACU I Rec ord PACU Phase I Document Type FT Summary Primary Physician: Jori Matias DO Finalized Date/Time: 03/27/24 10:47:04 Pt. Name: ZENON KNOTT./Sex: 1950 Male Med Rec #: [id number] Physician: Jori Matias DO Financial #: [id number] Pt. Type: A Room/Bed: [place] [address] Admit/Disch: 03/27/24 06:07:50 - Institution: Case Times [...] By: Tara Garcia RN 03/27/24 10:47 Normal [facility] Main OR PACU II Recordon Main OR PACU II Record Main OR PACU II Record PACU Phase II Document Type FT Summary Primary Physician: Jori Matias DO Finalized Date/Time: 03/27/24 14:40:59 Pt. Name: ZENON KNOTT/Sex: 1950 Male Med Rec #: [id number] Physician: Jori Matias DO Financial #: [id number] Pt. Type: A Room/Bed: 11/30 Admit/Disch: 03/27/24 [...] By: Terese Ward RN 03/27/24 14:40 Normal [facility] Main OR Preoperative Recordo n 03-27-2024 Main OR Preoperative Record Main OR Preoperative Record PreOp Document Type FT Summary Primary Physician: Jori Matias DO Finalized Date/Time: 03/27/24 08:21:10 Pt. Name: ZENON KNOTT/Sex: 1950 Male Med Rec #: [id number] Physician: Jori Matias DO Financial #: [id number] Pt. Type: A Room/Bed: Admit/Disch: 03/27/24 06:07:50 [...] By: Rhoda Morgan Ii 03/27/24 08:21 Normal [facility] Operative Reporton Operative Report Operative Report SURGERY DATE: 03/27/2024 DRILLING FOREMAN: Ivelisse Carlos C.F.A. 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 Xcqrnu-qpdsyoc-mywl technique was performed with a Hewson suture [...] count correct SPECIMEN: Bone PATIENT CONDITION: Satisfactory Marisol Garza Dictated: 03/27/2024 [id number] Transcribed: 03/27/2024 cc:Ashley Bryan (Tanner), COMMUNITY PLACEMENT WORKER, TANNING WHEEL FILLER [facility] Comment on above: Result Comment: Elec tronically Signed By: Jori Matias DO\.br\Date and Time Signed: 03/27/24 12:52 EDT Inpatient Patient Summaryon 03-22-2024 Inpatient Patient Summary Inpatient Patient Summary [address] [address] [facility] Clinical Discharge Instructions PERSON INFORMATION Name: ZENON KNOTT PHYSICIANS Admitting Physician: Jori Matias DO Attending Physician: Jori Matias DO PCP: ASHLEY KELLER CNP Discharge Diagnosis: Localized osteoarthrosis of left hip Comment: PATIENT EDUCATION INFORMATION Instructions: Matias - Hip Replacement Arthroplasty (CUSTOM) Medication Leaflets: Follow up: With: Address: When: Jori Matias [address] [place], [place] [id number] [employer] () Comments: Keep scheduled appointment Type Location Start [facility] Surgery [facility] Surgical Services 03/27/2024 8:45 AM 03/27/2024 [...] Tablets By Mouth every day. Comment: Normal [facility] Outpatient Surgery Discharge Instructionon 03-22-2024 Outpatient Surgery Discharge Instruction Outpatient Surgery Discharge Instruction [place] [id number] Patient Discharge Instructions PERSON INFORMATION Name: ZENON [...] THE NEAREST EMERGENCY ROOM OR CALL 911 JB SheriffBRETT ZENON, have received the attached patient education materials/instructions and have verbalized understanding: May we do a follow up call? Yes No I was present when discharge instructions were given Patient Signature Date Clinican/Nurse Signature ___ Date Follow up: With: Address: When: Jori Matias [address] [place], [place] [id number] [employer] (1) Comments: Keep scheduled appointment Type Location Start [facility] 03/27/2024 8:45 AM 03/27/2024 [...] to serve you. Thank you for choosing [facility] HERE ARE THE MEDICATION CHANGES THAT OCCURRED [...] Mouth every day. PATIENT EDUCATION INFORMATION Instructions: [place], [place] [facility] DISCHARGE INSTRUCTIONS HIP REPLACEMENT [...] exercises; othe (more content not included)... Normal [facility] XR Chest 2 Viewson XR Chest [...] FORREST Technologist: NELLIE Technical Comments Radiation Dose: gloria Beck in mGy = na DAP = na Normal [facility] BMPon 03-08-2024 Anion gap [Moles/Vol] 14 mmol/L Normal 6-16 [facility] Comment on above: Performed By: #### 2 [id number] #### [facility] [address] [place] [address] Calcium [Mass/Vol] 9.6 mg/dL Normal 8.9-11.1 [facility] Comment on above: Performed By: #### 2 [id number] #### [facility] [address] [place] [address] Chloride [Moles/Vol] 103 mmol/L Normal 101-111 [facility] Comment on above: Performed By: #### 2 756955 #### [facility] [address] [place] [address] CO2 [Moles/Vol] 24 mmol/L Normal 21-31 [facility] Comment on above: Performed By: #### 2 [id number] #### [facility] [address] [place] [address] Creatinine [Mass/Vol] 1.1 mg/dL Normal 0.5-1.3 [facility] Comment on above: Performed By: #### 2 581623 #### [facility] [address] [place] [address] Glucose [Mass/Vol] 112 mg/dL Normal 55-199 [facility] Comment on above: Performed By: #### 2 881749 #### [facility] [address] [place] [address] Potassium [Moles/Vol] 4.2 mmol/L Normal 3.5-5.3 [facility] Comment on above: Performed By: #### 2 354140 #### [facility] [address] [place] [address] Sodium [Moles/Vol] 137 mmol/L Normal 135-145 [facility] Comment on above: Performed By: #### 2 012278 #### [facility] [address] [place] [address] Urea nitrogen [Mass/Vol] 24 mg/dL High 5-21 [facility] Comment on above: Performed By: #### 2 101091 #### [facility] [address] [place] [address] Urea nitrogen/Creatinine [Mass ratio] 22 No Units High 10-20 [facility] Comment on above: Performed By: #### 2 566575 #### [facility] [address] [place] [address] CBC w/ Auto Diffon 4 Basophils/100 WBC (Bld) 0.8 % Normal 0.0-2.0 [facility] Comment on above: Performed By: #### 2 739662 #### [facility] [address] [place] [address] Basophils/Leukocytes Auto (Bld) [Pure # fraction] 0.1 E9/L Normal 0.0-0.2 [facility] Comment on above: Performed By: #### 2 116895 #### [facility] [address] [place] [address] Eosinophils (Bld) [#/Vol] 0.3 E9/L Normal 0.0-0.5 [facility] Comment on above: Performed By: #### 2 207152 #### [facility] [address] [place] [address] Eosinophils/100 WBC (Bld) 3.9 % Normal 0.0-8.0 [facility] Comment on above: Performed By: #### 2 798851 #### [facility] [address] [place] [address] Erythrocyte distribution width (RBC) [Ratio] 13.7 % Normal 10.9-14.2 [facility] Comment on above: Performed By: #### 2 708320 #### [facility] [address] [place] [address] Hematocrit (Bld) [Volume fraction] 37.9 % Normal 37.7-49.0 [facility] Comment on above: Performed By: #### 2 974745 #### [facility] [address] [place] [address] Hemoglobin (Bld) [Mass/Vol] 13.1 g/dL Low 13.5-17.5 [facility] Comment on above: Performed By: #### 2 961877 #### [facility] [address] [place] [address] Lymphocytes (Bld) [#/Vol] 2.2 E9/L Normal 1.0-4.0 [facility] Comment on above: Performed By: #### 2 624389 #### [facility] [address] [place] [address] Lymphocytes/100 WBC (Bld) 28.5 % Normal 14.0-50.0 [facility] Comment on above: Performed By: #### 2 184471 #### [facility] [address] [place] [address] MCH (RBC) [Entitic mass] 33.1 pg Normal 27.0-34.0 [facility] Comment on above: Performed By: #### 2 973898 #### [facility] [address] [place] [address] MCHC (RBC) [Mass/Vol] 34.7 g/dL Normal 31.4-36.0 [facility] Comment on above: Performed By: #### 2 095800 #### [facility] [address] [place] [address] MCV (RBC) [Entitic vol] 95.3 fL Normal 80.0-100.0 [facility] Comment on above: Performed By: #### 2 443176 #### [facility] [address] [place] [address] Monocytes (Bld) [#/Vol] 0.7 E9/L Normal 0.2-1.0 [facility] Comment on above: Performed By: #### 2 805213 #### [facility] [address] [place] [address] Neutrophils (Bld) [#/Vol] 4.5 E9/L Normal 2.0-7.5 [facility] Comment on above: Performed By: #### 2 209324 #### [facility] [address] [place] [address] Neutrophils/100 WBC (Bld) 57.3 % Normal 36.0-75.0 [facility] Comment on above: Performed By: #### 2 205147 #### [facility] [address] [place] [address] Platelet mean volume (Bld) [Entitic vol] 8.2 fL Normal 6.4-10.8 [facility] Comment on above: Performed By: #### 2 112583 #### [facility] [address] [place] [address] Platelets (Bld) [#/Vol] 212.0 E9/L Normal 150.0-500.0 [facility] Comment on above: Performed By: #### 2 431510 #### [facility] [address] [place] [address] RBC (Bld) [#/Vol] 4.0 E12/L Low 4.3-5.9 [facility] Comment on above: Performed By: #### 2 562276 #### [facility] [address] [place] [address] WBC corrected for nucl RBC Auto (Bld) [#/Vol] 7.8 E9/L Normal 4.0-11.0 [facility] Comment on above: Performed By: #### 2 414001 #### [facility] [address] [place] [address] CHEMISTRYOrdered By: SYSTEM SYSTEM on 03-08-2024 Anion [...] 24 Bilirubin Ql (U) Negative Normal Negative [facility] Comment on above: Performed By: #### 4 [id number] #### [facility] [address] [place] [address] Clarity (U) Clear Normal Clear [facility] Comment on above: Performed By: #### 4 [id number] #### [facility] [address] [place] [address] Color (U) Light-Yellow Normal Yellow [facility] Comment on above: Result Comment: Micr oscopic readings are only performed on those samples that meet specific criteria set forth by [facility]. Performed By: #### 4 [id number] #### [facility] [address] [place] [address] Glucose Ql (U) Negative Normal Negative [facility] Comment on above: Performed By: #### 4 [id number] #### [facility] [address] [place] [address] Hemoglobin Auto test strip (U) [Mass/Vol] Negative Normal Negative [facility] Comment on above: Performed By: #### 4 [id number] #### [facility] [address] [place] [address] Ketones Auto test strip Ql (U) Negative Normal Negative [facility] Comment on above: Performed By: #### 4 [id number] #### [facility] [address] [place] [address] Leukocyte esterase Auto test strip Ql (U) Negative Normal Negative [facility] Comment on above: Performed By: #### 4 [id number] #### [facility] [address] [place] [address] Nitrite Auto test strip Ql (U) Negative Normal Negative [facility] Comment on above: Performed By: #### 4 [id number] #### [facility] [address] [place] [address] pH (U) 5.0 [pH] Invalid Interpretation Code 5.0-9.0 [facility] Comment on above: Performed By: #### 4 [id number] #### [facility] [address] [place] [address] Protein Ql (U) Negative Normal Negative [facility] Comment on above: Performed By: #### 4 [id number] #### [facility] [address] [place] [address] Specific gravity (U) [Rel density] 1.012 Invalid Interpretation Code 1.005-1.030 [facility] Comment on above: Performed By: #### 4 [id number] #### [facility] [address] [place] [address] Urobilinogen (U) [Mass/Vol] Negative Normal Negative [facility] Comment on above: Performed By: #### 4 [id number] #### [facility] [address] [place] [address] Type of Urine collection method Clean Catch Normal [facility] Comment on above: Performed By: #### 4 [id number] #### [facility] [address] [place] [address] URINALYSISOrdered By: SYSTEM SYSTEM on 03-08-2024 Bilirubin [...] that meet specific criteria set forth by [facility]. Glucose Ql (U) Negative Normal [...] Desc Clean Catch (03/08/24 7:55 AM) Normal FT UA Auto SS eGFRon 03-08-2024 eGFR 71 mL/min/1.73 m2 Normal >=59 [facility] Comment on above: Order Comment: Order added by Discern Expert. Performed By: #### 1 [id number] #### [facility] [address] [place] [address] Patient Letter FTMCon 2023 Patient Letter FT August 09, 2023 ZENON KNOTT [address] [place] [address] : 1950 Dear Zenon, This is a reminder that you are due for an appointment with [facility]. Please contact our office at [phone] to schedule an appointment at your earliest convenience. Thank you, [facility] Normal [facility] CREATININE BLOODon 2 Creatinine [Mass/Vol] 1.03 mg/dL Normal 0.70-1.30 [facility] Comment on above: Order Comment: No: D o not add to previous draw Performed By: #### 8 5499 #### [facility] [address] [place] [address], [place] GFR/1.73 sq M.predicted among non-blacks MDRD (S/P/Bld) [Vol rate/Area] mL/min/{1.73_m2} Normal >60 [facility] Comment on above: Order Comment: No: D o not add to previous draw Result Comment: [facility]'s estimated glomerular filtration rate (eGFR) will no [...] individuals. Performed By: #### 8 5499 #### [facility] [address] [place] [address], [place] POC GLUCOSE LABon 03-27-2022 Glucose [Mass/Vol] 135 mg/dL High 70-100 [facility] Comment on above: Performed By: #### 8 5499 #### [facility] [address] [place] [address], [place] Cardiovascular Lab Reporton 03-26-2022 Cardiovascular Lab Report [facility] MR #: [id number] Department of Physician: Dave Ortiz M.D. Division of Service Date: 03/26/2022 Cardiology Birthdate: 1950 Adult Cardiovascular Room #: 3AB [id number] [facility] [address] [place] [id number] Cardiovascular Laboratory Report FINAL IMPRESSIONS: Successful balloon angioplasty, AngioSculpt angioplasty and Synergy drug-eluting stent placement in an ostial lesion of the radial artery graft to the diagonal branch of the left anterior descending. RECOMMENDATIONS: 1. Aspirin 81 mg lifelong. 2. Plavix 75 mg daily for a minimum of 6 months, preferably fdc. 3. Aggressive cardiovascular risk factor modification. 4. [...] the left anterior descending, placement of a 6-Swazi MynxGrip closure device. METHODS: After risks, benefits, and alternatives were explained, written informed consent was obtained. The patient was prepped and draped in usual sterile fashion over the left groin. Using 1% lidocaine solution, local infiltration anesthesia was achieved. Using a modified Seldinger technique and a micropuncture kit, and under ultrasound guidance, access to the left common femoral artery was obtained. A 6-Swazi 11 cm sheath was inserted without difficulty. Angiography via the sheath was performed. A 6-Swazi LCB guide catheter was advanced over the [...] was removed. Final angiography was performed. A 6-Swazi MynxGrip closure device was deployed per protocol [...] P/Becca Shaver M.D. Date Trans: 03/26/2022 04:03 P/jose miguel [id number] cc: Jens Roth M.D. [address] [place] [address] Normal [facility] POC GLUCOSE LABon 03-26-2022 Glucose [Mass/Vol] 233 mg/dL High 70-100 [facility] Comment on above: Performed By: #### 8 5499 #### [facility] [address] [place] [address], [place] Glucose [Mass/Vol] 115 mg/dL High 70-100 [facility] Comment on above: Performed By: #### 8 5499 #### [facility] [address] [place] [address], [place] Glucose [Mass/Vol] 162 mg/dL High 70-100 [facility] Comment on above: Performed By: #### 8 5499 #### [facility] [address] [place] [address], [place] Glucose [Mass/Vol] 164 mg/dL High 70-100 [facility] Comment on above: Performed By: #### 8 5499 #### [facility] [address] [place] [address], [place] BASIC METABOLIC PANELon 03-03 Calcium [Mass/Vol] 8.5 mg/dL Low 8.6-10.3 [facility] Comment on above: Order Comment: No: D o not add to previous draw Performed By: #### 0 0071, 89690, 24621 #### [facility] [address] [place] [address], [place] Chloride [Moles/Vol] 105 mmol/L Normal 98-107 [facility] Comment on above: Order Comment: No: D o not add to previous draw Performed By: #### 0 0071, 61679, 78666 #### [facility] [address] [place] [address], [place] CO2 [Moles/Vol] 27 mmol/L Normal 21-31 [facility] Comment on above: Order Comment: No: D o not add to previous draw Performed By: #### 0 0071, 14978, 80745 #### [facility] [address] [place] [address], [place] Creatinine [Mass/Vol] 0.89 mg/dL Normal 0.70-1.30 [facility] Comment on above: Order Comment: No: D o not add to previous draw Performed By: #### 0 0071, 24940, 11486 #### [facility] [address] [place] [address], [place] GFR/1.73 sq M.predicted among non-blacks MDRD (S/P/Bld) [Vol rate/Area] mL/min/{1.73_m2} Normal >60 [facility] Comment on above: Order Comment: No: D o not add to previous draw Result Comment: [facility]'s estimated glomerular filtration rate (eGFR) will no [...] of individuals. Performed By: #### 0 0071, 22371, 74010 #### [facility] [address] [facility] [place] [address], [place] Glucose [Mass/Vol] 135 mg/dL High 70-100 [facility] Comment on above: Order Comment: No: D o not add to previous draw Performed By: #### 0 0071, 10988, 95389 #### [facility] [address] [place] [address], [place] Potassium [Moles/Vol] 3.5 mmol/L Normal 3.5-5.1 [facility] Comment on above: Order Comment: No: D o not add to previous draw Performed By: #### 0 0071, 50267, 26085 #### [facility] [address] [place] [address], [place] Sodium [Moles/Vol] 138 mmol/L Normal 136-145 [facility] Comment on above: Order Comment: No: D o not add to previous draw Performed By: #### 0 0071, 89827, 03885 #### [facility] [address] [place] [address], [place] Urea nitrogen [Mass/Vol] 15 mg/dL Normal 7-25 [facility] Comment on above: Order Comment: No: D o not add to previous draw Performed By: #### 0 0071, 04466, 95699 #### [facility] [address] [place] [address], [place] CBC COMPLETE BLOOD COUNTon 0 03-25-2022 Erythrocyte distribution width (RBC) [Ratio] 13.3 % Normal 11.5-15.0 [facility] Comment on above: Order Comment: No: D o not add to previous draw Performed By: #### 8 5499 #### [facility] [address] [place] [address], [place] Hematocrit (Bld) [Volume fraction] 34.9 % Low 39.0-50.0 [facility] Comment on above: Order Comment: No: D o not add to previous draw Performed By: #### 8 5499 #### [facility] [address] [place] [id number], [place] Hemoglobin (Bld) [Mass/Vol] 12.0 g/dL Low 13.0-17.0 [facility] Comment on above: Order Comment: No: D o not add to previous draw Performed By: #### 8 5499 #### [facility] [address] [place] [address], [place] MCH (RBC) [Entitic mass] 31.8 pg Normal 27.0-33.0 [facility] Comment on above: Order Comment: No: D o not add to previous draw Performed By: #### 8 5499 #### [facility] [address] [place] [address], [place] MCHC (RBC) [Mass/Vol] 34.4 g/dL Normal 32.0-35.0 [facility] Comment on above: Order Comment: No: D o not add to previous draw Performed By: #### 8 5499 #### [facility] [address] MCV (RBC) [Entitic vol] 92.6 fL Normal 82.0-98.0 [facility] Comment on above: Order Comment: No: D o not add to previous draw Performed By: #### 8 5499 #### [facility] [address] Nucleated RBC/100 WBC (Bld) [Ratio] 0 % Normal 0-0 [facility] Comment on above: Order Comment: No: D o not add to previous draw Performed By: #### 8 5499 #### [facility] [address] [facility] [place] [address], [place] PLAT CNT 188 10*3/uL Normal 150-400 [facility] Comment on above: Order Comment: No: D o not add to previous draw Performed By: #### 8 5499 #### [facility] [address] [facility] [place] [address], [place] RBC (Bld) [#/Vol] 3.77 10*6/uL Low 4.20-5.70 [facility] Comment on above: Order Comment: No: D o not add to previous draw Performed By: #### 8 5499 #### [facility] [address] [place] [address], [place] WBC (Bld) [#/Vol] 6.94 10*3/uL Normal 4.00-10.60 [facility] Comment on above: Order Comment: No: D o not add to previous draw Performed By: #### 8 5499 #### [facility] [address] [place] [address], [place] Cardiovascular Lab Reporton 03-25-2022 Cardiovascular Lab Report [facility]: [id number] Physician: Aleah Cotter of [facility] Service Date: 03/24/2022 Division of Birthdate: 1950 Cardiology Room #: 3AB [id number] Adult Cardiovascular Services [facility] [address] [place], [place] [address] Cardiovascular Laboratory Report INDICATION: The patient is [...] signed informed consent. He was brought to labor conciliator in a fasting state. The right groin area was prepped and draped in usual fashion. Micropuncture technique and ultrasound guidance were used for access in the right common femoral artery. Inner cannula angiography was performed followed by upsizing to a 6-Swazi x 11 cm sheath. Bilateral selective coronary angiography was then performed using 6-Swazi JL4 and JR4 diagnostic catheters. The JR4 diagnostic catheter was used to selectively engage the radial graft to the diagonal branch and the radial graft to the obtuse marginal branch. Catheter was removed. A 6-Swazi TIMBO catheter was used to selectively engage the left subclavian artery and then selectively engage the left internal mammary artery. Angiography was performed. Catheter was removed. A 6-Swazi AR2 diagnostic catheter was used to selectively [...] in the proximal to mid segment. The [id number]-[id number] RCA is occluded. The PDA and PLV [...] anaphylaxi (more content not included)... Normal [facility] MAGNESIUM BLOODon 03-25-2022 Magnesium [Mass/Vol] 1.1 mg/dL Critically low 1.9-2.7 [facility] Comment on above: Order Comment: No: D o not add to previous draw Performed By: #### 8 5499 #### [facility] [address] [place] [address], [place] PHOSPHORUS BLOODon Phosphate [Mass/Vol] 2.8 mg/dL Normal 2.5-5.0 [facility] Comment on above: Order Comment: No: D o not add to previous draw Performed By: #### [id number] #### [facility] [address] [place] [address], [place] POC GLUCOSE LABon 03-25-2022 Glucose [Mass/Vol] 165 mg/dL High 70-100 [facility] Comment on above: Performed By: #### [id number] #### [facility] [address] [place] [address], [place] Glucose [Mass/Vol] 188 mg/dL High 70-100 [facility] Comment on above: Performed By: #### [id number] #### [facility] [address] [place] [address], [place] Glucose [Mass/Vol] 262 mg/dL High 70-100 [facility] Comment on above: Performed By: #### [id number] #### [facility] [address] [place] [address], [place] Glucose [Mass/Vol] 135 mg/dL High 70-100 [facility] Comment on above: Performed By: #### [id number] #### [facility] [address] [place] [address], [place] POC GLUCOSE LABon 03-24-2022 Glucose [Mass/Vol] 175 mg/dL High 70-100 [facility] Comment on above: Performed By: #### [id number] #### [facility] [address] [place] [address], [place] Glucose [Mass/Vol] 131 mg/dL High 70-100 [facility] Comment on above: Performed By: #### [id number] #### [facility] [address] [place] [address], [place] CBC AUTO DIFFon 03-20-2022 BASO # 0.1 103/ul Normal 0.0-0.1 Comment on above: Performed By: #### V ITADLC #### [facility] [address] [address] [address] Veto Louis Basophils/100 WBC (Bld) 0.9 % Normal 0.2-2.0 Comment on above: Performed By: #### V ITADLC #### [facility] [address] [place] [address] Dr. Veto Louis EO # 0.4 103/ul Normal 0.0-0.7 Comment on above: Performed By: #### V ITADLC #### [facility] [address] [address] [address] Veto Louis Eosinophils/100 WBC (Bld) 6.0 % Normal 0.9-7.0 Comment on above: Performed By: #### V ITADLC #### [facility] [address] [place] [address] Dr. Veto Louis Erythrocyte distribution width (RBC) [Ratio] 13.7 % Normal 11.0-15.0 Comment on above: Performed By: #### V ITADLC #### [facility] [address] [place] [address] Dr. Veto Louis Hematocrit (Bld) [Volume fraction] 37.4 % Critically low 42.0-54.0 Comment on above: Performed By: #### V ITADLC #### [facility] [address] [place] [address] Dr. Veto Louis Hemoglobin (Bld) [Mass/Vol] 13.3 g/dL Critically low 14.0-18.0 Comment on above: Performed By: #### V ITADLC #### [facility] [address] [place] [address] Dr. Veto Louis IG # 0.02 10e3/ul Normal 0.00-0.03 Comment on above: Performed By: #### V ITADLC #### [facility] [address] [place] [address] Dr. Veto Louis IG % 0.3 % Normal 0.0-0.5 Comment on above: Performed By: #### V ITADLC #### [facility] [address] [place] [address] Dr. Veto Louis LYMPH # 2.1 103/ul Normal 1.2-3.8 Comment on above: Performed By: #### V ITADLC #### [facility] [address] [place] [address] Dr. Veto Louis Lymphocytes/100 WBC (Bld) 30.5 % Normal 20.5-60.0 Comment on above: Performed By: #### V ITADLC #### [facility] [address] [place] [address] Dr. Veto Louis MANUAL DIFF REQ NO Normal [facility] Comment on above: Performed By: #### V ITADLC #### [facility] [address] [place] [address] Dr. Veto Louis MCH (RBC) [Entitic mass] 33.8 pg Normal 25.9-34.0 Comment on above: Performed By: #### V ITADLC #### [facility] [address] [place] [address] Dr. Veto Louis MCHC (RBC) [Mass/Vol] 35.6 g/dL Critically high 29.9-35.2 Comment on above: Performed By: #### V ITADLC #### [facility] [address] [place] [address] Dr. Veto Louis MCV (RBC) [Entitic vol] 95.2 fL Critically high 80.0-94.0 [facility] Comment on above: Performed By: #### V ITADLC #### [facility] [address] [place] [address] Dr. Veto Louis MONO # 0.7 103/ul Normal 0.3-0.8 [facility] Comment on above: Performed By: #### V ITADLC #### [facility] [address] [place] [address] Dr. Veto Louis Monocytes/100 WBC (Bld) 9.8 % Normal 1.7-12.0 Comment on above: Performed By: #### V ITADLC #### [facility] [address] [place] [address] Dr. Veto Louis NEUT # 3.6 103/ul Normal 1.4-6.5 Comment on above: Performed By: #### V ITADLC #### [facility] [address] [place] [address] Dr. Vteo Louis Neutrophils/100 WBC (Bld) 52.5 % Normal 43.0-75.0 Comment on above: Performed By: #### V ITADLC #### [facility] [address] [place] [address] Dr. Veto Louis Platelet mean volume (Bld) [Entitic vol] 9.6 fL Normal 9.5-13.5 [facility] Comment on above: Performed By: #### V ITADLC #### [facility] [address] [place] [address] Dr. Veto Louis PLT 213 103/ul Normal 150-450 [facility] Comment on above: Performed By: #### V ITADLC #### [facility] [address] [place] [address] Dr. Veto Louis RBC 3.93 106/ul Critically low 4.70-6.10 [facility] Comment on above: Performed By: #### V ITADLC #### [facility] [address] [address] [address] Veto Louis WBC 6.8 103/ul Normal 4.0-11.0 Comment on above: Performed By: #### V ITADLC #### [facility] [address] [address] [address] Veto Louis Covid-19 PCR (CVDTBH)on 03-02 SARS-CoV-2 (COVID-19) RNA SIM+probe Ql (Unsp spec) Not detected Normal NOT DETECTED [facility] Comment on above: Result Comment: This test is not yet approved or cleared by the [place] FDA. When there are no FDA-approved or cleared tests available, and other criteria are met, FDA can make tests available under an emergency access mechanism called an Emergency Use Authorization (EUA). The EUA for this test is supported by the [place] of Health and Human Service's (HHS's) declaration [...] SARS-CoV-2. Performed By: #### C VDTBH #### [facility] [address] [place] [address] Dr. Veto Louis PROF CHEM 8 (BAS METB)on Anion gap [Moles/Vol] 10.4 mmol/L Normal [facility] Comment on above: Performed By: #### B MP #### [facility] [address] [place] [address] Dr. Veto Louis Calcium [Mass/Vol] 8.7 mg/dL Normal 8.5-10.1 The [facility] Comment on above: Performed By: #### B MP #### [facility] [address] [address] [address] Veto Louis Chloride [Moles/Vol] 102 mmol/L Normal 98-107 Comment on above: Performed By: #### B MP #### [facility] [address] [address] [address] Veto Louis CO2 [Moles/Vol] 32.3 mmol/L Critically high 21.0-32.0 Comment on above: Performed By: #### B MP #### [facility] [address] [address] [address] Veto Louis Creatinine [Mass/Vol] 1.23 mg/dL Normal 0.70-1.30 Comment on above: Performed By: #### B MP #### [facility] [address] [address] [address] Veto Louis EGFR-AF BARBADIAN >60 Normal >=60 [facility] Comment on above: Performed By: #### B MP #### [facility] [address] [address] [address] Veto Louis EGFR-NON AF BARBADIAN 58 mL/min/1.73m2 Critically low >=60 Comment on above: Performed By: #### B MP #### [facility] [address] [address] [address] Veto Louis Glucose [Mass/Vol] 142 mg/dL Critically high 74-106 [facility] Comment on above: Performed By: #### B MP #### [facility] [address] [address] [address] Veto Louis Potassium [Moles/Vol] 3.7 mmol/L Normal 3.5-5.1 Comment on above: Performed By: #### B MP #### [facility] [address] [address] [address] Veto Louis Sodium [Moles/Vol] 141 mmol/L Normal 136-145 [facility] Comment on above: Performed By: #### B MP #### [facility] [address] [address] [address] Veto Louis Urea nitrogen [Mass/Vol] 24.0 mg/dL Critically high 7.0-18.0 Comment on above: Performed By: #### B MP #### [facility] [address] [address] [address] Veto Louis Urea nitrogen/Creatinine [Mass ratio] 19.5 mg/mg Normal Comment on above: Performed By: #### B MP #### [facility] [address] [address] [address] Veto Louis INSULINon 03-05-2022 Insulin 18.8 uIU/mL Normal 2.6-24.9 Comment on above: Performed By: #### V ITADLC #### [facility] [address] [address] [address] Veto Louis TESTOSTERONE, TOTALon 2021 Testosterone [Mass/Vol] 420 ng/dL Normal 264-916 Comment on above: Result Comment: Adul t male reference interval is based on a population of healthy nonobese males (BMI <30) between 19 and 39 years old. Daniella et.al. JCEM 2017,102;7261-3795. PMID: [id number]. Performed By: #### V ITADLC #### [facility] [address] [place] [address] Dr. Veto Louis VIT D 25-OH LABCORPon 2021 Vitamin D, 25-Hydroxy 24.6 ng/mL Critically low 30.0-100.0 Comment on above: Result Comment: Shelly min D deficiency has been defined by the [place] of Medicine and an Endocrine Society practice guideline as a level of serum 25-OH vitamin D less than 20 ng/mL (1,2). The Endocrine Society went on to further define vitamin D insufficiency as a level between 21 and 29 ng/mL (2). 1. IOM ([place] of Medicine). 2010. Dietary reference intakes for calcium and D. [place]: The National Academies Press. 2. Lavinia MF, Kalyan YUEN, Hoa CALHOUN, et al. Evaluation, treatment, and prevention of vitamin D deficiency: an Endocrine Society clinical practice guideline. JCEM. 2010; 96(7):1911-30. Performed By: #### V ITADLC #### [facility] [address] [place] [address] Dr. Veto Lousi CBC AUTO DIFFon 03-04-2022 BASO # 0.0 103/ul Normal 0.0-0.1 Comment on above: Performed By: #### V ITADLC #### [facility] [address] [place] [address] Dr. Veto Louis Basophils/100 WBC (Bld) 0.4 % Normal 0.2-2.0 Comment on above: Performed By: #### V ITADLC #### [facility] [address] [place] [address] Dr. Veto Louis EO # 0.3 103/ul Normal 0.0-0.7 Comment on above: Performed By: #### V ITADLC #### [facility] [address] [place] [address] Dr. Veto Louis Eosinophils/100 WBC (Bld) 4.4 % Normal 0.9-7.0 Comment on above: Performed By: #### V ITADLC #### [facility] [address] [place] [address] Dr. Veto Louis Erythrocyte distribution width (RBC) [Ratio] 13.6 % Normal 11.0-15.0 Comment on above: Performed By: #### V ITADLC #### [facility] [address] [place] [address] Dr. Veto Louis Hematocrit (Bld) [Volume fraction] 37.4 % Critically low 42.0-54.0 Comment on above: Performed By: #### V ITADLC #### [facility] [address] [place] [address] Dr. Veto Louis Hemoglobin (Bld) [Mass/Vol] 13.1 g/dL Critically low 14.0-18.0 Comment on above: Performed By: #### V ITADLC #### [facility] [address] [place] [address] Dr. Veto Louis IG # 0.02 10e3/ul Normal 0.00-0.03 Comment on above: Performed By: #### V ITADLC #### [facility] [address] [place] [address] Dr. Veto Louis IG % 0.3 % Normal 0.0-0.5 Comment on above: Performed By: #### V ITADLC #### [facility] [address] [place] [address] Dr. Veto Louis LYMPH # 1.6 103/ul Normal 1.2-3.8 Comment on above: Performed By: #### V ITADLC #### [facility] [address] [place] [address] Dr. Veto Louis Lymphocytes/100 WBC (Bld) 22.8 % Normal 20.5-60.0 Comment on above: Performed By: #### V ITADLC #### [facility] [address] [place] [address] Dr. Veto Louis MANUAL DIFF REQ NO Normal [facility] Comment on above: Performed By: #### V ITADLC #### [facility] [address] [place] [address] Dr. Veto Louis MCH (RBC) [Entitic mass] 32.6 pg Normal 25.9-34.0 Comment on above: Performed By: #### V ITADLC #### [facility] [address] [place] [address] Dr. Veto Louis MCHC (RBC) [Mass/Vol] 35.0 g/dL Normal 29.9-35.2 Comment on above: Performed By: #### V ITADLC #### [facility] [address] [place] [address] Dr. Veto Louis MCV (RBC) [Entitic vol] 93.0 fL Normal 80.0-94.0 [facility] Comment on above: Performed By: #### V ITADLC #### [facility] [address] [place] [address] Dr. Veto Louis MONO # 0.6 103/ul Normal 0.3-0.8 [facility] Comment on above: Performed By: #### V ITADLC #### [facility] [address] [place] [address] Dr. Veto Louis Monocytes/100 WBC (Bld) 7.9 % Normal 1.7-12.0 [facility] Comment on above: Performed By: #### V ITADLC #### [facility] [address] [place] [address] Dr. Veto Louis NEUT # 4.6 103/ul Normal 1.4-6.5 [facility] Comment on above: Performed By: #### V ITADLC #### [facility] [address] [place] [address] Dr. Veto Louis Neutrophils/100 WBC (Bld) 64.2 % Normal 43.0-75.0 [facility] Comment on above: Performed By: #### V ITADLC #### [facility] [address] [place] [address] Dr. Veto Louis Platelet mean volume (Bld) [Entitic vol] 9.4 fL Critically low 9.5-13.5 [facility] Comment on above: Performed By: #### V ITADLC #### [facility] [address] [place] [address] Dr. Veto Louis PLT 198 103/ul Normal 150-450 [facility] Comment on above: Performed By: #### V ITADLC #### [facility] [address] [place] [address] Dr. Veto Louis RBC 4.02 106/ul Critically low 4.70-6.10 [facility] Comment on above: Performed By: #### V ITADLC #### [facility] [address] [place] [address] Dr. Veto Louis WBC 7.2 103/ul Normal 4.0-11.0 Comment on above: Performed By: #### V ITADLC #### [facility] [address] [place] [address] Dr. Veto Louis FREE THYROXINE INDEX T7on FTI 2.82 Normal 1.30-4.50 Comment on above: Performed By: #### T SH, CMP, T7, URIC, LIPID #### [facility] [address] [address] [address] Veto Louis T3U 34.0 % Normal 33.0-40.0 Comment on above: Performed By: #### T SH, CMP, T7, URIC, LIPID #### [facility] [address] [place] [address] Dr. Veto Louis T4 [Mass/Vol] 8.30 ug/dL Normal 4.50-12.[address] [facility] Comment on above: Performed By: #### T SH, CMP, T7, URIC, LIPID #### [facility] [address] [place] [address] Dr. Veto Louis GLYCOHEMOGLOBIN A1Con 2021 ADA RECOMMENDATION SEE BELOW Normal [facility] Comment on above: Result Comment: ADA RECOMMENDED LIMIT 4.0 - 6.0 ADA THERAPEUTIC TARGET < 7.0 ACTION SUGGESTED > 7.0 Performed By: #### V ITADLC #### [facility] [address] [place] [address] Dr. Veto Louis Glucose [Mass/Vol] 154 mg/dL Normal [facility] Comment on above: Performed By: #### V ITADLC #### [facility] [address] [place] [address] Dr. Veto Louis HbA1c (Bld) [Mass fraction] 7.0 % Critically high 4.5-6.2 Comment on above: Performed By: #### V ITADLC #### [facility] [address] [place] [address] Dr. Veto Louis LIPID PROFILEon 08-03-2022 CHOL-HDL RATIO NORM SEE BELOW Normal [facility] Comment on above: Result Comment: 3.3 - 4.4 LOW RISK 4.4 - 7.1 AVERAGE RISK 7.1 - 11.0 MODERATE RISK >11.0 HIGH RISK Performed By: #### T SH, CMP, T7, URIC, LIPID #### [facility] [address] [address] [address] Veto Louis Cholesterol [Mass/Vol] 103 mg/dL Normal <=200 Comment on above: Performed By: #### T SH, CMP, T7, URIC, LIPID #### [facility] [address] [address] [address] Veto Louis Cholesterol in HDL [Mass/Vol] 35 mg/dL Critically low 40-60 Comment on above: Performed By: #### T SH, CMP, T7, URIC, LIPID #### [facility] [address] [place] [address] Dr. Veto Louis Cholesterol in LDL [Mass/Vol] 34.8 mg/dL Normal Comment on above: Performed By: #### T SH, CMP, T7, URIC, LIPID #### [facility] [address] [address] [address] Veto Louis Cholesterol.total/Cho lesterol in HDL [Mass ratio] 2.9 {ratio} Normal Comment on above: Performed By: #### T SH, CMP, T7, URIC, LIPID #### [facility] [address] [address] [address] Veto Louis HDL NORMAL > or = 60 mg/dl - LO W CARDIOVASCULAR RISK <40 mg/dl - HIGH CARDIOVASCULAR RISK Normal Comment on above: Performed By: #### T SH, CMP, T7, URIC, LIPID #### [facility] [address] [place] [address] Dr. Veto Louis LDL CALC NORMAL SEE BELOW Normal [facility] Comment on above: Result Comment: <100 mg/dl OPTIMAL 100 - 129 mg/dl NEAR OR ABOVE OPTIMAL 130 - 159 mg/dl BORDERLINE HIGH 160 - 189 mg/dl HIGH >190 mg/dl VERY HIGH Performed By: #### T SH, CMP, T7, URIC, LIPID #### [facility] [address] [address] [address] Veto Louis Triglyceride [Mass/Vol] 166 mg/dL Critically high <=150 Comment on above: Performed By: #### T SH, CMP, T7, URIC, LIPID #### [facility] [address] [address] [address] Veto Louis VLDL CALC 33.2 mg/dL Normal Comment on above: Performed By: #### T SH, CMP, T7, URIC, LIPID #### [facility] [address] [place] [address] Dr. Veto Louis PROF 14(COMP METB)on 022 Albumin [Mass/Vol] 3.4 g/dL Normal 3.4-5.0 [facility] Comment on above: Performed By: #### T SH, CMP, T7, URIC, LIPID #### [facility] [address] [place] [address] Dr. Veto Louis Albumin/Globulin [Mass ratio] 0.9 {ratio} Normal Comment on above: Performed By: #### T SH, CMP, T7, URIC, LIPID #### [facility] [address] [place] [address] Dr. Veto Louis ALP [Catalytic activity/Vol] 67 U/L Normal 46-116 Comment on above: Performed By: #### T SH, CMP, T7, URIC, LIPID #### [facility] [address] [address] [address] Veto Louis ALT [Catalytic activity/Vol] 31 U/L Normal 16-63 Comment on above: Performed By: #### T SH, CMP, T7, URIC, LIPID #### [facility] [address] [place] [address] Dr. Veto Louis Anion gap [Moles/Vol] 12.6 mmol/L Normal [facility] Comment on above: Performed By: #### T SH, CMP, T7, URIC, LIPID #### [facility] [address] [address] [address] Veto Louis AST [Catalytic activity/Vol] 18 U/L Normal 15-37 Comment on above: Performed By: #### T SH, CMP, T7, URIC, LIPID #### [facility] [address] [place] [address] Dr. Veto Louis Bilirubin [Mass/Vol] 0.4 mg/dL Normal 0.2-1.0 Comment on above: Performed By: #### T SH, CMP, T7, URIC, LIPID #### [facility] [address] [place] [address] Dr. Veto Louis Calcium [Mass/Vol] 8.5 mg/dL Normal 8.5-10.1 [facility] Comment on above: Performed By: #### T SH, CMP, T7, URIC, LIPID #### [facility] [address] [place] [address] Dr. Veto Louis Chloride [Moles/Vol] 105 mmol/L Normal 98-107 [facility] Comment on above: Performed By: #### T SH, CMP, T7, URIC, LIPID #### [facility] [address] [place] [address] Dr. Veto Louis CO2 [Moles/Vol] 27.3 mmol/L Normal 21.0-32.0 [facility] Comment on above: Performed By: #### T SH, CMP, T7, URIC, LIPID #### [facility] [address] [place] [address] Dr. Veto Louis Creatinine [Mass/Vol] 1.12 mg/dL Normal 0.70-1.30 Comment on above: Performed By: #### T SH, CMP, T7, URIC, LIPID #### [facility] [address] [place] [address] Dr. Veto Louis EGFR-AF BAR[place]IAN >60 Normal >=60 [facility] Comment on above: Performed By: #### T SH, CMP, T7, URIC, LIPID #### [facility] [address] [place] [address] Dr. Veto Louis EGFR-NON AF BAR[place]IAN >60 Normal >=60 [facility] Comment on above: Performed By: #### T SH, CMP, T7, URIC, LIPID #### [facility] [address] [place] [address] Dr. Veto Louis Globulin (S) [Mass/Vol] 3.6 g/dL Normal Comment on above: Performed By: #### T SH, CMP, T7, URIC, LIPID #### [facility] [address] [place] [address] Dr. Veto Louis Glucose [Mass/Vol] 146 mg/dL Critically high 74-106 [facility] Comment on above: Performed By: #### T SH, CMP, T7, URIC, LIPID #### [facility] [address] [place] [address] Dr. Veto Louis Potassium [Moles/Vol] 3.9 mmol/L Normal 3.5-5.1 Comment on above: Performed By: #### T SH, CMP, T7, URIC, LIPID #### [facility] [address] [place] [address] Dr. Veto Louis Protein [Mass/Vol] 7.0 g/dL Normal 6.4-8.2 [facility] Comment on above: Performed By: #### T SH, CMP, T7, URIC, LIPID #### [facility] [address] [place] [address] Dr. Veto Louis Sodium [Moles/Vol] 141 mmol/L Normal 136-145 [facility] Comment on above: Performed By: #### T SH, CMP, T7, URIC, LIPID #### [facility] [address] [place] [address] Dr. Veto Louis Urea nitrogen [Mass/Vol] 14.0 mg/dL Normal 7.0-18.0 [facility] Comment on above: Performed By: #### T SH, CMP, T7, URIC, LIPID #### [facility] [address] [place] [address] Dr. Veto Louis Urea nitrogen/Creatinine [Mass ratio] 12.5 mg/mg Normal Comment on above: Performed By: #### T SH, CMP, T7, URIC, LIPID #### [facility] [address] [address] [address] Veto Louis TSHon 03-04-2022 TSH 1.309 uIU/mL Normal 0.358-3.[address] [facility] Comment on above: Performed By: #### T SH, CMP, T7, URIC, LIPID #### [facility] [address] [address] [address] Veto Louis URIC ACID SERUMon 03-04-2022 Urate [Mass/Vol] 6.2 mg/dL Normal 3.5-7.2 [facility] Comment on above: Performed By: #### T SH, CMP, T7, URIC, LIPID #### [facility] [address] [address] [address] Veto Louis VITAMIN B12on 03-04-2022 Cobalamin (Vitamin B12) [Mass/Vol] 102.0 pg/mL Critically low 193.0-986.0 Comment on above: Performed By: #### P SASC, VITB12 #### [facility] [address] [address] [address] Veto Louis Vital Signs Date Time Vital Sign Value Performing Clinician Facility 03-23-2025 08:35-0400 Body height 175.3 cm Rosario Chester MD Work Phone: [facility] 03-23-2025 08:35-0400 Body mass index (BMI) [Ratio] 31.99 kg/m2 Rosario Chester MD Work Phone: [facility] 03-23-2025 08:35-0400 Body temperature 97.7 [degF] Rosario Chester MD Work Phone: [facility] 03-23-2025 08:35-0400 Body weight 98.25 kg Rosario Chester MD Work Phone: [facility] 08-03-2024 15:45-0500 Body height 172.7 cm Jori Matias DO Work Phone: [facility] 08-03-2024 15:45-0500 Body mass index (BMI) [Ratio] 34.52 kg/m2 Jori Matias DO Work Phone: [facility] 08-03-2024 15:45-0500 Body weight 102.97 kg Jori Matias DO Work Phone: [facility] 04-27-2024 14:32-0400 Body height 172.7 cm Jori Matias DO Work Phone: [facility] 04-27-2024 14:32-0400 Body mass index (BMI) [Ratio] 35.28 kg/m2 Jori Matias DO Work Phone: [facility] 04-27-2024 14:32-0400 Body weight 105.23 kg Jori Matias DO Work Phone: [facility] 03-27-2024 14:13-0400 Heart rate 91 /min Jori Polly [facility] 03-27-2024 14:13-0400 SaO2% (BldA) [Mass fraction] 94 % Jori Matias [facility] 03-27-2024 14:12-0400 Blood Pressure Location Jori Matias [facility] 03-27-2024 14:12-0400 Diastolic blood pressure 66 mm[Hg] Jori Matias [facility] 03-27-2024 14:12-0400 Mean blood pressure 85 mm[Hg] Jori Matias [facility] 03-27-2024 14:12-0400 Systolic blood pressure 121 mm[Hg] Jori Matias [facility] 03-27-2024 14:12-0400 Body temperature 97.7 [degF] Jori Polly [facility] 03-27-2024 14:12-0400 Respiratory rate 16 /min Jori Matias [facility] 03-27-2024 11:26-0400 Heart rate 74 /min Jori Polly [facility] 03-27-2024 11:26-0400 SaO2% (BldA) [Mass fraction] 93 % Jori Polly [facility] 03-27-2024 11:26-0400 Diastolic blood pressure 65 mm[Hg] Jori Polly [facility] 03-27-2024 11:26-0400 Mean blood pressure 81 mm[Hg] Jori Polly [facility] 03-27-2024 11:26-0400 Systolic blood pressure 112 mm[Hg] Jori Polly [facility] 03-27-2024 11:26-0400 Mean blood pressure 81 mm[Hg] Jori Polly [facility] 03-27-2024 10:14-0400 Heart rate 68 /min Jori Polly [facility] 03-27-2024 10:14-0400 SaO2% (BldA) [Mass fraction] 94 % Jori Polly [facility] 03-27-2024 10:14-0400 Body temperature 97.52 [degF] Jori Polly [facility] 03-27-2024 10:13-0400 Respiratory rate 16 /min Jori Matias [facility] 03-27-2024 10:13-0400 Blood Pressure Location Jori Matias [facility] 03-27-2024 10:13-0400 Diastolic blood pressure 73 mm[Hg] Jori Matias [facility] 03-27-2024 10:13-0400 Mean blood pressure 91 mm[Hg] Jori Matias [facility] 03-27-2024 10:13-0400 Systolic blood pressure 126 mm[Hg] Jori Matias [facility] 03-27-2024 10:00-0400 Body temperature 97.34 [degF] Jori Matias [facility] 03-27-2024 10:00-0400 Mean blood pressure 83 mm[Hg] Jori Matias [facility] 03-27-2024 10:00-0400 Respiratory rate 12 /min Jori Matias [facility] 03-27-2024 09:50-0400 Mean blood pressure 82 mm[Hg] Jori Matias [facility] 03-27-2024 09:50-0400 Respiratory rate 11 /min Jori Matias [facility] 03-27-2024 09:45-0400 Respiratory rate 18 /min Jori Matias [facility] 03-27-2024 09:40-0400 Respiratory rate 17 /min Jori Matias [facility] 03-27-2024 09:35-0400 Body temperature 97.88 [degF] Jori Matias [facility] 03-27-2024 06:51-0400 Heart rate 60 /min Jori Matias [facility] 03-27-2024 06:50-0400 Body temperature 97.52 [degF] Jori Matias [facility] 03-08-2024 07:51-0400 Diastolic blood pressure 64 mm[Hg] Jori Matias [facility] 03-08-2024 07:51-0400 Heart rate 62 /min Jori Matias [facility] 03-08-2024 07:51-0400 Mean blood pressure 77 mm[Hg] Jori Matias [facility] 03-08-2024 07:51-0400 Systolic blood pressure 104 mm[Hg] Jori Polly [facility] 03-08-2024 07:51-0400 Body temperature 98.06 [degF] Jori Polly [facility] 03-08-2024 07:51-0400 Respiratory rate 17 /min Jori Matias [facility] 03-08-2024 07:50-0400 Heart rate 60 /min Jori Polly [facility] 03-08-2024 07:50-0400 SaO2% (BldA) [Mass fraction] 96 % Jori Matias [facility] 03-08-2024 07:50-0400 Diastolic blood pressure 67 mm[Hg] Jori Matias [facility] 03-08-2024 07:50-0400 Mean blood pressure 80 mm[Hg] Jori Polly [facility] 03-08-2024 07:50-0400 Systolic blood pressure 107 mm[Hg] Jori Polly [facility] Encounters Encounter Date Encounter Type Care Provider Facility Start: 03-23-2025 End: 03-23-2025 Office outpatient new 60 minutes Rosario Chester MD Work Phone: [facility] Comment on above: Melanoma of cheek (M ulti) (Primary Dx) Start: 02-27-2025 End: 02-27-2025 ambulatory KAMERON [facility] Start: 08-03-2024 End: 08-03-2024 Patient encounter procedure Jori Matias DO Work Phone: [facility] Comment on above: Status post left hip replacement (Primary Dx); Status post right hip replacement Start: 08-03-2024 End: 08-03-2024 ambulatory JORI MATIAS Not Available Start: 08-03-2024 End: 08-03-2024 ambulatory JORI MATIAS Not Available Start: 06-27-2024 End: 06-27-2024 ambulatory Keely Kearney [employer] [facility] Comment on above: Primary osteoarthrit is of left hip (Primary Dx); Difficulty walking; Acute postoperative pain of left hip; Status post left hip replacement Start: 06-27-2024 End: 06-27-2024 Bamboo flowsheet Keely Kearney SMALL AR[employer] REPAIR[facility] Start: 06-27-2024 End: 06-27-2024 Bamboo flowsheet Keely Kearney [employer] ARMS REPAIR[facility] Start: 06-22-2024 End: 06-22-2024 Bamboo flowsheet Keely Kearney [employer] AR[employer] REPAIR[facility] Start: 06-22-2024 End: 06-22-2024 Bamboo flowsheet Keely Kearney [employer] REPAIR[facility] Start: 06-21-2024 End: 06-21-2024 ambulatory Pearl Hardin SMALL AR[employer] REPAIR[facility] Comment on above: Primary osteoarthrit is of left hip (Primary Dx); Difficulty walking; Acute postoperative pain of left hip; Status post left hip replacement Start: 06-21-2024 End: 06-21-2024 Bamboo flowsheet Pearl Brink [employer] REPAIR[facility] Start: 06-21-2024 End: 06-21-2024 Bamboo flowsheet Pearl Brink [employer] REPA[facility] Start: 06-15-2024 End: 06-15-2024 ambulatory Pearl Brink [employer] REPA[facility] Comment on above: Primary osteoarthrit is of left hip (Primary Dx); Difficulty walking; Acute postoperative pain of left hip; Status post left hip replacement Start: 06-15-2024 End: 06-15-2024 Bamboo flowsheet Pearl Brink [employer] [facility]PA[facility] Start: 06-15-2024 End: 06-15-2024 Bamboo flowsheet Pearl Brink [employer] [facility] [facility] Start: 06-12-2024 End: 06-12-2024 ambulatory Pearl Brink [employer] [facility]PA[facility] Comment on above: Primary osteoarthrit is of left hip (Primary Dx); Difficulty walking; Acute postoperative pain of left hip Start: 06-12-2024 End: 06-12-2024 Bamboo flowsheet Pearl Brink [employer] [facility] REPA[facility] Start: 06-12-2024 End: 06-12-2024 Bamboo flowsheet Pearl Brink [employer] [facility] REPA[facility] Start: 06-08-2024 End: 06-08-2024 Bamboo flowsheet Pearl Brink [employer] [facility] REPA[facility] Start: 06-08-2024 End: 06-08-2024 Bamboo flowsheet Pearl Brink [employer] [facility] REPA[facility] Start: 06-08-2024 End: 06-08-2024 ambulatory Pearl Brink [employer] REPA[facility] Comment on above: Primary osteoarthrit is of left hip (Primary Dx); Difficulty walking; Acute postoperative pain of left hip Start: 06-06-2024 End: 06-06-2024 Bamboo flowsheet Pearl Brink [employer] [facility] REPA[facility] Start: 06-06-2024 End: 06-06-2024 Bamboo flowsheet Pearl Brink [employer] [facility] REPA[facility] Start: 06-06-2024 End: 06-07-2024 ambulatory Pearl Brink [employer] AR[employer] REPAIR[facility] Comment on above: Primary osteoarthrit is of left hip (Primary Dx); Difficulty walking; Acute postoperative pain of left hip; Status post left hip replacement Start: 06-01-2024 End: 06-01-2024 Bamboo flowsheet Pearl Brink [employer] REPA[facility] Start: 06-01-2024 End: 06-01-2024 Bamboo flowsheet Pearl Brink [employer] ARMS REPAIR[facility] Start: 06-01-2024 End: 06-01-2024 ambulatory Pearl Brink [employer] AR[employer] REPA[facility] Comment on above: Primary osteoarthrit is of left hip (Primary Dx); Acute postoperative pain of left hip; Difficulty walking; Status post left hip replacement Start: 05-29-2024 End: 05-29-2024 Bamboo flowsheet Pearl Brink [employer] [facility] REPA[facility] Start: 05-29-2024 End: 05-29-2024 Bamboo flowsheet Pearl Brink [employer] [facility] REPA[facility] Start: 05-29-2024 End: 05-29-2024 ambulatory Pearl Brink [employer] REPA[facility] Comment on above: Primary osteoarthrit is of left hip (Primary Dx); Acute postoperative pain of left hip; Difficulty walking; Status post left hip replacement Start: 05-25-2024 End: 05-25-2024 Bamboo flowsheet Pearl Hardin [employer] AR[employer] REPAIR[facility] Start: 05-25-2024 End: 05-25-2024 Bamboo flowsheet Pearl Kitchenink SMALL ARMS REPAIRER [facility] Start: 05-25-2024 End: 05-25-2024 ambulatory Pearl Hardin [employer] AR[employer] REPAIR[facility] Comment on above: Primary osteoarthrit is of left hip (Primary Dx); Acute postoperative pain of left hip; Difficulty walking; Status post left hip replacement Start: 05-23-2024 End: 05-23-2024 Bamboo flowsheet Pearl Kitchenink SMALL ARMS REPA[facility] Start: 05-23-2024 End: 05-23-2024 Bamboo flowsheet Pearl Kitchenink SMALL ARMS REPAIR[facility] Start: 05-23-2024 End: 05-23-2024 ambulatory Pearl Hardin [employer] REPA[facility] Comment on above: Primary osteoarthrit is of left hip (Primary Dx); Acute postoperative pain of left hip; Difficulty walking; Status post left hip replacement Start: 05-18-2024 End: 05-18-2024 Bamboo flowsheet Pearl Kitchenink SMALL ARMS REPA[facility] Start: 05-18-2024 End: 05-18-2024 Bamboo flowsheet Pearl Kitchenink SMALL AR[employer] REPA[facility] Start: 05-18-2024 End: 05-18-2024 Admission to same day surgery center Pearl Brink [employer] AR[employer] REPA[facility] Comment on above: Primary osteoarthrit is of left hip (Primary Dx); Acute postoperative pain of left hip; Difficulty walking; Status post left hip replacement; Aftercare following left hip joint replacement surgery Start: 05-18-2024 End: 05-18-2024 ambulatory Pearl Hardin [employer] AR[employer] REPA[facility] Start: 05-17-2024 ambulatory [facility] Start: 05-16-2024 End: 05-16-2024 Admission to same day surgery center Pearl Brink [employer] AR[employer] REPA[facility] Comment on above: Primary osteoarthrit is of left hip (Primary Dx); Acute postoperative pain of left hip; Difficulty walking; Status post left hip replacement; Aftercare following left hip joint replacement surgery Start: 05-16-2024 End: 05-16-2024 ambulatory Pearl Hardin [employer] ARMS REPA[facility] Start: 05-16-2024 End: 05-16-2024 Bamboo flowsheet Pearl Hardin [employer] ARMS REPAIR[facility] Start: 05-16-2024 End: 05-16-2024 Bamboo flowsheet Pearl Hardin [employer] AR[employer] REPA[facility] Start: 05-10-2024 End: 05-10-2024 Admission to same day surgery center Pearl Hardin SMALL ARMS REPAIR[facility] Comment on above: Primary osteoarthrit is of left hip (Primary Dx); Acute postoperative pain of left hip; Difficulty walking; Status post left hip replacement; Aftercare following left hip joint replacement surgery Start: 05-10-2024 End: 05-10-2024 ambulatory Pearl Hardin SMALL ARMS REPAIR[facility] Start: 05-10-2024 End: 05-10-2024 Bamboo flowsheet Pearl Hardin SMALL ARMS REPAIRER [facility] Start: 05-10-2024 End: 05-10-2024 Bamboo flowsheet Pearl Hardin [employer] ARMS REPA[facility] Start: 05-08-2024 End: 05-08-2024 Admission to same day surgery center Pearl Hardin SMALL ARMS REPAIR[facility] Comment on above: Primary osteoarthrit is of left hip (Primary Dx); Acute postoperative pain of left hip; Difficulty walking; Status post left hip replacement; Aftercare following left hip joint replacement surgery Start: 05-08-2024 End: 05-08-2024 Bamboo flowsheet Pearl Hardin SMALL ARMS REPA[facility] Start: 05-08-2024 End: 05-08-2024 Bamboo flowsheet Pearl Hardin [employer] ARMS REPA[facility] Start: 05-08-2024 End: 05-09-2024 ambulatory Pearl Hardin [employer] ARMS REPA[facility] Start: 05-04-2024 End: 05-04-2024 Bamboo flowsheet Pearl Kitchenink SMALL ARMS REPAIRER [facility] Start: 05-04-2024 End: 05-04-2024 Bamboo flowsheet Pearl Kitchenink SMALL ARMS REPAIRER [facility] Start: 05-04-2024 End: 05-04-2024 Admission to same day surgery center Pearl Hardin SMALL ARMS REPAIRER [facility] Comment on above: Primary osteoarthrit is of left hip (Primary Dx); Acute postoperative pain of left hip; Difficulty walking; Status post left hip replacement; Aftercare following left hip joint replacement surgery Start: 05-04-2024 End: 05-04-2024 ambulatory Pearl Hardin SMALL ARMS REPA[facility] Start: 05-02-2024 End: 05-02-2024 Bamboo flowsheet Pearl Hardni SMALL ARMS REPAIRER [facility] Start: 05-02-2024 End: 05-02-2024 Bamboo flowsheet Pearl Hardin [employer] ARMS REPA[facility] Start: 05-02-2024 End: 05-02-2024 Admission to same day surgery center Pearl Hardin SMALL ARMS REPAIR[facility] Comment on above: Primary osteoarthrit is of left hip (Primary Dx); Acute postoperative pain of left hip; Difficulty walking; Status post left hip replacement; Aftercare following left hip joint replacement surgery; Presence of left artificial hip joint Start: 05-02-2024 End: 05-02-2024 ambulatory Pearl Hardin SMALL ARMS REPAIR[facility] Start: 04-28-2024 End: 04-28-2024 Admission to same day surgery center Pearl Hardin SMALL ARMS REPAIR[facility] Comment on above: Primary osteoarthrit is of left hip (Primary Dx); Acute postoperative pain of left hip; Difficulty walking; Status post left hip replacement; Aftercare following left hip joint replacement surgery; Presence of left artificial hip joint Start: 04-28-2024 End: 04-28-2024 ambulatory Pearl Hardin SMALL ARMS REPA[facility] Start: 04-27-2024 End: 04-27-2024 Patient encounter procedure Jori Matias DO Work Phone: [facility] Comment on above: Status post left hip replacement (Primary Dx); Status post right hip replacement Start: 04-27-2024 End: 04-27-2024 ambulatory JORI MATIAS Not Available Start: 04-27-2024 End: 04-27-2024 ambulatory JORI MATIAS Not Available Start: 04-25-2024 End: 04-25-2024 Admission to same day surgery center Pearl Hardin SMALL ARMS REPAIRER [facility] Comment on above: Primary osteoarthrit is of left hip (Primary Dx); Acute postoperative pain of left hip; Difficulty walking; Status post left hip replacement; Aftercare following left hip joint replacement surgery; Presence of left artificial hip joint Start: 04-25-2024 End: 04-25-2024 ambulatory Pearl Hardin SMALL ARMS REPAIRER [facility] Start: 04-25-2024 End: 04-25-2024 Bamboo flowsheet Pearl Hardin SMALL ARMS REPAIRER [facility] Start: 04-25-2024 End: 04-25-2024 Bamboo flowsheet Pearl Hardin SMALL ARMS REPAIRER [facility] Start: 04-20-2024 End: 04-20-2024 Admission to same day surgery center Pearl Hardin SMALL ARMS REPAIRER [facility] Comment on above: Primary osteoarthrit is of left hip (Primary Dx); Acute postoperative pain of left hip; Difficulty walking; Status post left hip replacement; Aftercare following left hip joint replacement surgery; Presence of left artificial hip joint Start: 04-20-2024 End: 04-20-2024 ambulatory Pearl Hardin SMALL ARMS REPAIRER [facility] Start: 04-17-2024 End: 04-17-2024 Clinical Support Roger Jimenez PT Work Phone: [facility] Comment on above: Primary osteoarthrit is of left hip (Primary Dx); Acute postoperative pain of left hip; Difficulty walking; Status post left hip replacement Start: 04-15-2024 End: 04-15-2024 ambulatory ROGER JIMENEZ Not Available Start: 04-13-2024 End: 04-13-2024 ambulatory ROGER JIMENEZ Not Available Start: 04-13-2024 End: 04-13-2024 Clinical Support Roger Jimenez PT Work Phone: [facility] Comment on above: Primary osteoarthrit [...] Support Roger Jimenez PT Work Phone: [facility] Comment on above: Primary osteoarthrit is of left hip (Primary Dx); Acute postoperative pain of left hip; Difficulty walking; Status post left hip replacement Start: 03-30-2024 End: 03-30-2024 Clinical Support Roger Jimenez PT Work Phone: [facility] Comment on above: Primary osteoarthrit is of left hip (Primary Dx); Acute postoperative pain of left hip; Difficulty walking; Status post left hip replacement Start: 03-28-2024 End: 03-28-2024 Clinical Support Roger Jimenez PT Work Phone: [facility] Comment on above: Primary osteoarthrit is of left hip (Primary Dx); Acute postoperative pain of left hip; Difficulty walking; Status post left hip replacement Start: 03-27-2024 End: 03-28-2024 Clinisync Result Encounter Jori Matias DO Work Phone: [facility] External Department Unsolicited Start: 03-27-2024 End: 03-28-2024 Clinisync Result Encounter Jori Matias DO Work Phone: [facility] External Department Unsolicited Start: 03-27-2024 End: 03-27-2024 Admission to same day surgery center Jori Matias [facility] Start: 03-27-2024 End: 03-27-2024 ambulatory Jori Matias Facility[facility] Start: 03-08-2024 End: 03-08-2024 ambulatory Jori Matias Facility:[facility] Start: 03-08-2024 End: 03-08-2024 Patient encounter procedure Jori Matias [facility] Start: 03-02-2024 End: 03-02-2024 ambulatory JORI MATIAS Not Available Start: 08-31-2022 End: 09-01-2022 ambulatory NASRA VALLEJO Facility:[facility] Start: 08-04-2022 End: 09-17-[address] ALEAH RECIO Facility:[facility] Start: 04-14-2022 End: 08-04-[address] BECCA SHAVER Facility:[facility] Start: 03-24-2022 End: 03-27-2022 ambulatory OCTAVIO AMEYAJANET Facility:[facility] Start: 03-20-2022 End: 03-21-2022 ambulatory KEELY GEORGE Facility:[facility] Start: 03-04-2022 End: 03-05-2022 ambulatory ASHLEY BRYAN Facility:[facility] Procedures Date Procedure Procedure Detail Performing Clinician Start: 08-03-2024 Radex hips bilateral with pelvis 3-4 views Jori Matias DO Work Phone: Start: 04-27-2024 Radex hips bilateral with pelvis 2 views Jori Matias DO Work Phone: Start: 03-27-2024 [facility] CAPILLARY GLUCOSE POC Jori Matias DO Work Phone: Start: 03-27-2024 Total replacement of hip Jori Matias Start: 03-04-[address] ALEAH RECIO Comment on above: Performed By: #### P [facility], [id number] #### [facility] [address] [place] [address] Dr. Veto Louis Start: 09-25-2020 Colonoscopy Rosario Farrell MD Work Phone: Start: 09-25-2020 Colsc flx w/rmvl of tumor polyp lesion snare tq Jori Matias Start: 04-30-2020 Total replacement of right hip joint Jori Matias Comment on above: RIGHT TOTAL HIP ARTH ROPLASTY Start: 04-10-2019 Anorectal manometry Garry Matias Start: 11-11-2018 Colonoscopy Pearl jimenes PTA Start: 11-11-2018 Colonoscopy Jori rico Cataract extraction and insertion of intraocular lens Jori Matias Cholecystectomy Jori caraballo Marsupialization of pilonidal cyst or sinus Jori Matias Open heart surgery Jori abarca Open reduction of fr acture of ankle with internal fixation Jori Matias Plan of Treatment Date Care Activity Detail Author Start: 09-25-2030 Screening for malign ant neoplasm of colon [facility] Start: 11-11-2028 Screening for malign ant neoplasm of colon [facility] Start: 05-01-2025 End: 05-01-2025 Patient encounter procedure 05/01/2025 9:45 AM EDT Appointment [facility] [address] [place] [address] [facility] Start: 05-01-2025 End: 05-01-2025 Patient encounter procedure 05/01/2025 8:15 AM EDT Appointment [address] [address] [facility] Start: 05-01-2025 End: 05-01-2025 Admission to same day surgery center 05/01/2025 7:00 AM EDT - 05/01/2025 9:25 AM EDT Surgery [facility] [address] [address] [place] [address] [place] [address] [place] [address] EXCISION, LESION, SKIN, HEAD AND NECK REGION [01770 (CPT )] [facility] [place] Comment on above: EXCISION, LESION, SK IN, HEAD AND NECK REGION [31079 (CPT )] Start: 05-01-2025 End: 05-01-2025 Bx/exc lymph node open superficial BIOPSY, LYMPH NODE, HEAD AND NECK REGION Melanoma of cheek (Multi) 05/01/2025 7:00 AM EDT Virtual [facility] [place] Start: 05-01-2025 End: 05-01-2025 Excision malignant lesion f/e/e/n/l >4.0 cm EXCISION, LESION, SKIN, HEAD AND NECK REGION Melanoma of cheek (Multi) 05/01/2025 7:00 AM EDT Virtual [facility] [place] Start: 05-01-2025 Subsequent hospital visit by physician 05/01/2025 5:30 AM EDT Hospital Encounter [facility] [place] [address] [place] [address] [place] [address] [place] [address] [facility] [place] Start: 04-12-2025 End: 04-12-2025 Patient encounter procedure 04/12/2025 10:00 AM EDT Office Visit [facility] [address] [facility] [address] [place] [address] [place] [address] [place] [address] [facility] Start: 04-02-2025 Influenza vaccination Influenza Vacc ine (#1) [facility] Start: 03-23-2025 End: 03-23-2026 NM Lymphatic vessels Views W radionuclide intra lymphatic NM lymphoscintigram Imaging Routine Melanoma of cheek (Multi) Expected: 03/23/2025, Expires: 03/23/2026 [facility] Service Area Work Phone: Comment on above: Expected: 03/23/2025 , Expires: 03/23/2026 Start: 08-03-2024 End: 08-03-2024 Patient encounter procedure 08/03/2024 3:45 PM EST Office Visit [facility] [address] [place] [address] Jori Matias DO [address] [place], [place] [id number] [facility] Start: 06-27-2024 End: 06-27-2024 ambulatory [facility] Comment on above: Arrived Start: 06-21-2024 End: 06-21-2024 ambulatory [facility] Comment on above: Arrived Start: 06-15-2024 End: 06-15-2024 ambulatory 06/15/2024 2:00 PM EST Treatment [facility] [address] [place] [address] Pearl Hardin, SMALL ARMS REPAIRER [facility] Start: 06-12-2024 End: 06-12-2024 ambulatory 06/12/2024 2:00 PM EST Treatment [facility] [address] [place] [address] Pearl Hardin, SMALL ARMS REPAIRER [facility] Start: 06-08-2024 End: 06-08-2024 ambulatory [facility] Comment on above: Arrived Start: 06-06-2024 End: 06-06-2024 ambulatory [facility] Comment on above: Arrived Start: 06-01-2024 End: 06-01-2024 ambulatory 06/01/2024 1:30 PM EDT Treatment [facility] [address] [place] [address] Pearl Hardin, SMALL ARMS REPAIRER [facility] Start: 05-29-2024 End: 05-29-2024 ambulatory [facility] Comment on above: Arrived Start: 05-25-2024 End: 05-25-2024 ambulatory [facility] Comment on above: Arrived Start: 05-23-2024 End: 05-23-2024 ambulatory [facility] Comment on above: Arrived Start: 05-18-2024 End: 05-18-2024 ambulatory 05/18/2024 1:30 PM EDT Treatment [facility] [address] [place] [address] Pearl Hardin, SMALL ARMS REPAIRER [facility] Start: 05-16-2024 End: 05-16-2024 ambulatory 05/16/2024 2:00 PM EDT Treatment [facility] [address] [place] [address] Pearl Hardin, SMALL ARMS REPAIRER [facility] Start: 05-10-2024 End: 05-10-2024 ambulatory 05/10/2024 2:00 PM EDT Treatment [facility] [address] [place] [address] Pearl Hardin PTA [facility] Start: 05-08-2024 End: 05-08-2024 Admission to same day surgery center 05/08/2024 2:00 PM EDT Treatment [facility] [address] [place] [address] Pearl Hardin PTA Primary osteoarthritis of left [...] CI PT [address] [place] [address] Pearl Hardin PTA [facility] Start: 05-04-2024 End: 05-04-2024 ambulatory 05/04/2024 11:00 AM EDT Treatment [facility] [address] [place] [address] Pearl Hardin PTA [facility] Start: 05-02-2024 End: 05-02-2024 ambulatory 05/02/2024 11:00 AM EDT Treatment [facility] [address] [place] [address] Pearl Hardin PTA Arrived [facility] Comment on above: Arrived Start: 04-28-2024 End: 04-28-2024 ambulatory 04/28/2024 1:00 PM EDT Treatment [facility] [address] [place] [address] Pearl Hardin PTA [facility] Start: 04-27-2024 End: 04-27-2024 Patient encounter procedure 04/27/2024 2:30 PM EDT Office Visit [facility] [address] [place] [address] Jori Matias DO [address] [place] [address] [facility] Start: 04-25-2024 End: 04-25-2024 ambulatory 04/25/2024 2:00 PM EDT Treatment [facility] [address] [facility] [address] [place] [address] Pearl Hardin, SMALL ARMS REPAIRER [facility] Start: 04-20-2024 End: 04-20-2024 ambulatory 04/20/2024 1:00 PM EDT Treatment [facility] [address] [facility] [address] [place] [address] Pearl Hardin, SMALL ARMS REPAIRER [facility] Start: 04-02-2024 COVID-19 Vaccine ( season) COVID-19 Vaccine ( season) [facility] Start: 04-02-2024 Influenza vaccination Influenza Vacc ine (#1) [facility] Start: 2016 Abdominal aortic aneurysm screening Abdominal Aortic Aneurysm (AAA) Screening [facility] Start: 2016 Pneumococcal Vaccine : 65+ Years (1 of 1 - PCV) Pneumococcal Vaccine: 65+ Years (1 of 1 - PCV) [facility] Start: 2011 RSV High Risk: (Elde rly (60+) or Population) (1 - Risk 60-74 years 1-dose series) RSV High Risk: (Elderly (60+) or Population) (1 - Risk 60-74 years 1-dose series) [facility] Start: 2001 Pneumococcal vaccination Pneum ococcal Vaccine (1 of 1 - PCV) [facility] Start: 2001 Zoster Vaccines (1 of 2) Zoster Vacc haylee (1 of 2) [facility] Start: 1973 DTaP/Tdap/Td Vaccine s (1 - Tdap) DTaP/Tdap/Td Vaccines (1 - Tdap) [facility] Start: 1969 Hepatitis C screening Hepatitis C [facility] Start: 1952 MMR Vaccines (1 of 1 - Standard series) MMR Vaccines (1 of 1 - Standard series) [facility] Start: 1951 Lipid panel Lipid Panel [facility] Start: 1951 Screening for malign ant neoplasm of colon [facility] Start: 1951 Skin Cancer Screening Skin Cancer [facility] Start: 1951 Yearly Adult Physical Yearly Adult P hysical [facility] Immunizations Immunization Date Immunization Notes Care Provider Fa mikel 06-01-2022 influenza virus vacc ine, unspecified formulation Pearl Hardin PTA [facility] Healthcare Payers Date Payer Category Payer Blue Cross Blue Shie ld [facility] Care [facility] [id number]. 2022 Blue Cross Blue Shield 1.2.8 [id number]. 315 2022 Unknown BCBS BCBS xxxxxx [id number] 2022-Present [phone] [address] [place] [address] [id number] 1959 Unknown [id number] 1950 Unknown [id number] 2.16.840.1.464046.3.57 9.2.647 1951 Unknown [id number] 2.16.840.1.965393.3.57 9.2.593 1951 Unknown [id number] 2.16.840.1.271085.3.57 9.2.593 1951 Unknown [id number] 2.16.840.1.564621.3.57 9.2.593 1951 Unknown [id number] 2.16.840.1.495766.3.57 9.2.593 1951 Unknown [id number] 2.16.840.1.403428.3.57 9.2.593 1951 Unknown [id number] 2.16.840.1.371883.3.57 9.2.727 1951 Unknown [id number] 2.16.840.1.286844.3.57 9.2.727 1951 Unknown [id number] 2.16.840.1.928296.3.57 9.2.727 1951 Unknown [id number] 2.16.840.1.745096.3.57 9.2.1259 1951 Unknown [id number] 2.16.840.1.650870.3.57 9.2.1259 1951 Unknown [id number] 2.16.840.1.806670.3.57 9.2.1259 1951 Unknown [id number] 2.16.840.1.250176.3.57 9.2.1259 1951 Unknown [id number] 2.16.840.1.772419.3.57 9.2.1259 1951 Unknown [id number] 2.16.840.1.692663.3.57 9.2.1259 1951 Unknown [id number] 2.16.840.1.730510.3.57 9.2.1259 1951 Unknown [id number] 2.16.840.1.221266.3.57 9.2.1259 1951 Unknown [id number] 2.16.840.1.633076.3.57 9.2.125 1951 Unknown [id number] 2.16.840.1.734396.3.57 9.2.125 1951 Unknown [id number] 2.16.840.1.247900.3.57 9.2.125 1951 Unknown [id number] 2.16.840.1.170200.3.57 9.2.125 1951 Unknown [id number] 2.16.840.1.065666.3.57 9.2.1258 1951 Unknown [id number] 2.16.840.1.215913.3.57 9.2.1258 1951 Unknown [id number] 2.16.840.1.292238.3.57 9.2.1258 1951 Unknown [id number] 2.16.840.1.935452.3.57 9.2.1258 1951 Unknown [id number] 2.16.840.1.668102.3.57 9.2.1258 1951 Unknown [id number] 2.16.840.1.921357.3.57 9.2.1258 1951 Unknown [id number] 2.16.840.1.816863.3.57 9.2.125 1951 Unknown [id number] 2.16.840.1.675951.3.57 9.2.125 1951 Unknown [id number] 2.16.840.1.074794.3.57 9.2.125 1951 Unknown [id number] 2.16.840.1.102828.3.57 9.2.125 1951 Unknown [id number] 2.16.840.1.749921.3.57 9.2.1259 1951 Unknown [id number] 2.16.840.1.044381.3.57 9.2.1259 1951 Unknown [id number] 2.16.840.1.831757.3.57 9.2.1259 1951 Unknown [id number] 2.16.840.1.917240.3.57 9.2.1259 1951 Unknown [id number] 2.16.840.1.982427.3.57 9.2.1259 1951 Unknown [id number] 2.16.840.1.319625.3.57 9.2.1259 1951 Unknown [id number] 2.16.840.1.235688.3.57 9.2.1259 1951 Unknown [id number] 2.16.840.1.390966.3.57 9.2.1259 Medicare [id number] Social History Date Type Detail Facility Start: 12-19-2020 End: 03-23-2025 Tobacco smoking status Ex-smoker (finding) [facility] Start: 04-07-2024 Tobacco smoking status Never [facility] Start: 04-27-2024 End: 03-23-2025 Sex Assigned At Male [facility] End: 08-02-1994 History of tobacco use Current smoker [facility] End: 08-02-1994 History of tobacco use Cigarette Smoker [facility] Start: 03-02-2024 Tobacco use and exposure Smokeless tobacco non-user [facility] Start: 04-27-2024 End: 08-03-2024 Alcoholic beverage intake Lifetime non-drinker (finding) [facility] Start: 04-27-2024 End: 03-23-2025 History of Social function [facility] Start: 1950 Sex assigned at Not on file [facility] Medical Equipment Procedure Code Equipment Code Equipment Origin al Text Equipment Identifier Dates HIP TOTAL ARTHRO PLASTY Jori Matias DO 04/30/20 Unknown Hip R FDA Start: 04-30-2020 HIP TOTAL ARTHRO PLASTY Jori Matias DO 04/30/20 Unknown Hip R FDA Start: 04-30-2020 HIP TOTAL ARTHRO PLASTY Matias DO, Jori T 04/30/20 Unknown Hip R FDA Start: 04-30-2020 HIP TOTAL ARTHRO PLASTY Matias DO, Jori T 04/30/20 Unknown Hip R FDA Start: 04-30-2020 HIP TOTAL ARTHRO PLASTY Matias DO, Jori T 04/30/20 Unknown Hip R FDA Start: 04-30-2020 HIP TOTAL ARTHRO PLASTY Matias DO, Jori T 04/30/20 Unknown Hip R FDA Start: 04-30-2020 HIP TOTAL ARTHRO PLASTY Matias DO, Jori T 04/30/20 Unknown Hip R FDA Start: 04-30-2020 HIP TOTAL ARTHRO PLASTY Matias DO, Jori T 04/30/20 Unknown Hip R FDA Start: 04-30-2020 HIP TOTAL ARTHRO PLASTY Matias DO, Jori T 04/30/20 Unknown Hip R FDA Start: 04-30-2020 HIP TOTAL ARTHRO PLASTY Matias DO, Jori T 04/30/20 Unknown Hip R FDA Start: 04-30-2020 HIP TOTAL ARTHRO PLASTY Matias DO, Jori T 04/30/20 Unknown Hip R FDA Start: 04-30-2020 HIP TOTAL ARTHRO PLASTY Matias DO, Jori T 04/30/20 Unknown Hip R FDA Start: 04-30-2020 HIP TOTAL ARTHRO PLASTY Matias DO, Jori T 03/27/24 Unknown Hip L FDA Start: 03-27-2024 HIP TOTAL ARTHRO PLASTY Matias DO, Jori T 03/27/24 Unknown Hip L FDA Start: 03-27-2024 HIP TOTAL ARTHRO PLASTY Matias DO, Jori T 03/27/24 Unknown Hip L FDA Start: 03-27-2024 HIP TOTAL ARTHRO PLASTY Mtaias DO, Jori T 03/27/24 Unknown Hip L FDA Start: 03-27-2024 Goals Date Patient Goal Desired Activity /State Personal health goal Functional Status Date Assessment Result Facility 03-23-2025 Patient Health Quest ionnaire 2 item (PHQ-2) [Reported] [facility] Work Phone: 03-08-2024 Functional Status No [facility] Clinical Notes 03-27-2022 to 03-23-2025 Rosario Chester MD - 03/23/2025 9:00 AM Holly Matias, DO - 08/03/2024 3:45 PM Jessica Hardin, SMALL ARMS REPAIRER - 06/15/2024 2:00 PM Jessica Hardin, SMALL ARMS REPAIRER - 06/12/2024 2:00 PM EST Note Date & Type Note Facility 03-23-2025 History of Present illness Narrative Images from the original note were not included. HEAD AND NECK SURGERY CONSULT [facility] [[email or web address] Referring Provider: Lise NOE I had the pleasure of seeing Zenon Knott as a consultation today for evaluation of cheek melanoma. He presents with who assists with history and treatment planning The patient reports a history of a lump on his right cheek. 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 Reports prior skin cancers of the right and left anglican, he is not sure which type (records reviewed and no prior melanoma). The patient denies having prior trauma or surgery to their head and neck other than skin excisions. There is not a personal or family history of blood clots, easy bleeding or bruising, or anesthesia concerns. Medical history notable for HTN, DM2, prior heart surgery, on 81 mg ASA. Not smoking Tobacco use: The patient reports that he quit smoking about 30 years ago. His smoking use included cigarettes. He does not have any smokeless tobacco history on file. Alcohol Use: The patient has no history on file for alcohol use. Physical Examination Vitals: Temp 36.5 C (97.7 F) (Temporal) Ht 1.753 m (5' 9 ) Wt 98.2 kg (216 lb 9.6 oz) BMI 31.99 kg/m General: Examination reveals a well-developed, well-nourished patient in no apparent distress. The patient has no audible dysphonia, stridor or airway distress. The patient is oriented, alert and responsive. Skin: right cheek biopsy site, multiple discolorations of skin throughout face Oral Cavity: The patient is able to open the mouth widely without trismus. The floor of mouth and oral tongue are soft, and no mucosal abnormalities are noted on the lips or within the oral cavity. The oral tongue is fully mobile and midline on protrusion. Oropharynx: There are no mucosal abnormalities noted within the oropharynx. The soft palate elevates symmetrically, the tonsils and base of tongue are normal to inspection and palpation. Salivary glands: There are no palpable masses of the parotid or submandibular glands. Neck: The neck is soft and symmetric. There is no palpable adenopathy. DATA REVIEWED: Discussions with other providers: I discussed this case with Cutaneous tumor board recommendations for WLE with SLNBx Pathology: I reviewed the pathology report from the biopsy on 02/23/25 lentigo maligna right central malar cheek, 1.5 cm, broadly transected at [facility], reviewed at 03/20. 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 I will address risks specific to the node location on the day of surgery. General risks and benefits discussed including pain, bleeding, infection, scar, need or further procedures, risks of anesthesia, poor cosmetic outcome, damage to surrounding structures including nerves and blood vessels. Also reviewed the risk of not being able to localize a sentinel lymph node - Reconstruction options discussed including staged reconstruction, split or full thickness skin graft, local tissue rearrangement and referral to my facial plastic surgery colleagues. For this patient, I recommend referral to [facility] (Noemi or Jessica) for staged reconstruction. This was ordered today. Questions were answered and they are in agreement with the plan Rosario Chester MD documented in this encounter [facility] Work Phone: 02-27-2025 Note SUBJECTIVE Reason for Visit: Vivek [...] Rate 03/26/2022 56 Atrial Rate 03/26/2022 56 SD Interval 03/26/2022 252 QRS DURATION 03/26/2022 102 QT Interval 03/26/2022 448 QTC CALCULATION(BAZETT) 03/26/2022 432 P [place] 03/26/2022 41 R-[place] 03/26/2022 34 T Wave [place] 03/26/2022 -20 Diagnosis 03/26/2022 Value:Sinus bradycardia with 1st degree A-V block Otherwise normal ECG When compared with ECG of 24-MAR-2022 09:41, Nonspecific T wave abnormality no longer evident in Lateral Confirmed by Rogelio Regalado ([id number]) on 03/26/2022 8:26:15 PM I [...] 5. Normal right-side (more content not included)... [facility] 08-03-2024 History of Present illness Narrative Post [...] exercise, weight management and fall precautions reviewed. 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 Numerous questions were answered. Follow-up in 1 year for repeat xray and exam, sooner if concerned. The patient is discharged in stable condition. documented in this encounter [facility] 06-15-2024 History of Present illness Narrative Physical [...] functional transfers and bed mobility with independence. Shank Burnisher Goals (4-6 weeks) Goal 1 : Patient [...] progress and will transition to OP at [facility] on 04-20-24. Cosigned by Will Martinez PT at 06/15/2024 2:58 PM EST documented in this encounter [facility] 06-12-2024 History of Present illness Narrative Physical [...] functional transfers and bed mobility with independence. Shank Burnisher Goals (4-6 weeks) Goal 1 : Patient [...] progress and will transition to OP at [facility] on 04-20-24. Cosigned by Will Martinez PT at 06/14/2024 1:07 PM EST documented in this encounter [facility] 04-27-2024 History of Present illness Narrative Post [...] three months for repeat x-ray and exam. correction antibiotic prophylaxis for dental or invasive work were reviewed. Numerous questions were answered. The patient is discharged in stable condition. documented in this encounter [facility] 04-17-2024 History of Present illness Narrative Physical [...] out: 11:25 am Total time: 30 minutes 10030 TherEx x 15 minutes 63892 Gait training x 15 minutes Pain Management: [...] time: Heels close together= 1. Gait score: 9/12. Total Score = Balance + Gait /. Tinetti tool score: Moderate risk Physical Education [...] functional transfers and bed mobility with independence. Shank Burnisher Goals (4-6 weeks) Goal 1 : Patient [...] progress and will transition to OP at [facility] on 04-20-24. documented in this encounter [facility] 04-13-2024 History of Present illness Narrative Physical [...] out: 11:15 am Total time: 30 minutes 63427 TherEx x 15 minutes 60849 Gait training x 15 minutes Pain Management: [...] ROM: WFL Manual muscle testing: Left knee /. Ankle/Foot: Active ROM WFL. Manual muscle testing: [...] 01/11. Total Score = Balance + Gait 1428. Tinetti tool score: < = 18 High. [...] functional transfers and bed mobility with independence. Skilled Nursing Goals (4-6 weeks) Goal 1 : Patient [...] has more pain. documented in this encounter [facility] 04-10-2024 History of Present illness Narrative Physical [...] out: 2:30 pm Total time: 15 minutes 33048 TherEx x 15 minutes Pain Management: The [...] 01/11. Total Score = Balance + Gait 14. [...] functional transfers and bed mobility with independence. Shank Burnisher Goals (4-6 weeks) Goal 1 : Patient [...] hip; patient receptive. documented in this encounter [facility] 04-06-2024 History of Present illness Narrative Physical [...] out: 2:15 pm Total time: 15 minutes 00631 TherEx x 15 minutes Pain Management: The [...] functional transfers and bed mobility with independence. Skilled Nursing Goals (4-6 weeks) Goal 1 : Patient [...] hip; patient receptive. documented in this encounter [facility] 04-04-2024 History of Present illness Narrative Physical [...] out: 1:30 pm Total time: 30 minutes 85424 Gait training x 15 minutes 12543 TherEx x 10 minutes 70899 Eval x 20 minutes. Pain Management: The [...] functional transfers and bed mobility with independence. Skilled Nursing Goals (4-6 weeks) Goal 1 : Patient [...] hip; patient receptive. documented in this encounter [facility] 03-30-2024 History of Present illness Narrative Physical [...] out: 2:30 pm Total time: 30 minutes 76506 Gait training x 15 minutes 18471 TherEx x 10 minutes 33603 Eval x 20 minutes. Pain Management: The [...] 01/11. Total Score = Balance + Gait . Tinetti tool score: < = 18 High. [...] functional transfers and bed mobility with independence. Skilled Nursing Goals (4-6 weeks) Goal 1 : Patient [...] hip; patient receptive. documented in this encounter [facility] 03-29-2024 Note Progress Note-Yamileth sheppard Patient: ZENON KNOTT Age: 73 years Sex: [...] Using maximal sterile barrier technique per current [facility] guidelines including hand hygeine, Guidance (Ultrasound used [...] Queen Jaden CRNA under Dr Bond's supervision.. [facility] Comment on above: Result Comment: Elec tronically Signed By: Jaden LUQUE CRNA, N.\.br\Date and Time Signed: 03/27/24 08:07 EDT [...] list: All Problems Vertigo / SNOMED CT 2956624328 / Confirmed Colon polyps / SNOMED CT 067014369 / Confirmed Localized osteoarthritis of hip / SNOMED CT 207050775 / Confirmed Dyssynergia / SNOMED CT 07779197 / Confirmed Skin cancer / SNOMED CT 9745300127 / Confirmed Dyspepsia / SNOMED CT 202899980 / Confirmed HTN (hypertension) / SNOMED CT 5859786221 / Confirmed HTN (hypertension) / SNOMED CT 5610047121 / Confirmed Hypercholesterolemia / SNOMED CT 24401882 / Confirmed Personal history of colonic polyps / SNOMED CT 5488824326 / Confirmed Hemorrhoids / SNOMED CT 331635518 / Confirmed Heartburn / SNOMED CT 89648528 / Confirmed Acid reflux disease / SNOMED CT 379365933 / Confirmed Diabetes / SNOMED CT 735493630 / Confirmed Depression / SNOMED CT 96051564 / Confirmed CAD (coronary artery disease) / SNOMED CT 70018199 / Confirmed Constipation / SNOMED CT 17643016 / Confirmed Chronic back pain / SNOMED CT 979375726 / Confirmed Resolved: Mumps / SNOMED CT 13670742 Resolved: Measles / SNOMED CT 37068420 Resolved: Kidney stone / SNOMED CT 163046535 Resolved: Bronchitis / SNOMED CT 12281069 Resolved: At risk for falls / SNOMED CT 116423057 Problem added when Risk for Falls Careplan was initiated. Resolved due to patient discharge. Resolved: Change in bowel habits / SNOMED CT 517381039 Resolved: Acute pancreatitis / SNOMED CT 694658357 Histories Procedure history: Colonoscopy, flexible; with removal of tumor(s), polyp(s), or other lesion(s) by snare technique (01654) on 09/25/2020 at 70 Years. Prosthetic total arthroplasty of right hip ([id number]) on 04/30/2020 at 69 Years. Comments: 04/30/2020 15:44 SOBEIDA Orozco RN, Naa Alcantara RIGHT TOTAL HIP ARTHROPLASTY Anorectal manometry ([id number]) on 04/10/2019 at 68 Years. Colonoscopy (301856769) on 11/11/2018 at 68 Years. Hernia Repair. Cholecystectomy (16155289). Open heart surgery (9709461). ORIF - Open reduction of fracture of ankle with internal fixation ([id number]). Marsupialisation of pilonidal cyst or sinus (117928504). CEIOL - cataract extraction and implantation of intraocular lens (0124080365). Social History Social & Psychosocial Habits Alcohol 03/08/2024 Use: Current Type: Beer Frequency: 1-2 times per month 03/08/2024 Risk Assessment: Low Risk Exercise 03/08/2024 Risk Assessment: Does not exercise Other 03/08/2024 Name: Dmvzflke-5-9 cups daily Substance Abuse 03/08/2024 Risk Assessment: Denies Substance Abuse Tobacco 03/08/2024 Risk Assessment: Denies Tobacco Use 03/08/2024 Tobacco Use: Former smoker, quit more Smokeless tobacco use: Never Type: Cigarettes . Physical Examination Airway: Mallampati classification: II (soft palate, fauces, uvula visible). Respiratory: adequate air exchange. Cardiovascular: Regular rhythm. Plan [place] [employer]hesi[employer] (ASA) physical status classification: Class III. Anesthetic Preoperative Plan: Anesthesia General. [facility] Comment on above: Result Comment: Elec tronically Signed By: Tyrone Bond Jr, DO\.br\Date and Time Signed: 03/28/24 12:30 EDT 03-28-2024 Note Progress Note-Physic valarie Patient: ZENON KNOTT Age: 73 years Sex: Male : 1950 Associated Diagnoses: None Author: Tyrone Bond Jr, DO Postoperative Information Postoperative disposition: Postoperative disposition: To PACU. Optimetrix number: Optimetrix number [id number]. Anesthetic utilized: General. Regional: Spinal. Health Status [...] when meets criteria ( To home ). [facility] Comment on above: Result Comment: Elec tronically Signed By: Tyrone Bond Jr, DO.br\Date and Time Signed: 03/28/24 12:30 EDT 03-28-2024 [...] out: 12:45 pm Total time: 45 minutes 77355 Gait training x 15 minutes 70871 TherEx x 10 minutes 82244 Eval x 20 minutes. Pain Management: The [...] 01/11. Total Score = Balance + Gait . Tinetti tool score: < = 18 High. [...] functional transfers and bed mobility with independence. Skilled Nursing Goals (4-6 weeks) Goal 1 : Patient [...] and improve functional mobility to return to PLOF documented in this encounter [facility] 03-27-2024 Hospital Discharge instructions Patient Education 03/27/2024 10:06:33 [...] as possible. If the spirometer includes a middle school football coach indicator, use this to guide you in [...] provider. Document Revised: 10/07/2020 Document Reviewed: 10/07/2020 [employer] Patient Education 2022 [employer]. 03/27/2024 10:06:31 Post Op Patient Instructions - FT (CUSTOM) 03/22/2024 15:40:19 Matias - Hip Replacement Arthroplasty (CUSTOM) [place], [place] [facility] DISCHARGE INSTRUCTIONS HIP REPLACEMENT [...] will continue at home, possible with the auction assistant of Home Health Physical Therapy or in the hospital as an outpatient. When you have become independent with the physical therapy program, this will then be discontinued as a supervised program and you will be instructed to continue the physical therapy exercises at home. Please call your [facility] with any questions or concerns [phone] [phone]. DRIVING: Driving is not recommended for 4-6 week pending progress. Driving too soon, you are considered an impaired pack train driver, and this could be a problem. It is therefore advised not to drive until after your first office visit following surgery FOLLOW-UP OFFICE VISIT: ____ Jori Matias, DO [facility] [address] [place] [address] Reviewed: 12-22 Follow Up Care 03/02/2024 16:12:40 With:KEVIN Garza Address: [address] [place] [address]- Business (1) When:04/27/2024 14:30:00 Comments:Keep scheduled appointment [facility] 03-27-2024 Note Patient Education - Text [...] possible. ? If the spirometer includes a middle school football coach indicator, use this to guide you in [...] provider. Document Revised: 10/07/2020 Document Reviewed: 10/07/2020 [employer] Patient Education ? 2022 [employer]. [place], [place] [facility] DISCHARGE INSTRUCTIONS HIP REPLACEMENT ARTHROPLASTY INCISION CARE: Mepilex dressing can get wet with showers. Please remove 10 days after surgery per instruction sheet. If dsah present, please coordinate removal 21 days after surgery with office staff. Please notify the office if any increase in redness, tenderness, draina (more content not included)... [facility] 03-27-2024 Note Progress Note-Yamileth sheppard Patient: ZENON KNOTT Age: 73 years Sex: Male : 1950 Associated Diagnoses: None Author: Jaden LUQUE, MALLORY, Queen Liliane Procedure Nerve Block Block Type: Maximiliano block. [...] Using maximal sterile barrier technique per current [facility] guidelines including hand hygeine, Guidance (Ultrasound used [...] Queen Jaden CRNA under Dr Bond's supervision.. [facility] Comment on above: Result Comment: Elec tronically Signed By: Jaden LUQUE CRNA, Queen Liliane\.br\Date and Time Signed: 03/27/24 08:07 EDT 03-22-2024 Note Patient Education - Text [place], [place] [facility] DISCHARGE INSTRUCTIONS HIP REPLACEMENT [...] will continue at home, possible with the auction assistant of Home Health Physical Therapy or in the hospital as an outpatient. When you have become independent with the physical therapy program, this will then be discontinued as a supervised program and you will be instructed to continue the physical therapy exercises at home. Please call your [facility] with any questions or concerns [phone] [phone]. DRIVING: Driving is not recommended for 4-6 week pending progress. Driving too soon, you are considered an impaired pack train driver, and this could be a problem. It is therefore advised not to drive until after your first office visit following surgery FOLLOW-UP OFFICE VISIT: ____ Jori Matias, DO [facility] [address] [place] [address] Reviewed: 12-22 [facility] 03-27-2022 Note MR#: [id number] [facility] Pt. Name: Vivek Knott Admitted: 03/24/2022 Discharged: [...] MD Date Trans: 03/27/2022 08:34 A/jose miguel [id number] cc: Jens Roth M.D. [address], [facility] [address] [facility] Evaluation + Plan note Future Appointments Appointment Date:03/27/2024 08:45:00 AM Scheduled Provider: Location:[facility] Surgical Services Appointment Type:Surgery FT [facility] Evaluation note Diagnosis Primary osteoarthritis of left hip- Primary Acute postoperative pain of left hip Difficulty walking Difficulty in walking Status post left hip replacement Aftercare following left hip joint replacement surgery Presence of left artificial hip joint documented in this encounter [facility]* Diagnosis Primary osteoarthritis of [...] in this encounter [facility]* Diagnosis Status post left hip replacement- Primary Status post right hip replacement documented in this encounter [facility] note* Diagnosis Primary osteoarthritis of left hip- Primary Acute postoperative pain of left hip Difficulty walking Difficulty in walking Status post left hip replacement Aftercare following left hip joint replacement surgery Presence of left artificial hip joint documented in this encounter [facility]* Diagnosis Status post left hip replacement- Primary Status post right hip replacement documented in this encounter [facility] note* Diagnosis Melanoma of cheek (Multi)- Primary Melanoma of cheek (Multi)- Primary Melanoma of cheek (Multi) documented in this encounter [facility] Work Phone: Hospital course Narrative No data available for this section [facility] Hospital Discharge instructions No data available for this section [facility] Progress note No data available for this section [facility] Reason for visit Narrative* Rehabilitation - Outpatient (Routine) - Authorized Specialty Diagnoses / Procedures Referred By Olga sow Referred To Contact Physical Therapy Diagnoses Aftercare following left hip joint replacement surgery Presence of left artificial hip joint Procedures SD OFFICE/OUTPATIENT NEW HIGH [facility] 60 MINUTES Jori Matias, DO [address] [place] [address] Phone: tel: fax: Will Martinez, PT [address] [facility] [address] [place] [address] Phone: tel: fax: Referral ID Status Reason Start Date Expiration Date Visits Requested Visits Authorized [id number] Authorized Consult and Treat 03/24/2024 09/20/2024 60 [...] section and content) DATE CREATED AUTHOR 04/03/2022 [facility] DATE CREATED AUTHOR AUTHOR'S ORGANIZ ATION 09/22/2022 [facility] DATE CREATED AUTHOR AUTHOR'S ORGANIZ ATION 03/10/2024 [facility] DATE CREATED AUTHOR AUTHOR'S ORGANIZ ATION 03/27/2024 [facility] DATE CREATED AUTHOR AUTHOR'S ORGANIZ ATION 03/28/2024 [facility] DATE CREATED AUTHOR AUTHOR'S ORGANIZ ATION 03/30/2024 [facility] DATE CREATED AUTHOR AUTHOR'S ORGANIZ ATION 05/19/2024 [facility] DATE CREATED AUTHOR AUTHOR'S ORGANIZ ATION 08/10/2024 [facility] DATE CREATED AUTHOR AUTHOR'S ORGANIZ ATION 03/14/2025 [facility] DATE CREATED AUTHOR AUTHOR'S ORGANIZ ATION 03/23/2025 [facility] Ambulatory Patient Care team informatio n (unrecognized section and content) House Painting Instructor Relationship Specialty Start Date End Date Jens Roth MD [address] [place] [facility] [place] [address] PCP - General Family Medicine 02/22/24 House Painting Instructor Relationship Specialty Start Date End Date Jens Roth MD [address] [place] [facility] [place] [address] PCP - General Family Medicine 02/22/24 House Painting Instructor Relationship Specialty Start Date End Date Jens Roth MD [address] [place] [facility] [place] [address] PCP - General Family Medicine 02/22/24 House Painting Instructor Relationship Specialty Start Date End Date Jens Roth MD [address] [place] [facility] [place] [address] PCP - General Family Medicine 02/22/24 House Painting Instructor Relationship Specialty Start Date End Date Jens Roth MD [address] [place] [facility] [place] [address] PCP - General Family Medicine 02/22/24 House Painting Instructor Relationship Specialty Start Date End Date Jens Roth MD [address] [place] [facility] [place] [address] PCP - General Family Medicine 02/22/24 House Painting Instructor Relationship Specialty Start Date End Date Jens Roth MD [address] [place] [facility] [place] [address] PCP - General Family Medicine 02/22/24 House Painting Instructor Relationship Specialty Start Date End Date Jens Roth MD [address] [place] [facility] [place] [address] PCP - General Family Medicine 02/22/24 House Painting Instructor Relationship Specialty Start Date End Date Jens Roth MD [address] [place] [facility] [place] [address] PCP - General Family Medicine 02/22/24 House Painting Instructor Relationship Specialty Start Date End Date Jens Roth MD [address] [place] [facility] [place] [address] PCP - General Family Medicine 02/22/24 House Painting Instructor Relationship Specialty Start Date End Date Jens Roth MD [address] [place] [facility] [place] [address] PCP - General Family Medicine 02/22/24 House Painting Instructor Relationship Specialty Start Date End Date Jens Roth MD [address] [place] [facility] [place] [address] PCP - General Family Medicine 02/22/24 House Painting Instructor Relationship Specialty Start Date End Date Jens Roth MD [address] [place] [facility] [place] [address] PCP - General Family Medicine 02/22/24 House Painting Instructor Relationship Specialty Start Date End Date Jens Roth MD [address] [place] [facility] [place] [address] PCP - General Family Medicine 02/22/24 House Painting Instructor Relationship Specialty Start Date End Date Jens Roth MD [address] [place] [address] PCP - General Family Medicine 02/22/24 House Painting Instructor Relationship Specialty Start Date End Date Jens Roth MD [address] [place] [address] PCP - General Family Medicine 02/22/24 House Painting Instructor Relationship Specialty Start Date End Date Jens Roth MD [address] [place] [address] PCP - General Family Medicine 02/22/24 House Painting Instructor Relationship Specialty Start Date End Date Jens Roth MD [address] [place] [phone] PCP - General Family Medicine 02/22/24 House Painting Instructor Relationship Specialty Start Date End Date Jens Roth MD [address] [place] [address] PCP - General Family Medicine 02/22/24 House Painting Instructor Relationship Specialty Start Date End Date Jens Roth MD [address] [place] [address] PCP - General Family Medicine 02/22/24 Reason for Visit (unrecogniz ed section and content) Specialty Diagnoses / Procedures Referred By Olga sow Referred To Contact Physical Therapy Diagnoses Aftercare following left hip joint replacement surgery Presence of left artificial hip joint Procedures SD OFFICE/OUTPATIENT NEW HIGH [facility] 60 MINUTES Jori Matias, DO [address] [place] [address] Will Martinez, PT [address] [facility] [address] [place] [address] Referral ID Status Reason Start Date Expiration Date Visits Requested Visits Authorized [id number] Authorized Consult and Treat 03/24/2024 09/20/2024 60 60 Reason Comments Follow-up [facility] 03/27/24 Follow-up 04/30/20 Reason Comments Follow-up [facility] 03/27/24 Follow-up [facility] 04/30/20 Reason Comments Follow-up Right side of face ( biopsy) FOR RECORDS PERTAINING TO PATIENTS WHO ARE [...] BE BASED ON THE PRIMARY CLINICAL RECORDS. [facility]. provides no warranty or guarantee of the accuracy or completeness of information in this document.
--- OUTSIDE RECORDS SUMMARY | 2025-03-24 09:59 | XMS_ITS | Encounter Summary ---
Author Organization [facility] Address [address] [place] [address] Care Team Providers Care Clinical Allergist Name Role Phone Ashley Forman CNP Primary Care Provider [phone] Reason for Visit * Reason Comments Med Refill Encounter Details Date Type Department Care Team (Late st Contact Info) Description 04/01/2023 Refill [facility] [address] [place] [address] Keely Faustin, BREAKDOWN WORKER [address] [place] [phone] Chest pain, unspecified type Social History Tobacco [...] Description 03/26/2025 2:20 PM EDT Office Visit [facility] [address] [place] [address] Kameron Wolf, FANNY [address] [place] [address] documented as of this encounter Visit Diagnoses Diagnosis Chest pain, unspecified type documented in this encounter Care Teams Clinical Allergist Relationship Specialty Start Date End Date Ashley Forman CNP [facility] [facility], [place] [address] PCP - General Family Medicine 03/31/23 documented as of this encounter
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
--- OUTSIDE RECORDS SUMMARY | 2025-03-24 09:59 | XMS_ITS | Encounter Summary ---
Author Organization [facility] Address [address] [place] [address] Care Team Providers Care Mine Foreman Name Role Phone Jens Umana MD Primary Care Provider [phone] Ashley Forman CNP Primary Care Provider [phone] Reason for Visit * Reason Comments Med Refill Encounter Details Date Type Department Care Team (Late st Contact Info) Description 11/09/2022 Refill [facility] Cardiology [address] [place] [address] Keely Faustin CNP [address] [place] [address] Coronary artery disease, unspecified vessel or lesion type, unspecified whether angina present, unspecified whether chefornak or transplanted heart Social History Tobacco Use [...] Description 03/26/2025 2:20 PM EDT Office Visit [facility] [address] [place] [address] Kameron Wolf, FANNY [address] [place] [address] documented as of this encounter Visit Diagnoses Diagnosis Coronary artery disease, unspecified vessel or lesion type, unspecified whether angina present, unspecified whether chefornak or transplanted heart documented in this encounter Care Teams Mine Foreman Relationship Specialty Start Date End Date Jens Umana MD [address] [place] [address] PCP - General 03/20/22 03/30/23 Ashley Forman CNP [address] [place] [address] PCP - General Family Medicine 03/31/23 documented as of this encounter
--- OUTSIDE RECORDS SUMMARY | 2025-03-24 09:59 | XMS_ITS | Encounter Summary ---
Author Organization [facility] Address [address] [place] [address] Care Team Providers Care Powdered Sugar Supervisor Name Role Phone Jens Umana MD Primary Care Provider [phone] Ashley Forman CNP Primary Care Provider [phone] Reason for Visit * Reason Comments Med Refill Encounter Details Date Type Department Care Team (Late st Contact Info) Description 11/04/2022 Refill [facility] [address] [place] [address] Joby Recio MD [address] [facility] [address] [facility] [place] [address] Benign hypertensive heart disease without [...] Description 03/26/2025 2:20 PM EDT Office Visit [facility] [address] [place] [address] Kameron Wolf, FANNY [address] [place] [address] documented as of this encounter Visit Diagnoses Diagnosis Benign hypertensive heart disease without congestive heart failure Benign hypertensive heart disease without heart failure documented in this encounter Care Teams Powdered Sugar Supervisor Relationship Specialty Start Date End Date Jens Umana MD [address] [facility] [place] [address] PCP - General 03/20/22 03/30/23 Ashley Forman CNP [address] [place] [address] PCP - General Family Medicine 03/31/23 documented as of this encounter
--- OUTSIDE RECORDS SUMMARY | 2025-03-24 09:59 | XMS_ITS | Encounter Summary ---
Author Organization [facility] Address [address] [facility] [place] [address] Care Team Providers Care Purification Supervisor Name Role Phone Jens Umana MD Primary Care Provider [phone] Encounter Details Date Type Department Care Team ([facility] Contact Info) Description 03/21/2024 Abstract [facility] [address] [facility] [address] CHIDI Marge [facility] [place] [address] Angelic Crawley, TAYO [address] [place], [place] Social History Tobacco Use Types Packs/Day [...] 08/07/2025 3:45 PM EST Office Visit [facility] [address] CHIDI Bird [facility] [place] [address] Richie Castano DO [address] [place], [place] [phone] documented as of this encounter Visit Diagnoses Not on filedocumented in this encounter Care Teams Purification Supervisor Relationship Specialty Start Date End Date Jens Umana MD PCP - General Family Medicine 02/22/24 documented as of this encounter
[2025-03-24 10:53] LABS: Anion Gap 17.8; Blood Urea Nitrogen 25.0 mg/dL (7.0-18.0); Calcium 9.0 mg/dL (8.5-10.1); Carbon Dioxide 24.1 mmol/L (21.0-32.0); Chloride 105 mmol/L (98-107); Estimated GFR (African America >60 (>=60 mL/min/1.73m^2); Estimated GFR (Non-African Ame 54 (>=60 mL/min/1.73m^2); Glucose 160 mg/dL (74-106); Potassium 3.9 mmol/L (3.5-5.1); Sodium 143 mmol/L (136-145)
== END 2025-03-24 09:56 | disposition home or self-care (01) ==
LOC: LAB 09:56
PROVIDERS: PCP Nurse Practitioner Family
DX: E87.6 Hypokalemia (principal)
CPT/HCPCS: 36415; 80048

== ENCOUNTER 2025-07-13 09:23 | Outpatient (OUT) | payer BC, SELFPAY | END 2025-07-13 09:24 | disposition home or self-care (01) | PROVIDERS: PCP Nurse Practitioner Family; Visit Provider Nurse Practitioner Family | DX: E11.40 Type 2 diabetes mellitus with diabetic neuropathy, unspecified (principal) | CPT/HCPCS: 36415; 83036 ==